=== PATIENT | male | born 1965 | race Caucasian/White ===

== ENCOUNTER 2016-05-31 14:25 | Inpatient (IN) | payer OTHER ==
[~2016-05-31] VITALS: Ht 180.3 cm; Wt 77.7 kg
[~2016-05-31 14:25] MED LIST: AMLO2.5T PO; ATEN1TAB73 PO; BACL10TA PO; DILA100C PO
[2016-05-31 14:33] VITALS: BP 136/74; PULSE 107; RESP 19; TEMP 98.5; O2SAT 99
[2016-05-31] MEDS ORDERED: PHEN100C PO (14:55)
[2016-05-31] MEDS ORDERED: ATEN25TA PO (14:55)
[2016-05-31] MEDS ORDERED: BACL10TA PO (14:55)
[2016-05-31] MEDS ORDERED: AMLO2.5T PO (14:56)
[2016-05-31] MEDS ORDERED: SODIUM CHLOR 0.9% 1000 ML INJ 1,000 ML IV SCH (14:57)
[2016-05-31 14:58] VITALS: BP 134/63; PULSE 105; RESP 18; TEMP 101.7
[2016-05-31] MEDS ORDERED: MORPHINE SULFATE 4 MG/ML INJ IV PUSH ONE (15:00)
[2016-05-31] MEDS ORDERED: ONDANSETRON HCL 4 MG/2 ML VIAL IVP ONE (15:00)
[2016-05-31] MEDS ORDERED: SODIUM CHLORIDE 0.9% FLUSH 5 ML FLUSH IVF PRN ×2 (15:00→17:00)
[2016-05-31 15:12] VITALS: O2SAT 98
--- NOTE | 2016-05-31 15:16 | PD ---
HPI Chief Complaint: General Weakness Time Seen by Provider: 15:16 Travel History International Travel<30 days: No Contact w/Intl Traveler<30days: No Traveled to known affect area: No History of Present Illness HPI Patient comes in for evaluation of jaundice and low back pain. Patient reports jaundice began approximately 2 months ago and since has not been taking Tylenol or ibuprofen since turning yellow. Patient states that back pain is been ongoing for several years after a slip and fall. Patient states he was told he had some herniated disc from this. He states over the past couple of days he's had pain is low back and difficulty walking secondary to the pain and states he' s had numbness in his left lower extremity ongoing for "a while". Patient is also not had a bowel movement for 3 days has been having urinated into a cup over the past couple days secondary to the pain in his back. Patient denies any weight loss, but feels that his abdomen is distended. Patient denies any history of IV drug use. Reports fever that started yesterday of 101 which she has been giving aspirin for the fever. [facility] Past Medical History Hypertension: Yes Musculoskeletal: Yes (CBP) Seizures: Yes Tetanus Vaccination: Unknown Influenza Vaccination: No Past Surgical History Surgical History: No Previous Surgery Social History Alcohol Use: Yes (OCC.) Tobacco Use: Yes Substance Use: No Allergies-Medications (Allergen,Severity, Reaction): Coded Allergies: Penicillin (Verified Allergy, Unknown, 05/31/16) Reported Meds & Prescriptions Reported Meds & Active Scripts Active Reported Amlodipine (Amlodipine Besylate) 2.5 Mg Tab 7.5 Mg PO DAILY Atenolol 25 Mg Tab 12.5 Mg PO DAILY Baclofen 10 Mg Tab 10 Mg PO TID Phenytoin Extended 100 Mg Cap 100 Mg PO TID Review of Systems Except as stated in HPI: all other systems reviewed are Neg Physical Exam Narrative GENERAL: Well-developed, well nourished, in no acute distress, and non-ill appearing. SKIN: Warm and dry. Jaundice. HEAD: Atraumatic. Normocephalic. EYES: Pupils equal and round. EOMI. Scleral icterus. No injection or drainage. ENT: No nasal bleeding or discharge. Mucous membranes pink and moist. NECK: Trachea midline. Supple. No nuclear rigidity. CARDIOVASCULAR: Regular rate and rhythm. No murmur appreciated. RESPIRATORY: No accessory muscle use. No respiratory distress. Clear to auscultation. Breath sounds equal bilaterally. GASTROINTESTINAL: Abdomen soft, non-tender, nondistended. Hepatic and splenic margins not palpable. Normal bowel sounds 4. No pulsatile mass. Ascites noted. MUSCULOSKELETAL: No obvious deformities. No clubbing. No cyanosis. No edema. Decreased range of motion bilateral lower extremities secondary to pain. Patient reports tenderness over lower lumbar. There is no tenderness or crepitus or midline lumbar spine. Pulses equal BL distal to injury. Capillary refill less than 2 seconds distal to injury and equal BL. FROM distal to injury and equal BL. Strength distal to injury equal BL. NV intact distal to injury and equal BL. Plantar flexion and dorsal flexion equal BL. Dorsal pulses equal BL. Sensation intact over first web space and bilateral lower extremities. Positive straight leg test bilaterally. NEUROLOGICAL: Awake and alert. No obvious cranial nerve deficits. Motor grossly within normal limits. Normal speech. PSYCHIATRIC: Appropriate mood and affect; insight and judgment normal. Data Data Last Documented VS Vital Signs Date Time Temp Pulse Resp B/P Pulse Ox O2 Delivery O2 Flow Rate FiO2 05/31/16 16:21 102 20 119/58 93 Room Air 05/31/16 14:58 101.7 95 Orders Complete Blood Count With Diff (05/31/16 14:57) Comprehensive Metabolic Panel (05/31/16 14:57) Lipase (05/31/16 14:57) Lactic Acid (05/31/16 14:57) Prothrombin Time / Inr (Pt) (05/31/16 14:57) Act Partial Throm Time (Ptt) (05/31/16 14:57) Urinalysis - C+S If Indicated (05/31/16 14:57) Iv Access Insert/Monitor (05/31/16 14:57) Ecg Monitoring (05/31/16 14:57) Oximetry (05/31/16 14:57) NPO (05/31/16 14:57) Morphine Inj (Morphine Inj) (05/31/16 15:00) Ondansetron Inj (Zofran Inj) (05/31/16 15:00) Sodium Chlor 0.9% 1000 Ml Inj (Ns 1000 M (05/31/16 14:57) Sodium Chloride 0.9% Flush (Ns Flush) (05/31/16 15:00) Electrocardiogram (05/31/16 14:57) Direct Bilirubin (05/31/16 15:01) Ct Abd/Pel W Iv Contrast(Rout) (05/31/16 15:04) Oral Contrast - Adult (05/31/16 15:13) Diatrizoate Liq ( Gastroanjali Liq) (05/31/16 16:22) Sodium Chloride 0.9% Flush (Ns Flush) (05/31/16 17:00) Blood Culture (05/31/16 16:48) Vancomycin Inj (Vancomycin Inj) (05/31/16 16:48) Aztreonam Inj (Azactam Inj) (05/31/16 16:48) Metronidazole 500 Mg Inj (Flagyl 500 Mg (05/31/16 16:48) Sodium Chlor 0.9% 1000 Ml Inj (Ns 1000 M (05/31/16 17:00) Iohexol 350 Inj (Omnipaque 350 Inj) (05/31/16 18:18) Influenzae A/B Antigen (05/31/16 18:46) Admit Order (Ed Use Only) (05/31/16 19:04) Labs Laboratory Tests Test 05/31/16 05/31/16 15:15 16:55 White Blood Count 10.8 TH/MM3 Red Blood Count 2.29 MIL/MM3 Hemoglobin 8.9 GM/DL Hematocrit 25.4 % Mean Corpuscular Volume 111.0 FL Mean Corpuscular Hemoglobin 39.0 PG Mean Corpuscular Hemoglobin 35.1 % Concent Red Cell Distribution Width 14.7 % Platelet Count 111 TH/MM3 Mean Platelet Volume 7.3 FL Neutrophils (%) (Auto) 81.5 % Lymphocytes (%) (Auto) 7.9 % Monocytes (%) (Auto) 9.6 % Eosinophils (%) (Auto) 0.4 % Basophils (%) (Auto) 0.6 % Neutrophils # (Auto) 8.8 TH/MM3 Lymphocytes # (Auto) 0.9 TH/MM3 Monocytes # (Auto) 1.0 TH/MM3 Eosinophils # (Auto) 0.0 TH/MM3 Basophils # (Auto) 0.1 TH/MM3 CBC Comment DIFF FINAL Differential Comment Prothrombin Time 20.7 SEC Prothromb Time International 1.8 RATIO Ratio Activated Partial 48.9 SEC Thromboplast Time Sodium Level 133 MEQ/L Potassium Level 3.5 MEQ/L Chloride Level 101 MEQ/L Carbon Dioxide Level 23.0 MEQ/L Anion Gap 9 MEQ/L Blood Urea Nitrogen 7 MG/DL Creatinine 0.70 MG/DL Estimat Glomerular Filtration 118 ML/MIN Rate Random Glucose 112 MG/DL Lactic Acid Level 2.0 mmol/L Calcium Level 7.9 MG/DL Total Bilirubin 15.4 MG/DL Direct Bilirubin 10.5 MG/DL Aspartate Amino Transf 65 U/L (AST/SGOT) Alanine Aminotransferase 29 U/L (ALT/SGPT) Alkaline Phosphatase 132 U/L Total Protein 6.6 GM/DL Albumin 1.9 GM/DL Lipase 222 U/L Urine Color DARK-ORANGE Urine Turbidity HAZY Urine pH 7.0 Urine Specific [place] 1.015 Urine Protein 30 mg/dL Urine Glucose (UA) NEG mg/dL Urine Ketones NEG mg/dL Urine Occult Blood SMALL Urine Nitrite NEG Urine Bilirubin LARGE Urine Urobilinogen GREATER THAN 12.0 MG/DL Urine Leukocyte Esterase NEG Urine RBC 8 /hpf Urine WBC 2 /hpf Urine Hyaline Casts 1 /lpf Urine Mucus FEW /lpf Microscopic Urinalysis Comment CULT NOT INDICATED MDM Medical Decision Making Medical Screen Exam Complete: Yes Emergency Medical Condition: Yes Interpretation(s) EKG reviewed by Dr. Mcgill, shows sinus tachycardia with ventricular rate of 107. No STEMI. Differential Diagnosis Pancreatitis, hepatitis, viral syndrome, sepsis, inflammatory bowel disease, diverticulitis, metastatic disease, other Narrative Course Patient was seen exam. Initial laboratory and radiological orders and reviewed. Patient spiked a fever the emergency department additional laboratory studies were ordered as well as antibiotics and ibuprofen for fever. Patient was given morphine for pain as well as hydrated with IV fluid. Discussed patient with Dr. Mcgill, who saw and evaluated the patient is agreeable with plan of care and disposition. Discussed all findings and plans here with patient's who is agreeable for admission. All questions were answered. Sepsis Criteria SIRS Criteria (2 or more): Temp > 100.9 or < 96.8, Heart rate over 90 Criteria Outcome: Meets SIRS criteria Physician Communication Physician Communication [address] Irving, who is agreeable to admit the patient. Diagnosis Primary Impression: SIRS (systemic inflammatory response syndrome) Additional Impression: Jaundice Shad Soto May 31, 2016 15:16
[2016-05-31 15:36] LABS: AUTOMATED NEUTROPHIL # 8.8 TH/MM3 (1.8-7.7); BASOPHIL # 0.1 TH/MM3 (0-0.2); BASOPHIL % 0.6 % (0.0-2.0); EOSINOPHIL % 0.4 % (0.0-4.0); HEMATOCRIT 25.4 % (39.0-51.0); LYMPH % 7.9 % (9.0-44.0); LYMPHOCYTE # 0.9 TH/MM3 (1.0-4.8); MEAN CORPUSCULAR HGB CONC 35.1 % (32.0-36.0); MONO % 9.6 % (0.0-8.0); NEUT % 81.5 % (16.0-70.0); PLATELET COUNT 111 TH/MM3 (150-450); RED BLOOD COUNT 2.29 MIL/MM3 (4.50-5.90); RED CELL DISTRIBUTION WIDTH 14.7 % (11.6-17.2); WHITE BLOOD COUNT 10.8 TH/MM3 (4.0-11.0)
[2016-05-31 15:38] LABS: HEMO FLAGS DIFF FINAL
[2016-05-31 15:42] LABS: APTT (PATIENT) 48.9 SEC (24.3-30.1); INTERNATIONAL NORMALIZED RATIO 1.8 RATIO; PROTHROMBIN TIME - PATIENT 20.7 SEC (9.8-11.6)
[2016-05-31 15:55] LABS: ANION GAP 9 MEQ/L (5-15); AST (GOT) 65 U/L (15-37); BLOOD UREA NITROGEN 7 MG/DL (7-18); CHLORIDE 101 MEQ/L (98-107); GLOMERULAR FILTRATION RATE 118 ML/MIN (>89); POTASSIUM 3.5 MEQ/L (3.5-5.1); SODIUM (NA) 133 MEQ/L (136-145)
[2016-05-31 15:58] LABS: ALKALINE PHOSPHATASE 132 U/L (45-117); ALT (GPT) 29 U/L (12-78); TOTAL BILIRUBIN ADULT 15.4 MG/DL (0.2-1.0)
[2016-05-31 16:21] VITALS: BP 119/58; PULSE 102; RESP 20; O2SAT 93
[2016-05-31] MEDS ORDERED: DIATRIZOATE MEGLUM/DIATRIZOATE SOD 9 ML CUP ONE (16:22)
[2016-05-31] MEDS ORDERED: AZTREONAM INJ 2,000 MG in SODIUM CHLORIDE 0.9% INJ 100 ML IV STA (16:48)
[2016-05-31] MEDS ORDERED: VANCOMYCIN INJ 1,000 MG in SODIUM CHLOR 0.9% 250 ML INJ 250 ML IV STA (16:48)
[2016-05-31] MEDS ORDERED: metroNIDAZOLE 500 MG INJ 100 ML IV STA (16:48)
[2016-05-31] MEDS ORDERED: SODIUM CHLOR 0.9% 1000 ML INJ 1,000 ML IV ONE (17:00)
[2016-05-31 17:08] LABS: BLOOD, URINE SMALL (NEG); COMMENT (UR) CULT NOT INDICATED; CULTURE IF INDICATED CULT NOT INDICATED; GLUCOSE,URINE NEG (NEG); HYALINE CAST, URINE 1 /lpf (RARE); KETONE, URINE NEG (NEG); MUCUS URINE FEW /lpf (OCC); NITRITE,URINE NEG (NEG); URINE COLOR DARK-ORANGE (YELLW/STRAW)
[2016-05-31] MEDS ORDERED: IOHEXOL 350 MG/ML 10 ML VIAL (for RAD DIAG) IV ONE (18:18)
--- NOTE | 2016-05-31 18:35 | RADRPT ---
EXAM DATE/TIME: 05/31/2016 17:59 [place] COMPARISON: No previous studies available for comparison. INDICATIONS : Jaundice, weakness and abdominal pain. IV CONTRAST: 99 cc Omnipaque 350 (iohexol) IV ORAL CONTRAST: Prescribed oral contrast ingested. RADIATION DOSE: 10.08 CTDIvol (mGy) MEDICAL HISTORY : Hypertension. Jaundice. SURGICAL HISTORY : None. ENCOUNTER: Initial ACUITY: 1 day PAIN SCALE: 10/10 LOCATION: Bilateral lower quadrant TECHNIQUE: Volumetric scanning of the abdomen and pelvis was performed. Using automated exposure control and ad justment of the mA and/or kV according to patient size, radiation dose was kept as low as reasonably achievable to obtain optimal diagnostic quality images. FINDINGS: The lung bases are clear. There is moderate ascites with a small shrunken liver. Gallstone is prese nt in the gallbladder. Spleen is prominent. The portal vein remains patent. Significant varicosities are seen in the abdomen and along the buddy n of the stomach. Periumbilical varicosities are noted as well. In the pelvis moderate ascites is evident with moderate stool present. There are very mild degenerative changes in the lower lumbar spine. SI joints are normal. CONCLUSION: 1. Ascites with varicosities as described above. 2. Casey shrunken liver with prominent spleen all consistent with longstanding cirrhosis. Tanner Willis MD FACR on May 31, 2016 at 18:22 Board Certified Radiologist. This report was verified electronically.
--- NOTE | 2016-05-31 18:47 | PD ---
Data Data Last Documented VS Vital Signs Date Time Temp Pulse Resp B/P Pulse Ox O2 Delivery O2 Flow Rate FiO2 05/31/16 16:21 102 20 119/58 93 Room Air 05/31/16 14:58 101.7 95 Orders Complete Blood Count With Diff (05/31/16 14:57) Comprehensive Metabolic Panel (05/31/16 14:57) Lipase (05/31/16 14:57) Lactic Acid (05/31/16 14:57) Prothrombin Time / Inr (Pt) (05/31/16 14:57) Act Partial Throm Time (Ptt) (05/31/16 14:57) Urinalysis - C+S If Indicated (05/31/16 14:57) Iv Access Insert/Monitor (05/31/16 14:57) Ecg Monitoring (05/31/16 14:57) Oximetry (05/31/16 14:57) NPO (05/31/16 14:57) Morphine Inj (Morphine Inj) (05/31/16 15:00) Ondansetron Inj (Zofran Inj) (05/31/16 15:00) Sodium Chlor 0.9% 1000 Ml Inj (Ns 1000 M (05/31/16 14:57) Sodium Chloride 0.9% Flush (Ns Flush) (05/31/16 15:00) Electrocardiogram (05/31/16 14:57) Direct Bilirubin (05/31/16 15:01) Ct Abd/Pel W Iv Contrast(Rout) (05/31/16 15:04) Oral Contrast - Adult (05/31/16 15:13) Diatrizoate Liq ( Gastroview Liq) (05/31/16 16:22) Sodium Chloride 0.9% Flush (Ns Flush) (05/31/16 17:00) Blood Culture (05/31/16 16:48) Vancomycin Inj (Vancomycin Inj) (05/31/16 16:48) Aztreonam Inj (Azactam Inj) (05/31/16 16:48) Metronidazole 500 Mg Inj (Flagyl 500 Mg (05/31/16 16:48) Sodium Chlor 0.9% 1000 Ml Inj (Ns 1000 M (05/31/16 17:00) Iohexol 350 Inj (Omnipaque 350 Inj) (05/31/16 18:18) Labs Laboratory Tests Test 05/31/16 05/31/16 15:15 16:55 White Blood Count 10.8 TH/MM3 Red Blood Count 2.29 MIL/MM3 Hemoglobin 8.9 GM/DL Hematocrit 25.4 % Mean Corpuscular Volume 111.0 FL Mean Corpuscular Hemoglobin 39.0 PG Mean Corpuscular Hemoglobin 35.1 % Concent Red Cell Distribution Width 14.7 % Platelet Count 111 TH/MM3 Mean Platelet Volume 7.3 FL Neutrophils (%) (Auto) 81.5 % Lymphocytes (%) (Auto) 7.9 % Monocytes (%) (Auto) 9.6 % Eosinophils (%) (Auto) 0.4 % Basophils (%) (Auto) 0.6 % Neutrophils # (Auto) 8.8 TH/MM3 Lymphocytes # (Auto) 0.9 TH/MM3 Monocytes # (Auto) 1.0 TH/MM3 Eosinophils # (Auto) 0.0 TH/MM3 Basophils # (Auto) 0.1 TH/MM3 CBC Comment DIFF FINAL Differential Comment Prothrombin Time 20.7 SEC Prothromb Time International 1.8 RATIO Ratio Activated Partial 48.9 SEC Thromboplast Time Sodium Level 133 MEQ/L Potassium Level 3.5 MEQ/L Chloride Level 101 MEQ/L Carbon Dioxide Level 23.0 MEQ/L Anion Gap 9 MEQ/L Blood Urea Nitrogen 7 MG/DL Creatinine 0.70 MG/DL Estimat Glomerular Filtration 118 ML/MIN Rate Random Glucose 112 MG/DL Lactic Acid Level 2.0 mmol/L Calcium Level 7.9 MG/DL Total Bilirubin 15.4 MG/DL Direct Bilirubin 10.5 MG/DL Aspartate Amino Transf 65 U/L (AST/SGOT) Alanine Aminotransferase 29 U/L (ALT/SGPT) Alkaline Phosphatase 132 U/L Total Protein 6.6 GM/DL Albumin 1.9 GM/DL Lipase 222 U/L Urine Color DARK-ORANGE Urine Turbidity HAZY Urine pH 7.0 Urine Specific [place] 1.015 Urine Protein 30 mg/dL Urine Glucose (UA) NEG mg/dL Urine Ketones NEG mg/dL Urine Occult Blood SMALL Urine Nitrite NEG Urine Bilirubin LARGE Urine Urobilinogen GREATER THAN 12.0 MG/DL Urine Leukocyte Esterase NEG Urine RBC 8 /hpf Urine WBC 2 /hpf Urine Hyaline Casts 1 /lpf Urine Mucus FEW /lpf Microscopic Urinalysis Comment CULT NOT INDICATED MDM Supervised Visit with ANALY: Yes Narrative Course The history, exam, and medical decision-making in the associated mid-level provider note were completed with my assistance. I reviewed and agree with the findings presented. I attest that I had a [id number] encounter with the patient on the same day, and personally performed and documented my assessment and findings in the medical record. *My assessment and Findings: The 51-year-old man presents emergent [place] of severe low back pain rating the left leg with left leg numbness. He has chronic baseline similar symptoms bilirubin all worse over past day or so. He also has jaundice and has chronic cirrhosis that he never really had it evaluated. On my exam he has diminished patellar reflex on the left and his trip and numbness on the outside a lot lately no evidence of cauda equina syndrome. Normal rectal tone. Normal perineal sensation. While in the emergency department he spiked a fever up to 101.7, etiology unclear. Seems again would be related to the back pain, which is possibly related to cirrhosis. Any case, he needs admission for further evaluation, blood cultures were obtained. He is given empiric antibiotics. Patient denies IV drug use or other risk factors for epidural abscess. Max Mcgill MD May 31, 2016 18:46
[2016-05-31 19:13] VITALS: BP 115/78; PULSE 105; RESP 16; O2SAT 96
[2016-05-31] MEDS ORDERED: NALOXONE HCL 0.4 MG/ML AMP IV PRN (20:15)
[2016-05-31] MEDS ORDERED: SODIUM CHLORIDE 0.9% FLUSH 5 ML FLUSH FLUSH PRN (20:15)
[2016-05-31] MEDS: SODIUM CHLORIDE 0.9% FLUSH 5 ML FLUSH FLUSH SCH (20:52)
[2016-05-31 21:05] LABS: HEMATOCRIT 23.2 % (39.0-51.0)
[2016-05-31 21:06] LABS: REVIEW FLAG FINAL
[2016-05-31] MEDS ORDERED: ONDANSETRON HCL 4 MG/2 ML VIAL IVP PRN (22:00)
[2016-05-31] MEDS: PANTOPRAZOLE SODIUM 40 MG VIAL IV PUSH SCH (22:18)
[2016-05-31 22:30] VITALS: BP 110/68; PULSE 109; RESP 16; O2SAT 95
[2016-05-31] MEDS: metroNIDAZOLE 500 MG INJ 100 ML IV SCH (23:12)
[2016-06-01 00:08] VITALS: BP 118/56; PULSE 109; RESP 20; TEMP 98.4; O2SAT 94
[2016-06-01 01:03] VITALS: PULSE 105
[2016-06-01 03:12] LABS: AUTOMATED NEUTROPHIL # 8.3 TH/MM3 (1.8-7.7); BASOPHIL # 0.1 TH/MM3 (0-0.2); BASOPHIL % 0.8 % (0.0-2.0); HEMATOCRIT 24.6 % (39.0-51.0); LYMPH % 9.2 % (9.0-44.0); MEAN CELL VOLUME 112.2 FL (80.0-100.0); MEAN CORPUSCULAR HEMOGLOBIN 39.5 PG (27.0-34.0); MEAN CORPUSCULAR HGB CONC 35.2 % (32.0-36.0); MONO % 10.3 % (0.0-8.0); NEUT % 79.7 % (16.0-70.0); PLATELET COUNT 113 TH/MM3 (150-450); RED BLOOD COUNT 2.19 MIL/MM3 (4.50-5.90); RED CELL DISTRIBUTION WIDTH 15.1 % (11.6-17.2); WHITE BLOOD COUNT 10.4 TH/MM3 (4.0-11.0)
[2016-06-01 03:13] LABS: HEMO FLAGS DIFF FINAL
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
[2016-06-01 03:25] LABS: BICARBONATE 23.4 MEQ/L (21.0-32.0); POTASSIUM 3.9 MEQ/L (3.5-5.1)
[2016-06-01 04:45] VITALS: BP 108/56; PULSE 104; RESP 20; TEMP 98.4; O2SAT 94
[2016-06-01] MEDS: metroNIDAZOLE 500 MG INJ 100 ML IV SCH (04:56)
--- NOTE | 2016-06-01 05:44 | RADRPT ---
EXAM DATE/TIME: 06/01/2016 05:13 [facility] COMPARISON: No previous studies available for comparison. INDICATIONS : Back pain along with difficulty walking. Evaluate for abscess. RADIATION DOSE: 23.33 CTDIvol (mGy) MEDICAL HISTORY : Seizures. Hypertension. Chronic obstructive pulmonary disease.Cirrhosis SURGICAL HISTORY : None. ENCOUNTER: Initial ACUITY: 2 days PAIN SCALE: 4/10 LOCATION: neck TECHNIQUE: Volumetric scanning of the cervical spine was performed. Multiplanar reconstructions in the sagittal, coronal and oblique axial planes were performed. Using automated exposure control and adjustment o f the mA and/or kV according to patient size, radiation dose was kept as low as reasonably achievable to obtain optimal diagnostic quality images. FINDINGS: There is minimal retrolisthesis C5 relative to C6. Significant disc space narrowing is present at thi s level. Small endplate osteophytes. There is no evidence of fracture or destructive change. No evide nce of bony canal or foraminal compromise. No evidence of paraspinal mass, collection or hematoma. CONCLUSION: Mild degenerative change. No acute bony findings. Joseph Cook MD on June 01, 2016 at 5:41 Board Certified Radiologist. This report was verified electronically.
--- NOTE | 2016-06-01 06:09 | RADRPT ---
EXAM DATE/TIME: 06/01/2016 05:13 [facility] COMPARISON: No previous studies available for comparison. INDICATIONS : Back pain and difficulty walking . Evaluate for abscess. RADIATION DOSE: 45.86 CTDIvol (mGy) MEDICAL HISTORY : Seizures. Hypertension. Chronic obstructive pulmonary disease.Cirrhosis SURGICAL HISTORY : None. ENCOUNTER: Initial ACUITY: 2 days PAIN SCALE: 4/10 LOCATION: back TECHNIQUE: Volumetric scanning of the thoracic spine was performed. Multiplanar reconstructions in the sagittal , coronal and oblique axial planes were performed. Using automated exposure control and adjustment o f the mA and/or kV according to patient size, radiation dose was kept as low as reasonably achievable to obtain optimal diagnostic quality images. FINDINGS: Thoracic spinal alignment is satisfactory. There is no evidence of fracture. No bony canal or foramin al stenosis is noted. There is no evidence of paraspinal mass or hematoma. CONCLUSION: No evidence of acute bony process in the thoracic spine. Joseph Cook MD on June 01, 2016 at 6:06 Board Certified Radiologist. This report was verified electronically.
--- NOTE | 2016-06-01 06:11 | RADRPT ---
EXAM DATE/TIME: 06/01/2016 05:13 [facility] COMPARISON: No previous studies available for comparison. INDICATIONS : Back pain and difficulty walking . Evaluate for abscess. RADIATION DOSE: 45.86 CTDIvol (mGy) ; Combined studies MEDICAL HISTORY : Seizures. Hypertension. Chronic obstructive pulmonary disease.Cirrhosis SURGICAL HISTORY : None. ENCOUNTER: Initial ACUITY: 2 days PAIN SCALE: 4/10 LOCATION: middle back pain TECHNIQUE: Volumetric scanning of the lumbar spine was performed. Multiplanar reconstructions in the sagittal, coronal and oblique axial planes were performed. Using automated exposure control and adjustment of the mA and/or kV according to patient size, radiation dose was kept as low as reasonably achievable t o obtain optimal diagnostic quality images. FINDINGS: Lumbar spine alignment is normal. There is no evidence of fracture or destructive change. No bony can al stenosis is identified. There is degenerative change with disc space narrowing most notably at L5- S1. There appears to be broad dorsal disc protrusion at this level. Canal appears adequate. Mild asym metrically left-sided foraminal narrowing. There is no evidence of paraspinal mass or hematoma. CONCLUSION: Disc protrusion at the lumbosacral junction with mild asymmetric left-sided foraminal narrowing. No a cute bony findings. Joseph Cook MD on June 01, 2016 at 6:08 Board Certified Radiologist. This report was verified electronically.
--- NOTE | 2016-06-01 06:41 | RADRPT ---
EXAM DATE/TIME: 06/01/2016 06:12 [facility] COMPARISON: CT ABDOMEN & PELVIS W CONTRAST, May 31, 2016, 17:59. INDICATIONS : Chest pain MEDICAL HISTORY : Seizures. Hypertension. Chronic obstructive pulmonary disease.Cirrhosis SURGICAL HISTORY : None. ENCOUNTER: Initial ACUITY: 1 day PAIN SCORE: Non-responsive. LOCATION: Bilateral chest FINDINGS: A single view of the chest demonstrates the lungs to be symmetrically aerated without evidence of mas s, infiltrate or effusion. The cardiomediastinal contours are unremarkable. Osseous structures are intact. CONCLUSION: No acute disease. Joseph Cook MD on June 01, 2016 at 6:38 Board Certified Radiologist. This report was verified electronically.
[2016-06-01 07:56] VITALS: BP 108/59; PULSE 103; RESP 18; TEMP 100.5; O2SAT 94
--- NOTE | 2016-06-01 08:35 | HHI.PR ---
Subjective Remarks Follow-up for back pain and jaundice. The patient continues to complain of lower back pain. Had been on Flexeril in the past which helped "back off" the pain. He feels like he is having to drag his leg due to the pain. He denies any prior history of liver disease. He's been having fevers, chills, night sweats. He denies any cough or cold symptoms, vomiting, diarrhea, skin lesions. Objective Vitals Vital Signs Date Time Temp Pulse Resp B/P Pulse Ox O2 Delivery O2 Flow Rate FiO2 06/01/16 07:56 100.5 103 18 108/59 94 06/01/16 04:45 98.4 104 20 108/56 94 06/01/16 01:03 105 06/01/16 00:08 98.4 109 20 118/56 94 05/31/16 22:30 109 16 110/68 95 Room Air 05/31/16 19:13 105 16 115/78 96 Room Air 05/31/16 16:21 102 20 119/58 93 Room Air 05/31/16 15:12 98 Room Air 05/31/16 14:58 101.7 105 18 134/63 Room Air 95 05/31/16 14:35 Room Air 05/31/16 14:33 98.5 107 19 136/74 99 Result Diagram: 06/01/16 0243 06/01/16 0243 Imaging Last Impressions Thoracic Spine CT 06/01/16 0000 Signed Impressions: Service Date/Time: Wednesday, June 01, 2016 05:13 - CONCLUSION: No evidence of acute bony process in the thoracic spine. Joseph Cook MD Lumbar Spine CT 06/01/16 0000 Signed Impressions: Service Date/Time: Wednesday, June 01, 2016 05:13 - CONCLUSION: Disc protrusion at the lumbosacral junction with mild asymmetric left-sided foraminal narrowing. No acute bony findings. Joseph Cook MD Chest X-Ray 06/01/16 0000 Signed Impressions: Service Date/Time: Wednesday, June 01, 2016 06:12 - CONCLUSION: No acute disease. Joseph Cook MD Cervical Spine CT 06/01/16 0000 Signed Impressions: Service Date/Time: Wednesday, June 01, 2016 05:13 - CONCLUSION: Mild degenerative change. No acute bony findings. Joseph Cook MD Abdomen/Pelvis CT 05/31/16 1504 Signed Impressions: Service Date/Time: Tuesday, May 31, 2016 17:59 - CONCLUSION: 1. Ascites with varicosities as described above. 2. Casey shrunken liver with prominent spleen all consistent with longstanding cirrhosis. Tanner Willis MD FACR Objective Remarks GENERAL: Well-developed well-nourished. In no acute distress. SKIN: Warm and dry. No lesions noted. Jaundiced. HEENT: Normocephalic. Pupils equal and round. Mucous membranes pink and moist. CARDIOVASCULAR: Regular rate and rhythm. No murmur appreciated. RESPIRATORY: No accessory muscle use. Clear to auscultation. Breath sounds equal bilaterally. GASTROINTESTINAL: Abdomen soft, non-tender, nondistended. Bowel sounds x4. MUSCULOSKELETAL: No obvious deformities. No clubbing or cyanosis. No edema. Lower back pain with ROM of bilateral hip joints. NEUROLOGICAL: Awake and alert. No focal neurological deficits. Moves upper and lower extremities spontaneously. Normal speech. PSYCHIATRIC: Appropriate mood and affect; insight and judgment normal. A/P Problem List: (1) Jaundice ICD Code: R17 Status: Acute (2) SIRS (systemic inflammatory response syndrome) ICD Code: R65.10 Status: Acute (3) Back pain ICD Code: M54.9 Status: Chronic (4) Anemia ICD Code: D64.9 Status: Acute (5) HTN (hypertension) ICD Code: I10 Status: Chronic (6) Seizures ICD Code: R56.9 Status: Chronic Assessment and Plan 51-year-old male with a history of chronic back pain, hypertension seizures presented with: Jaundice Images reviewed: Abdomen/pelvis CT shows Ascites with varicosities as described above. A Small shrunken liver with prominent spleen all consistent with longstanding cirrhosis. Labs reviewed: Total bilirubin 15.4, AST 65, alkaline phosphatase 132. -Consulted GI for recommendations -Protonix IV -Check LFTs with bilirubin components, hepatitis panel Sirs, heart rate 105, Tmax 101.7, lactic acid 2.0 UA negative. Chest x-ray with no acute process. -Levofloxacin IV and Flagyl IV ordered -Blood cultures pending -Supportive IVF -Could consider ID consult Acute on chronic lower back pain Imaging reviewed: Cervical and thoracic CTs with no acute process. Lumbar CT with disc protrusion at lower sacral drunk walden with mild asymmetric left-sided foraminal narrowing, no acute bony findings. -Continue home Flexeril -Heating pad -PT eval Macrocytic Anemia Labs: Hemoglobin 8.6/8.2/8.9, stable. B12 greater than 2000. -Follow up CBC -Check folate and iron studies Seizures, chronic -Changed patient's Dilantin to Keppra 250 mg by mouth every 12 due to decreased liver function -Seizure precautions -Check Dilantin level Hypertension, chronic, stable -Continue home atenolol and Norvasc -Monitor vitals DVT prophylaxis: Scds Discharge Planning Disposition pending clinical course Attending Statement The exam, history, and the medical decision-making described in the above note were completed with the assistance of the mid-level provider. I reviewed and agree with the findings presented. I attest that I had a [id number] encounter with the patient on the same day, and personally performed and documented my assessment and findings in the medical record. Problem Qualifiers (1) Back pain: (2) HTN (hypertension): Qualified Code: I10 - Essential hypertension Ezequiel Wilburn Jun 01, 2016 08:35 Garrison Vaca MD Jun 20, 2016 03:13
[2016-06-01] MEDS: amLODIPine BESYLATE 5 MG TAB PO SCH (09:00)
[2016-06-01] MEDS ORDERED: LEVOFLOXACIN 750 MG PREMIX INJ 150 ML IV SCH (09:00)
[2016-06-01] MEDS ORDERED: BACLOFEN 10 MG TAB PO SCH (09:00)
[2016-06-01] MEDS: CYCLOBENZAPRINE HCL 10 MG TAB PO SCH ×3 (09:46→23:48)
[2016-06-01] MEDS: SODIUM CHLORIDE 0.9% FLUSH 5 ML FLUSH FLUSH SCH ×2 (09:46→21:46)
[2016-06-01] MEDS: ATENOLOL 25 MG TAB PO SCH (09:46)
[2016-06-01] MEDS: PANTOPRAZOLE SODIUM 40 MG VIAL IV PUSH SCH ×2 (09:47→21:47)
[2016-06-01 10:56] LABS: ALKALINE PHOSPHATASE 111 U/L (45-117); ALT (GPT) 30 U/L (12-78); AST (GOT) 74 U/L (15-37); FERRITIN 447 NG/ML (26-388); INDIRECT BILIRUBIN 6.3 MG/DL (0.0-0.8); TOTAL BILIRUBIN ADULT 16.9 MG/DL (0.2-1.0); TRANSFERRIN IRON PROFILE 122 MG/DL (200-360)
[2016-06-01] MEDS ORDERED: Vancomycin Consult Pharmacy 1 EA OTHER SCH (11:15)
[2016-06-01] MEDS ORDERED: VANCOMYCIN INJ 1,000 MG in SODIUM CHLOR 0.9% 250 ML INJ 250 ML IV ONE (11:15)
--- NOTE | 2016-06-01 11:18 | PD.CONS ---
HPI History of Present Illness This is a 51 year old male patient who came to the ER for evaluation of a 3 day history of lower back pain with numbness and pain down his left leg. This is aggravated by movement, but he has the numbness constantly. He reports fevers and chills since yesterday. He also had a bad fever about 103 or 104 about 4 weeks. He did have nausea/vomiting at that time, but states his symptoms quickly resolved on its own. Lumbar Spine CT (06/01/16) revealed disc protrusion at the lumbosacral junction with mild asymmetric left-sided foraminal narrowing. No acute bony findings. He was also noted to have elevated LFTs with. T. Bili 15.4, AST 65, ALT 29, ALk Phosph 132 and Abdomen/ Pelvis CT (05/31/16) revealed 1. Ascites with varicosities as described above. 2. Casey shrunken liver with prominent spleen all consistent with longstanding cirrhosis. GI has been consulted for jaundice/elevated LFTs. The patient denies any known history of liver disease in himself or other family members. He reports that he has been having jaundice x 2-3 months. His states this got bad a few weeks ago. He denies any nausea or vomiting. He does have mild epigastric/mid abdominal pressure with no radiation and no aggravating or alleviating factors. No heartburn or reflux. He denies any bowel changes, diarrhea, constipation, melena, or hematochezia. He reports that his appetite is good and he has not lost any weight. He has a hx of heavy ETOH use and states he quit 5-6 months ago and has not had any since that time. He has been taking 5-6 Acetaminophen per day for a few months. He denies any hx of drug use or blood transfusions. He denies any new sexual partners. He denies any history of hepatitis. (Jeannine Trujillo) PFSH Past Medical History Chronic back pain Hypertension Seizures COPD Past Surgical History Patient denies any surgical history (Jeannine Trujillo) Coded Allergies: Penicillin (Verified Allergy, Unknown, 05/31/16) Medications Allergies Coded Allergies Type Severity Reaction Last Updated Verified Penicillin Allergy Unknown 05/31/16 Yes Active Scripts Medications Dose Route/Sig Days Date Category Amlodipine (Amlodipine Besylate) 2.5 Mg Tab 7.5 Mg PO DAILY 05/31/16 Reported Atenolol 25 Mg Tab 12.5 Mg PO DAILY 05/31/16 Reported Baclofen 10 Mg Tab 10 Mg PO TID 05/31/16 Reported Phenytoin Extended 100 Mg Cap 100 Mg PO TID 05/31/16 Reported Family History Mother had heart disease. No known family hx of liver dz Social History Smokes1 ppd Alcohol use: Quit 6 months ago Illicit drug use: Denies (Jeannine Trujillo) Review of Systems Constitutional: COMPLAINS OF: Fatigue, Fever, Chills, DENIES: Weight loss, Change in appetite Respiratory: COMPLAINS OF: Cough, Shortness of breath Cardiovascular: DENIES: Chest pain Gastrointestinal: COMPLAINS OF: Abdominal pain, DENIES: Black stools, Bloody stools, Constipation, Diarrhea, Nausea, Vomiting, Anorexia, Swelling of Abdomen , Heartburn, Hematemesis Musculoskeletal: COMPLAINS OF: Muscle aches, Stiffness, Back pain Integumentary: COMPLAINS OF: Jaundice Hematologic/lymphatic: DENIES: Bruising Neurologic: COMPLAINS OF: Paresthesias, DENIES: Headache Psychiatric: DENIES: Confusion (Jeannine Trujillo) GI Exam Vitals I&O Vital Signs Date Time Temp Pulse Resp B/P Pulse Ox O2 Delivery O2 Flow Rate FiO2 06/01/16 07:56 100.5 103 18 108/59 94 06/01/16 04:45 98.4 104 20 108/56 94 06/01/16 01:03 105 06/01/16 00:08 98.4 109 20 118/56 94 05/31/16 22:30 109 16 110/68 95 Room Air 05/31/16 19:13 105 16 115/78 96 Room Air 05/31/16 16:21 102 20 119/58 93 Room Air 05/31/16 15:12 98 Room Air 05/31/16 14:58 101.7 105 18 134/63 Room Air 95 05/31/16 14:35 Room Air 05/31/16 14:33 98.5 107 19 136/74 99 Imaging Last Impressions Thoracic Spine CT 06/01/16 0000 Signed Impressions: Service Date/Time: Wednesday, June 01, 2016 05:13 - CONCLUSION: No evidence of acute bony process in the thoracic spine. Joseph Cook MD Lumbar Spine CT 06/01/16 0000 Signed Impressions: Service Date/Time: Wednesday, June 01, 2016 05:13 - CONCLUSION: Disc protrusion at the lumbosacral junction with mild asymmetric left-sided foraminal narrowing. No acute bony findings. Joseph Cook MD Chest X-Ray 06/01/16 0000 Signed Impressions: Service Date/Time: Wednesday, June 01, 2016 06:12 - CONCLUSION: No acute disease. Joseph Cook MD Cervical Spine CT 06/01/16 0000 Signed Impressions: Service Date/Time: Wednesday, June 01, 2016 05:13 - CONCLUSION: Mild degenerative change. No acute bony findings. Joseph Cook MD Abdomen/Pelvis CT 05/31/16 1504 Signed Impressions: Service Date/Time: Tuesday, May 31, 2016 17:59 - CONCLUSION: 1. Ascites with varicosities as described above. 2. Casey shrunken liver with prominent spleen all consistent with longstanding cirrhosis. Tanner Willis MD FACR Laboratory Test 05/31/16 05/31/16 05/31/16 06/01/16 15:15 16:55 20:35 02:43 White Blood Count 10.8 TH/MM3 10.4 TH/MM3 Red Blood Count 2.29 MIL/MM3 2.19 MIL/MM3 Hemoglobin 8.9 GM/DL 8.2 GM/DL 8.6 GM/DL Hematocrit 25.4 % 23.2 % 24.6 % Mean Corpuscular Volume 111.0 FL 112.2 FL Mean Corpuscular Hemoglobin 39.0 PG 39.5 PG Mean Corpuscular Hemoglobin 35.1 % 35.2 % Concent Red Cell Distribution Width 14.7 % 15.1 % Platelet Count 111 TH/MM3 113 TH/MM3 Mean Platelet Volume 7.3 FL 7.2 FL Neutrophils (%) (Auto) 81.5 % 79.7 % Lymphocytes (%) (Auto) 7.9 % 9.2 % Monocytes (%) (Auto) 9.6 % 10.3 % Eosinophils (%) (Auto) 0.4 % 0.0 % Basophils (%) (Auto) 0.6 % 0.8 % Neutrophils # (Auto) 8.8 TH/MM3 8.3 TH/MM3 Lymphocytes # (Auto) 0.9 TH/MM3 1.0 TH/MM3 Monocytes # (Auto) 1.0 TH/MM3 1.1 TH/MM3 Eosinophils # (Auto) 0.0 TH/MM3 0.0 TH/MM3 Basophils # (Auto) 0.1 TH/MM3 0.1 TH/MM3 CBC Comment DIFF FINAL DIFF FINAL Differential Comment Prothrombin Time 20.7 SEC Prothromb Time International 1.8 RATIO Ratio Activated Partial 48.9 SEC Thromboplast Time Sodium Level 133 MEQ/L 136 MEQ/L Potassium Level 3.5 MEQ/L 3.9 MEQ/L Chloride Level 101 MEQ/L 104 MEQ/L Carbon Dioxide Level 23.0 MEQ/L 23.4 MEQ/L Anion Gap 9 MEQ/L 9 MEQ/L Blood Urea Nitrogen 7 MG/DL 9 MG/DL Creatinine 0.70 MG/DL 0.85 MG/DL Estimat Glomerular Filtration 118 ML/MIN 95 ML/MIN Rate Random Glucose 112 MG/DL 120 MG/DL Lactic Acid Level 2.0 mmol/L Calcium Level 7.9 MG/DL 7.7 MG/DL Total Bilirubin 15.4 MG/DL Direct Bilirubin 10.5 MG/DL Aspartate Amino Transf 65 U/L (AST/SGOT) Alanine Aminotransferase 29 U/L (ALT/SGPT) Alkaline Phosphatase 132 U/L Total Protein 6.6 GM/DL Albumin 1.9 GM/DL Lipase 222 U/L Urine Color DARK-ORANGE Urine Turbidity HAZY Urine pH 7.0 Urine Specific [place] 1.015 Urine Protein 30 mg/dL Urine Glucose (UA) NEG mg/dL Urine Ketones NEG mg/dL Urine Occult Blood SMALL Urine Nitrite NEG Urine Bilirubin LARGE Urine Urobilinogen GREATER THAN 12.0 MG/DL Urine Leukocyte Esterase NEG Urine RBC 8 /hpf Urine WBC 2 /hpf Urine Hyaline Casts 1 /lpf Urine Mucus FEW /lpf Microscopic Urinalysis Comment CULT NOT INDICATED Blood Type A POSITIVE Antibody Screen NEGATIVE Blood Bank Comment Vitamin B12 Level GREATER THAN 2000 PG/ML Test 06/01/16 09:59 Iron Level 69 MCG/DL Total Iron Binding Capacity 171 MCG/DL Percent Iron Saturation 40.4 % Ferritin 447 NG/ML Total Bilirubin 16.9 MG/DL Direct Bilirubin 10.6 MG/DL Indirect Bilirubin 6.3 MG/DL Aspartate Amino Transf 74 U/L (AST/SGOT) Alanine Aminotransferase 30 U/L (ALT/SGPT) Alkaline Phosphatase 111 U/L Total Protein 6.6 GM/DL Albumin 1.8 GM/DL Folate 11.5 NG/ML Phenytoin (Dilantin) Level LESS THAN 0.4 MCG/ML Date/Time Procedure Status Source Growth 05/31/16 17:10 Aerobic Blood Culture Received Blood Peripheral Pending 05/31/16 17:10 Anaerobic Blood Culture Received Blood Peripheral Pending Physical Examination HEENT: Normocephalic; atraumatic; + jaundice. CHEST: CTA CARDIAC: RRR ABDOMEN: Soft, nondistended, mild epigastric tenderness; hepatosplenomegaly; bowel sounds are present in all four quadrants. EXTREMITIES: No clubbing, cyanosis, or edema. SKIN: Normal; no rash; + jaundice. UNDERGROUND REPAIRER: Alert and oriented times three. (Jeannine Trujillo) Assessment and Plan Plan ASSESSMENT: - Jaundice, Elevated LFTs. Abdomen/Pelvis CT (05/31/16) revealed 1. Ascites with varicosities as described above. 2. Casey shrunken liver with prominent spleen all consistent with longstanding cirrhosis. Pt denies any known hx of liver disease or cirrhosis in himself or family. He reports hx of heavy ETOH abuse, but quit 6 months ago and has not had any ETOH since that time. He denies any GI symptoms other than mild epigastric/midabdominal pressure. He reports that he has been jaundiced 2-3 months. Denies weight loss. He has been taking 5-6 Acetaminophen per day for a few months. He denies any hx of drug use or blood transfusions. He denies any new sexual partners. He denies any history of hepatitis. - Liver cirrhosis. New dx. CT Abdomen/Pelvis CT (05/31/16) revealed 1. Ascites with varicosities as described above. 2. Casey shrunken liver with prominent spleen all consistent with longstanding cirrhosis. MELD 23. Pt reports hx of heavy ETOH abuse, states he quit completely x 5-6 months ago. - Coagulopathy/Thrombocytopenia. PT 20.7, INR 1.8. Plt 113. - Anemia. 8.6/24.6. No active bleeding. - Back pain with lle weakness/numbness. - COPD, HTN. PLAN: - Low salt diet - Stat Acetaminophen level- use earliest blood available from this hospitalization - PT/INR and Ammonia today - Hepatitis profile - AFP - [place], ASMA, AMA - Ceruloplasmin, Alpha 1 Antitrypsin - Iron Saturation, Ferritin - Monitor LFTs - Avoid hepatotoxic meds - Supportive care - Further recommendations to follow based on results of above - Pt seen and examined by Dr. Viveros and myself and this note is written on his behalf (Jeannine Trujillo) Physician Comments Seen and examined, Start mucomyst PO as per protocol. He has been taking a lot of acetaminophen and motrins. Acetaminophen levels-p. Hepatitis profile ordered. Paracentesis recommended. Will follow, thank you (Anuel Viveros MD) Jeannine Trujillo Jun 01, 2016 11:18 Anuel Viveros MD Jun 01, 2016 12:01
[2016-06-01] MEDS: levETIRAcetam 250 MG TAB PO SCH ×2 (11:36→21:50)
[2016-06-01 12:08] VITALS: BP 95/59; PULSE 79; RESP 18; TEMP 98.8; O2SAT 98
[2016-06-01 12:41] LABS: INTERNATIONAL NORMALIZED RATIO 1.9 RATIO; PROTHROMBIN TIME - PATIENT 22.1 SEC (9.8-11.6)
[2016-06-01] MEDS ORDERED: ACETYLCYSTEINE 20% ORAL SOLN 4 ML VIAL PO SCH (13:00)
[2016-06-01] MEDS ORDERED: ACETYLCYSTEINE 20% 6,000 MG/30 ML ORAL SOLN VIAL PO SCH (14:00)
--- NOTE | 2016-06-01 14:08 | PD.ID.CON ---
History of Present Illness Service Infectious Disease Consult Requested By /Ezequiel RODRÍGUEZ. Reason for Consult Evaluation and Mment of bacteremia, sepsis. Primary Care Physician No Primary Care Physician Diagnoses: History of Present Illness Mr. Fonseca is a 51 y/o CM patient who came to the ER for evaluation of a 3 day history of lower back pain with numbness and pain down his left leg. This is aggravated by movement, but he has the numbness constantly. He reports fevers and chills since last 4 weeks associated with night sweats. He also had a bad fever about 103 or 104 about 4 weeks. He did have nausea/vomiting at that time , but states his symptoms quickly resolved on its own. Lumbar Spine CT (06/01/16 ) revealed disc protrusion at the lumbosacral junction with mild asymmetric left -sided foraminal narrowing. No acute bony findings. He was also noted to have elevated LFTs with. T. Bili 15.4, AST 65, ALT 29, ALk Phosph 132. Abdomen/Pelvis CT (05/31/16) revealed 1. Ascites with varicosities as described above. 2. Small shrunken liver with prominent spleen all consistent with longstanding cirrhosis. GI has been consulted for jaundice/ elevated LFTs and paracentesis planned for today. He reports that he has been having jaundice x 2-3 months. He denies any nausea or vomiting. He does have mild epigastric/mid abdominal pressure with no radiation and no aggravating or alleviating factors. No heartburn or reflux. He denies any bowel changes, diarrhea, constipation, melena, or hematochezia. He reports that his appetite is good and he has not lost any weight. He has a hx of heavy ETOH use and states he quit 5-6 months ago and has not had any since that time. He has been taking 5-6 Acetaminophen per day for a few months. He denies any hx of drug use or blood transfusions. He denies any new sexual partners. He denies any history of hepatitis. He reports being tested for HIV and negative results. BCX drawn on admission positive for Gram positives. ID is consulted for evaluation and Mment of Sepsis and Gram positive bacteremia. I called [facility] in bcx are strep. Review of Systems ROS Limitations: Poor Historian Constitutional: COMPLAINS OF: Fever, Chills, Night Sweats, DENIES: Diaphoretic episodes, Fatigue, Weight gain, Weight loss, Dizziness, Change in appetite Endocrine: DENIES: Heat/cold intolerance, Polydipsia, Polyuria, Polyphagia Eyes: DENIES: Blurred vision, Diplopia, Eye inflammation, Eye pain, Vision loss , Photosensitivity, Double Vision Ears, nose, mouth, throat: DENIES: Tinnitus, Hearing loss, Vertigo, Nasal discharge, Oral lesions, Throat pain, Hoarseness, Ear Pain, Running Nose, Epistaxis, Sinus Pain, Toothache, Odynophagia Respiratory: DENIES: Apneas, Cough, Snoring, Wheezing, Hemoptysis, Sputum production, Shortness of breath Cardiovascular: DENIES: Chest pain, Palpitations, Syncope, Dyspnea on Exertion , PND, Lower Extremity Edema, Orthopnea, Claudication Gastrointestinal: COMPLAINS OF: Abdominal pain, DENIES: Black stools, Bloody stools, Constipation, Diarrhea, Nausea, Vomiting, Difficulty Swallowing, Anorexia Genitourinary: DENIES: Sexual dysfunction, Urinary frequency, Urinary incontinence, Urgency, Hematuria, Dysuria, Nocturia, Penile Discharge, Testicular Pain, Testicular Swelling Musculoskeletal: COMPLAINS OF: Joint pain, Stiffness, Back pain, DENIES: Muscle aches, Joint Swelling, Neck pain Integumentary: DENIES: Abnormal pigmentation, Nail changes, Pruritus, Rash Hematologic/lymphatic: DENIES: Bruising, Lymphadenopathy Immunologic/allergic: DENIES: Eczema, Urticaria Neurologic: COMPLAINS OF: Abnormal gait, Localized weakness, Paresthesias, Seizures, Poor Balance, DENIES: Headache, Speech Problems, Tremor Psychiatric: DENIES: Anxiety, Confusion, Mood changes, Depression, Hallucinations, Agitation, Suicidal Ideation, Homicidal Ideation, Delusions Past Family Social History Allergies: Coded Allergies: Penicillin (Verified Allergy, Unknown, 05/31/16) Past Medical History Chronic back pain Hypertension Seizures COPD Past Surgical History Patient denies any surgical history Reported Medications Reported Meds & Active Scripts Active Reported Amlodipine (Amlodipine Besylate) 2.5 Mg Tab 7.5 Mg PO DAILY Atenolol 25 Mg Tab 12.5 Mg PO DAILY Baclofen 10 Mg Tab 10 Mg PO TID Phenytoin Extended 100 Mg Cap 100 Mg PO TID Active Ordered Medications Current Medications Medications (Trade) Dose Ordered Sig/Adriano Route Start Time Stop Time Status Last Admin (NS Flush) 2 ml UNSCH PRN IVF 05/31/16 17:00 (NS Flush) 2 ml UNSCH PRN FLUSH 05/31/16 20:15 (NS Flush) 2 ml BID FLUSH 05/31/16 21:00 06/01/16 09:46 (Zofran Inj) 4 mg Q6H PRN IVP 05/31/16 22:00 (Narcan Inj) 0.4 mg UNSCH PRN IV 05/31/16 20:15 (Protonix Inj) 40 mg Q12HR IV PUSH 05/31/16 21:00 06/01/16 09:47 (Norvasc) 7.5 mg DAILY PO 06/01/16 09:00 (Tenormin) 12.5 mg DAILY PO 06/01/16 09:00 06/01/16 09:46 (Pill Splitter) 1 ea UNSCH PRN OTHER 06/01/16 04:45 (Keppra) 250 mg Q12HR PO 06/01/16 09:00 06/01/16 11:36 Cyclobenzaprine HCl 10 mg 10 mg Q8H PO 06/01/16 09:00 06/01/16 16:40 Pharmacy Profile Note 0 ml @ 0 mls/hr UNSCH OTHER 06/01/16 11:15 (Vancomycin Inj/ NS 250 ml Inj) 262.5 ml @ 250 mls/hr Q12H IV 06/01/16 14:00 06/01/16 14:35 Miscellaneous Information SPECIFIC LAB TO BE DRAWN:VANCOMYCIN TROUGH DATE TO... ONCE ONCE XX 06/03/16 01:45 06/03/16 01:46 Sodium Chloride 1,000 ml @ 42 mls/hr [id number] IV 06/01/16 12:15 06/01/16 14:36 (Azactam Inj/NS Inj) 100 ml @ 200 mls/hr Q8H IV 06/01/16 16:00 06/01/16 18:00 (Mucomyst 20% Liq) 600 mg BID PO 06/01/16 15:00 06/01/16 16:44 Family History mother CAD Social History Lives at friends home with his . takes care of both medical needs. Smoked 1 ppd for many yrs Heavy alcohol consumption reports he quit alcohol 6 months back but the room smelled of alcohol. Denies IVDA. Was tested for HIV in past and negative. Physical Exam Vital Signs Vital Signs Date Time Temp Pulse Resp B/P Pulse Ox O2 Delivery O2 Flow Rate FiO2 06/01/16 12:08 98.8 79 18 95/59 98 06/01/16 07:56 100.5 103 18 108/59 94 06/01/16 04:45 98.4 104 20 108/56 94 06/01/16 01:03 105 06/01/16 00:08 98.4 109 20 118/56 94 05/31/16 22:30 109 16 110/68 95 Room Air 05/31/16 19:13 105 16 115/78 96 Room Air 05/31/16 16:21 102 20 119/58 93 Room Air 05/31/16 15:12 98 Room Air 05/31/16 14:58 101.7 105 18 134/63 Room Air 95 05/31/16 14:35 Room Air 05/31/16 14:33 98.5 107 19 136/74 99 Physical Exam GENERAL: Thin built poorly nourished male patient, in no apparent distress. SKIN: spider naevi, jaundiced skin. HEAD: Atraumatic. Normocephalic. No temporal or scalp tenderness. EYES: Pupils equal round and reactive. Extraocular motions intact. Positive for scleral icterus. No injection or drainage. ENT: Nose without bleeding, purulent drainage or septal hematoma. Throat without erythema, tonsillar hypertrophy or exudate. Uvula midline. Airway patent. NECK: Trachea midline. Supple, nontender, no meningeal signs. CARDIOVASCULAR: HS audible. No murmur appreciated. RESPIRATORY: Clear to auscultation. Breath sounds equal bilaterally. No wheezes , rales, or rhonchi. GASTROINTESTINAL: Abdomen soft, non-tender, nondistended. MUSCULOSKELETAL: Extremities without clubbing, cyanosis, or edema. No joint tenderness, effusion, or edema noted. No calf tenderness. Negative Homans sign bilaterally. NEUROLOGICAL: Awake and alert. Left foot weakness of extensors. Able to flex at knee but extremely painful movts. Reports tenderness on thigh area and foot level. Psych: cooperative, flat affect. IV line sites with no e.o infection. Laboratory Laboratory Tests Test 05/31/16 05/31/16 05/31/16 06/01/16 15:15 16:55 20:35 02:43 White Blood Count 10.8 10.4 Red Blood Count 2.29 2.19 Hemoglobin 8.9 8.2 8.6 Hematocrit 25.4 23.2 24.6 Mean Corpuscular Volume 111.0 112.2 Mean Corpuscular Hemoglobin 39.0 39.5 Mean Corpuscular Hemoglobin 35.1 35.2 Concent Red Cell Distribution Width 14.7 15.1 Platelet Count 111 113 Mean Platelet Volume 7.3 7.2 Neutrophils (%) (Auto) 81.5 79.7 Lymphocytes (%) (Auto) 7.9 9.2 Monocytes (%) (Auto) 9.6 10.3 Eosinophils (%) (Auto) 0.4 0.0 Basophils (%) (Auto) 0.6 0.8 Neutrophils # (Auto) 8.8 8.3 Lymphocytes # (Auto) 0.9 1.0 Monocytes # (Auto) 1.0 1.1 Eosinophils # (Auto) 0.0 0.0 Basophils # (Auto) 0.1 0.1 CBC Comment DIFF FINAL DIFF FINAL Differential Comment Prothrombin Time 20.7 Prothromb Time International 1.8 Ratio Activated Partial 48.9 Thromboplast Time Sodium Level 133 136 Potassium Level 3.5 3.9 Chloride Level 101 104 Carbon Dioxide Level 23.0 23.4 Anion Gap 9 9 Blood Urea Nitrogen 7 9 Creatinine 0.70 0.85 Estimat Glomerular Filtration 118 95 Rate Random Glucose 112 120 Lactic Acid Level 2.0 Calcium Level 7.9 7.7 Total Bilirubin 15.4 Direct Bilirubin 10.5 Aspartate Amino Transf 65 (AST/SGOT) Alanine Aminotransferase 29 (ALT/SGPT) Alkaline Phosphatase 132 Total Protein 6.6 Albumin 1.9 Lipase 222 Urine Color DARK-ORANGE Urine Turbidity HAZY Urine pH 7.0 Urine Specific [place] 1.015 Urine Protein 30 Urine Glucose (UA) NEG Urine Ketones NEG Urine Occult Blood SMALL Urine Nitrite NEG Urine Bilirubin LARGE Urine Urobilinogen GREATER THAN 12.0 Urine Leukocyte Esterase NEG Urine RBC 8 Urine WBC 2 Urine Hyaline Casts 1 Urine Mucus FEW Microscopic Urinalysis Comment CULT NOT INDICATED Blood Type A POSITIVE Antibody Screen NEGATIVE Blood Bank Comment Vitamin B12 Level GREATER THAN 2000 Test 06/01/16 06/01/16 09:59 12:19 Iron Level 69 Total Iron Binding Capacity 171 Percent Iron Saturation 40.4 Ferritin 447 Total Bilirubin 16.9 Direct Bilirubin 10.6 Indirect Bilirubin 6.3 Aspartate Amino Transf 74 (AST/SGOT) Alanine Aminotransferase 30 (ALT/SGPT) Alkaline Phosphatase 111 Total Protein 6.6 Albumin 1.8 Folate 11.5 Phenytoin (Dilantin) Level LESS THAN 0.4 Prothrombin Time 22.1 Prothromb Time International 1.9 Ratio Ammonia LESS THAN 10 Tumor Marker Alpha Fetoprotein 3.1 Date/Time Procedure Status Source Growth 05/31/16 17:10 Aerobic Blood Culture - Preliminary Resulted Blood Peripheral Gram Positive Cocci 05/31/16 17:10 Anaerobic Blood Culture - Preliminary Resulted Gram Positive Cocci Result Diagram: 06/01/16 0243 06/01/16 0243 Imaging Last Impressions Thoracic Spine CT 06/01/16 0000 Signed Impressions: Service Date/Time: Wednesday, June 01, 2016 05:13 - CONCLUSION: No evidence of acute bony process in the thoracic spine. Joseph Cook MD Lumbar Spine MRI 06/01/16 0000 Signed Impressions: Service Date/Time: Wednesday, June 01, 2016 15:22 - CONCLUSION: No evidence of abscess or abnormal enhancement. There is degenerative change within the disc at the level of L5/S1 suggestive of an acute tear of the annulus and small posterior central disc protrusion. Lexi Waller MD Lumbar Spine CT 06/01/16 0000 Signed Impressions: Service Date/Time: Wednesday, June 01, 2016 05:13 - CONCLUSION: Disc protrusion at the lumbosacral junction with mild asymmetric left-sided foraminal narrowing. No acute bony findings. Joseph Cook MD Chest X-Ray 06/01/16 0000 Signed Impressions: Service Date/Time: Wednesday, June 01, 2016 06:12 - CONCLUSION: No acute disease. Joseph Cook MD Cervical Spine CT 06/01/16 0000 Signed Impressions: Service Date/Time: Wednesday, June 01, 2016 05:13 - CONCLUSION: Mild degenerative change. No acute bony findings. Joseph Cook MD Abdomen Ultrasound 06/01/16 0000 Signed Impressions: Service Date/Time: Wednesday, June 01, 2016 14:06 - CONCLUSION: There is a trace of ascites insufficient for drainage. Jean-Paul Cheung MD Abdomen/Pelvis CT 05/31/16 1504 Signed Impressions: Service Date/Time: Tuesday, May 31, 2016 17:59 - CONCLUSION: 1. Ascites with varicosities as described above. 2. Casey shrunken liver with prominent spleen all consistent with longstanding cirrhosis. Tanner Willis MD FACR Assessment and Plan Assessment and Plan Severe Sepsis (SIRS,bacteremia, organ dysfunction: abnormal liver function tests from sepsis) Strep bacteremia ? endocarditis. Liver Cirrhosis with Ascites. ESLD with splenomegaly and s/o decompensated liver cirrhosis. Chronic heavy alcoholism Hyperbilirubinemia, elevated liver enzymes, hypoalbuminemia. Worsening foot drop, falls, change in gait, excruciating pain in left leg and back: ? early spinal osteomyelitis. R/o epidural abscess. Possible underlying disc disease worsening. Recs: Repeat BCX x 2 Check CRP Check hepatitis profile Check HIV antibody. Paracentesis if possible. 2D ECHO in view of bacteremia and fevers, night sweats ? endocarditis. Continue Vanco IV (covers resistant strep pending Cultures) Start Azactam IV pending cultures given GI source infection possibility. MRI lumbar spine to address etiology of worsening neuro symptoms (back ache, left thigh and leg pain, numbness left foot, numbness in perineal area and scrotum) ? worsening disc disease or epidural abscess. Consult Neurosurgery for above reasons. Lauro Savage patient and family in room. Patient consented to HIV testing Time spent in excess of 60 mins, reviewed imaging, meds, critical thinking and decision making. Penicillin allergy: reports airway swelling, lip swelling as a child with PCN. No recent Keflex use or PCN use. Monica Rodriguez MD Jun 01, 2016 14:08
[2016-06-01] MEDS: VANCOMYCIN INJ 1,250 MG in SODIUM CHLOR 0.9% 250 ML INJ 250 ML IV SCH (14:35)
[2016-06-01] MEDS: SODIUM CHLOR 0.9% 1000 ML INJ 1,000 ML IV SCH (14:36)
[2016-06-01] MEDS ORDERED: cefTRIAXone INJ 2,000 MG in SODIUM CHLORIDE 0.9% INJ 100 ML IV SCH (15:00)
[2016-06-01] MEDS ORDERED: GENTAMICIN 80 MG PREMIX 100 ML IV ONE (15:00)
--- NOTE | 2016-06-01 15:41 | RADRPT ---
EXAM DATE/TIME: 06/01/2016 14:06 [facility] COMPARISON: No previous studies available for comparison. INDICATIONS : Abdomen distention. MEDICAL HISTORY : Chronic obstructive pulmonary disease. Hypertension. Cirrhosis. Seizures. Weakness. SURGICAL HISTORY : None. ENCOUNTER: Initial ACUITY: 1 day PAIN SCORE: 2/10 LOCATION: Abdomen. AREA EVALUATED: Abdomen. FINDINGS: Imaging of the abdomen and pelvis was performed to evaluate for ascites for possible paracentesis. T here is only a trace of ascites adjacent to the liver and in the pelvis. This is insufficient for lorena oscar. CONCLUSION: There is a trace of ascites insufficient for drainage. Jean-Paul Cheung MD on June 01, 2016 at 15:39 Board Certified Radiologist. This report was verified electronically.
[2016-06-01] MEDS ORDERED: GADODIAMIDE PF 287 MG/ML 20 ML VIAL (for RAD MRI) IV ONE (15:44)
--- NOTE | 2016-06-01 16:15 | RADRPT ---
EXAM DATE/TIME: 06/01/2016 15:22 [facility] COMPARISON: No previous studies available for comparison. INDICATIONS : Pain. Bacteremia, abscess. CONTRAST: 16 cc Omniscan (gadodiamide) IV MEDICAL HISTORY : Hypertension. Seizures. SURGICAL HISTORY : None. ENCOUNTER: Subsequent ACUITY: 2 day PAIN SCORE: 6/10 LOCATION: back. TECHNIQUE: Multiplanar multisequence MRI of the lumbar spine was performed with and without contr ast. FINDINGS: The most caudal appearing lumbar vertebra is numbered as L5. VERTEBRAE: Homogeneous signal. Normal alignment. CONUS: Normal level and configuration. POST CONTRAST: No abnormal areas of contrast enhancement are seen. T12-L1: The thecal sac has a normal diameter. No evidence of disc bulge or protrusion. The neural foramina are patent bilaterally. L1-L2: The thecal sac has a normal diameter. No evidence of disc bulge or protrusion. The neural f oramina are patent bilaterally. L2-L3: The thecal sac has a normal diameter. No evidence of disc bulge or protrusion. The neural f oramina are patent bilaterally. L3-L4: The thecal sac has a normal diameter. No evidence of disc bulge or protrusion. The neural f oramina are patent bilaterally. L4-L5: There is a small broad-based posterior disc bulge present which minimally effaces the adjacent thecal sac. No significant neural foraminal narrowing. No significant facet degenerative change. L5-S1: There is disc desiccation and disc space narrowing with a focal posterior central disc protrus ion associated with increased T2 signal consistent with an acute tear of the annulus. This abuts the adjacent thecal sac but does not cause significant narrowing. There is mild narrowing of the neural f oramina on the left.. CONCLUSION: No evidence of abscess or abnormal enhancement. There is degenerative change within t he disc at the level of L5/S1 suggestive of an acute tear of the annulus and small posterior central disc protrusion. Lexi Waller MD on June 01, 2016 at 16:10 Board Certified Radiologist. This report was verified electronically.
[2016-06-01] MEDS: ACETYLCYSTEINE 20% 6,000 MG/30 ML ORAL SOLN VIAL PO SCH ×2 (16:44→21:50)
[2016-06-01] MEDS: AZTREONAM INJ 2,000 MG in SODIUM CHLORIDE 0.9% INJ 100 ML IV SCH ×2 (18:00→23:49)
[2016-06-01 19:37] VITALS: BP 100/54; PULSE 92; RESP 20; TEMP 97.6; O2SAT 95
--- NOTE | 2016-06-01 20:05 | EKG ---
Date Performed: 05/31/2016 Time Performed: 22:15:48 PTAGE: 51 years EKG: SINUS TACHYCARDIA ABNORMAL RHYTHM ECG PREVIOUS TRACING : 05/31/2016 19.05 Compared to prior tracing no significant change DOCTOR: Lorenzo Whyte Interpretating Date/Time 06/01/2016 20:04:26
--- NOTE | 2016-06-01 20:17 | EKG ---
Date Performed: 05/31/2016 Time Performed: 19:05:33 PTAGE: 51 years EKG: SINUS TACHYCARDIA ABNORMAL RHYTHM ECG PREVIOUS TRACING : 12/08/2014 09.35 Compared to prior tracing no significant change DOCTOR: Lorenzo Whyte Interpretating Date/Time 06/01/2016 20:17:09
[2016-06-02] VITALS (8 sets, daily range): BP systolic 94–106; BP diastolic 51–59; PULSE 84–100; RESP 16–20; TEMP 98.1–101.3; O2SAT 92–98
[2016-06-02] MEDS: VANCOMYCIN INJ 1,250 MG in SODIUM CHLOR 0.9% 250 ML INJ 250 ML IV SCH ×2 (04:45→12:06)
[2016-06-02 04:50] LABS: AUTOMATED NEUTROPHIL # 7.3 TH/MM3 (1.8-7.7); BASOPHIL % 0.3 % (0.0-2.0); EOSINOPHIL # 0.1 TH/MM3 (0-0.4); EOSINOPHIL % 0.9 % (0.0-4.0); LYMPH % 14.2 % (9.0-44.0); LYMPHOCYTE # 1.5 TH/MM3 (1.0-4.8); MEAN CELL VOLUME 111.4 FL (80.0-100.0); MEAN CORPUSCULAR HEMOGLOBIN 39.6 PG (27.0-34.0); MEAN CORPUSCULAR HGB CONC 35.6 % (32.0-36.0); MONO % 13.4 % (0.0-8.0); NEUT % 71.2 % (16.0-70.0); PLATELET COUNT 101 TH/MM3 (150-450); RED BLOOD COUNT 1.78 MIL/MM3 (4.50-5.90); RED CELL DISTRIBUTION WIDTH 14.6 % (11.6-17.2); WHITE BLOOD COUNT 10.2 TH/MM3 (4.0-11.0)
[2016-06-02 05:53] LABS: HEMO FLAGS AUTO DIFF
[2016-06-02 05:54] LABS: HEMATOCRIT 19.9 % (39.0-51.0); PLATELET ESTIMATE SMEAR LOW (NORMAL)
[2016-06-02 05:55] LABS: PLATELET MORPHOLOGY NORMAL (NORMAL); SCAN/DIFF AUTO DIFF CONFIRMED
[2016-06-02 05:56] LABS: POLYCHROMASIA 2.8 % (0.0-1.9)
[2016-06-02] MEDS: ATENOLOL 25 MG TAB PO SCH (09:00)
[2016-06-02] MEDS: SODIUM CHLORIDE 0.9% FLUSH 5 ML FLUSH FLUSH SCH ×2 (09:00→20:50)
[2016-06-02] MEDS: ACETYLCYSTEINE 20% 6,000 MG/30 ML ORAL SOLN VIAL PO SCH ×3 (09:00→22:27)
[2016-06-02] MEDS: amLODIPine BESYLATE 5 MG TAB PO SCH (09:00)
[2016-06-02] MEDS: AZTREONAM INJ 2,000 MG in SODIUM CHLORIDE 0.9% INJ 100 ML IV SCH ×2 (09:18→16:31)
[2016-06-02] MEDS: CYCLOBENZAPRINE HCL 10 MG TAB PO SCH ×2 (09:19→16:31)
[2016-06-02] MEDS: PANTOPRAZOLE SOD 40 MG DELAYED RELEASE TAB PO SCH (09:19)
[2016-06-02] MEDS: levETIRAcetam 250 MG TAB PO SCH ×2 (09:23→20:51)
[2016-06-02] MEDS: SODIUM CHLOR 0.9% 1000 ML INJ 1,000 ML IV SCH (09:24)
--- NOTE | 2016-06-02 12:48 | HHI.GIFU ---
Subjective Remarks Resting in bed. No n/v/pain. (Jeannine Trujillo) Objective Vitals I&O Vital Signs Date Time Temp Pulse Resp B/P Pulse Ox O2 Delivery O2 Flow Rate FiO2 06/02/16 08:00 98.1 86 18 94/51 98 06/02/16 04:00 99.8 92 18 96/53 94 06/02/16 00:44 94 06/02/16 00:00 101.3 100 19 100/59 92 06/01/16 19:37 97.6 92 20 100/54 95 I/O 06/01/16 06/01/16 06/01/16 06/02/16 06/02/16 06/02/16 07:00 15:00 23:00 07:00 15:00 23:00 Intake Total 120 ml Output Total 300 ml Balance -180 ml Intake Oral 120 ml Output Urine Total 300 ml # Voids 1 1 # Bowel Movements 0 Laboratory Laboratory Tests Test 06/01/16 06/02/16 15:15 04:20 C-Reactive Protein 2.00 White Blood Count 10.2 Red Blood Count 1.78 Hemoglobin 7.1 Hematocrit 19.9 Mean Corpuscular Volume 111.4 Mean Corpuscular Hemoglobin 39.6 Mean Corpuscular Hemoglobin 35.6 Concent Red Cell Distribution Width 14.6 Platelet Count 101 Mean Platelet Volume 7.5 Neutrophils (%) (Auto) 71.2 Lymphocytes (%) (Auto) 14.2 Monocytes (%) (Auto) 13.4 Eosinophils (%) (Auto) 0.9 Basophils (%) (Auto) 0.3 Neutrophils # (Auto) 7.3 Lymphocytes # (Auto) 1.5 Monocytes # (Auto) 1.4 Eosinophils # (Auto) 0.1 Basophils # (Auto) 0.0 CBC Comment AUTO DIFF Differential Comment AUTO DIFF CONFIRMED Platelet Estimate LOW Platelet Morphology Comment NORMAL Polychromasia 2.8 Basophilic Stippling FAINT Date/Time Procedure Status Source Growth 06/01/16 15:10 Aerobic Blood Culture - Preliminary Resulted Blood Peripheral NO GROWTH IN 1 DAY 06/01/16 15:10 Anaerobic Blood Culture - Preliminary Resulted Blood Peripheral NO GROWTH IN 1 DAY 05/31/16 17:10 Aerobic Blood Culture - Final Complete Blood Peripheral Group B Beta Strep 05/31/16 17:10 Anaerobic Blood Culture - Final Complete Group B Beta Strep Imaging Last Impressions Thoracic Spine CT 06/01/16 0000 Signed Impressions: Service Date/Time: Wednesday, June 01, 2016 05:13 - CONCLUSION: No evidence of acute bony process in the thoracic spine. Joseph Cook MD Lumbar Spine MRI 06/01/16 0000 Signed Impressions: Service Date/Time: Wednesday, June 01, 2016 15:22 - CONCLUSION: No evidence of abscess or abnormal enhancement. There is degenerative change within the disc at the level of L5/S1 suggestive of an acute tear of the annulus and small posterior central disc protrusion. Lexi Waller MD Lumbar Spine CT 06/01/16 0000 Signed Impressions: Service Date/Time: Wednesday, June 01, 2016 05:13 - CONCLUSION: Disc protrusion at the lumbosacral junction with mild asymmetric left-sided foraminal narrowing. No acute bony findings. Joseph Cook MD Chest X-Ray 06/01/16 0000 Signed Impressions: Service Date/Time: Wednesday, June 01, 2016 06:12 - CONCLUSION: No acute disease. Joseph Cook MD Cervical Spine CT 06/01/16 0000 Signed Impressions: Service Date/Time: Wednesday, June 01, 2016 05:13 - CONCLUSION: Mild degenerative change. No acute bony findings. Joseph Cook MD Abdomen Ultrasound 06/01/16 0000 Signed Impressions: Service Date/Time: Wednesday, June 01, 2016 14:06 - CONCLUSION: There is a trace of ascites insufficient for drainage. Jean-Paul Cheung MD Abdomen/Pelvis CT 05/31/16 1504 Signed Impressions: Service Date/Time: Tuesday, May 31, 2016 17:59 - CONCLUSION: 1. Ascites with varicosities as described above. 2. Casey shrunken liver with prominent spleen all consistent with longstanding cirrhosis. Tanner Willis MD FACR Physical Exam HEENT: Normocephalic; atraumatic; + jaundice. CHEST: Resp. shallow/even. CARDIAC: RRR ABDOMEN: Soft, nondistended, nontender; hepatosplenomegaly; bowel sounds are present in all four quadrants. EXTREMITIES: No clubbing, cyanosis, or edema. SKIN: Normal; no rash; + jaundice. STAFF CERTIFIED NURSE MIDWIFE: Lethargic, generalized weakness (TrujilloJeannine aranda) Assessment and Plan Plan ASSESSMENT: - Jaundice, Elevated LFTs. Abdomen/Pelvis CT (05/31/16) revealed 1. Ascites with varicosities as described above. 2. Casey shrunken liver with prominent spleen all consistent with longstanding cirrhosis. Pt denies any known hx of liver disease or cirrhosis in himself or family. He reports hx of heavy ETOH abuse, but quit 6 months ago and has not had any ETOH since that time. He denies any GI symptoms other than mild epigastric/midabdominal pressure. He reports that he has been jaundiced 2-3 months. Denies weight loss. He has been taking 5-6 Acetaminophen per day for a few months. He denies any hx of drug use or blood transfusions. He denies any new sexual partners. He denies any history of hepatitis. Hepatitis panel negative. AMERICA/ASMA/AMA pending, AFP 3.1, ALpha 1 Antitrypsin /Ceruloplasmin pending. Iron transfusion 40.4%, Ferritin 447. Acetaminophen level was < 2.0, but he was taking significant amount of acetaminophen. He was started on Mucamyst. Today's labs pending. - Liver cirrhosis. New dx. CT Abdomen/Pelvis CT (05/31/16) revealed 1. Ascites with varicosities as described above. 2. Casey shrunken liver with prominent spleen all consistent with longstanding cirrhosis. MELD 23. Pt reports hx of heavy ETOH abuse, states he quit completely x 5-6 months ago. - Coagulopathy/Thrombocytopenia. PT 22.1, INR 1.9. Plt 101. - Anemia. 7.1/.19.9. No active bleeding. - Back pain with lle weakness/numbness. - COPD, HTN. PLAN: - Low salt diet - Mucamyst 70mg/kg q4h x 17 doses - LFT today - Await AMERICA, ASMA, AMA - Ceruloplasmin, Alpha 1 Antitrypsin - Monitor LFTs - Avoid hepatotoxic meds - Supportive care - Further recommendations to follow based on results of above - Pt seen and examined by Dr. Viveros and myself and this note is written on his behalf (Jeannine Trujillo) Physician Comments Seen and examined, complete liver kay. Endoscopy next week. Complete course of mucomyst, monitor labs. (Anuel Viveros MD) Jeannine Trujillo Jun 02, 2016 12:48 Anuel Viveros MD Jun 02, 2016 16:51
[2016-06-02] MEDS ORDERED: traMADol HCL 50 MG TAB PO PRN ×2 (14:00)
[2016-06-02 14:01] LABS: HEMATOCRIT 22.6 % (39.0-51.0)
--- NOTE | 2016-06-02 14:04 | HHI.PR ---
Subjective Remarks F/U Back pain. Worse with activity. Feels tired agrees with transfusion. Seen with dw RN and ID Objective Vitals Vital Signs Date Time Temp Pulse Resp B/P Pulse Ox O2 Delivery O2 Flow Rate FiO2 06/02/16 08:00 98.1 86 18 94/51 98 06/02/16 04:00 99.8 92 18 96/53 94 06/02/16 00:44 94 06/02/16 00:00 101.3 100 19 100/59 92 06/01/16 19:37 97.6 92 20 100/54 95 I/O 06/01/16 06/01/16 06/01/16 06/02/16 06/02/16 06/02/16 07:00 15:00 23:00 07:00 15:00 23:00 Intake Total 120 ml 748 ml Output Total 300 ml Balance -180 ml 748 ml Intake Oral 120 ml IV Total 748 ml Output Urine Total 300 ml # Voids 1 1 # Bowel Movements 0 Result Diagram: 06/02/16 0420 06/01/16 0243 Imaging Last Impressions Thoracic Spine CT 06/01/16 0000 Signed Impressions: Service Date/Time: Wednesday, June 01, 2016 05:13 - CONCLUSION: No evidence of acute bony process in the thoracic spine. Joseph Cook MD Lumbar Spine MRI 06/01/16 0000 Signed Impressions: Service Date/Time: Wednesday, June 01, 2016 15:22 - CONCLUSION: No evidence of abscess or abnormal enhancement. There is degenerative change within the disc at the level of L5/S1 suggestive of an acute tear of the annulus and small posterior central disc protrusion. Lexi Waller MD Lumbar Spine CT 06/01/16 0000 Signed Impressions: Service Date/Time: Wednesday, June 01, 2016 05:13 - CONCLUSION: Disc protrusion at the lumbosacral junction with mild asymmetric left-sided foraminal narrowing. No acute bony findings. Joseph Cook MD Chest X-Ray 06/01/16 0000 Signed Impressions: Service Date/Time: Wednesday, June 01, 2016 06:12 - CONCLUSION: No acute disease. Joseph Cook MD Cervical Spine CT 06/01/16 0000 Signed Impressions: Service Date/Time: Wednesday, June 01, 2016 05:13 - CONCLUSION: Mild degenerative change. No acute bony findings. Joseph Cook MD Abdomen Ultrasound 06/01/16 0000 Signed Impressions: Service Date/Time: Wednesday, June 01, 2016 14:06 - CONCLUSION: There is a trace of ascites insufficient for drainage. Jean-Paul Cheung MD Abdomen/Pelvis CT 05/31/16 1504 Signed Impressions: Service Date/Time: Tuesday, May 31, 2016 17:59 - CONCLUSION: 1. Ascites with varicosities as described above. 2. Casey shrunken liver with prominent spleen all consistent with longstanding cirrhosis. Tanner Willis MD FACR Objective Remarks GENERAL: Well-developed well-nourished. In no acute distress. SKIN: Warm and dry. No lesions noted. Jaundiced. HEENT: Normocephalic. Pupils equal and round. Mucous membranes pink and moist. CARDIOVASCULAR: Regular rate and rhythm. Systolic murmur appreciated. RESPIRATORY: No accessory muscle use. Clear to auscultation. Breath sounds equal bilaterally. GASTROINTESTINAL: Abdomen soft, non-tender, nondistended. Bowel sounds x4. MUSCULOSKELETAL: No obvious deformities. No clubbing or cyanosis. No edema. Lower back pain with ROM of bilateral hip joints. NEUROLOGICAL: Awake and alert. No focal neurological deficits. Moves upper and lower extremities spontaneously. Left foot weakness. Normal speech. PSYCHIATRIC: Appropriate mood and affect; insight and judgment normal. A/P Problem List: (1) Jaundice ICD Code: R17 Status: Acute (2) SIRS (systemic inflammatory response syndrome) ICD Code: R65.10 Status: Acute (3) Back pain ICD Code: M54.9 Status: Chronic (4) Anemia ICD Code: D64.9 Status: Acute (5) HTN (hypertension) ICD Code: I10 Status: Chronic (6) Seizures ICD Code: R56.9 Status: Chronic Assessment and Plan 51-year-old male with a history of chronic back pain, hypertension seizures presented with: Jaundice with hx ETOH abuse and chronic APAP usage Images reviewed: Abdomen/pelvis CT shows Ascites with varicosities as described above. A Small shrunken liver with prominent spleen all consistent with longstanding cirrhosis. Labs reviewed: Total bilirubin 15.4, AST 65, alkaline phosphatase 132. -Consulted GI -Continue Mucomyst -Protonix -Follow LFTs with bilirubin components, negative hepatitis panel -Alcohol cessation Severe sepsis with strep bacteremia . HIV negative UA negative. Chest x-ray with no acute process. -Continue IV vancomycin and aztreonam pending echocardiogram. -Supportive IVF Acute on chronic lower back pain Imaging reviewed: Cervical and thoracic CTs with no acute process. Lumbar CT with disc protrusion at lower sacral drunk walden with mild asymmetric left-sided foraminal narrowing, no acute bony findings. -Continue home Flexeril. Add oxycodone -Heating pad -PT eval -Neurosurgery consulted secondary to annular tear and disc protrusion Macrocytic Anemia Labs: Hemoglobin 8.6/8.2/8.9, stable. B12 greater than 2000. -Follow up CBC worse today. Repeat H&H if hemoglobin less than 7 we'll transfuse. Hemoccult -Reviewed folate and iron studies Seizures, chronic -Changed patient's Dilantin to Keppra 250 mg by mouth every 12 due to decreased liver function -Seizure precautions Hypertension, chronic, stable -Continue home atenolol and Norvasc -Monitor vitals DVT prophylaxis: Scds Problem Qualifiers (1) Back pain: (2) HTN (hypertension): Qualified Code: I10 - Essential hypertension Federico Marie MD Jun 02, 2016 14:03 (2) HTN (hypertension): Qualified Code: I10 - Essential hypertension Ezequiel Wilburn Jun 01, 2016 08:35 Problem Qualifiers (1) Back pain: (2) HTN (hypertension): Qualified Code: I10 - Essential hypertension Federico Marie MD Jun 02, 2016 14:03
[2016-06-02 14:07] LABS: REVIEW FLAG FINAL
--- NOTE | 2016-06-02 14:20 | EC ---
Study Study Date:06/02/2016 STUDY CONCLUSIONS SUMMARY - Procedure narrative: Transthoracic echocardiography. Image quality was fair. Scanning was performed from the parasternal, apical, and subcostal acoustic windows. - Left ventricle: The cavity size was normal. Wall thickness was normal. Systolic function was normal. The estimated ejection fraction was in the range of 60% to 65%. Although no diagnostic regional wall motion abnormality was identified, this possibility cannot be completely excluded on the basis of this study. - Aortic valve: Poorly visualized. - Mitral valve: Trace regurgitation. If LV function is below 40, please consider prescribing an ACEI or ARB or document rationale for non-use. PROCEDURE DATA STUDY STATUS: Elective. Procedure: Transthoracic echocardiography. Image quality was fair. Scanning was performed from the parasternal, apical, and subcostal acoustic windows. Study completion: The patient tolerated the procedure well. Transthoracic echocardiography. M-mode, complete 2D, complete spectral Doppler, and color Doppler. Patient status: Inpatient. CARDIAC ANATOMY LEFT VENTRICLE: The cavity size was normal. Wall thickness was normal. Systolic function was normal. The estimated ejection fraction was in the range of 60% to 65%. Although no diagnostic regional wall motion abnormality was identified, this possibility cannot be completely excluded on the basis of this study. AORTIC VALVE: Poorly visualized. Doppler: Transvalvular velocity was within the normal range. There was no stenosis. No regurgitation. AORTA: Aortic root: The aortic root was normal in size. MITRAL VALVE: Structurally normal valve. Doppler: Transvalvular velocity was within the normal range. There was no evidence for stenosis. Trace regurgitation. LEFT ATRIUM: The atrium was normal in size. RIGHT VENTRICLE: The cavity size was normal. Wall thickness was normal. PULMONIC VALVE: Doppler: Transvalvular velocity was within the normal range. There was no evidence for stenosis. No regurgitation. TRICUSPID VALVE: Structurally normal valve. Doppler: Transvalvular velocity was within the normal range. No regurgitation. PULMONARY ARTERY: The main pulmonary artery was normal-sized. Systolic pressure was within the normal range. RIGHT ATRIUM: The atrium was normal in size. PERICARDIUM: There was no pericardial effusion. SYSTEMIC VEINS: Inferior vena cava: The vessel was normal in size. BASIC MEASUREMENTS ADULT NORMAL Left ventricle LV internal dimension, ED, chordal level, 47.7 mm 43-52 PLAX LV internal dimension, ES, chordal level, 34.1 mm 23-38 PLAX Fractional shortening, chordal level, PLAX *29 % >29 LV posterior wall thickness, ED 10 mm IVS/LVPW ratio, ED 0.81 <1.3 Ventricular septum Septal thickness, ED 8.09 mm LEGEND: Mean values are shown as u=mean value. Asterisk (*) pritchard values outside specified normal range. Prepared and signed by Kei Alamo [id number]
[2016-06-02 14:23] LABS: INDIRECT BILIRUBIN 6.5 MG/DL (0.0-0.8); TOTAL BILIRUBIN ADULT 16.2 MG/DL (0.2-1.0)
--- NOTE | 2016-06-02 15:02 | HHI.IDPN ---
Subjective Subjective Remarks is a 51 y/o CM with PMHx of ESLD, liver cirrhosis. Now presents with history suggestive of infectious process for last 4 weeks ? Admitted with severe sepsis, now with strep bacteremia. Overnight events reviewed. Paracentesis could not be performed due to minimal ascites. No fevers WBC ok No rash No diarrhea Still appears jaundiced. Mentally appears more clearer today. Antibiotics Azactam IV Vanco IV Lines Line sites with no e/o infection Past Medical History reviewed. Allergies: Coded Allergies: Penicillin (Verified Allergy, Unknown, 05/31/16) Objective . Vital Signs Date Time Temp Pulse Resp B/P Pulse Ox O2 Delivery O2 Flow Rate FiO2 06/02/16 12:00 98.1 84 16 98/56 96 06/02/16 08:00 98.1 86 18 94/51 98 06/02/16 04:00 99.8 92 18 96/53 94 06/02/16 00:44 94 06/02/16 00:00 101.3 100 19 100/59 92 06/01/16 19:37 97.6 92 20 100/54 95 06/01/16 06/01/16 06/02/16 15:00 23:00 07:00 Intake Total 120 ml Output Total 300 ml Balance -180 ml Intake Oral 120 ml Output Urine Total 300 ml # Voids 1 # Bowel Movements 0 . Laboratory Tests Test 05/31/16 05/31/16 06/01/16 06/02/16 15:15 20:35 02:43 04:20 White Blood Count 10.8 TH/MM3 10.4 TH/MM3 10.2 TH/MM3 Red Blood Count 2.29 MIL/MM3 2.19 MIL/MM3 1.78 MIL/MM3 Hemoglobin 8.9 GM/DL 8.2 GM/DL 8.6 GM/DL 7.1 GM/DL Hematocrit 25.4 % 23.2 % 24.6 % 19.9 % Mean Corpuscular Volume 111.0 FL 112.2 FL 111.4 FL Mean Corpuscular Hemoglobin 39.0 PG 39.5 PG 39.6 PG Mean Corpuscular Hemoglobin 35.1 % 35.2 % 35.6 % Concent Red Cell Distribution Width 14.7 % 15.1 % 14.6 % Platelet Count 111 TH/MM3 113 TH/MM3 101 TH/MM3 Mean Platelet Volume 7.3 FL 7.2 FL 7.5 FL Neutrophils (%) (Auto) 81.5 % 79.7 % 71.2 % Lymphocytes (%) (Auto) 7.9 % 9.2 % 14.2 % Monocytes (%) (Auto) 9.6 % 10.3 % 13.4 % Eosinophils (%) (Auto) 0.4 % 0.0 % 0.9 % Basophils (%) (Auto) 0.6 % 0.8 % 0.3 % Neutrophils # (Auto) 8.8 TH/MM3 8.3 TH/MM3 7.3 TH/MM3 Lymphocytes # (Auto) 0.9 TH/MM3 1.0 TH/MM3 1.5 TH/MM3 Monocytes # (Auto) 1.0 TH/MM3 1.1 TH/MM3 1.4 TH/MM3 Eosinophils # (Auto) 0.0 TH/MM3 0.0 TH/MM3 0.1 TH/MM3 Basophils # (Auto) 0.1 TH/MM3 0.1 TH/MM3 0.0 TH/MM3 CBC Comment DIFF FINAL DIFF FINAL AUTO DIFF Differential Comment AUTO DIFF CONFIRMED Platelet Estimate LOW Platelet Morphology Comment NORMAL Polychromasia 2.8 % Basophilic Stippling FAINT Test 06/02/16 12:47 Hemoglobin 8.0 GM/DL Hematocrit 22.6 % Laboratory Tests Test 05/31/16 06/01/16 06/01/16 06/01/16 15:15 02:43 09:59 12:19 Sodium Level 133 MEQ/L 136 MEQ/L Potassium Level 3.5 MEQ/L 3.9 MEQ/L Chloride Level 101 MEQ/L 104 MEQ/L Carbon Dioxide Level 23.0 MEQ/L 23.4 MEQ/L Anion Gap 9 MEQ/L 9 MEQ/L Blood Urea Nitrogen 7 MG/DL 9 MG/DL Creatinine 0.70 MG/DL 0.85 MG/DL Estimat Glomerular Filtration 118 ML/MIN 95 ML/MIN Rate Random Glucose 112 MG/DL 120 MG/DL Lactic Acid Level 2.0 mmol/L Calcium Level 7.9 MG/DL 7.7 MG/DL Total Bilirubin 15.4 MG/DL 16.9 MG/DL Direct Bilirubin 10.5 MG/DL 10.6 MG/DL Aspartate Amino Transf 65 U/L 74 U/L (AST/SGOT) Alanine Aminotransferase 29 U/L 30 U/L (ALT/SGPT) Alkaline Phosphatase 132 U/L 111 U/L Total Protein 6.6 GM/DL 6.6 GM/DL Albumin 1.9 GM/DL 1.8 GM/DL Lipase 222 U/L Vitamin B12 Level GREATER THAN 2000 PG/ML Iron Level 69 MCG/DL Total Iron Binding Capacity 171 MCG/DL Percent Iron Saturation 40.4 % Ferritin 447 NG/ML Indirect Bilirubin 6.3 MG/DL Folate 11.5 NG/ML Ammonia LESS THAN 10 MCMOL/L Tumor Marker Alpha Fetoprotein 3.1 NG/ML Test 06/01/16 06/02/16 15:15 12:47 C-Reactive Protein 2.00 MG/DL Total Bilirubin 16.2 MG/DL Direct Bilirubin 9.7 MG/DL Indirect Bilirubin 6.5 MG/DL Aspartate Amino Transf 73 U/L (AST/SGOT) Alanine Aminotransferase 29 U/L (ALT/SGPT) Alkaline Phosphatase 105 U/L Total Protein 6.3 GM/DL Albumin 1.6 GM/DL Microbiology Date/Time Procedure Status Source Growth 05/31/16 17:10 Aerobic Blood Culture - Preliminary Resulted Blood Peripheral Group B Beta Strep 05/31/16 17:10 Anaerobic Blood Culture - Final Resulted Group B Beta Strep 05/31/16 17:10 Aerobic Blood Culture - Final Complete Blood Peripheral Group B Beta Strep 05/31/16 17:10 Anaerobic Blood Culture - Final Complete Group B Beta Strep 06/01/16 15:10 Aerobic Blood Culture - Preliminary Resulted Blood Peripheral NO GROWTH IN 1 DAY 06/01/16 15:10 Anaerobic Blood Culture - Preliminary Resulted Blood Peripheral NO GROWTH IN 1 DAY 06/01/16 15:10 Aerobic Blood Culture - Preliminary Resulted Blood Peripheral Gram Positive Cocci 06/01/16 15:10 Anaerobic Blood Culture - Preliminary Resulted Blood Peripheral NO GROWTH IN 1 DAY Imaging Last Impressions Thoracic Spine CT 06/01/16 0000 Signed Impressions: Service Date/Time: Wednesday, June 01, 2016 05:13 - CONCLUSION: No evidence of acute bony process in the thoracic spine. Joseph Cook MD Lumbar Spine MRI 06/01/16 0000 Signed Impressions: Service Date/Time: Wednesday, June 01, 2016 15:22 - CONCLUSION: No evidence of abscess or abnormal enhancement. There is degenerative change within the disc at the level of L5/S1 suggestive of an acute tear of the annulus and small posterior central disc protrusion. Lexi Waller MD Lumbar Spine CT 06/01/16 0000 Signed Impressions: Service Date/Time: Wednesday, June 01, 2016 05:13 - CONCLUSION: Disc protrusion at the lumbosacral junction with mild asymmetric left-sided foraminal narrowing. No acute bony findings. Joseph Cook MD Chest X-Ray 06/01/16 0000 Signed Impressions: Service Date/Time: Wednesday, June 01, 2016 06:12 - CONCLUSION: No acute disease. Joseph Cook MD Cervical Spine CT 06/01/16 0000 Signed Impressions: Service Date/Time: Wednesday, June 01, 2016 05:13 - CONCLUSION: Mild degenerative change. No acute bony findings. Joseph Cook MD Abdomen Ultrasound 06/01/16 0000 Signed Impressions: Service Date/Time: Wednesday, June 01, 2016 14:06 - CONCLUSION: There is a trace of ascites insufficient for drainage. Jean-Paul Cheung MD Abdomen/Pelvis CT 05/31/16 1504 Signed Impressions: Service Date/Time: Tuesday, May 31, 2016 17:59 - CONCLUSION: 1. Ascites with varicosities as described above. 2. Casey shrunken liver with prominent spleen all consistent with longstanding cirrhosis. Tanner Willis MD FACR Physical Exam GENERAL: Thin built poorly nourished male patient, in no apparent distress. SKIN: spider naevi, jaundiced skin. HEAD: Atraumatic. Normocephalic. No temporal or scalp tenderness. EYES: Pupils equal round and reactive. Extraocular motions intact. Positive for scleral icterus. No injection or drainage. ENT: Nose without bleeding, purulent drainage or septal hematoma. Throat without erythema, tonsillar hypertrophy or exudate. Uvula midline. Airway patent. NECK: Trachea midline. Supple, nontender, no meningeal signs. CARDIOVASCULAR: HS audible. No murmur appreciated. RESPIRATORY: Clear to auscultation. Breath sounds equal bilaterally. No wheezes , rales, or rhonchi. GASTROINTESTINAL: Abdomen soft, non-tender, nondistended. MUSCULOSKELETAL: Extremities without clubbing, cyanosis, or edema. No joint tenderness, effusion, or edema noted. No calf tenderness. Negative Homans sign bilaterally. NEUROLOGICAL: Awake and alert. Left foot weakness of extensors. Able to flex at knee but extremely painful movts. Reports tenderness on thigh area and foot level. Psych: cooperative, flat affect. IV line sites with no e.o infection. Assessment & Plan Remarks Severe Sepsis (SIRS,bacteremia, organ dysfunction: abnormal liver function tests from sepsis) Strep bacteremia ? endocarditis. Liver Cirrhosis with Ascites. ESLD with splenomegaly and s/o decompensated liver cirrhosis. Chronic heavy alcoholism Hyperbilirubinemia, elevated liver enzymes, hypoalbuminemia. Worsening foot drop, falls, change in gait, excruciating pain in left leg and back: ? early spinal osteomyelitis. R/o epidural abscess. Possible underlying disc disease worsening. Recs: Continue Vanco IV (covers resistant strep pending Cultures). Once susceptibility back will deescalate. Continue Azactam IV pending cultures given GI source infection possibility. follow cultures follow clinically. MRI lumbar spine with no e/o infection. Neurodeficit significant d/w to get neurosurgery involved. D.w patient in room. Monica Rodriguez MD Jun 02, 2016 15:02
--- NOTE | 2016-06-02 18:59 | MB ---
cc: ARLENE WOLFE M.D. DATE OF CONSULTATION: 06/02/2016 REASON FOR CONSULTATION: L5-S1 disc protrusion. HISTORY OF PRESENT ILLNESS: 51-year-old gentleman with a three-year history of low back pain although it exacerbated about four or five days ago. Also, he complains of pain in the left leg and numbness in the left calf and the plantar aspect of the foot and to some extent the dorsal aspect. He denies any right lower extremity symptoms. Denies any incontinence, although states because of the pain sometimes he cannot make it to the bathroom on time. He was found to have consistently positive gram-positive cocci blood cultures on 05/31/2016 and 06/01/2016 also. MRI scan of the lumbar spine with and without contrast does not reveal any enhancement of the disc space or vertebral body or epidural space to suggest an infection. There is an L5-S1 disc protrusion central without any significant nerve root impingement. CT scan of the complete spine was also obtained and is fairly unremarkable. PAST MEDICAL HISTORY: 1. Hypertension. 2. COPD. 3. Seizures. 4. Chronic back pain. MEDICATIONS: 1. amlodipine 7.5 milligrams daily. 2. Atenolol 12.5 milligrams daily. 3. Baclofen 10 milligrams three times a day. 4. Dilantin 9 milligrams three times a day. ALLERGIES: PENICILLIN. SOCIAL HISTORY: He drinks alcohol on an occasional basis. Smokes cigarettes. His . 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 LABORATORY FINDINGS: White blood cell count 10.2, hemoglobin 88, platelet count of 101,000. PT 22.1, INR 1.9. Sodium 136, potassium 3.9, BUN 9, creatinine 0.85, glucose 120. His liver function tests are elevated. PHYSICAL EXAMINATION: VITAL SIGNS: Temperature 98.1, pulse 84, respiratory 16, blood pressure 98/56, ox saturation 96% on room air. HEAD, EYES, EARS, NOSE, THROAT: Head is normocephalic, atraumatic. NECK: Neck is supple. CHEST: Clear bilaterally. HEART: Regular rate and rhythm. Normal S1 and S2. ABDOMEN: Abdomen soft and nontender. EXTREMITIES: No cyanosis, edema or deformity. NEUROLOGICAL EXAMINATION: He is awake and alert. Cranial nerves are intact. Motor strength overall is 5/5 in the upper and lower extremities with some give way weakness in left leg because of pain but overall has good strength on dorsiflexion and plantar flexion. Decreased light touch sensation in the left L5-S1 dermatome. Negative Babinski. IMPRESSION: 1. Chronic low back pain with mild L5-S1 disc protrusion with associated left L5 and S1 partial sensory loss. Preserved motor function. Currently there is no radiographic indication of any lumbar lumbosacral infection. 2. Persistent bacteremia. PLAN: The patient does not require any neurosurgical intervention. Recommend continued management of his infection as per infectious disease along with pain control and increased activity status with physical therapy. If further neurologic workup is needed, then would recommend consulting neurology. MD MARY GRACE Galaviz/GARRETT /5:43 PM /6:53 PM
[2016-06-03] VITALS (9 sets, daily range): BP systolic 99–110; BP diastolic 52–65; PULSE 96–108; RESP 18–22; TEMP 96.8–99.6; O2SAT 86–96
[2016-06-03] MEDS: AZTREONAM INJ 2,000 MG in SODIUM CHLORIDE 0.9% INJ 100 ML IV SCH ×2 (00:20→08:39)
[2016-06-03] MEDS: CYCLOBENZAPRINE HCL 10 MG TAB PO SCH ×3 (00:20→16:23)
[2016-06-03] MEDS ORDERED: PHARMACY ORDERED LAB XX ONE (01:45)
[2016-06-03] MEDS: VANCOMYCIN INJ 1,250 MG in SODIUM CHLOR 0.9% 250 ML INJ 250 ML IV SCH ×2 (02:51→14:23)
[2016-06-03] MEDS: ACETYLCYSTEINE 20% 6,000 MG/30 ML ORAL SOLN VIAL PO SCH ×6 (05:09→21:08)
[2016-06-03 05:23] LABS: AUTOMATED NEUTROPHIL # 5.7 TH/MM3 (1.8-7.7); BASOPHIL % 0.5 % (0.0-2.0); EOSINOPHIL # 0.3 TH/MM3 (0-0.4); EOSINOPHIL % 3.9 % (0.0-4.0); HEMATOCRIT 21.1 % (39.0-51.0); LYMPH % 17.8 % (9.0-44.0); LYMPHOCYTE # 1.5 TH/MM3 (1.0-4.8); MEAN CELL VOLUME 112.6 FL (80.0-100.0); MEAN CORPUSCULAR HEMOGLOBIN 40.2 PG (27.0-34.0); MEAN CORPUSCULAR HGB CONC 35.7 % (32.0-36.0); MONO % 11.5 % (0.0-8.0); NEUT % 66.3 % (16.0-70.0); PLATELET COUNT 117 TH/MM3 (150-450); RED BLOOD COUNT 1.88 MIL/MM3 (4.50-5.90); RED CELL DISTRIBUTION WIDTH 14.8 % (11.6-17.2); WHITE BLOOD COUNT 8.7 TH/MM3 (4.0-11.0)
[2016-06-03 05:34] LABS: HEMO FLAGS AUTO DIFF
[2016-06-03 05:51] LABS: BICARBONATE 25.1 MEQ/L (21.0-32.0); MAGNESIUM 1.8 MG/DL (1.5-2.5); POTASSIUM 3.6 MEQ/L (3.5-5.1)
[2016-06-03 05:53] LABS: INDIRECT BILIRUBIN 5.5 MG/DL (0.0-0.8); TOTAL BILIRUBIN ADULT 15.1 MG/DL (0.2-1.0)
[2016-06-03 08:20] LABS: BANDS 2 % (0-6); EOSINOPHILS 2 % (0-4); MYELOCYTES 1 % (0-0); NEUTROPHIL # MANUAL DIFF 6.7 TH/MM3 (1.8-7.7); PLATELET ESTIMATE SMEAR LOW (NORMAL); PLATELET MORPHOLOGY NORMAL (NORMAL); POLYS (SEG NEUTROPHILS) 74 % (16-70); SCAN/DIFF FINAL DIFF MANUAL; WBC DIFF SAMPLE 100
[2016-06-03 08:23] LABS: ACANTHOCYTES OCC (NORMAL)
[2016-06-03] MEDS: levETIRAcetam 250 MG TAB PO SCH ×2 (08:40→21:08)
[2016-06-03] MEDS: amLODIPine BESYLATE 5 MG TAB PO SCH (08:40)
[2016-06-03] MEDS: PANTOPRAZOLE SOD 40 MG DELAYED RELEASE TAB PO SCH (08:40)
[2016-06-03] MEDS: SODIUM CHLORIDE 0.9% FLUSH 5 ML FLUSH FLUSH SCH ×2 (08:40→21:08)
[2016-06-03] MEDS: ATENOLOL 25 MG TAB PO SCH (08:40)
[2016-06-03] MEDS: SODIUM CHLOR 0.9% 1000 ML INJ 1,000 ML IV SCH (11:49)
--- NOTE | 2016-06-03 12:02 | HHI.GIFU ---
Subjective Remarks Resting in bed. No n/v. No abdominal pain. Tired, but feeling better. ( Jeannine Trujillo) Objective Vitals I&O Vital Signs Date Time Temp Pulse Resp B/P Pulse Ox O2 Delivery O2 Flow Rate FiO2 06/03/16 08:00 97.8 108 18 99/55 92 06/03/16 04:00 96.8 106 19 107/57 94 06/03/16 00:00 98.5 101 19 104/52 94 06/02/16 20:26 91 06/02/16 20:00 98.4 91 20 106/57 94 06/02/16 16:00 98.9 92 16 100/54 95 06/02/16 12:00 98.1 84 16 98/56 96 I/O 06/02/16 06/02/16 06/02/16 06/03/16 06/03/16 06/03/16 07:00 15:00 23:00 07:00 15:00 23:00 Intake Total 120 ml 1228 ml 450 ml 424 ml Output Total 300 ml 350 ml 300 ml 400 ml Balance -180 ml 878 ml 150 ml 24 ml Intake Oral 120 ml 480 ml 240 ml 120 ml IV Total 748 ml 210 ml 304 ml Output Urine Total 300 ml 350 ml 300 ml 400 ml # Voids 1 2 # Bowel Movements 0 0 0 Laboratory Laboratory Tests Test 06/02/16 06/03/16 06/03/16 12:47 01:45 04:56 Hemoglobin 8.0 7.6 Hematocrit 22.6 21.1 Total Bilirubin 16.2 15.1 Direct Bilirubin 9.7 9.6 Indirect Bilirubin 6.5 5.5 Aspartate Amino Transf 73 63 (AST/SGOT) Alanine Aminotransferase 29 31 (ALT/SGPT) Alkaline Phosphatase 105 96 Total Protein 6.3 5.9 Albumin 1.6 1.5 Vancomycin Level Trough 9.6 White Blood Count 8.7 Red Blood Count 1.88 Mean Corpuscular Volume 112.6 Mean Corpuscular Hemoglobin 40.2 Mean Corpuscular Hemoglobin 35.7 Concent Red Cell Distribution Width 14.8 Platelet Count 117 Mean Platelet Volume 7.2 Neutrophils (%) (Auto) 66.3 Lymphocytes (%) (Auto) 17.8 Monocytes (%) (Auto) 11.5 Eosinophils (%) (Auto) 3.9 Basophils (%) (Auto) 0.5 Neutrophils # (Auto) 5.7 Lymphocytes # (Auto) 1.5 Monocytes # (Auto) 1.0 Eosinophils # (Auto) 0.3 Basophils # (Auto) 0.0 CBC Comment AUTO DIFF Differential Total Cells 100 Counted Neutrophils % (Manual) 74 Band Neutrophils % 2 Lymphocytes % 13 Monocytes % 8 Eosinophils % 2 Neutrophils # (Manual) 6.7 Myelocytes 1 Differential Comment FINAL DIFF MANUAL Platelet Estimate LOW Platelet Morphology Comment NORMAL Polychromasia 2.0 Acanthocytes OCC Sodium Level 137 Potassium Level 3.6 Chloride Level 105 Carbon Dioxide Level 25.1 Anion Gap 7 Blood Urea Nitrogen 13 Creatinine 0.67 Estimat Glomerular Filtration 125 Rate Random Glucose 101 Calcium Level 8.0 Magnesium Level 1.8 Date/Time Procedure Status Source Growth 06/03/16 04:56 Aerobic Blood Culture Received Blood Peripheral Pending 06/03/16 04:56 Anaerobic Blood Culture Received Blood Peripheral Pending 06/01/16 15:10 Aerobic Blood Culture - Preliminary Resulted Blood Peripheral NO GROWTH IN 2 DAYS 06/01/16 15:10 Anaerobic Blood Culture - Preliminary Resulted Blood Peripheral NO GROWTH IN 2 DAYS 05/31/16 17:10 Aerobic Blood Culture - Final Complete Blood Peripheral Group B Beta Strep 05/31/16 17:10 Anaerobic Blood Culture - Final Complete Group B Beta Strep Imaging Last Impressions Thoracic Spine CT 06/01/16 0000 Signed Impressions: Service Date/Time: Wednesday, June 01, 2016 05:13 - CONCLUSION: No evidence of acute bony process in the thoracic spine. Joseph Cook MD Lumbar Spine MRI 06/01/16 0000 Signed Impressions: Service Date/Time: Wednesday, June 01, 2016 15:22 - CONCLUSION: No evidence of abscess or abnormal enhancement. There is degenerative change within the disc at the level of L5/S1 suggestive of an acute tear of the annulus and small posterior central disc protrusion. Lexi Waller MD Lumbar Spine CT 06/01/16 0000 Signed Impressions: Service Date/Time: Wednesday, June 01, 2016 05:13 - CONCLUSION: Disc protrusion at the lumbosacral junction with mild asymmetric left-sided foraminal narrowing. No acute bony findings. Joseph Cook MD Chest X-Ray 06/01/16 0000 Signed Impressions: Service Date/Time: Wednesday, June 01, 2016 06:12 - CONCLUSION: No acute disease. Joseph Cook MD Cervical Spine CT 06/01/16 0000 Signed Impressions: Service Date/Time: Wednesday, June 01, 2016 05:13 - CONCLUSION: Mild degenerative change. No acute bony findings. Joseph Cook MD Abdomen Ultrasound 06/01/16 0000 Signed Impressions: Service Date/Time: Wednesday, June 01, 2016 14:06 - CONCLUSION: There is a trace of ascites insufficient for drainage. Jean-Paul Cheung MD Abdomen/Pelvis CT 05/31/16 1504 Signed Impressions: Service Date/Time: Tuesday, May 31, 2016 17:59 - CONCLUSION: 1. Ascites with varicosities as described above. 2. Casey shrunken liver with prominent spleen all consistent with longstanding cirrhosis. Tanner Willis MD FACR Physical Exam HEENT: Normocephalic; atraumatic; + jaundice. CHEST: Resp. shallow/even. CARDIAC: RRR ABDOMEN: Soft, nondistended, nontender; hepatosplenomegaly; bowel sounds are present in all four quadrants. EXTREMITIES: No clubbing, cyanosis, or edema. SKIN: Normal; no rash; + jaundice. SKEIN TIER: Lethargic, generalized weakness (Jeannine Trujillo) Assessment and Plan Plan ASSESSMENT: - Jaundice, Elevated LFTs. Abdomen/Pelvis CT (05/31/16) revealed 1. Ascites with varicosities as described above. 2. Casey shrunken liver with prominent spleen all consistent with longstanding cirrhosis. Pt denies any known hx of liver disease or cirrhosis in himself or family. He reports hx of heavy ETOH abuse, but quit 6 months ago and has not had any ETOH since that time. He denies any GI symptoms other than mild epigastric/midabdominal pressure. He reports that he has been jaundiced 2-3 months. Denies weight loss. He has been taking 5-6 Acetaminophen per day for a few months. He denies any hx of drug use or blood transfusions. He denies any new sexual partners. He denies any history of hepatitis. Hepatitis panel negative. AMERICA/ASMA negative/AMA pending, AFP 3.1, ALpha 1 Antitrypsin 162, Ceruloplasmin pending. Iron transfusion 40.4%, Ferritin 447. Acetaminophen level was < 2.0, but he was taking significant amount of acetaminophen. He was started on Mucamyst x 17 doses. T. Bili 15.1, AST 63, ALT 31, Alk Phosph 96. - Liver cirrhosis. New dx. CT Abdomen/Pelvis CT (05/31/16) revealed 1. Ascites with varicosities as described above. 2. Casey shrunken liver with prominent spleen all consistent with longstanding cirrhosis. MELD 23. Pt reports hx of heavy ETOH abuse, states he quit completely x 5-6 months ago. - Coagulopathy/Thrombocytopenia. Plt 117 - Anemia. 7.6/21.1. No active bleeding. - Back pain with lle weakness/numbness. - COPD, HTN. PLAN: - Low salt diet - Mucamyst 70mg/kg q4h x 17 doses, Stop date 06/05 at 080 - Monitor LFT, PT/INR - Await AMERICA, AMA - Ceruloplasmin - Monitor LFTs - Avoid hepatotoxic meds - Supportive care - Further recommendations to follow based on results of above - Pt seen and examined by Dr. Viveros and myself and this note is written on his behalf (Jeannine Trujillo) Physician Comments Seen and examined with eliza RUFFIN in progress for cirrhosis, egd/colonoscopy next week. (Anuel Viveros MD) Jeannine Trujillo Jun 03, 2016 12:02 Anuel Viveros MD Jun 03, 2016 17:07
[2016-06-03] MEDS ORDERED: RESP: ALBUTEROL 2.5 MG/3 ML NEB (PRN) INH (13:00)
[2016-06-03] MEDS: RESP: ALBUTEROL 2.5 MG/IPRATROPIUM 0.5 MG NEB (SCH) INH ×3 (13:41→19:08)
[2016-06-03 13:55] LABS: BLOOD GAS BASE EXCESS -0.6 mmol/L (-2-2); BLOOD GAS CARBOXYHEMOGLOBIN 5.4 % (0-4); BLOOD GAS HCO3 23 mmol/L (22-26); BLOOD GAS METHEMOGLOBIN 0.2 % (0-2); BLOOD GAS O2 HGB SATURATION 85 % (90-100); BLOOD GAS OXYGEN CONTENT 8.6 Vol % (12.0-20.0); BLOOD GAS PCO2 38 mmHg (38-42); BLOOD GAS PO2 62 mmHg (61-120); BLOOD GAS TOTAL HGB 7.1 G/DL (12.0-16.0); CRITICAL VALUE YES; DRAW SITE RT RADIAL; LITER FLOW 2 L/M; NUMBER OF ARTERIAL PUNCTURES 1; OXYGEN DEVICE NASAL CANNULA; STAT NO; TEMP CORR TO 98.6; ULNAR PULSE PRESENT
--- NOTE | 2016-06-03 14:24 | RADRPT ---
EXAM DATE/TIME: 06/03/2016 13:54 [facility] COMPARISON: No previous studies available for comparison. INDICATIONS : Short of breath. MEDICAL HISTORY : Chronic obstructive pulmonary disease. SURGICAL HISTORY : None. ENCOUNTER: Initial ACUITY: 3 days PAIN SCORE: 0/10 LOCATION: Bilateral chest FINDINGS: The cardiac silhouette is enlarged in transverse diameter. There is prominence of the central pulmona ry vasculature with indistinct vascular margins compatible with vascular congestion but no evidence o f overt failure. There is left lower lobe atelectasis versus pneumonia. Small bilateral pleural effus ions are identified. CONCLUSION: 1. Cardiomegaly and findings of vascular congestion without overt failure. 2. Left lower lobe atelectasis versus pneumonia. 3. Small bilateral effusions Cole Ocampo MD on June 03, 2016 at 14:22 Board Certified Radiologist. This report was verified electronically.
--- NOTE | 2016-06-03 15:34 | HHI.IDPN ---
Subjective Subjective Remarks is a 51 y/o CM with PMHx of ESLD, liver cirrhosis. Now presents with history suggestive of infectious process for last 4 weeks ? Admitted with severe sepsis, now with strep bacteremia. Overnight events reviewed. Paracentesis could not be performed due to minimal ascites. No fevers WBC ok No rash No diarrhea Still appears jaundiced. Mentally appears more clearer today. Antibiotics Azactam IV Vanco IV Lines Line sites with no e/o infection Past Medical History reviewed. Allergies: Coded Allergies: Penicillin (Verified Allergy, Unknown, 05/31/16) Objective . Vital Signs Date Time Temp Pulse Resp B/P Pulse Ox O2 Delivery O2 Flow Rate FiO2 06/03/16 08:00 97.8 108 18 99/55 92 06/03/16 04:00 96.8 106 19 107/57 94 06/03/16 00:00 98.5 101 19 104/52 94 06/02/16 20:26 91 06/02/16 20:00 98.4 91 20 106/57 94 06/02/16 16:00 98.9 92 16 100/54 95 06/02/16 06/02/16 06/03/16 15:00 23:00 07:00 Intake Total 1228 ml 450 ml 424 ml Output Total 350 ml 300 ml 400 ml Balance 878 ml 150 ml 24 ml Intake Oral 480 ml 240 ml 120 ml IV Total 748 ml 210 ml 304 ml Output Urine Total 350 ml 300 ml 400 ml # Voids 2 # Bowel Movements 0 0 . Laboratory Tests Test 06/02/16 06/02/16 06/03/16 04:20 12:47 04:56 White Blood Count 10.2 TH/MM3 8.7 TH/MM3 Red Blood Count 1.78 MIL/MM3 1.88 MIL/MM3 Hemoglobin 7.1 GM/DL 8.0 GM/DL 7.6 GM/DL Hematocrit 19.9 % 22.6 % 21.1 % Mean Corpuscular Volume 111.4 FL 112.6 FL Mean Corpuscular Hemoglobin 39.6 PG 40.2 PG Mean Corpuscular Hemoglobin 35.6 % 35.7 % Concent Red Cell Distribution Width 14.6 % 14.8 % Platelet Count 101 TH/MM3 117 TH/MM3 Mean Platelet Volume 7.5 FL 7.2 FL Neutrophils (%) (Auto) 71.2 % 66.3 % Lymphocytes (%) (Auto) 14.2 % 17.8 % Monocytes (%) (Auto) 13.4 % 11.5 % Eosinophils (%) (Auto) 0.9 % 3.9 % Basophils (%) (Auto) 0.3 % 0.5 % Neutrophils # (Auto) 7.3 TH/MM3 5.7 TH/MM3 Lymphocytes # (Auto) 1.5 TH/MM3 1.5 TH/MM3 Monocytes # (Auto) 1.4 TH/MM3 1.0 TH/MM3 Eosinophils # (Auto) 0.1 TH/MM3 0.3 TH/MM3 Basophils # (Auto) 0.0 TH/MM3 0.0 TH/MM3 CBC Comment AUTO DIFF AUTO DIFF Differential Comment AUTO DIFF FINAL DIFF CONFIRMED MANUAL Platelet Estimate LOW LOW Platelet Morphology Comment NORMAL NORMAL Polychromasia 2.8 % 2.0 % Basophilic Stippling FAINT Differential Total Cells 100 Counted Neutrophils % (Manual) 74 % Band Neutrophils % 2 % Lymphocytes % 13 % Monocytes % 8 % Eosinophils % 2 % Neutrophils # (Manual) 6.7 TH/MM3 Myelocytes 1 % Acanthocytes OCC Laboratory Tests Test 06/02/16 06/03/16 12:47 04:56 Total Bilirubin 16.2 MG/DL 15.1 MG/DL Direct Bilirubin 9.7 MG/DL 9.6 MG/DL Indirect Bilirubin 6.5 MG/DL 5.5 MG/DL Aspartate Amino Transf 73 U/L 63 U/L (AST/SGOT) Alanine Aminotransferase 29 U/L 31 U/L (ALT/SGPT) Alkaline Phosphatase 105 U/L 96 U/L Total Protein 6.3 GM/DL 5.9 GM/DL Albumin 1.6 GM/DL 1.5 GM/DL Sodium Level 137 MEQ/L Potassium Level 3.6 MEQ/L Chloride Level 105 MEQ/L Carbon Dioxide Level 25.1 MEQ/L Anion Gap 7 MEQ/L Blood Urea Nitrogen 13 MG/DL Creatinine 0.67 MG/DL Estimat Glomerular Filtration 125 ML/MIN Rate Random Glucose 101 MG/DL Calcium Level 8.0 MG/DL Magnesium Level 1.8 MG/DL Microbiology Date/Time Procedure Status Source Growth 05/31/16 17:10 Aerobic Blood Culture - Final Complete Blood Peripheral Group B Beta Strep 05/31/16 17:10 Anaerobic Blood Culture - Final Complete Group B Beta Strep 05/31/16 17:10 Aerobic Blood Culture - Final Complete Blood Peripheral Group B Beta Strep 05/31/16 17:10 Anaerobic Blood Culture - Final Complete Group B Beta Strep 06/01/16 15:10 Aerobic Blood Culture - Preliminary Resulted Blood Peripheral NO GROWTH IN 2 DAYS 06/01/16 15:10 Anaerobic Blood Culture - Preliminary Resulted Blood Peripheral NO GROWTH IN 2 DAYS 06/01/16 15:10 Aerobic Blood Culture - Preliminary Resulted Blood Peripheral Gram Positive Cocci 06/01/16 15:10 Anaerobic Blood Culture - Preliminary Resulted Blood Peripheral NO GROWTH IN 2 DAYS 06/03/16 04:50 Aerobic Blood Culture Received Blood Peripheral Pending 06/03/16 04:50 Anaerobic Blood Culture Received Blood Peripheral Pending 06/03/16 04:56 Aerobic Blood Culture Received Blood Peripheral Pending 06/03/16 04:56 Anaerobic Blood Culture Received Blood Peripheral Pending Imaging Last Impressions Thoracic Spine CT 06/01/16 0000 Signed Impressions: Service Date/Time: Wednesday, June 01, 2016 05:13 - CONCLUSION: No evidence of acute bony process in the thoracic spine. Joseph Cook MD Lumbar Spine MRI 06/01/16 0000 Signed Impressions: Service Date/Time: Wednesday, June 01, 2016 15:22 - CONCLUSION: No evidence of abscess or abnormal enhancement. There is degenerative change within the disc at the level of L5/S1 suggestive of an acute tear of the annulus and small posterior central disc protrusion. Lexi Waller MD Lumbar Spine CT 06/01/16 0000 Signed Impressions: Service Date/Time: Wednesday, June 01, 2016 05:13 - CONCLUSION: Disc protrusion at the lumbosacral junction with mild asymmetric left-sided foraminal narrowing. No acute bony findings. Joseph Cook MD Chest X-Ray 06/01/16 0000 Signed Impressions: Service Date/Time: Wednesday, June 01, 2016 06:12 - CONCLUSION: No acute disease. Joseph Cook MD Cervical Spine CT 06/01/16 0000 Signed Impressions: Service Date/Time: Wednesday, June 01, 2016 05:13 - CONCLUSION: Mild degenerative change. No acute bony findings. Joseph Cook MD Abdomen Ultrasound 06/01/16 0000 Signed Impressions: Service Date/Time: Wednesday, June 01, 2016 14:06 - CONCLUSION: There is a trace of ascites insufficient for drainage. Jean-Paul J. Siragusa, MD Abdomen/Pelvis CT 05/31/16 1504 Signed Impressions: Service Date/Time: Tuesday, May 31, 2016 17:59 - CONCLUSION: 1. Ascites with varicosities as described above. 2. Casey shrunken liver with prominent spleen all consistent with longstanding cirrhosis. Tanner Willis MD FACR Physical Exam GENERAL: Thin built poorly nourished male patient, in no apparent distress. SKIN: spider naevi, jaundiced skin. HEAD: Atraumatic. Normocephalic. No temporal or scalp tenderness. EYES: Pupils equal round and reactive. Extraocular motions intact. Positive for scleral icterus. No injection or drainage. ENT: Nose without bleeding, purulent drainage or septal hematoma. Throat without erythema, tonsillar hypertrophy or exudate. Uvula midline. Airway patent. NECK: Trachea midline. Supple, nontender, no meningeal signs. CARDIOVASCULAR: HS audible. No murmur appreciated. RESPIRATORY: Clear to auscultation. Breath sounds equal bilaterally. No wheezes , rales, or rhonchi. GASTROINTESTINAL: Abdomen soft, non-tender, nondistended. MUSCULOSKELETAL: Extremities without clubbing, cyanosis, or edema. No joint tenderness, effusion, or edema noted. No calf tenderness. Negative Homans sign bilaterally. NEUROLOGICAL: Awake and alert. Left foot weakness of extensors. Able to flex at knee but extremely painful movts. Reports tenderness on thigh area and foot level. Psych: cooperative, flat affect. IV line sites with no e.o infection. Assessment & Plan Remarks Severe Sepsis (SIRS,bacteremia, organ dysfunction: abnormal liver function tests from sepsis) Strep bacteremia ? endocarditis. Liver Cirrhosis with Ascites. ESLD with splenomegaly and s/o decompensated liver cirrhosis. Chronic heavy alcoholism Hyperbilirubinemia, elevated liver enzymes, hypoalbuminemia. Worsening foot drop, falls, change in gait, excruciating pain in left leg and back: ? early spinal osteomyelitis. R/o epidural abscess. Possible underlying disc disease worsening. Recs: Continue Vanco IV (covers resistant strep pending Cultures). Once susceptibility back will deescalate. D.w Clinical pharmacist may need PCN desensitization. If bacteremia persists will need JUAN MANUEL. DC Azactam IV pending cultures given GI source infection possibility. follow cultures follow clinically. MRI lumbar spine with no e/o infection. Noted Neurosurgery input. Possible early discitis. If bacteremia persists [facility] D.w patient in room. Monica Rodriguez MD Jun 03, 2016 15:34
--- NOTE | 2016-06-03 16:31 | HHI.PR ---
Subjective Remarks Follow up for back pain, severe sepsis bacteremia, jaundice. The patient reports increased shortness of breath with wheezing today, currently receiving nebulizer treatment with some relief. Still with continued low back pain. Afebrile overnight and today, however still tachycardic. He has no other complaints at this time. Objective Vitals Vital Signs Date Time Temp Pulse Resp B/P Pulse Ox O2 Delivery O2 Flow Rate FiO2 06/03/16 15:28 94 Nasal Cannula 4.00 06/03/16 08:00 97.8 108 18 99/55 92 06/03/16 04:00 96.8 106 19 107/57 94 06/03/16 00:00 98.5 101 19 104/52 94 06/02/16 20:26 91 06/02/16 20:00 98.4 91 20 106/57 94 I/O 06/02/16 06/02/16 06/02/16 06/03/16 06/03/16 06/03/16 07:00 15:00 23:00 07:00 15:00 23:00 Intake Total 120 ml 1228 ml 450 ml 424 ml 876 ml Output Total 300 ml 350 ml 300 ml 400 ml Balance -180 ml 878 ml 150 ml 24 ml 876 ml Intake Oral 120 ml 480 ml 240 ml 120 ml IV Total 748 ml 210 ml 304 ml 876 ml Output Urine Total 300 ml 350 ml 300 ml 400 ml # Voids 1 2 # Bowel Movements 0 0 0 Result Diagram: 06/03/16 0456 06/03/16 0456 Imaging Last Impressions Chest X-Ray 06/03/16 0000 Signed Impressions: Service Date/Time: Friday, June 03, 2016 13:54 - CONCLUSION: 1. Cardiomegaly and findings of vascular congestion without overt failure. 2. Left lower lobe atelectasis versus pneumonia. 3. Small bilateral effusions Cole Ocampo MD Thoracic Spine CT 06/01/16 0000 Signed Impressions: Service Date/Time: Wednesday, June 01, 2016 05:13 - CONCLUSION: No evidence of acute bony process in the thoracic spine. Joseph Cook MD Lumbar Spine MRI 06/01/16 0000 Signed Impressions: Service Date/Time: Wednesday, June 01, 2016 15:22 - CONCLUSION: No evidence of abscess or abnormal enhancement. There is degenerative change within the disc at the level of L5/S1 suggestive of an acute tear of the annulus and small posterior central disc protrusion. Lexi Waller MD Lumbar Spine CT 06/01/16 0000 Signed Impressions: Service Date/Time: Wednesday, June 01, 2016 05:13 - CONCLUSION: Disc protrusion at the lumbosacral junction with mild asymmetric left-sided foraminal narrowing. No acute bony findings. Joseph Cook MD Cervical Spine CT 06/01/16 0000 Signed Impressions: Service Date/Time: Wednesday, June 01, 2016 05:13 - CONCLUSION: Mild degenerative change. No acute bony findings. Joseph Cook MD Abdomen Ultrasound 06/01/16 0000 Signed Impressions: Service Date/Time: Wednesday, June 01, 2016 14:06 - CONCLUSION: There is a trace of ascites insufficient for drainage. Jean-Paul Cheung MD Abdomen/Pelvis CT 05/31/16 1504 Signed Impressions: Service Date/Time: Tuesday, May 31, 2016 17:59 - CONCLUSION: 1. Ascites with varicosities as described above. 2. Casey shrunken liver with prominent spleen all consistent with longstanding cirrhosis. Tanner Willis MD FACR Objective Remarks GENERAL: Well-nourished, well-developed middle aged male patient in [facility]. SKIN: Warm and dry. No rash. HEAD: Normocephalic. Atraumatic. EYES: Pupils equal and round. No scleral icterus. No injection or drainage. ENT: No nasal bleeding or discharge. Mucous membranes pink and moist. NECK: Supple. Trachea midline. . CARDIOVASCULAR: Regular rate and rhythm. S1, S2 noted. No murmur appreciated. RESPIRATORY: No accessory muscle use. Decreased breath sounds, otherwise clear to auscultation, no wheezing. Breath sounds equal bilaterally. GASTROINTESTINAL: Abdomen soft, non-tender, nondistended. Normoactive bowel sounds x4. MUSCULOSKELETAL: No obvious deformities. Extremities without clubbing, cyanosis , or edema. NEUROLOGICAL: Awake and alert. No obvious cranial nerve deficits. Motor grossly within normal limits. Normal speech. PSYCHIATRIC: Appropriate mood and affect; insight and judgment normal. Medications and IVs Current Medications Medications (Trade) Dose Ordered Sig/Adriano Route Start Time Stop Time Status Last Admin (NS Flush) 2 ml UNSCH PRN FLUSH 05/31/16 20:15 (NS Flush) 2 ml BID FLUSH 05/31/16 21:00 06/01/16 21:46 (Zofran Inj) 4 mg Q6H PRN IVP 05/31/16 22:00 (Narcan Inj) 0.4 mg UNSCH PRN IV 05/31/16 20:15 (Norvasc) 7.5 mg DAILY PO 06/01/16 09:00 06/03/16 08:40 (Tenormin) 12.5 mg DAILY PO 06/01/16 09:00 06/03/16 08:40 (Pill Splitter) 1 ea UNSCH PRN OTHER 06/01/16 04:45 (Keppra) 250 mg Q12HR PO 06/01/16 09:00 06/03/16 08:40 Cyclobenzaprine HCl 10 mg 10 mg Q8H PO 06/01/16 09:00 06/03/16 08:40 Pharmacy Profile Note 0 ml @ 0 mls/hr UNSCH OTHER 06/01/16 11:15 Vancomycin HCl 1250 mg/Sodium Chloride 262.5 ml @ 250 mls/hr Q12H IV 06/01/16 14:00 06/03/16 14:23 (NS 1000 ml Inj) 1,000 ml @ 42 mls/hr [id number] IV 06/01/16 12:15 06/03/16 11:49 (Protonix) 40 mg DAILY PO 06/02/16 09:00 06/03/16 08:40 (Mucomyst 20% Liq) 5,600 mg Q4HR PO 06/02/16 16:00 06/05/16 08:01 06/03/16 12:23 (Roxicodone) 10 mg Q4H PRN PO 06/02/16 14:15 06/03/16 05:15 (Roxicodone) 5 mg Q4H PRN PO 06/02/16 14:15 Miscellaneous Information SPECIFIC LAB TO BE DRAWN:VA... ONCE ONCE XX 06/04/16 01:45 06/04/16 01:46 Urinary Catheter: No A/P Problem List: (1) Jaundice ICD Code: R17 Status: Acute (2) SIRS (systemic inflammatory response syndrome) ICD Code: R65.10 Status: Acute (3) Back pain ICD Code: M54.9 Status: Chronic (4) Anemia ICD Code: D64.9 Status: Acute (5) HTN (hypertension) ICD Code: I10 Status: Chronic (6) Seizures ICD Code: R56.9 Status: Chronic Assessment and Plan 51-year-old male with a history of chronic back pain, hypertension seizures presented with: Jaundice with hx ETOH abuse and chronic APAP usage Images reviewed: Abdomen/pelvis CT shows Ascites with varicosities as described above. A Small shrunken liver with prominent spleen all consistent with longstanding cirrhosis. Labs reviewed: Total bilirubin 15.4, AST 65, alkaline phosphatase 132. Negative hepatitis panel. -Consulted GI -Continue Mucomyst, stop date 06/05 -Protonix -Follow LFTs with bilirubin components. -Alcohol cessation Severe sepsis with strep bacteremia . HIV negative. UA negative. Chest x-ray with no acute process. - Continue IV vancomycin - Consulted infectious disease, discussed with Dr. Rodriguez, discontinued Azactam , continue IV Vanco for now - May need PCN desensitization - Echo 06/02 showed EF 60-65%, aortic valve poorly visualized, trace MR, no vegetation identified; however If bacteremia persists, may need JUAN MANUEL - Supportive IVF Acute on chronic lower back pain Imaging reviewed: Cervical and thoracic CTs with no acute process. Lumbar CT with disc protrusion at lower sacral drunk walden with mild asymmetric left-sided foraminal narrowing, no acute bony findings. -Continue home Flexeril. Added oxycodone -Heating pad -PT eval, currently recommending rehab -Neurosurgery consulted secondary to annular tear and disc protrusion, appreciate recommendations Macrocytic Anemia Labs: Hemoglobin 8.6/8.2/8.9, stable. B12 greater than 2000. -Reviewed folate and iron studies -Follow up CBC worse today, Hgb 7.6 -transfuse 1u pRBCs now -Hemoccult ordered Seizures, chronic -Changed patient's Dilantin to Keppra 250 mg by mouth every 12 due to decreased liver function -Seizure precautions Hypertension, chronic, stable -Continue home atenolol and Norvasc -Monitor vitals Dyspnea: today 06/03. CXR images by me, shows vascular congestion without overt failure -started on duonebs q6h and albuterol neb q2h prn -give IV lasix 20mg x1 now -check BNP -incentive spirometry DVT prophylaxis: Scds Written by Deborah Melvin, acting as scribe for Dr. Marie on 06/03/16 at 15: 30. The documentation accurately reflects the work performed [id number] by me on at 1530 Problem Qualifiers (1) Back pain: (2) HTN (hypertension): Qualified Code: I10 - Essential hypertension Deborah Charles PA-C Jun 03, 2016 16:31 Federico Marie MD Jun 03, 2016 17:48
[2016-06-03] MEDS ORDERED: SODIUM CHLOR 0.9% 250 ML INJ 250 ML IV ONE (18:00)
[2016-06-03] MEDS ORDERED: POTASSIUM CHLORIDE 20 MEQ CONTROLLED RELEASE TAB PO ONE (18:00)
[2016-06-03] MEDS ORDERED: FUROSEMIDE 20 MG/2 ML VIAL IV PUSH ONE (18:00)
[2016-06-04] VITALS (11 sets, daily range): BP systolic 97–117; BP diastolic 58–65; PULSE 96–104; RESP 20; TEMP 97.6–99.9; O2SAT 92–98
[2016-06-04] MEDS: CYCLOBENZAPRINE HCL 10 MG TAB PO SCH ×4 (01:03→23:32)
[2016-06-04] MEDS: ACETYLCYSTEINE 20% 6,000 MG/30 ML ORAL SOLN VIAL PO SCH ×6 (01:03→20:02)
[2016-06-04] MEDS ORDERED: PHARMACY ORDERED LAB XX ONE (01:45)
[2016-06-04] MEDS: VANCOMYCIN INJ 1,250 MG in SODIUM CHLOR 0.9% 250 ML INJ 250 ML IV SCH (02:18)
[2016-06-04] MEDS: RESP: ALBUTEROL 2.5 MG/IPRATROPIUM 0.5 MG NEB (SCH) INH ×4 (03:57→20:26)
[2016-06-04 05:42] LABS: PROTHROMBIN TIME - PATIENT 22.5 SEC (9.8-11.6)
[2016-06-04 05:51] LABS: BICARBONATE 25.1 MEQ/L (21.0-32.0); MAGNESIUM 1.6 MG/DL (1.5-2.5)
[2016-06-04 05:56] LABS: INDIRECT BILIRUBIN 6.4 MG/DL (0.0-0.8); TOTAL BILIRUBIN ADULT 15.2 MG/DL (0.2-1.0)
[2016-06-04 06:12] LABS: POTASSIUM 2.9 MEQ/L (3.5-5.1)
[2016-06-04 06:19] LABS: AUTOMATED NEUTROPHIL # 7.9 TH/MM3 (1.8-7.7); BASOPHIL % 0.3 % (0.0-2.0); EOSINOPHIL # 0.2 TH/MM3 (0-0.4); EOSINOPHIL % 1.8 % (0.0-4.0); HEMATOCRIT 26.2 % (39.0-51.0); LYMPH % 16.8 % (9.0-44.0); LYMPHOCYTE # 1.9 TH/MM3 (1.0-4.8); MEAN CELL VOLUME 106.9 FL (80.0-100.0); MEAN CORPUSCULAR HGB CONC 35.6 % (32.0-36.0); MONO % 11.5 % (0.0-8.0); NEUT % 69.6 % (16.0-70.0); PLATELET COUNT 139 TH/MM3 (150-450); RED BLOOD COUNT 2.45 MIL/MM3 (4.50-5.90); RED CELL DISTRIBUTION WIDTH 19.5 % (11.6-17.2); WHITE BLOOD COUNT 11.3 TH/MM3 (4.0-11.0)
[2016-06-04] MEDS ORDERED: POTASSIUM CHLORIDE 20 MEQ CONTROLLED RELEASE TAB PO ONE (06:45)
[2016-06-04] MEDS ORDERED: POTASSIUM CHLORIDE 10 MEQ CONTROLLED RELEASE TAB PO ONE ×2 (07:00→12:00)
[2016-06-04 07:29] LABS: HEMO FLAGS AUTO DIFF
[2016-06-04 07:34] LABS: BANDS 2 % (0-6); EOSINOPHILS 1 % (0-4); MYELOCYTES 1 % (0-0); NEUTROPHIL # MANUAL DIFF 9.7 TH/MM3 (1.8-7.7); PLATELET ESTIMATE SMEAR LOW (NORMAL); PLATELET MORPHOLOGY NORMAL (NORMAL); POLYS (SEG NEUTROPHILS) 83 % (16-70); SCAN/DIFF FINAL DIFF MANUAL; WBC DIFF SAMPLE 100
[2016-06-04 07:35] LABS: ACANTHOCYTES 1+ (NORMAL)
[2016-06-04 07:36] LABS: TEARDROP RBCS 1+ (NORMAL)
[2016-06-04] MEDS: ATENOLOL 25 MG TAB PO SCH (09:00)
[2016-06-04] MEDS: amLODIPine BESYLATE 5 MG TAB PO SCH (09:00)
[2016-06-04] MEDS: PANTOPRAZOLE SOD 40 MG DELAYED RELEASE TAB PO SCH (09:53)
[2016-06-04] MEDS: SODIUM CHLORIDE 0.9% FLUSH 5 ML FLUSH FLUSH SCH ×2 (09:53→20:02)
[2016-06-04] MEDS: levETIRAcetam 250 MG TAB PO SCH ×2 (09:53→20:01)
[2016-06-04] MEDS ORDERED: MAGNESIUM SULFATE 1 GM PREMIX 100 ML IV ONE (13:30)
--- NOTE | 2016-06-04 13:39 | HHI.PR ---
Subjective Remarks Follow-up for bacteremia. The patient reports that shortness of breath has improved some. He feels like he's been able to move a little bit better in bed , but is still weak. Objective Vitals Vital Signs Date Time Temp Pulse Resp B/P Pulse Ox O2 Delivery O2 Flow Rate FiO2 06/04/16 11:23 16 06/04/16 08:51 92 Nasal Cannula 2.00 06/04/16 08:00 99.3 103 20 100/58 95 06/04/16 04:02 95 Nasal Cannula 4.00 06/04/16 04:00 99.6 99 20 117/65 98 06/04/16 00:00 99.9 101 20 110/62 96 06/03/16 20:00 99.6 101 22 110/62 95 06/03/16 19:53 94 Nasal Cannula 4.00 06/03/16 19:38 99 06/03/16 16:00 98.2 96 20 110/65 96 06/03/16 15:28 94 Nasal Cannula 4.00 I/O 06/03/16 06/03/16 06/03/16 06/04/16 06/04/16 06/04/16 07:00 15:00 23:00 07:00 15:00 23:00 Intake Total 424 ml 1876 ml 390 ml 980 ml Output Total 400 ml 300 ml 400 ml 1050 ml Balance 24 ml 1576 ml -10 ml -70 ml Intake Oral 120 ml 1000 ml 240 ml 480 ml IV Total 304 ml 876 ml 150 ml 250 ml Packed Cells 250 ml Output Urine Total 400 ml 300 ml 400 ml 1050 ml # Voids 2 # Bowel Movements 0 0 0 0 Result Diagram: 06/04/16 0448 06/04/16 0448 Imaging Last Impressions Chest X-Ray 06/03/16 0000 Signed Impressions: Service Date/Time: Friday, June 03, 2016 13:54 - CONCLUSION: 1. Cardiomegaly and findings of vascular congestion without overt failure. 2. Left lower lobe atelectasis versus pneumonia. 3. Small bilateral effusions Cole Ocampo MD Thoracic Spine CT 06/01/16 0000 Signed Impressions: Service Date/Time: Wednesday, June 01, 2016 05:13 - CONCLUSION: No evidence of acute bony process in the thoracic spine. Joseph Cook MD Lumbar Spine MRI 06/01/16 0000 Signed Impressions: Service Date/Time: Wednesday, June 01, 2016 15:22 - CONCLUSION: No evidence of abscess or abnormal enhancement. There is degenerative change within the disc at the level of L5/S1 suggestive of an acute tear of the annulus and small posterior central disc protrusion. Lexi Waller MD Lumbar Spine CT 06/01/16 0000 Signed Impressions: Service Date/Time: Wednesday, June 01, 2016 05:13 - CONCLUSION: Disc protrusion at the lumbosacral junction with mild asymmetric left-sided foraminal narrowing. No acute bony findings. Joseph Cook MD Cervical Spine CT 06/01/16 0000 Signed Impressions: Service Date/Time: Wednesday, June 01, 2016 05:13 - CONCLUSION: Mild degenerative change. No acute bony findings. Joseph Cook MD Abdomen Ultrasound 06/01/16 0000 Signed Impressions: Service Date/Time: Wednesday, June 01, 2016 14:06 - CONCLUSION: There is a trace of ascites insufficient for drainage. Jean-Paul Cheung MD Abdomen/Pelvis CT 05/31/16 1504 Signed Impressions: Service Date/Time: Tuesday, May 31, 2016 17:59 - CONCLUSION: 1. Ascites with varicosities as described above. 2. Casey shrunken liver with prominent spleen all consistent with longstanding cirrhosis. Tanner Willis MD FACR Objective Remarks GENERAL: Well-developed well-nourished. In no acute distress. SKIN: Warm and dry. No lesions noted. Jaundiced. HEENT: Normocephalic. Pupils equal and round. Mucous membranes pink and moist. Positive JVD. CARDIOVASCULAR: Regular rate and rhythm. No murmur appreciated. RESPIRATORY: No accessory muscle use. Clear to auscultation. Breath sounds equal bilaterally. GASTROINTESTINAL: Abdomen soft, non-tender, nondistended. Bowel sounds x4. MUSCULOSKELETAL: No obvious deformities. No clubbing or cyanosis. Trace lower extremity edema. NEUROLOGICAL: Awake and alert. No focal neurological deficits. Moves upper and lower extremities spontaneously. Normal speech. PSYCHIATRIC: Appropriate mood and affect; insight and judgment normal. A/P Problem List: (1) Jaundice ICD Code: R17 Status: Acute (2) SIRS (systemic inflammatory response syndrome) ICD Code: R65.10 Status: Acute (3) Back pain ICD Code: M54.9 Status: Chronic (4) Anemia ICD Code: D64.9 Status: Acute (5) HTN (hypertension) ICD Code: I10 Status: Chronic (6) Seizures ICD Code: R56.9 Status: Chronic Assessment and Plan 51-year-old male with a history of chronic back pain, hypertension seizures presented with: Jaundice with hx ETOH abuse and chronic APAP usage Images reviewed: Abdomen/pelvis CT shows Ascites with varicosities as described above. A Small shrunken liver with prominent spleen all consistent with longstanding cirrhosis. Labs reviewed: Total bilirubin 15.4, AST 65, alkaline phosphatase 132. Negative hepatitis panel. -Consulted GI, workup in progress -Continue Mucomyst, stop date 06/05 -Protonix -Alcohol cessation -Monitor Severe sepsis with strep bacteremia . HIV negative. UA negative. Chest x-ray with no acute process. Cultures reviewed: Initial blood cultures 4/4 with group B strep. Second cultures with 1/4 positive for group B strep. Third set with NGTD. - Continue IV vancomycin - Consulted infectious disease, seen by Dr. Rodriguez, discontinued Azactam, continue IV Vanco for now - May need PCN desensitization - Echo 06/02 showed EF 60-65%, aortic valve poorly visualized, trace MR, no vegetation identified; however If bacteremia persists, may need JUAN MANUEL Acute on chronic lower back pain Imaging reviewed: Cervical and thoracic CTs with no acute process. Lumbar CT with disc protrusion at lower sacral drunk walden with mild asymmetric left-sided foraminal narrowing, no acute bony findings. -Continue home Flexeril. Added oxycodone -Heating pad -PT eval, currently recommending rehab -Neurosurgery consulted secondary to annular tear and disc protrusion, appreciate recommendations Macrocytic Anemia Iron studies, B12, folate levels reviewed Hemoglobin decreased to 7.6 on 06/03 and given 1 unit PRBC. Hemoglobin improved to 9.3. -Hemoccult ordered -Monitor Seizures, chronic -Changed patient's Dilantin to Keppra 250 mg by mouth every 12 due to decreased liver function -Seizure precautions Hypertension, chronic, stable -Continue home atenolol and Norvasc -Monitor vitals Dyspnea: 06/03. Improving. CXR showed vascular congestion without overt failure. BNP elevated at 212. Echocardiogram as above. Probably secondary to combination of cirrhosis, anemia, and volume overload from IVF -Stop IVF -Continue on duonebs q6h and albuterol neb q2h prn -Continue IV lasix 20mg with potassium replacement -incentive spirometry Hypokalemia potassium 2.9. Replace with total 70 mg potassium. Check magnesium and repeat labs in the morning DVT prophylaxis: Scds Written by Ezequiel Wilburn, acting as scribe for Dr. Marie on 06/04/16 at 13:38. The documentation accurately reflects the work performed [id number] by me on at 1338 Discharge Planning Disposition pending clinical course Problem Qualifiers (1) Back pain: (2) HTN (hypertension): Qualified Code: I10 - Essential hypertension Ezequiel Wilburn Jun 04, 2016 13:39 Federico Marie MD Jun 04, 2016 15:24
[2016-06-04] MEDS: FUROSEMIDE 20 MG/2 ML VIAL IV PUSH SCH (13:45)
[2016-06-04] MEDS: POTASSIUM CHLORIDE 20 MEQ CONTROLLED RELEASE TAB PO SCH (13:45)
[2016-06-04] MEDS: VANCOMYCIN 1,500 MG/NS 500 ML IV SCH ×2 (14:32)
--- NOTE | 2016-06-04 17:49 | HHI.GIFU ---
Subjective Remarks Resting in bed. No complaints. No n/v, abdominal pain. (Jeannine Trujillo) Objective Vitals I&O Vital Signs Date Time Temp Pulse Resp B/P Pulse Ox O2 Delivery O2 Flow Rate FiO2 06/04/16 16:40 16 06/04/16 14:32 100 101/60 06/04/16 12:00 99.2 104 20 107/58 94 06/04/16 08:51 92 Nasal Cannula 2.00 06/04/16 08:00 99.3 103 20 100/58 95 06/04/16 08:00 103 06/04/16 04:02 95 Nasal Cannula 4.00 06/04/16 04:00 99.6 99 20 117/65 98 06/04/16 00:00 99.9 101 20 110/62 96 06/03/16 20:00 99.6 101 22 110/62 95 06/03/16 19:53 94 Nasal Cannula 4.00 06/03/16 19:38 99 I/O 06/03/16 06/03/16 06/03/16 06/04/16 06/04/16 06/04/16 07:00 15:00 23:00 07:00 15:00 23:00 Intake Total 424 ml 1876 ml 390 ml 980 ml 960 ml Output Total 400 ml 300 ml 400 ml 1050 ml 775 ml Balance 24 ml 1576 ml -10 ml -70 ml 185 ml Intake Oral 120 ml 1000 ml 240 ml 480 ml 960 ml IV Total 304 ml 876 ml 150 ml 250 ml Packed Cells 250 ml Output Urine Total 400 ml 300 ml 400 ml 1050 ml 775 ml # Voids 2 # Bowel Movements 0 0 0 0 0 Laboratory Laboratory Tests Test 06/03/16 06/04/16 06/04/16 20:35 01:10 04:48 Blood Type A POSITIVE Antibody Screen NEGATIVE Crossmatch Leukocyte-Reduced Red Blood Cells Blood Bank Comment Vancomycin Level Trough 11.7 White Blood Count 11.3 Red Blood Count 2.45 Hemoglobin 9.3 Hematocrit 26.2 Mean Corpuscular Volume 106.9 Mean Corpuscular Hemoglobin 38.0 Mean Corpuscular Hemoglobin 35.6 Concent Red Cell Distribution Width 19.5 Platelet Count 139 Mean Platelet Volume 7.2 Neutrophils (%) (Auto) 69.6 Lymphocytes (%) (Auto) 16.8 Monocytes (%) (Auto) 11.5 Eosinophils (%) (Auto) 1.8 Basophils (%) (Auto) 0.3 Neutrophils # (Auto) 7.9 Lymphocytes # (Auto) 1.9 Monocytes # (Auto) 1.3 Eosinophils # (Auto) 0.2 Basophils # (Auto) 0.0 CBC Comment AUTO DIFF Differential Total Cells 100 Counted Neutrophils % (Manual) 83 Band Neutrophils % 2 Lymphocytes % 4 Monocytes % 9 Eosinophils % 1 Neutrophils # (Manual) 9.7 Myelocytes 1 Differential Comment FINAL DIFF MANUAL Platelet Estimate LOW Platelet Morphology Comment NORMAL Tear Drop Cells 1+ Acanthocytes 1+ Prothrombin Time 22.5 Prothromb Time International 2.0 Ratio Sodium Level 138 Potassium Level 2.9 Chloride Level 103 Carbon Dioxide Level 25.1 Anion Gap 10 Blood Urea Nitrogen 12 Creatinine 0.70 Estimat Glomerular Filtration 118 Rate Random Glucose 117 Calcium Level 8.4 Magnesium Level 1.6 Total Bilirubin 15.2 Direct Bilirubin 8.8 Indirect Bilirubin 6.4 Aspartate Amino Transf 61 (AST/SGOT) Alanine Aminotransferase 31 (ALT/SGPT) Alkaline Phosphatase 93 Total Protein 6.3 Albumin 1.5 Date/Time Procedure Status Source Growth 06/03/16 04:56 Aerobic Blood Culture - Preliminary Resulted Blood Peripheral NO GROWTH IN 1 DAY 06/03/16 04:56 Anaerobic Blood Culture - Preliminary Resulted Blood Peripheral NO GROWTH IN 1 DAY 06/01/16 15:10 Aerobic Blood Culture - Final Resulted Blood Peripheral Group B Beta Strep 06/01/16 15:10 Anaerobic Blood Culture - Preliminary Resulted Blood Peripheral NO GROWTH IN 3 DAYS Imaging Last Impressions Chest X-Ray 06/03/16 0000 Signed Impressions: Service Date/Time: Friday, June 03, 2016 13:54 - CONCLUSION: 1. Cardiomegaly and findings of vascular congestion without overt failure. 2. Left lower lobe atelectasis versus pneumonia. 3. Small bilateral effusions Cole Ocampo MD Thoracic Spine CT 06/01/16 0000 Signed Impressions: Service Date/Time: Wednesday, June 01, 2016 05:13 - CONCLUSION: No evidence of acute bony process in the thoracic spine. Joseph Cook MD Lumbar Spine MRI 06/01/16 0000 Signed Impressions: Service Date/Time: Wednesday, June 01, 2016 15:22 - CONCLUSION: No evidence of abscess or abnormal enhancement. There is degenerative change within the disc at the level of L5/S1 suggestive of an acute tear of the annulus and small posterior central disc protrusion. Lexi Waller MD Lumbar Spine CT 06/01/16 0000 Signed Impressions: Service Date/Time: Wednesday, June 01, 2016 05:13 - CONCLUSION: Disc protrusion at the lumbosacral junction with mild asymmetric left-sided foraminal narrowing. No acute bony findings. Joseph Cook MD Cervical Spine CT 06/01/16 0000 Signed Impressions: Service Date/Time: Wednesday, June 01, 2016 05:13 - CONCLUSION: Mild degenerative change. No acute bony findings. Joseph Cook MD Abdomen Ultrasound 06/01/16 0000 Signed Impressions: Service Date/Time: Wednesday, June 01, 2016 14:06 - CONCLUSION: There is a trace of ascites insufficient for drainage. Jean-Paul Cheung MD Abdomen/Pelvis CT 05/31/16 1504 Signed Impressions: Service Date/Time: Tuesday, May 31, 2016 17:59 - CONCLUSION: 1. Ascites with varicosities as described above. 2. Casey shrunken liver with prominent spleen all consistent with longstanding cirrhosis. Tanner Willis MD FACR Physical Exam HEENT: Normocephalic; atraumatic; + jaundice. CHEST: Resp. shallow/even. CARDIAC: RRR ABDOMEN: Soft, nondistended, nontender; hepatosplenomegaly; bowel sounds are present in all four quadrants. EXTREMITIES: No clubbing, cyanosis, or edema. SKIN: Normal; no rash; + jaundice. CONSULTING PSYCHOLOGIST: Lethargic, generalized weakness (Jeannine Trujillo RN [facility]) Assessment and Plan Plan ASSESSMENT: - Jaundice, Elevated LFTs. Abdomen/Pelvis CT (05/31/16) revealed 1. Ascites with varicosities as described above. 2. Casey shrunken liver with prominent spleen all consistent with longstanding cirrhosis. Pt denies any known hx of liver disease or cirrhosis in himself or family. He reports hx of heavy ETOH abuse, but quit 6 months ago and has not had any ETOH since that time. He denies any GI symptoms other than mild epigastric/midabdominal pressure. He reports that he has been jaundiced 2-3 months. Denies weight loss. He has been taking 5-6 Acetaminophen per day for a few months. He denies any hx of drug use or blood transfusions. He denies any new sexual partners. He denies any history of hepatitis. Hepatitis panel negative. ANAnegative/ASMA negative/AMA pending, AFP 3.1, ALpha 1 Antitrypsin 162, Ceruloplasmin 16. Iron transfusion 40.4%, Ferritin 447. Acetaminophen level was < 2.0, but he was taking significant amount of acetaminophen. He was started on Mucamyst x 17 doses. T. Bili 15.2, AST 61, ALT 31, Alk Phosph 93. - Liver cirrhosis. New dx. CT Abdomen/Pelvis CT (05/31/16) revealed 1. Ascites with varicosities as described above. 2. Casey shrunken liver with prominent spleen all consistent with longstanding cirrhosis. MELD 23. Pt reports hx of heavy ETOH abuse, states he quit completely x 5-6 months ago. - Coagulopathy/Thrombocytopenia. Plt 139 - Anemia. 9./26.2.. No active bleeding. - Back pain with lle weakness/numbness. - COPD, HTN. PLAN: - Plan for egd/colonoscopy Monday - Obtain consents - Clear liquids in am - Golytely prep tomorrow - NPO after MN monday ngiht - Mucamyst 70mg/kg q4h x 17 doses, Stop date 06/05 at 080 - Monitor labs - Await AMA - Avoid hepatotoxic meds - Supportive care - Further recommendations to follow based on results of above - Pt seen and examined by Dr. Viveros and myself and this note is written on his behalf (Jeannine Trujillo) Physician Comments EGd/colonoscopy planned for monday. Completing mucomyst tomorrow. (Anuel Viveros MD) Jeannine Trujillo Jun 04, 2016 17:49 Anuel Viveros MD Jun 04, 2016 19:03
[2016-06-05] VITALS (10 sets, daily range): BP systolic 98–123; BP diastolic 52–76; PULSE 87–107; RESP 17–20; TEMP 96.9–98.8; O2SAT 92–97
[2016-06-05] MEDS: VANCOMYCIN 1,500 MG/NS 500 ML IV SCH ×4 (03:02→14:06)
[2016-06-05] MEDS: RESP: ALBUTEROL 2.5 MG/IPRATROPIUM 0.5 MG NEB (SCH) INH ×4 (04:19→21:06)
[2016-06-05] MEDS: ACETYLCYSTEINE 20% 6,000 MG/30 ML ORAL SOLN VIAL PO SCH ×3 (05:10→08:00)
[2016-06-05 05:30] LABS: AUTOMATED NEUTROPHIL # 7.7 TH/MM3 (1.8-7.7); BASOPHIL % 0.4 % (0.0-2.0); EOSINOPHIL # 0.2 TH/MM3 (0-0.4); EOSINOPHIL % 2.3 % (0.0-4.0); HEMATOCRIT 23.4 % (39.0-51.0); LYMPH % 12.6 % (9.0-44.0); LYMPHOCYTE # 1.3 TH/MM3 (1.0-4.8); MEAN CELL VOLUME 106.7 FL (80.0-100.0); MEAN CORPUSCULAR HEMOGLOBIN 38.4 PG (27.0-34.0); MONO % 9.7 % (0.0-8.0); PLATELET COUNT 133 TH/MM3 (150-450); RED BLOOD COUNT 2.19 MIL/MM3 (4.50-5.90); RED CELL DISTRIBUTION WIDTH 19.9 % (11.6-17.2); WHITE BLOOD COUNT 10.3 TH/MM3 (4.0-11.0)
[2016-06-05 05:49] LABS: ALKALINE PHOSPHATASE 91 U/L (45-117); ALT (GPT) 29 U/L (12-78); ANION GAP 9 MEQ/L (5-15); AST (GOT) 60 U/L (15-37); BICARBONATE 25.2 MEQ/L (21.0-32.0); BLOOD UREA NITROGEN 11 MG/DL (7-18); CHLORIDE 104 MEQ/L (98-107); GLOMERULAR FILTRATION RATE 141 ML/MIN (>89); MAGNESIUM 1.7 MG/DL (1.5-2.5); POTASSIUM 3.9 MEQ/L (3.5-5.1); SODIUM (NA) 138 MEQ/L (136-145); TOTAL BILIRUBIN ADULT 14.3 MG/DL (0.2-1.0)
[2016-06-05 05:56] LABS: HEMO FLAGS AUTO DIFF
[2016-06-05 07:26] LABS: BANDS 7 % (0-6); CORRECTED NUCLEATED RBC 2 /100 WBC (0-0); EOSINOPHILS 1 % (0-4); METAMYELOCYTES 1 % (0-1); MYELOCYTES 2 % (0-0); NEUTROPHIL # MANUAL DIFF 8.5 TH/MM3 (1.8-7.7); POLYS (SEG NEUTROPHILS) 73 % (16-70); WBC DIFF SAMPLE 100
[2016-06-05 07:27] LABS: TOXIC GRANULATION 1+ (NORMAL)
[2016-06-05 07:28] LABS: POLYCHROMASIA 2.6 % (0.0-1.9)
[2016-06-05 07:29] LABS: ACANTHOCYTES 1+ (NORMAL); KERATOCYTES OCC (NORMAL); PLATELET ESTIMATE SMEAR LOW (NORMAL); PLATELET MORPHOLOGY NORMAL (NORMAL); SCAN/DIFF FINAL DIFF MANUAL; TARGET CELLS 1+ (NORMAL)
[2016-06-05] MEDS: ATENOLOL 25 MG TAB PO SCH (08:07)
[2016-06-05] MEDS: PANTOPRAZOLE SOD 40 MG DELAYED RELEASE TAB PO SCH (08:07)
[2016-06-05] MEDS: SODIUM CHLORIDE 0.9% FLUSH 5 ML FLUSH FLUSH SCH ×2 (08:07→20:56)
[2016-06-05] MEDS: PILL SPLITTER OTHER PRN (08:08)
[2016-06-05] MEDS: CYCLOBENZAPRINE HCL 10 MG TAB PO SCH ×3 (08:08→23:39)
[2016-06-05] MEDS: FUROSEMIDE 20 MG/2 ML VIAL IV PUSH SCH (08:08)
[2016-06-05] MEDS: levETIRAcetam 250 MG TAB PO SCH ×2 (08:09→20:55)
[2016-06-05] MEDS: amLODIPine BESYLATE 5 MG TAB PO SCH (08:09)
[2016-06-05] MEDS: POTASSIUM CHLORIDE 20 MEQ CONTROLLED RELEASE TAB PO SCH (08:09)
--- NOTE | 2016-06-05 11:40 | HHI.PR ---
Subjective Remarks Follow-up for bacteremia and jaundice. The patient denies any abdominal pain. He's been passing flatness, no BM. He reports his back pain is controlled. Normal urine output. Planning for bowel prep today for EGD/colonoscopy tomorrow. Objective Vitals Vital Signs Date Time Temp Pulse Resp B/P Pulse Ox O2 Delivery O2 Flow Rate FiO2 06/05/16 08:21 92 Nasal Cannula 2.00 06/05/16 08:00 97.9 107 19 106/59 94 06/05/16 07:56 107 06/05/16 04:21 95 Nasal Cannula 2.00 06/05/16 04:00 97.6 90 20 122/64 96 06/05/16 00:00 98.0 94 20 118/66 97 06/04/16 20:28 94 Nasal Cannula 2.00 06/04/16 20:06 96 06/04/16 20:00 97.6 98 20 114/58 96 06/04/16 16:40 16 06/04/16 16:00 98.1 96 20 97/61 93 06/04/16 14:32 100 101/60 06/04/16 12:00 99.2 104 20 107/58 94 I/O 06/04/16 06/04/16 06/04/16 06/05/16 06/05/16 06/05/16 07:00 15:00 23:00 07:00 15:00 23:00 Intake Total 980 ml 1760 ml 710 ml 740 ml Output Total 1050 ml 1350 ml 450 ml 400 ml Balance -70 ml 410 ml 260 ml 340 ml Intake Oral 480 ml 1760 ml 460 ml 240 ml IV Total 250 ml 250 ml 500 ml Packed Cells 250 ml Output Urine Total 1050 ml 1350 ml 450 ml 400 ml Stool Total 0 ml # Bowel Movements 0 0 0 Result Diagram: 06/05/16 0456 06/05/16 0456 Imaging Last Impressions Chest X-Ray 06/03/16 0000 Signed Impressions: Service Date/Time: Friday, June 03, 2016 13:54 - CONCLUSION: 1. Cardiomegaly and findings of vascular congestion without overt failure. 2. Left lower lobe atelectasis versus pneumonia. 3. Small bilateral effusions Cole Ocampo MD Thoracic Spine CT 06/01/16 0000 Signed Impressions: Service Date/Time: Wednesday, June 01, 2016 05:13 - CONCLUSION: No evidence of acute bony process in the thoracic spine. Joseph Cook MD Lumbar Spine MRI 06/01/16 0000 Signed Impressions: Service Date/Time: Wednesday, June 01, 2016 15:22 - CONCLUSION: No evidence of abscess or abnormal enhancement. There is degenerative change within the disc at the level of L5/S1 suggestive of an acute tear of the annulus and small posterior central disc protrusion. Lexi Waller MD Lumbar Spine CT 06/01/16 0000 Signed Impressions: Service Date/Time: Wednesday, June 01, 2016 05:13 - CONCLUSION: Disc protrusion at the lumbosacral junction with mild asymmetric left-sided foraminal narrowing. No acute bony findings. Joseph Cook MD Cervical Spine CT 06/01/16 0000 Signed Impressions: Service Date/Time: Wednesday, June 01, 2016 05:13 - CONCLUSION: Mild degenerative change. No acute bony findings. Joseph Cook MD Abdomen Ultrasound 06/01/16 0000 Signed Impressions: Service Date/Time: Wednesday, June 01, 2016 14:06 - CONCLUSION: There is a trace of ascites insufficient for drainage. Jean-Paul Cheung MD Abdomen/Pelvis CT 05/31/16 1504 Signed Impressions: Service Date/Time: Tuesday, May 31, 2016 17:59 - CONCLUSION: 1. Ascites with varicosities as described above. 2. Casey shrunken liver with prominent spleen all consistent with longstanding cirrhosis. Tanner Willis MD FACR Objective Remarks GENERAL: Well-developed well-nourished. In no acute distress. SKIN: Warm and dry. No lesions noted. Jaundiced. HEENT: Normocephalic. Pupils equal and round. Mucous membranes pink and moist. Positive JVD. CARDIOVASCULAR: Regular rate and rhythm. No murmur appreciated. RESPIRATORY: No accessory muscle use. Clear to auscultation. Breath sounds equal bilaterally. GASTROINTESTINAL: Abdomen soft, non-tender, nondistended. Bowel sounds x4. MUSCULOSKELETAL: No obvious deformities. No clubbing or cyanosis. Trace lower extremity edema. NEUROLOGICAL: Awake and alert. No focal neurological deficits. Moves upper and lower extremities spontaneously. Normal speech. PSYCHIATRIC: Appropriate mood and affect; insight and judgment normal. A/P Problem List: (1) Jaundice ICD Code: R17 Status: Acute (2) SIRS (systemic inflammatory response syndrome) ICD Code: R65.10 Status: Acute (3) Back pain ICD Code: M54.9 Status: Chronic (4) Anemia ICD Code: D64.9 Status: Acute (5) HTN (hypertension) ICD Code: I10 Status: Chronic (6) Seizures ICD Code: R56.9 Status: Chronic Assessment and Plan 51-year-old male with a history of chronic back pain, hypertension seizures presented with: Jaundice with hx ETOH abuse and chronic APAP usage Images reviewed: Abdomen/pelvis CT shows Ascites with varicosities. A Small shrunken liver with prominent spleen all consistent with longstanding cirrhosis. Labs reviewed: Total bilirubin 15.4, AST 65, alkaline phosphatase 132. Negative hepatitis panel. -Consulted GI, workup in progress, EGD/colonoscopy 06/06 -Continue Mucomyst, stop date 06/05 -Protonix -Alcohol cessation -Monitor Severe sepsis with strep bacteremia . HIV negative. UA negative. Chest x-ray with no acute process. Cultures reviewed: Initial blood cultures / with group B strep. Second cultures with 1/ positive for group B strep. Third set with NGTD. - Continue IV vancomycin - Consulted infectious disease, seen by Dr. Rodriguez, discontinued Azactam, continue IV Vanco for now - May need PCN desensitization - Echo 06/02 showed EF 60-65%, aortic valve poorly visualized, trace MR, no vegetation identified; however If bacteremia persists, may need JUAN MANUEL Acute on chronic lower back pain Imaging reviewed: Cervical and thoracic CTs with no acute process. Lumbar CT with disc protrusion at lower sacral drunk [place]den with mild asymmetric left-sided foraminal narrowing, no acute bony findings. -Continue home Flexeril. Added oxycodone -Heating pad -PT eval, currently recommending rehab -Neurosurgery consulted secondary to annular tear and disc protrusion, conservative management, appreciate recommendations Macrocytic Anemia Iron studies, B12, folate levels reviewed Hemoglobin decreased to 7.6 on 06/03 and given 1 unit PRBC. Hemoglobin improved to 9.3. 8.4 today. -Hemoccult ordered -Monitor Seizures, chronic -Changed patient's Dilantin to Keppra 250 mg by mouth every 12 due to decreased liver function -Seizure precautions Hypertension, chronic, stable -Continue home atenolol and Norvasc -Monitor vitals Dyspnea: 06/03. Improving. CXR showed vascular congestion without overt failure. BNP elevated at 212. Echocardiogram as above. Probably secondary to combination of cirrhosis, anemia, and volume overload from IVF -Stopped IVF -Continue on duonebs q6h and albuterol neb q2h prn -Continue IV lasix 20mg with potassium replacement -incentive spirometry DVT prophylaxis: Scds Written by Ezequiel Wilburn, acting as scribe for Dr. Marie on 06/05/16 at 11:39. The documentation accurately reflects the work performed [id number] by me on at 1139 Discharge Planning Disposition pending clinical course Problem Qualifiers (1) Back pain: (2) HTN (hypertension): Qualified Code: I10 - Essential hypertension Ezequiel Wilburn Jun 05, 2016 11:40 Federico Marie MD Jun 05, 2016 15:42
[2016-06-05 15:53] LABS: MITOCHONDRIAL ABS LESS THAN 20.0 U (())
[2016-06-05] MEDS ORDERED: PEG (High)/E-LYTE SOLN 4000 ML BTL PO ONE (16:00)
[2016-06-06] VITALS (9 sets, daily range): BP systolic 100–120; BP diastolic 54–70; PULSE 88–96; RESP 17–22; TEMP 96.7–98.2; O2SAT 88–97
[2016-06-06] MEDS ORDERED: PHARMACY ORDERED LAB XX ONE (01:45)
[2016-06-06] MEDS: VANCOMYCIN 1,500 MG/NS 500 ML IV SCH ×4 (02:28→16:23)
[2016-06-06] MEDS: LACTATED RINGER'S 1000 ML IV SCH (02:28)
[2016-06-06] MEDS: RESP: ALBUTEROL 2.5 MG/IPRATROPIUM 0.5 MG NEB (SCH) INH ×4 (03:12→22:45)
[2016-06-06 05:54] LABS: AUTOMATED NEUTROPHIL # 8.9 TH/MM3 (1.8-7.7); BASOPHIL # 0.1 TH/MM3 (0-0.2); BASOPHIL % 0.8 % (0.0-2.0); EOSINOPHIL # 0.3 TH/MM3 (0-0.4); EOSINOPHIL % 2.1 % (0.0-4.0); HEMATOCRIT 24.1 % (39.0-51.0); LYMPH % 15.1 % (9.0-44.0); LYMPHOCYTE # 1.8 TH/MM3 (1.0-4.8); MEAN CELL VOLUME 107.3 FL (80.0-100.0); MEAN CORPUSCULAR HEMOGLOBIN 37.9 PG (27.0-34.0); MEAN CORPUSCULAR HGB CONC 35.3 % (32.0-36.0); MONO % 8.5 % (0.0-8.0); NEUT % 73.5 % (16.0-70.0); PLATELET COUNT 148 TH/MM3 (150-450); RED BLOOD COUNT 2.25 MIL/MM3 (4.50-5.90); RED CELL DISTRIBUTION WIDTH 21.2 % (11.6-17.2); WHITE BLOOD COUNT 12.1 TH/MM3 (4.0-11.0)
[2016-06-06 06:14] LABS: BICARBONATE 27.4 MEQ/L (21.0-32.0); MAGNESIUM 1.7 MG/DL (1.5-2.5); POTASSIUM 3.5 MEQ/L (3.5-5.1)
[2016-06-06 07:37] LABS: HEMO FLAGS AUTO DIFF
[2016-06-06 07:39] LABS: ACANTHOCYTES OCC (NORMAL); POLYCHROMASIA 2.2 % (0.0-1.9)
[2016-06-06 07:40] LABS: PLATELET ESTIMATE SMEAR LOW (NORMAL); PLATELET MORPHOLOGY NORMAL (NORMAL); SCAN/DIFF AUTO DIFF CONFIRMED
[2016-06-06] MEDS: amLODIPine BESYLATE 5 MG TAB PO SCH (08:46)
[2016-06-06] MEDS: levETIRAcetam 250 MG TAB PO SCH ×2 (08:47→22:27)
[2016-06-06] MEDS: POTASSIUM CHLORIDE 20 MEQ CONTROLLED RELEASE TAB PO SCH (08:47)
[2016-06-06] MEDS: PANTOPRAZOLE SOD 40 MG DELAYED RELEASE TAB PO SCH (08:47)
[2016-06-06] MEDS: CYCLOBENZAPRINE HCL 10 MG TAB PO SCH ×2 (08:47→16:23)
[2016-06-06] MEDS: ATENOLOL 25 MG TAB PO SCH (08:48)
[2016-06-06] MEDS: SODIUM CHLORIDE 0.9% FLUSH 5 ML FLUSH FLUSH SCH ×2 (08:48→21:00)
[2016-06-06] MEDS: FUROSEMIDE 20 MG/2 ML VIAL IV PUSH SCH (08:48)
[2016-06-06] MEDS ORDERED: PROPOFOL 200 MG/20 ML AMP IV ONE (15:10)
--- NOTE | 2016-06-06 15:56 | HHI.PR ---
Subjective Remarks F/u anemia. Seen in endoscopy suite. No complaints prior to procedure. Results dw GI. Also dw ID Objective Vitals Vital Signs Date Time Temp Pulse Resp B/P Pulse Ox O2 Delivery O2 Flow Rate FiO2 06/06/16 15:30 86 16 97/57 98 06/06/16 15:21 98.1 89 16 101/56 97 06/06/16 14:03 96.7 96 17 120/62 93 06/06/16 12:00 96.7 96 17 120/62 93 06/06/16 08:03 93 Nasal Cannula 2.00 06/06/16 08:00 97.0 92 19 100/56 94 06/06/16 06:05 97.8 90 20 118/70 97 06/06/16 00:00 98.0 88 22 112/54 95 06/05/16 20:14 87 06/05/16 20:00 98.8 92 20 98/52 96 06/05/16 16:00 98.5 89 17 123/76 95 I/O 06/05/16 06/05/16 06/05/16 06/06/16 06/06/16 06/06/16 07:00 15:00 23:00 07:00 15:00 23:00 Intake Total 740 ml 120 ml 1200 ml 1000 ml 0 ml 250 ml Output Total 400 ml 900 ml 750 ml 600 ml 375 ml Balance 340 ml -780 ml 450 ml 400 ml -375 ml 250 ml Intake Oral 240 ml 120 ml 1200 ml 500 ml 0 ml IV Total 500 ml 0 ml 500 ml 0 ml Other 250 ml Output Urine Total 400 ml 900 ml 750 ml 600 ml 375 ml # Bowel Movements 0 0 0 2 Result Diagram: 06/06/16 0526 06/06/16 0526 Imaging Last Impressions Chest X-Ray 06/03/16 0000 Signed Impressions: Service Date/Time: Friday, June 03, 2016 13:54 - CONCLUSION: 1. Cardiomegaly and findings of vascular congestion without overt failure. 2. Left lower lobe atelectasis versus pneumonia. 3. Small bilateral effusions Cole Ocampo MD Thoracic Spine CT 06/01/16 0000 Signed Impressions: Service Date/Time: Wednesday, June 01, 2016 05:13 - CONCLUSION: No evidence of acute bony process in the thoracic spine. Joseph Cook MD Lumbar Spine MRI 06/01/16 0000 Signed Impressions: Service Date/Time: Wednesday, June 01, 2016 15:22 - CONCLUSION: No evidence of abscess or abnormal enhancement. There is degenerative change within the disc at the level of L5/S1 suggestive of an acute tear of the annulus and small posterior central disc protrusion. Lexi Waller MD Lumbar Spine CT 06/01/16 0000 Signed Impressions: Service Date/Time: Wednesday, June 01, 2016 05:13 - CONCLUSION: Disc protrusion at the lumbosacral junction with mild asymmetric left-sided foraminal narrowing. No acute bony findings. Joseph Cook MD Cervical Spine CT 06/01/16 0000 Signed Impressions: Service Date/Time: Wednesday, June 01, 2016 05:13 - CONCLUSION: Mild degenerative change. No acute bony findings. Joseph Cook MD Abdomen Ultrasound 06/01/16 0000 Signed Impressions: Service Date/Time: Wednesday, June 01, 2016 14:06 - CONCLUSION: There is a trace of ascites insufficient for drainage. Jean-Paul Cheung MD Abdomen/Pelvis CT 05/31/16 1504 Signed Impressions: Service Date/Time: Tuesday, May 31, 2016 17:59 - CONCLUSION: 1. Ascites with varicosities as described above. 2. Casey shrunken liver with prominent spleen all consistent with longstanding cirrhosis. Tanner Willis MD FACR Objective Remarks GENERAL: Well-developed well-nourished. In no acute distress. SKIN: Warm and dry. No lesions noted. Jaundiced. HEENT: Normocephalic. Pupils equal and round. Mucous membranes pink and moist. CARDIOVASCULAR: Regular rate and rhythm. Systolic murmur appreciated. RESPIRATORY: No accessory muscle use. Clear to auscultation. Breath sounds equal bilaterally. GASTROINTESTINAL: Abdomen soft, non-tender, nondistended. Bowel sounds x4. MUSCULOSKELETAL: No obvious deformities. No clubbing or cyanosis. No edema. NEUROLOGICAL: Sedated Procedures EGD and Colonoscopy A/P Problem List: (1) Jaundice ICD Code: R17 Status: Acute (2) SIRS (systemic inflammatory response syndrome) ICD Code: R65.10 Status: Acute (3) Back pain ICD Code: M54.9 Status: Chronic (4) Anemia ICD Code: D64.9 Status: Acute (5) HTN (hypertension) ICD Code: I10 Status: Chronic (6) Seizures ICD Code: R56.9 Status: Chronic Assessment and Plan 51-year-old male with a history of chronic back pain, hypertension seizures presented with: Jaundice with hx ETOH abuse and chronic APAP usage Images reviewed: Abdomen/pelvis CT shows Ascites with varicosities. A Small shrunken liver with prominent spleen all consistent with longstanding cirrhosis. Labs reviewed: Total bilirubin 15.4, AST 65, alkaline phosphatase 132. Negative hepatitis panel. -Consulted GI, workup in progress, EGD/colonoscopy 06/06 showed duodenal polyps. C scope to be repeated / poor prep -S/p Mucomyst, stop date 06/05 -Protonix -Alcohol cessation -Monitor Severe sepsis with strep bacteremia . HIV negative. UA negative. Chest x-ray with no acute process. Cultures reviewed: Initial blood cultures / with group B strep. Second cultures with 1/4 positive for group B strep. Third set NGTD. - Continue IV vancomycin - Consulted infectious disease, seen by Dr. Rodriguez, discontinued Azactam, continue IV Vanco for now - May need PCN desensitization - Echo 06/02 showed EF 60-65%, aortic valve poorly visualized, trace MR, no vegetation identified; however If bacteremia persists, may need JUAN MANUEL - with sl leukocytosis. Rpt CBc in am Acute on chronic lower back pain Imaging reviewed: Cervical and thoracic CTs with no acute process. Lumbar CT with disc protrusion at lower sacral drunk walden with mild asymmetric left-sided foraminal narrowing, no acute bony findings. -Continue home Flexeril. Added oxycodone -Heating pad -PT eval, currently recommending rehab -Neurosurgery consulted secondary to annular tear and disc protrusion, conservative management, appreciate recommendations Macrocytic Anemia Iron studies, B12, folate levels reviewed Hemoglobin decreased to 7.6 on 06/03 and given 1 unit PRBC. Hemoglobin improved to 9.3. -Hemoccult ordered -Monitor Seizures, chronic -Changed patient's Dilantin to Keppra 250 mg by mouth every 12 due to decreased liver function -Seizure precautions Hypertension, chronic, stable -Continue home atenolol and Norvasc -Monitor vitals Dyspnea: 06/03. Improving. CXR showed vascular congestion without overt failure. BNP elevated at 212. Echocardiogram as above. Probably secondary to combination of cirrhosis, anemia, and volume overload from IVF -Stopped IVF -Continue on duonebs q6h and albuterol neb q2h prn -Continue IV lasix 20mg with potassium replacement -incentive spirometry DVT prophylaxis: Scds. Coagulopathic Problem Qualifiers (1) Back pain: (2) HTN (hypertension): Qualified Code: I10 - Essential hypertension Federico Marie MD Jun 06, 2016 15:56
[2016-06-06 18:58] LABS: INTERNATIONAL NORMALIZED RATIO 1.9 RATIO
[2016-06-06] MEDS ORDERED: MAGNESIUM CITRATE SOLN 300 ML BTL PO ONE (22:30)
[2016-06-07] VITALS (9 sets, daily range): BP systolic 98–119; BP diastolic 51–61; PULSE 78–103; RESP 17–20; TEMP 95.9–97.5; O2SAT 94–98
[2016-06-07] MEDS: LACTATED RINGER'S 1000 ML IV SCH (01:00)
[2016-06-07] MEDS ORDERED: PHARMACY ORDERED LAB XX ONE (01:45)
[2016-06-07] MEDS: CYCLOBENZAPRINE HCL 10 MG TAB PO SCH ×3 (01:58→17:05)
[2016-06-07] MEDS: VANCOMYCIN 1,500 MG/NS 500 ML IV SCH ×2 (01:59)
[2016-06-07] MEDS: RESP: ALBUTEROL 2.5 MG/IPRATROPIUM 0.5 MG NEB (SCH) INH ×2 (05:06→09:18)
[2016-06-07 05:39] LABS: AUTOMATED NEUTROPHIL # 7.1 TH/MM3 (1.8-7.7); BASOPHIL # 0.1 TH/MM3 (0-0.2); BASOPHIL % 0.8 % (0.0-2.0); EOSINOPHIL # 0.2 TH/MM3 (0-0.4); EOSINOPHIL % 2.1 % (0.0-4.0); LYMPH % 16.4 % (9.0-44.0); LYMPHOCYTE # 1.6 TH/MM3 (1.0-4.8); MEAN CELL VOLUME 108.2 FL (80.0-100.0); MEAN CORPUSCULAR HEMOGLOBIN 38.6 PG (27.0-34.0); MEAN CORPUSCULAR HGB CONC 35.7 % (32.0-36.0); MONO % 7.8 % (0.0-8.0); NEUT % 72.9 % (16.0-70.0); PLATELET COUNT 139 TH/MM3 (150-450); RED BLOOD COUNT 2.13 MIL/MM3 (4.50-5.90); RED CELL DISTRIBUTION WIDTH 22.6 % (11.6-17.2); WHITE BLOOD COUNT 9.8 TH/MM3 (4.0-11.0)
[2016-06-07 05:40] LABS: HEMO FLAGS AUTO DIFF
[2016-06-07 05:52] LABS: BICARBONATE 28.8 MEQ/L (21.0-32.0); MAGNESIUM 1.6 MG/DL (1.5-2.5); POTASSIUM 3.3 MEQ/L (3.5-5.1)
[2016-06-07 08:08] LABS: ACANTHOCYTES OCC (NORMAL); POLYCHROMASIA 2.2 % (0.0-1.9)
[2016-06-07 08:09] LABS: PLATELET ESTIMATE SMEAR LOW (NORMAL); PLATELET MORPHOLOGY NORMAL (NORMAL); SCAN/DIFF AUTO DIFF CONFIRMED
[2016-06-07] MEDS: LACTULOSE SYRUP 20 GM/30 ML CUP PO SCH ×2 (08:52→22:14)
[2016-06-07] MEDS: POTASSIUM CHLORIDE 20 MEQ CONTROLLED RELEASE TAB PO SCH (08:53)
[2016-06-07] MEDS: FUROSEMIDE 20 MG/2 ML VIAL IV PUSH SCH (08:53)
[2016-06-07] MEDS: SODIUM CHLORIDE 0.9% FLUSH 5 ML FLUSH FLUSH SCH ×2 (08:53→22:14)
[2016-06-07] MEDS: levETIRAcetam 250 MG TAB PO SCH ×2 (08:53→22:14)
[2016-06-07] MEDS: PANTOPRAZOLE SOD 40 MG DELAYED RELEASE TAB PO SCH (08:53)
[2016-06-07] MEDS: amLODIPine BESYLATE 5 MG TAB PO SCH (08:54)
[2016-06-07] MEDS: ATENOLOL 25 MG TAB PO SCH (08:54)
[2016-06-07] MEDS ORDERED: POTASSIUM CHLORIDE 10 MEQ CONTROLLED RELEASE TAB PO ONE (09:00)
--- NOTE | 2016-06-07 13:24 | HHI.PR ---
Subjective Remarks Follow-up sepsis. States he is okay sitting out of bed to chair. Awaiting repeat colonoscopy. Discussed with RN Objective Vitals Vital Signs Date Time Temp Pulse Resp B/P Pulse Ox O2 Delivery O2 Flow Rate FiO2 06/07/16 09:52 17 06/07/16 09:21 Nasal Cannula 2.00 06/07/16 08:48 101 06/07/16 08:00 97.2 101 20 108/56 94 06/07/16 04:00 96.6 101 17 98/51 94 06/07/16 00:00 97.4 78 17 100/60 95 06/06/16 22:45 88 Nasal Cannula 06/06/16 20:00 98.2 90 17 106/57 94 06/06/16 16:00 97.3 88 18 103/54 92 06/06/16 15:40 86 16 101/60 98 06/06/16 15:30 86 16 97/57 98 06/06/16 15:21 98.1 89 16 101/56 97 06/06/16 14:03 96.7 96 17 120/62 93 I/O 06/06/16 06/06/16 06/06/16 06/07/16 06/07/16 06/07/16 07:00 15:00 23:00 07:00 15:00 23:00 Intake Total 1000 ml 0 ml 990 ml 0 ml Output Total 600 ml 375 ml 300 ml 250 ml Balance 400 ml -375 ml 690 ml -250 ml Intake Oral 500 ml 0 ml 240 ml 0 ml IV Total 500 ml 0 ml 500 ml Other 250 ml Output Urine Total 600 ml 375 ml 300 ml 250 ml # Bowel Movements 2 Result Diagram: 06/07/16 0446 06/07/16 0446 Objective Remarks GENERAL: Well-developed well-nourished. In no acute distress. SKIN: Warm and dry. No lesions noted. Jaundiced. HEENT: Normocephalic. Pupils equal and round. Mucous membranes pink and moist. CARDIOVASCULAR: Regular rate and rhythm. Systolic murmur appreciated. RESPIRATORY: No accessory muscle use. Clear to auscultation. Breath sounds equal bilaterally. GASTROINTESTINAL: Abdomen soft, non-tender, nondistended. Bowel sounds x4. MUSCULOSKELETAL: No obvious deformities. No clubbing or cyanosis. No edema. NEUROLOGICAL: Awake and alert no focal deficits Procedures EGD and Colonoscopy A/P Problem List: (1) Jaundice ICD Code: R17 Status: Acute (2) SIRS (systemic inflammatory response syndrome) ICD Code: R65.10 Status: Acute (3) Back pain ICD Code: M54.9 Status: Chronic (4) Anemia ICD Code: D64.9 Status: Acute (5) HTN (hypertension) ICD Code: I10 Status: Chronic (6) Seizures ICD Code: R56.9 Status: Chronic Assessment and Plan 51-year-old male with a history of chronic back pain, hypertension seizures presented with: Jaundice with hx ETOH abuse and chronic APAP usage Images reviewed: Abdomen/pelvis CT shows Ascites with varicosities. A Small shrunken liver with prominent spleen all consistent with longstanding cirrhosis. Labs reviewed: Total bilirubin 15.4, AST 65, alkaline phosphatase 132. Negative hepatitis panel. -Consulted GI, workup in progress, EGD/colonoscopy 06/06 showed duodenitis and portal gastropathy. C scope to be repeated 2/2 poor prep -S/p Mucomyst, stop date 06/05 -Protonix -Alcohol cessation -Monitor Severe sepsis with strep bacteremia . HIV negative. UA negative. Chest x-ray with no acute process. Cultures reviewed: Initial blood cultures /4 with group B strep. Second cultures with 1/4 positive for group B strep. Third set NGTD. - Continue IV vancomycin - Consulted infectious disease, seen by Dr. Rodriguez, discontinued Azactam, continue IV Vanco for now - May need PCN desensitization - Echo 06/02 showed EF 60-65%, aortic valve poorly visualized, trace MR, no vegetation identified; however If bacteremia persists, may need JUAN MANUEL -Improved leukocytosis Acute on chronic lower back pain Imaging reviewed: Cervical and thoracic CTs with no acute process. Lumbar CT with disc protrusion at lower sacral drunk walden with mild asymmetric left-sided foraminal narrowing, no acute bony findings. -Continue home Flexeril. Added oxycodone -Heating pad -PT eval, currently recommending rehab -Neurosurgery consulted secondary to annular tear and disc protrusion, conservative management, appreciate recommendations Macrocytic Anemia Iron studies, B12, folate levels reviewed Hemoglobin decreased to 7.6 on 06/03 and given 1 unit PRBC. Hemoglobin improved to 9.3. -Hemoccult ordered -Monitor Seizures, chronic -Changed patient's Dilantin to Keppra 250 mg by mouth every 12 due to decreased liver function -Seizure precautions Hypertension, chronic, stable -Continue home atenolol and Norvasc -Monitor vitals Dyspnea: 06/03. Improving. CXR showed vascular congestion without overt failure. BNP elevated at 212. Echocardiogram as above. Probably secondary to combination of cirrhosis, anemia, and volume overload from IVF -Stopped IVF -Continue on duonebs q6h and albuterol neb q2h prn -Continue IV lasix 20mg with potassium replacement -incentive spirometry -Improving DVT prophylaxis: Scds. Coagulopathic Discharge Planning Not stable for discharge. Anticipate long-term IV antibiotic but may need to be completed in-house secondary to no payor source Problem Qualifiers (1) Back pain: (2) HTN (hypertension): Qualified Code: I10 - Essential hypertension Federico Marie MD Jun 07, 2016 13:23
[2016-06-08] VITALS (7 sets, daily range): BP systolic 100–125; BP diastolic 52–61; PULSE 80–92; RESP 17–18; TEMP 95.3–97.4; O2SAT 91–99
[2016-06-08] MEDS: LACTATED RINGER'S 1000 ML IV SCH ×2 (01:00→22:07)
[2016-06-08] MEDS: CYCLOBENZAPRINE HCL 10 MG TAB PO SCH ×3 (01:49→16:52)
[2016-06-08 07:15] LABS: AUTOMATED NEUTROPHIL # 5.1 TH/MM3 (1.8-7.7); BASOPHIL % 0.5 % (0.0-2.0); EOSINOPHIL # 0.2 TH/MM3 (0-0.4); EOSINOPHIL % 2.4 % (0.0-4.0); HEMATOCRIT 23.8 % (39.0-51.0); LYMPH % 18.5 % (9.0-44.0); LYMPHOCYTE # 1.3 TH/MM3 (1.0-4.8); MEAN CELL VOLUME 110.1 FL (80.0-100.0); MEAN CORPUSCULAR HEMOGLOBIN 37.8 PG (27.0-34.0); MEAN CORPUSCULAR HGB CONC 34.4 % (32.0-36.0); NEUT % 71.6 % (16.0-70.0); PLATELET COUNT 140 TH/MM3 (150-450); RED BLOOD COUNT 2.16 MIL/MM3 (4.50-5.90); RED CELL DISTRIBUTION WIDTH 24.1 % (11.6-17.2); WHITE BLOOD COUNT 7.1 TH/MM3 (4.0-11.0)
[2016-06-08 07:49] LABS: MAGNESIUM 2.1 MG/DL (1.5-2.5); POTASSIUM 3.9 MEQ/L (3.5-5.1)
[2016-06-08 08:08] LABS: HEMO FLAGS AUTO DIFF; SCAN/DIFF AUTO DIFF CONFIRMED
[2016-06-08] MEDS: LACTULOSE SYRUP 20 GM/30 ML CUP PO SCH ×2 (08:16→21:00)
[2016-06-08] MEDS: SODIUM CHLORIDE 0.9% FLUSH 5 ML FLUSH FLUSH SCH ×2 (08:16→22:06)
[2016-06-08] MEDS: PANTOPRAZOLE SOD 40 MG DELAYED RELEASE TAB PO SCH (08:16)
[2016-06-08] MEDS: levETIRAcetam 250 MG TAB PO SCH ×2 (08:17→22:06)
[2016-06-08] MEDS: FUROSEMIDE 20 MG/2 ML VIAL IV PUSH SCH (08:17)
[2016-06-08] MEDS: POTASSIUM CHLORIDE 20 MEQ CONTROLLED RELEASE TAB PO SCH (08:17)
[2016-06-08] MEDS: amLODIPine BESYLATE 5 MG TAB PO SCH (08:23)
[2016-06-08] MEDS: ATENOLOL 25 MG TAB PO SCH (08:23)
[2016-06-08] MEDS ORDERED: DEXTROSE 50% IN WATER 50 ML VIAL(D50) IV PUSH PRN (08:30)
[2016-06-08] MEDS ORDERED: GLUCAGON 1 MG/ML VIAL OTHER PRN (08:30)
[2016-06-08] MEDS: VANCOMYCIN 1,500 MG/NS 500 ML IV SCH ×2 (11:12)
--- NOTE | 2016-06-08 12:49 | HHI.PR ---
Subjective Remarks F/U back pain. Improved pain. reports of scrotal edema dw RN Objective Vitals Vital Signs Date Time Temp Pulse Resp B/P Pulse Ox O2 Delivery O2 Flow Rate FiO2 06/08/16 09:17 18 06/08/16 08:00 95.4 90 17 103/54 94 06/08/16 04:00 95.5 92 18 100/52 98 06/08/16 00:00 96.7 80 18 125/60 98 06/07/16 20:00 95.9 95 18 119/59 98 06/07/16 19:07 95 06/07/16 18:39 96 Nasal Cannula 2.00 06/07/16 16:00 97.2 98 18 107/61 96 I/O 06/07/16 06/07/16 06/07/16 06/08/16 06/08/16 06/08/16 07:00 15:00 23:00 07:00 15:00 23:00 Intake Total 0 ml 480 ml 240 ml 240 ml Output Total 250 ml 200 ml 350 ml Balance -250 ml 280 ml 240 ml -110 ml Intake Oral 0 ml 480 ml 240 ml 240 ml IV Total 0 ml Output Urine Total 250 ml 200 ml 350 ml # Voids 1 # Bowel Movements 1 Result Diagram: 06/08/16 0602 06/08/16 0602 Objective Remarks GENERAL: Well-developed well-nourished. In no acute distress. SKIN: Warm and dry. No lesions noted. Jaundiced. HEENT: Normocephalic. Pupils equal and round. Mucous membranes pink and moist. CARDIOVASCULAR: Regular rate and rhythm. Systolic murmur appreciated. RESPIRATORY: No accessory muscle use. Clear to auscultation. Breath sounds equal bilaterally. GASTROINTESTINAL: Abdomen soft, non-tender, nondistended. Bowel sounds x4. Mild scrotal edema MUSCULOSKELETAL: No obvious deformities. No clubbing or cyanosis. No edema. NEUROLOGICAL: Awake and alert no focal deficits Procedures EGD and Colonoscopy A/P Problem List: (1) Jaundice ICD Code: R17 Status: Acute (2) SIRS (systemic inflammatory response syndrome) ICD Code: R65.10 Status: Acute (3) Back pain ICD Code: M54.9 Status: Chronic (4) Anemia ICD Code: D64.9 Status: Acute (5) HTN (hypertension) ICD Code: I10 Status: Chronic (6) Seizures ICD Code: R56.9 Status: Chronic Assessment and Plan 51-year-old male with a history of chronic back pain, hypertension seizures presented with: Jaundice with hx ETOH abuse and chronic APAP usage Images reviewed: Abdomen/pelvis CT shows Ascites with varicosities. A Small shrunken liver with prominent spleen all consistent with longstanding cirrhosis. Labs reviewed: Total bilirubin 15.4, AST 65, alkaline phosphatase 132. Negative hepatitis panel. -Consulted GI, workup in progress, EGD/colonoscopy 06/06 showed duodenitis and portal gastropathy. C scope to be repeated 2/2 poor prep -S/p Mucomyst, stop date 06/05 -Protonix -Alcohol cessation -Monitor Severe sepsis with strep bacteremia . HIV negative. UA negative. Chest x-ray with no acute process. Cultures reviewed: Initial blood cultures 08/16 with group B strep. Second cultures with 05/18 positive for group B strep. Third set NGTD. - Continue IV vancomycin - Consulted infectious disease, seen by Dr. Rodriguez, discontinued Azactam, continue IV Vanco for now - May need PCN desensitization - Echo 06/02 showed EF 60-65%, aortic valve poorly visualized, trace MR, no vegetation identified; however If bacteremia persists, may need JUAN MANUEL - Improved leukocytosis Acute on chronic lower back pain Imaging reviewed: Cervical and thoracic CTs with no acute process. Lumbar CT with disc protrusion at lower sacral drunk walden with mild asymmetric left-sided foraminal narrowing, no acute bony findings. -Continue home Flexeril. Added oxycodone -Heating pad -PT eval, currently recommending rehab -Neurosurgery consulted secondary to annular tear and disc protrusion, conservative management, appreciate recommendations Macrocytic Anemia Iron studies, B12, folate levels reviewed Hemoglobin decreased to 7.6 on 06/03 and given 1 unit PRBC. Hemoglobin improved to 9.3. -Hemoccult ordered -Monitor Seizures, chronic -Changed patient's Dilantin to Keppra 250 mg by mouth every 12 due to decreased liver function -Seizure precautions Hypertension, chronic, stable -Continue home atenolol and Norvasc -Monitor vitals Dyspnea: 06/03. Improving. CXR showed vascular congestion without overt failure. BNP elevated at 212. Echocardiogram as above. Probably secondary to combination of cirrhosis, anemia, and volume overload from IVF -Stopped IVF -Continue on duonebs q6h and albuterol neb q2h prn -Continue IV lasix 20mg with potassium replacement -incentive spirometry -Improving DVT prophylaxis: Scds. Coagulopathic Discharge Planning Not stable for discharge. Anticipate long-term IV antibiotic but no payor source for outpatient or home IV antibiotic tx Problem Qualifiers (1) Back pain: (2) HTN (hypertension): Qualified Code: I10 - Essential hypertension Federico Marie MD Jun 08, 2016 12:49
--- NOTE | 2016-06-08 13:27 | HHI.GIFU ---
Subjective Remarks Resting in bed. No complaints. Tolerating diet. (Jeannine Trujillo) Objective Vitals I&O Vital Signs Date Time Temp Pulse Resp B/P Pulse Ox O2 Delivery O2 Flow Rate FiO2 06/08/16 12:00 95.4 92 17 107/59 99 06/08/16 09:17 18 06/08/16 08:00 95.4 90 17 103/54 94 06/08/16 04:00 95.5 92 18 100/52 98 06/08/16 00:00 96.7 80 18 125/60 98 06/07/16 20:00 95.9 95 18 119/59 98 06/07/16 19:07 95 06/07/16 18:39 96 Nasal Cannula 2.00 06/07/16 16:00 97.2 98 18 107/61 96 I/O 06/07/16 06/07/16 06/07/16 06/08/16 06/08/16 06/08/16 07:00 15:00 23:00 07:00 15:00 23:00 Intake Total 0 ml 480 ml 240 ml 240 ml Output Total 250 ml 200 ml 350 ml Balance -250 ml 280 ml 240 ml -110 ml Intake Oral 0 ml 480 ml 240 ml 240 ml IV Total 0 ml Output Urine Total 250 ml 200 ml 350 ml # Voids 1 # Bowel Movements 1 Laboratory Laboratory Tests Test 06/08/16 06:02 White Blood Count 7.1 Red Blood Count 2.16 Hemoglobin 8.2 Hematocrit 23.8 Mean Corpuscular Volume 110.1 Mean Corpuscular Hemoglobin 37.8 Mean Corpuscular Hemoglobin 34.4 Concent Red Cell Distribution Width 24.1 Platelet Count 140 Mean Platelet Volume 6.7 Neutrophils (%) (Auto) 71.6 Lymphocytes (%) (Auto) 18.5 Monocytes (%) (Auto) 7.0 Eosinophils (%) (Auto) 2.4 Basophils (%) (Auto) 0.5 Neutrophils # (Auto) 5.1 Lymphocytes # (Auto) 1.3 Monocytes # (Auto) 0.5 Eosinophils # (Auto) 0.2 Basophils # (Auto) 0.0 CBC Comment AUTO DIFF Differential Comment AUTO DIFF CONFIRMED Sodium Level 139 Potassium Level 3.9 Chloride Level 102 Carbon Dioxide Level 26.0 Anion Gap 11 Blood Urea Nitrogen 19 Creatinine 1.04 Estimat Glomerular Filtration 75 Rate Random Glucose 73 Calcium Level 8.3 Magnesium Level 2.1 Random Vancomycin Level 18.9 Imaging Last Impressions Chest X-Ray 06/03/16 0000 Signed Impressions: Service Date/Time: Friday, June 03, 2016 13:54 - CONCLUSION: 1. Cardiomegaly and findings of vascular congestion without overt failure. 2. Left lower lobe atelectasis versus pneumonia. 3. Small bilateral effusions Cole Ocampo MD Thoracic Spine CT 06/01/16 0000 Signed Impressions: Service Date/Time: Wednesday, June 01, 2016 05:13 - CONCLUSION: No evidence of acute bony process in the thoracic spine. Joseph Cook MD Lumbar Spine MRI 06/01/16 0000 Signed Impressions: Service Date/Time: Wednesday, June 01, 2016 15:22 - CONCLUSION: No evidence of abscess or abnormal enhancement. There is degenerative change within the disc at the level of L5/S1 suggestive of an acute tear of the annulus and small posterior central disc protrusion. Lexi Waller MD Lumbar Spine CT 06/01/16 0000 Signed Impressions: Service Date/Time: Wednesday, June 01, 2016 05:13 - CONCLUSION: Disc protrusion at the lumbosacral junction with mild asymmetric left-sided foraminal narrowing. No acute bony findings. Joseph Cook MD Cervical Spine CT 06/01/16 0000 Signed Impressions: Service Date/Time: Wednesday, June 01, 2016 05:13 - CONCLUSION: Mild degenerative change. No acute bony findings. Joseph Cook MD Abdomen Ultrasound 06/01/16 0000 Signed Impressions: Service Date/Time: Wednesday, June 01, 2016 14:06 - CONCLUSION: There is a trace of ascites insufficient for drainage. Jean-Paul Cheung MD Abdomen/Pelvis CT 05/31/16 1504 Signed Impressions: Service Date/Time: Tuesday, May 31, 2016 17:59 - CONCLUSION: 1. Ascites with varicosities as described above. 2. Casey shrunken liver with prominent spleen all consistent with longstanding cirrhosis. Tanner Willis MD FACR Physical Exam HEENT: Normocephalic; atraumatic; + jaundice. CHEST: Resp. shallow/even. CARDIAC: RRR ABDOMEN: Soft, nondistended, nontender; hepatosplenomegaly; bowel sounds are present in all four quadrants. EXTREMITIES: No clubbing, cyanosis, or edema. SKIN: Normal; no rash; + jaundice. 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 Abdomen/Pelvis CT (05/31/16) revealed 1. Ascites with varicosities as described above. 2. Casey shrunken liver with prominent spleen all consistent with longstanding cirrhosis. Pt denies any known hx of liver disease or cirrhosis in himself or family. He reports hx of heavy ETOH abuse, but quit 6 months ago and has not had any ETOH since that time. He denies any GI symptoms other than mild epigastric/midabdominal pressure. He reports that he has been jaundiced 2-3 months. Denies weight loss. He has been taking 5-6 Acetaminophen per day for a few months. He denies any hx of drug use or blood transfusions. He denies any new sexual partners. He denies any history of hepatitis. Hepatitis panel negative. ANAnegative/ASMA negative/AMA negative, AFP 3.1, ALpha 1 Antitrypsin 162, Ceruloplasmin 16. Iron transfusion 40.4%, Ferritin 447. Acetaminophen level was < 2.0, but he was taking significant amount of acetaminophen. S/P Mucamyst x 17 doses. T. Bili 14.3, AST 60, ALT 29, Alk Phosph 91. - Liver cirrhosis. New dx. CT Abdomen/Pelvis CT (05/31/16) revealed 1. Ascites with varicosities as described above. 2. Casey shrunken liver with prominent spleen all consistent with longstanding cirrhosis. MELD 23. Pt reports hx of heavy ETOH abuse, states he quit completely x 5-6 months ago. - Coagulopathy/Thrombocytopenia. Plt 140 - Anemia. 9./26.2.. No active bleeding. EGD/Colonoscopy (06/06/16)--> duodenitis, portal gastropathy, hiatal hernia, retroflex views revealed a hiatal hernia, Solid stool in the rectum and sigmoid, retroflex views revealed small internal hemorrhoids, internal hemorrhoids. Refuses to have repeat colonoscopy - Back pain with lle weakness/numbness. - COPD, HTN. PLAN: - SREE- Refused rpt colonoscopy - S/P Mucamyst x 17 doses - Monitor labs - Avoid hepatotoxic meds - Supportive care - Further recommendations to follow based on results of above - Pt seen and examined by Dr. Valentine and myself and this note is written on her behalf (Jeannine Trujillo) Physician Comments agree with above (Cherrie Valentine MD) Jeannine Trujillo Jun 08, 2016 13:27 Cherrie Valentine MD Jun 08, 2016 19:45
[2016-06-09] VITALS: BP 113/67; PULSE 81; RESP 17; TEMP 97; O2SAT 98
[2016-06-09] MEDS: CYCLOBENZAPRINE HCL 10 MG TAB PO SCH ×3 (01:22→18:42)
[2016-06-09 04:00] VITALS: BP 117/63; PULSE 94; RESP 17; TEMP 96; O2SAT 95
[2016-06-09 08:00] VITALS: BP 125/59; PULSE 94; RESP 17; TEMP 96.2; O2SAT 95
[2016-06-09] MEDS: PANTOPRAZOLE SOD 40 MG DELAYED RELEASE TAB PO SCH (10:04)
[2016-06-09] MEDS: PILL SPLITTER OTHER PRN (10:04)
[2016-06-09] MEDS: levETIRAcetam 250 MG TAB PO SCH ×2 (10:05→20:32)
[2016-06-09] MEDS: FUROSEMIDE 20 MG/2 ML VIAL IV PUSH SCH (10:05)
[2016-06-09] MEDS: POTASSIUM CHLORIDE 20 MEQ CONTROLLED RELEASE TAB PO SCH (10:05)
[2016-06-09] MEDS: amLODIPine BESYLATE 5 MG TAB PO SCH (10:05)
[2016-06-09] MEDS: LACTULOSE SYRUP 20 GM/30 ML CUP PO SCH ×2 (10:06→20:33)
[2016-06-09] MEDS: SODIUM CHLORIDE 0.9% FLUSH 5 ML FLUSH FLUSH SCH ×2 (10:06→20:33)
[2016-06-09] MEDS: ATENOLOL 25 MG TAB PO SCH (10:06)
[2016-06-09] MEDS: HEPARIN SODIUM - SQ 10,000 UNITS/ML VIAL SQ SCH ×2 (10:15→20:32)
[2016-06-09 12:00] VITALS: BP 108/55; PULSE 99; RESP 17; TEMP 95.9; O2SAT 95
--- NOTE | 2016-06-09 12:49 | HHI.PR ---
Subjective Remarks Follow-up sepsis. Improving back pain. Denies abdominal pain. Discussed with case management inquiring if patient can be transferred to [facility] pending clearance from ID Objective Vitals Vital Signs Date Time Temp Pulse Resp B/P Pulse Ox O2 Delivery O2 Flow Rate FiO2 06/09/16 09:08 Nasal Cannula 06/09/16 09:07 Nasal Cannula 2.00 06/09/16 08:00 96.2 94 17 125/59 95 06/09/16 04:00 96.0 94 17 117/63 95 06/09/16 00:00 97.0 81 17 113/67 98 06/08/16 20:00 97.4 91 18 119/61 98 06/08/16 17:48 Nasal Cannula 3.00 06/08/16 16:00 95.3 92 17 118/59 95 I/O 06/08/16 06/08/16 06/08/16 06/09/16 06/09/16 06/09/16 07:00 15:00 23:00 07:00 15:00 23:00 Intake Total 240 ml 544 ml 240 ml 480 ml Output Total 350 ml 600 ml 200 ml Balance -110 ml -56 ml 40 ml 480 ml Intake Oral 240 ml 240 ml 240 ml 480 ml IV Total 304 ml 0 ml Output Urine Total 350 ml 600 ml 200 ml # Voids 2 # Bowel Movements 1 Result Diagram: 06/08/16 0602 06/08/16 0602 Imaging Last Impressions Chest X-Ray 06/03/16 0000 Signed Impressions: Service Date/Time: Friday, June 03, 2016 13:54 - CONCLUSION: 1. Cardiomegaly and findings of vascular congestion without overt failure. 2. Left lower lobe atelectasis versus pneumonia. 3. Small bilateral effusions Cole Ocampo MD Thoracic Spine CT 06/01/16 0000 Signed Impressions: Service Date/Time: Wednesday, June 01, 2016 05:13 - CONCLUSION: No evidence of acute bony process in the thoracic spine. Joseph Cook MD Lumbar Spine MRI 06/01/16 0000 Signed Impressions: Service Date/Time: Wednesday, June 01, 2016 15:22 - CONCLUSION: No evidence of abscess or abnormal enhancement. There is degenerative change within the disc at the level of L5/S1 suggestive of an acute tear of the annulus and small posterior central disc protrusion. Lexi Waller MD Lumbar Spine CT 06/01/16 0000 Signed Impressions: Service Date/Time: Wednesday, June 01, 2016 05:13 - CONCLUSION: Disc protrusion at the lumbosacral junction with mild asymmetric left-sided foraminal narrowing. No acute bony findings. Joseph Cook MD Cervical Spine CT 06/01/16 0000 Signed Impressions: Service Date/Time: Wednesday, June 01, 2016 05:13 - CONCLUSION: Mild degenerative change. No acute bony findings. Joseph Cook MD Abdomen Ultrasound 06/01/16 0000 Signed Impressions: Service Date/Time: Wednesday, June 01, 2016 14:06 - CONCLUSION: There is a trace of ascites insufficient for drainage. Jean-Paul Cheung MD Abdomen/Pelvis CT 05/31/16 1504 Signed Impressions: Service Date/Time: Tuesday, May 31, 2016 17:59 - CONCLUSION: 1. Ascites with varicosities as described above. 2. Casey shrunken liver with prominent spleen all consistent with longstanding cirrhosis. Tanner Willis MD FACR Objective Remarks GENERAL: Well-developed well-nourished. In no acute distress. SKIN: Warm and dry. No lesions noted. Jaundiced. HEENT: Normocephalic. Pupils equal and round. Mucous membranes pink and moist. CARDIOVASCULAR: Regular rate and rhythm. Systolic murmur appreciated. RESPIRATORY: No accessory muscle use. Clear to auscultation. Breath sounds equal bilaterally. GASTROINTESTINAL: Abdomen soft, non-tender, nondistended. Bowel sounds x4. Mild scrotal edema MUSCULOSKELETAL: No obvious deformities. No clubbing or cyanosis. No edema. NEUROLOGICAL: Awake and alert no focal deficits Procedures EGD and Colonoscopy A/P Problem List: (1) Jaundice ICD Code: R17 Status: Acute (2) SIRS (systemic inflammatory response syndrome) ICD Code: R65.10 Status: Acute (3) Back pain ICD Code: M54.9 Status: Chronic (4) Anemia ICD Code: D64.9 Status: Acute (5) HTN (hypertension) ICD Code: I10 Status: Chronic (6) Seizures ICD Code: R56.9 Status: Chronic Assessment and Plan 51-year-old male with a history of chronic back pain, hypertension seizures presented with: Jaundice with hx ETOH abuse and chronic APAP usage Images reviewed: Abdomen/pelvis CT shows Ascites with varicosities. A Small shrunken liver with prominent spleen all consistent with longstanding cirrhosis. Labs reviewed: Total bilirubin 15.4, AST 65, alkaline phosphatase 132. Negative hepatitis panel. -Consulted GI, workup in progress, EGD/colonoscopy 06/06 showed duodenitis and portal gastropathy. C scope to be repeated 2/2 poor prep, patient is refusing -S/p Mucomyst, stop date 06/05 -Protonix -Alcohol cessation -Monitor Severe sepsis with strep bacteremia . HIV negative. UA negative. Chest x-ray with no acute process. Cultures reviewed: Initial blood cultures 08/16 with group B strep. Second cultures with 05/18 positive for group B strep. Third set NGTD. - Continue IV vancomycin - Consulted infectious disease, seen by Dr. Rodriguez, discontinued Azactam, continue IV Vanco for now - May need PCN desensitization - Echo 06/02 showed EF 60-65%, aortic valve poorly visualized, trace MR, no vegetation identified; however If bacteremia persists, may need JUAN MANUEL - Improved leukocytosis Acute on chronic lower back pain Imaging reviewed: Cervical and thoracic CTs with no acute process. Lumbar CT with disc protrusion at lower sacral drunk walden with mild asymmetric left-sided foraminal narrowing, no acute bony findings. -Continue home Flexeril. Added oxycodone -Heating pad -PT eval, currently recommending rehab -Neurosurgery consulted secondary to annular tear and disc protrusion, conservative management, appreciate recommendations Macrocytic Anemia Iron studies, B12, folate levels reviewed Hemoglobin decreased to 7.6 on 06/03 and given 1 unit PRBC. Hemoglobin improved to 9.3. -Hemoccult ordered -Monitor Seizures, chronic -Changed patient's Dilantin to Keppra 250 mg by mouth every 12 due to decreased liver function -Seizure precautions Hypertension, chronic, stable -Continue home atenolol and Norvasc -Monitor vitals Dyspnea: 06/03. Improving. CXR showed vascular congestion without overt failure. BNP elevated at 212. Echocardiogram as above. Probably secondary to combination of cirrhosis, anemia, and volume overload from IVF -Stopped IVF -Continue on duonebs q6h and albuterol neb q2h prn -Continue IV lasix 20mg with potassium replacement -incentive spirometry -Improving. Monitor renal function DVT prophylaxis: Scds. Start subcutaneous heparin Discharge Planning Anticipate long-term IV antibiotic but no payor source for outpatient or home IV antibiotic tx. Discussed with case management inquiring if patient can be transferred to [facility] pending clearance from ID Problem Qualifiers (1) Back pain: (2) HTN (hypertension): Qualified Code: I10 - Essential hypertension Federico Marie MD Jun 09, 2016 12:49
[2016-06-09] MEDS: VANCOMYCIN 1,500 MG/NS 500 ML IV SCH ×2 (13:18)
[2016-06-09 16:00] VITALS: BP 105/59; PULSE 93; RESP 17; TEMP 95.4; O2SAT 92
--- NOTE | 2016-06-09 19:32 | HHI.IDPN ---
Subjective Subjective Remarks is a 51 y/o CM with PMHx of ESLD, liver cirrhosis. Now presents with history suggestive of infectious process for last 4 weeks ? Admitted with severe sepsis, now with strep bacteremia. Overnight events reviewed. Paracentesis could not be performed due to minimal ascites. No fevers WBC ok No rash No diarrhea Still appears jaundiced. Mentally appears more clearer today. Antibiotics Azactam IV Vanco IV Lines Line sites with no e/o infection Past Medical History reviewed. Allergies: Coded Allergies: Penicillin (Verified Allergy, Unknown, 05/31/16) Objective . Vital Signs Date Time Temp Pulse Resp B/P Pulse Ox O2 Delivery O2 Flow Rate FiO2 06/09/16 16:00 95.4 93 17 105/59 92 06/09/16 12:00 95.9 99 17 108/55 95 06/09/16 09:08 Nasal Cannula 06/09/16 09:07 Nasal Cannula 2.00 06/09/16 08:00 96.2 94 17 125/59 95 06/09/16 04:00 96.0 94 17 117/63 95 06/09/16 00:00 97.0 81 17 113/67 98 06/08/16 20:00 97.4 91 18 119/61 98 06/08/16 06/08/16 06/09/16 15:00 23:00 07:00 Intake Total 544 ml 240 ml 480 ml Output Total 600 ml 200 ml Balance -56 ml 40 ml 480 ml Intake Oral 240 ml 240 ml 480 ml IV Total 304 ml 0 ml Output Urine Total 600 ml 200 ml # Voids 2 # Bowel Movements 1 . Laboratory Tests Test 06/08/16 06:02 White Blood Count 7.1 TH/MM3 Red Blood Count 2.16 MIL/MM3 Hemoglobin 8.2 GM/DL Hematocrit 23.8 % Mean Corpuscular Volume 110.1 FL Mean Corpuscular Hemoglobin 37.8 PG Mean Corpuscular Hemoglobin 34.4 % Concent Red Cell Distribution Width 24.1 % Platelet Count 140 TH/MM3 Mean Platelet Volume 6.7 FL Neutrophils (%) (Auto) 71.6 % Lymphocytes (%) (Auto) 18.5 % Monocytes (%) (Auto) 7.0 % Eosinophils (%) (Auto) 2.4 % Basophils (%) (Auto) 0.5 % Neutrophils # (Auto) 5.1 TH/MM3 Lymphocytes # (Auto) 1.3 TH/MM3 Monocytes # (Auto) 0.5 TH/MM3 Eosinophils # (Auto) 0.2 TH/MM3 Basophils # (Auto) 0.0 TH/MM3 CBC Comment AUTO DIFF Differential Comment AUTO DIFF CONFIRMED Laboratory Tests Test 06/08/16 06:02 Sodium Level 139 MEQ/L Potassium Level 3.9 MEQ/L Chloride Level 102 MEQ/L Carbon Dioxide Level 26.0 MEQ/L Anion Gap 11 MEQ/L Blood Urea Nitrogen 19 MG/DL Creatinine 1.04 MG/DL Estimat Glomerular Filtration 75 ML/MIN Rate Random Glucose 73 MG/DL Calcium Level 8.3 MG/DL Magnesium Level 2.1 MG/DL Imaging Last Impressions Thoracic Spine CT 06/01/16 0000 Signed Impressions: Service Date/Time: Wednesday, June 01, 2016 05:13 - CONCLUSION: No evidence of acute bony process in the thoracic spine. Joseph Cook MD Lumbar Spine MRI 06/01/16 0000 Signed Impressions: Service Date/Time: Wednesday, June 01, 2016 15:22 - CONCLUSION: No evidence of abscess or abnormal enhancement. There is degenerative change within the disc at the level of L5/S1 suggestive of an acute tear of the annulus and small posterior central disc protrusion. Lexi Waller MD Lumbar Spine CT 06/01/16 0000 Signed Impressions: Service Date/Time: Wednesday, June 01, 2016 05:13 - CONCLUSION: Disc protrusion at the lumbosacral junction with mild asymmetric left-sided foraminal narrowing. No acute bony findings. Joseph Cook MD Chest X-Ray 06/01/16 0000 Signed Impressions: Service Date/Time: Wednesday, June 01, 2016 06:12 - CONCLUSION: No acute disease. Joseph Cook MD Cervical Spine CT 06/01/16 0000 Signed Impressions: Service Date/Time: Wednesday, June 01, 2016 05:13 - CONCLUSION: Mild degenerative change. No acute bony findings. Joseph Cook MD Abdomen Ultrasound 06/01/16 0000 Signed Impressions: Service Date/Time: Wednesday, June 01, 2016 14:06 - CONCLUSION: There is a trace of ascites insufficient for drainage. Jean-Paul Cheung MD Abdomen/Pelvis CT 05/31/16 1504 Signed Impressions: Service Date/Time: Tuesday, May 31, 2016 17:59 - CONCLUSION: 1. Ascites with varicosities as described above. 2. Casey shrunken liver with prominent spleen all consistent with longstanding cirrhosis. Tanner Willis MD FACR Physical Exam GENERAL: Thin built poorly nourished male patient, in no apparent distress. SKIN: spider naevi, jaundiced skin. HEAD: Atraumatic. Normocephalic. No temporal or scalp tenderness. EYES: Pupils equal round and reactive. Extraocular motions intact. Positive for scleral icterus. No injection or drainage. ENT: Nose without bleeding, purulent drainage or septal hematoma. Throat without erythema, tonsillar hypertrophy or exudate. Uvula midline. Airway patent. NECK: Trachea midline. Supple, nontender, no meningeal signs. CARDIOVASCULAR: HS audible. No murmur appreciated. RESPIRATORY: Clear to auscultation. Breath sounds equal bilaterally. No wheezes , rales, or rhonchi. GASTROINTESTINAL: Abdomen soft, non-tender, nondistended. MUSCULOSKELETAL: Extremities without clubbing, cyanosis, or edema. No joint tenderness, effusion, or edema noted. No calf tenderness. Negative Homans sign bilaterally. NEUROLOGICAL: Awake and alert. Left foot weakness of extensors. Able to flex at knee but extremely painful movts. Reports tenderness on thigh area and foot level. Psych: cooperative, flat affect. IV line sites with no e.o infection. Assessment & Plan Remarks Severe Sepsis (SIRS,bacteremia, organ dysfunction: abnormal liver function tests from sepsis) Strep bacteremia ? endocarditis. Liver Cirrhosis with Ascites. ESLD with splenomegaly and s/o decompensated liver cirrhosis. Chronic heavy alcoholism Hyperbilirubinemia, elevated liver enzymes, hypoalbuminemia. Worsening foot drop, falls, change in gait, excruciating pain in left leg and back: ? early spinal osteomyelitis. R/o epidural abscess. Possible underlying disc disease worsening. Recs: Continue Vanco IV (target trough 15-20) Tentative stop date: 07/09/2016 Weekly CBC with diff, CMP, CRP, Vanco trough to be followed by hospitalist. Ok to transfer to [facility]. Please call ID physician covering at [facility] if any new issues upon transfer. D.w patient in room. d/w . Monica Rodriguez MD Jun 09, 2016 19:32
[2016-06-09 20:00] VITALS: BP 112/64; PULSE 89; RESP 20; TEMP 97.2; O2SAT 91
[2016-06-09] MEDS: LACTATED RINGER'S 1000 ML IV SCH (20:33)
[2016-06-10] VITALS (10 sets, daily range): BP systolic 102–115; BP diastolic 48–72; PULSE 90–100; RESP 14–20; TEMP 96.5–97.7; O2SAT 90–95
[2016-06-10] MEDS: CYCLOBENZAPRINE HCL 10 MG TAB PO SCH ×3 (01:06→17:00)
[2016-06-10] MEDS: amLODIPine BESYLATE 5 MG TAB PO SCH (09:00)
[2016-06-10] MEDS: FUROSEMIDE 20 MG/2 ML VIAL IV PUSH SCH (09:00)
[2016-06-10] MEDS: ATENOLOL 25 MG TAB PO SCH (09:00)
[2016-06-10] MEDS: PANTOPRAZOLE SOD 40 MG DELAYED RELEASE TAB PO SCH (09:43)
[2016-06-10] MEDS: POTASSIUM CHLORIDE 20 MEQ CONTROLLED RELEASE TAB PO SCH (09:43)
[2016-06-10] MEDS: LACTULOSE SYRUP 20 GM/30 ML CUP PO SCH ×2 (09:43→22:00)
[2016-06-10] MEDS: levETIRAcetam 250 MG TAB PO SCH ×2 (09:43→22:00)
[2016-06-10] MEDS: HEPARIN SODIUM - SQ 10,000 UNITS/ML VIAL SQ SCH ×2 (09:44→22:00)
[2016-06-10] MEDS: SODIUM CHLORIDE 0.9% FLUSH 5 ML FLUSH FLUSH SCH ×2 (09:44→22:00)
[2016-06-10] MEDS ORDERED: PHARMACY ORDERED LAB XX ONE (11:45)
[2016-06-10] MEDS: VANCOMYCIN 1,500 MG/NS 500 ML IV SCH ×2 (12:44)
[2016-06-10 12:52] LABS: INTERNATIONAL NORMALIZED RATIO 1.9 RATIO; PROTHROMBIN TIME - PATIENT 21.4 SEC (9.8-11.6)
--- NOTE | 2016-06-10 13:22 | HHI.PR ---
Subjective Remarks Follow-up sepsis. No new complaints improving back pain. Discussed with RN, case management and ID Objective Vitals Vital Signs Date Time Temp Pulse Resp B/P Pulse Ox O2 Delivery O2 Flow Rate FiO2 06/10/16 08:00 97.6 97 14 106/64 90 06/10/16 04:00 96.6 100 18 108/48 94 06/10/16 00:00 96.5 90 18 115/72 90 06/09/16 21:04 Nasal Cannula 2.00 06/09/16 20:33 18 06/09/16 20:00 97.2 89 20 112/64 91 06/09/16 16:00 95.4 93 17 105/59 92 I/O 06/09/16 06/09/16 06/09/16 06/10/16 06/10/16 06/10/16 07:00 15:00 23:00 07:00 15:00 23:00 Intake Total 480 ml 351 ml 240 ml 0 ml Output Total 600 ml 300 ml Balance 480 ml -249 ml -60 ml 0 ml Intake Oral 480 ml 200 ml 240 ml 0 ml IV Total 151 ml 0 ml Output Urine Total 600 ml 300 ml # Voids 2 3 # Bowel Movements 0 Result Diagram: 06/08/16 0602 06/10/16 0548 Objective Remarks GENERAL: Well-developed well-nourished. In no acute distress. SKIN: Warm and dry. No lesions noted. Jaundiced. HEENT: Normocephalic. Pupils equal and round. Mucous membranes pink and moist. CARDIOVASCULAR: Regular rate and rhythm. Systolic murmur appreciated. RESPIRATORY: No accessory muscle use. Clear to auscultation. Breath sounds equal bilaterally. GASTROINTESTINAL: Abdomen soft, non-tender, nondistended. Bowel sounds x4. Mild scrotal edema MUSCULOSKELETAL: No obvious deformities. No clubbing or cyanosis. No edema. NEUROLOGICAL: Awake and alert no focal deficits Procedures EGD and Colonoscopy A/P Problem List: (1) Jaundice ICD Code: R17 Status: Acute (2) SIRS (systemic inflammatory response syndrome) ICD Code: R65.10 Status: Acute (3) Back pain ICD Code: M54.9 Status: Chronic (4) Anemia ICD Code: D64.9 Status: Acute (5) HTN (hypertension) ICD Code: I10 Status: Chronic (6) Seizures ICD Code: R56.9 Status: Chronic Assessment and Plan 51-year-old male with a history of chronic back pain, hypertension seizures presented with: Jaundice with hx ETOH abuse and chronic APAP usage Images reviewed: Abdomen/pelvis CT shows Ascites with varicosities. A Small shrunken liver with prominent spleen all consistent with longstanding cirrhosis. Labs reviewed: Total bilirubin 15.4, AST 65, alkaline phosphatase 132. Negative hepatitis panel. -Consulted GI, workup in progress, EGD/colonoscopy 06/06 showed duodenitis and portal gastropathy. C scope to be repeated 2/2 poor prep, patient is refusing -S/p Mucomyst, stop date 06/05 -Protonix -Alcohol cessation -Monitor Severe sepsis with strep bacteremia . HIV negative. UA negative. Chest x-ray with no acute process. Cultures reviewed: Initial blood cultures / with group B strep. Second cultures with 1/ positive for group B strep. Third set NGTD. -Continue Vanco IV (target trough 15-20) Tentative stop date: 07/09/2016 Weekly CBC with diff, CMP, CRP - Consulted infectious disease - Echo 06/02 showed EF 60-65%, aortic valve poorly visualized, trace MR, no vegetation identified; however If bacteremia persists, may need JUAN MANUEL - Improved leukocytosis Acute on chronic lower back pain Imaging reviewed: Cervical and thoracic CTs with no acute process. Lumbar CT with disc protrusion at lower sacral drunk walden with mild asymmetric left-sided foraminal narrowing, no acute bony findings. -Continue home Flexeril. Added oxycodone -Heating pad -PT eval, currently recommending rehab -Neurosurgery consulted secondary to annular tear and disc protrusion, conservative management, appreciate recommendations Macrocytic Anemia Iron studies, B12, folate levels reviewed Hemoglobin decreased to 7.6 on 06/03 and given 1 unit PRBC. Hemoglobin improved to 9.3. -Hemoccult ordered -Monitor Seizures, chronic -Changed patient's Dilantin to Keppra 250 mg by mouth every 12 due to decreased liver function -Seizure precautions Hypertension, chronic, stable -Continue home atenolol and Norvasc -Monitor vitals Dyspnea: 06/03. Improving. CXR showed vascular congestion without overt failure. BNP elevated at 212. Echocardiogram as above. Probably secondary to combination of cirrhosis, anemia, and volume overload from IVF -Stopped IVF -Continue on duonebs q6h and albuterol neb q2h prn -Continue lasix 20mg with potassium replacement -incentive spirometry -Improving. Monitor renal function DVT prophylaxis: Scds. ct subcutaneous heparin check coags Discharge Planning Anticipate long-term IV antibiotic but no payor source for outpatient or home IV antibiotic tx. Discussed with case management inquiring if patient can be transferred to [facility] pending clearance from ID Problem Qualifiers (1) Back pain: (2) HTN (hypertension): Qualified Code: I10 - Essential hypertension Federico Marie MD Jun 10, 2016 13:22 Federico Marie MD Jun 10, 2016 13:22
[2016-06-11] MEDS: CYCLOBENZAPRINE HCL 10 MG TAB PO SCH ×3 (02:56→17:12)
[2016-06-11 08:00] VITALS: BP 103/63; PULSE 91; RESP 18; TEMP 97.9; O2SAT 95; O2SAT 96
[2016-06-11] MEDS: FUROSEMIDE 20 MG TAB PO SCH (09:00)
[2016-06-11] MEDS: ATENOLOL 25 MG TAB PO SCH (09:00)
[2016-06-11] MEDS: amLODIPine BESYLATE 5 MG TAB PO SCH (09:00)
[2016-06-11] MEDS: PANTOPRAZOLE SOD 40 MG DELAYED RELEASE TAB PO SCH (09:45)
[2016-06-11] MEDS: POTASSIUM CHLORIDE 20 MEQ CONTROLLED RELEASE TAB PO SCH (09:47)
[2016-06-11] MEDS: LACTULOSE SYRUP 20 GM/30 ML CUP PO SCH ×2 (09:47→21:13)
[2016-06-11] MEDS: HEPARIN SODIUM - SQ 10,000 UNITS/ML VIAL SQ SCH ×2 (09:47→21:14)
[2016-06-11] MEDS: levETIRAcetam 250 MG TAB PO SCH ×2 (09:47→21:14)
--- NOTE | 2016-06-11 11:39 | HHI.PR ---
Subjective Remarks Patient was transferred to [facility] yesterday for completion of IV antibiotics. Old records from this hospitalization were reviewed. Patient was initially seen in the ED with fevers, jaundice, and back pain. He is a patient with long-standing cirrhosis evident on imaging. He had mild ascites which was not enough to drain. Patient was found to be septic from group B beta strep bacteremia. He was evaluated by infectious disease and is currently on vancomycin. He also was having dyspnea and had 2 episodes of hypoxia; vascular congestion evident on chest x-ray. He is currently on oxygen via nasal cannula and daily Lasix. Today patient states his joints are sore all over. He denies any fevers or shortness of breath. Objective Vitals Vital Signs Date Time Temp Pulse Resp B/P Pulse Ox O2 Delivery O2 Flow Rate FiO2 06/11/16 08:00 95 Nasal Cannula 5.00 06/11/16 08:00 97.9 91 18 103/63 96 06/10/16 20:05 95 Nasal Cannula 2.00 06/10/16 20:00 97.7 92 20 103/63 94 06/10/16 18:24 102/70 06/10/16 17:52 94 Nasal Cannula 2.00 06/10/16 13:30 94 Nasal Cannula 2.00 06/10/16 12:00 97.6 99 18 106/67 93 I/O 06/10/16 06/10/16 06/10/16 06/11/16 06/11/16 06/11/16 07:00 15:00 23:00 07:00 15:00 23:00 Intake Total 0 ml 360 ml Output Total 300 ml Balance 0 ml 60 ml Intake Oral 0 ml 360 ml Output Urine Total 300 ml # Voids 3 3 # Bowel Movements 0 0 Result Diagram: 06/08/16 0602 06/10/16 0548 Imaging Last Impressions Chest X-Ray 06/03/16 0000 Signed Impressions: Service Date/Time: Friday, June 03, 2016 13:54 - CONCLUSION: 1. Cardiomegaly and findings of vascular congestion without overt failure. 2. Left lower lobe atelectasis versus pneumonia. 3. Small bilateral effusions Cole Ocampo MD Thoracic Spine CT 06/01/16 0000 Signed Impressions: Service Date/Time: Wednesday, June 01, 2016 05:13 - CONCLUSION: No evidence of acute bony process in the thoracic spine. Joseph Cook MD Lumbar Spine MRI 06/01/16 0000 Signed Impressions: Service Date/Time: Wednesday, June 01, 2016 15:22 - CONCLUSION: No evidence of abscess or abnormal enhancement. There is degenerative change within the disc at the level of L5/S1 suggestive of an acute tear of the annulus and small posterior central disc protrusion. Lexi Waller MD Lumbar Spine CT 06/01/16 0000 Signed Impressions: Service Date/Time: Wednesday, June 01, 2016 05:13 - CONCLUSION: Disc protrusion at the lumbosacral junction with mild asymmetric left-sided foraminal narrowing. No acute bony findings. Joseph Cook MD Cervical Spine CT 06/01/16 0000 Signed Impressions: Service Date/Time: Wednesday, June 01, 2016 05:13 - CONCLUSION: Mild degenerative change. No acute bony findings. Joseph Cook MD Abdomen Ultrasound 06/01/16 0000 Signed Impressions: Service Date/Time: Wednesday, June 01, 2016 14:06 - CONCLUSION: There is a trace of ascites insufficient for drainage. Jean-Paul Cheung MD Abdomen/Pelvis CT 05/31/16 1504 Signed Impressions: Service Date/Time: Tuesday, May 31, 2016 17:59 - CONCLUSION: 1. Ascites with varicosities as described above. 2. Casey shrunken liver with prominent spleen all consistent with longstanding cirrhosis. Tanner Willis MD FACR Objective Remarks GENERAL: Chronically ill appearing patient in no apparent distress. SKIN: Warm and dry. Jaundiced. EYES: Scleral icterus present. No injection or drainage. CARDIOVASCULAR: Regular rate and rhythm. RESPIRATORY: No accessory muscle use. Clear to auscultation. Breath sounds equal bilaterally. GASTROINTESTINAL: Abdomen distended with hepatomegaly; non-tender. MUSCULOSKELETAL: SCDs in place which were removed revealing some segmented swelling on the sides of the legs from SCDs but no pre-tibial edema. NEUROLOGICAL: Awake and alert. Normal speech. PSYCHIATRIC: Appropriate mood and affect; insight and judgment normal. Procedures 06/06/16 EGD and Colonoscopy Urinary Catheter: No Vascular Central Line Catheter: No A/P Problem List: (1) Jaundice ICD Code: R17 Status: Acute (2) SIRS (systemic inflammatory response syndrome) ICD Code: R65.10 Status: Acute (3) Back pain ICD Code: M54.9 Status: Chronic (4) Anemia ICD Code: D64.9 Status: Acute (5) HTN (hypertension) ICD Code: I10 Status: Chronic (6) Seizures ICD Code: R56.9 Status: Chronic Assessment and Plan 51-year-old male with a history of chronic back pain, hypertension seizures presented with: Jaundice with hx ETOH abuse and chronic acetaminophen usage Images reviewed: Abdomen/pelvis CT shows Ascites with varicosities; a small shrunken liver with prominent spleen all consistent with longstanding cirrhosis. Labs reviewed: Total bilirubin 14.3, AST 60, ALT and alkaline phosphatase now normal. Negative hepatitis panel. -Consulted GI, notes appreciated. EGD/colonoscopy 06/06 showed duodenitis and portal gastropathy. Colonoscopy to be repeated 2/2 poor prep, but patient refused. -S/p Mucomyst, stop date 06/05 -Protonix -Alcohol cessation -Monitor Severe sepsis with strep bacteremia . HIV negative. UA negative. Chest x-ray with no acute process. Cultures reviewed: Initial blood cultures / with group B Beta strep. Second cultures with 1/4 positive for group B strep. Third set NGTD. - Consulted infectious disease - Continue Vanco IV (target trough 15-20) Tentative stop date: 07/09/2016 - Per ID, weekly CBC with diff, CMP, CRP. Next labs ordered for 06/15/16. - Echo 06/02 showed EF 60-65%, aortic valve poorly visualized, trace MR, no vegetation identified; however If bacteremia persists, may need JUAN MANUEL - Leukocytosis resolved Acute on chronic lower back pain Imaging reviewed: Cervical and thoracic CTs with no acute process. Lumbar MRI with degenerative change within the disc at the level of L5/S1 suggestive of an acute tear of the annulus and small posterior central disc protrusion. Lumbar CT with protrusion at the lumbosacral junction with mild asymmetric left-sided foraminal narrowing. No acute bony findings. -Continue home Flexeril. Added oxycodone. -Heating pad -Continue PT. -Neurosurgery consulted secondary to annular tear and disc protrusion, conservative management, recommendations appreciated. Macrocytic Anemia Iron studies, B12, folate levels reviewed Hemoglobin decreased to 7.6 on 06/03 and given 1 unit PRBC. Hemoglobin improved to 9.3. Decreased but stable at 8.2. -Hemoccult ordered -Monitor CBC. Seizures, chronic -Changed patient's Dilantin to Keppra 250 mg by mouth every 12 due to decreased liver function -Seizure precautions Hypertension: chronic. SBP <110 this morning and yesterday so BP meds held. -Continue home atenolol and Norvasc -Monitor vitals Dyspnea: 06/03. Improved CXR showed vascular congestion without overt failure. BNP elevated at 212. Echocardiogram as above. Probably secondary to combination of cirrhosis, anemia, and volume overload from IVF -IVF were stopped. -Continue duonebs q6h and albuterol neb q2h prn SOB -Continue lasix 20mg with potassium replacement -Incentive spirometry -Improving. Monitor renal function. DVT prophylaxis: SCDs. Continue subcutaneous heparin. Discharge Planning CM consulted. Patient has no payor source. He will remain hospitalized until completion of antibiotics/clearance by ID. Problem Qualifiers (1) Back pain: (2) HTN (hypertension): Qualified Code: I10 - Essential hypertension Juli Garrison Jun 11, 2016 11:39
[2016-06-11 12:21] VITALS: BP 108/68; PULSE 97; RESP 16; TEMP 97.1; O2SAT 97
[2016-06-11] MEDS: SODIUM CHLORIDE 0.9% FLUSH 5 ML FLUSH FLUSH SCH ×2 (12:59→21:14)
[2016-06-11] MEDS: VANCOMYCIN 1,000 MG/NS 250 ML IV SCH ×2 (12:59)
[2016-06-11 16:00] VITALS: BP 113/70; PULSE 96; RESP 16; TEMP 97.4; O2SAT 95
[2016-06-11 20:00] VITALS: BP 120/76; PULSE 95; RESP 18; TEMP 97.9; O2SAT 96
[2016-06-12] VITALS (7 sets, daily range): BP systolic 96–105; BP diastolic 57–70; PULSE 91–94; RESP 16–20; TEMP 96–98.7; O2SAT 90–95
[2016-06-12] MEDS: CYCLOBENZAPRINE HCL 10 MG TAB PO SCH ×3 (01:58→17:14)
[2016-06-12] MEDS: ATENOLOL 25 MG TAB PO SCH (09:00)
[2016-06-12] MEDS: FUROSEMIDE 20 MG TAB PO SCH (09:00)
[2016-06-12] MEDS: amLODIPine BESYLATE 5 MG TAB PO SCH (09:00)
[2016-06-12] MEDS: levETIRAcetam 250 MG TAB PO SCH ×2 (09:04→21:19)
[2016-06-12] MEDS: LACTULOSE SYRUP 20 GM/30 ML CUP PO SCH ×2 (09:04→21:19)
[2016-06-12] MEDS: POTASSIUM CHLORIDE 20 MEQ CONTROLLED RELEASE TAB PO SCH (09:06)
[2016-06-12] MEDS: PANTOPRAZOLE SOD 40 MG DELAYED RELEASE TAB PO SCH (09:07)
[2016-06-12] MEDS: HEPARIN SODIUM - SQ 10,000 UNITS/ML VIAL SQ SCH ×2 (09:46→21:18)
--- NOTE | 2016-06-12 12:43 | HHI.PR ---
Subjective Remarks Follow-up for bacteremia, cirrhosis. RN states the patient has a pustule over his scrotum. Patient's Marcelle is at bedside and states he did not have this at the other hospital. Patient complains of pain in his head and back. expresses concern regarding swelling in his legs. His states he has chronic nerve issues in the legs related to his back 4 months, but calf pain is new for the past 10 days. Objective Vitals Vital Signs Date Time Temp Pulse Resp B/P Pulse Ox O2 Delivery O2 Flow Rate FiO2 06/12/16 08:00 96.0 94 19 105/70 94 06/11/16 20:00 97.9 95 18 120/76 96 06/11/16 16:00 97.4 96 16 113/70 95 06/11/16 12:21 97.1 97 16 108/68 97 I/O 06/11/16 06/11/16 06/11/16 06/12/16 06/12/16 06/12/16 07:00 15:00 23:00 07:00 15:00 23:00 Intake Total 250 ml 250 ml Output Total 400 ml 450 ml Balance -150 ml -200 ml Intake Oral 250 ml IV Total 250 ml Output Urine Total 400 ml 450 ml # Voids 3 3 # Bowel Movements 0 0 Result Diagram: 06/08/16 0602 06/12/16 0815 Objective Remarks GENERAL: Chronically ill appearing patient in no apparent distress, c/o pain. SKIN: Warm and dry. Jaundiced. Patient examined in the presence of a nurse. There is a small pustule noted over the scrotum which is mildly tender. There is no erythema, induration, or fluctuance surrounding this. EYES: Scleral icterus present. RESPIRATORY: RR normal. GASTROINTESTINAL: Abdomen distended, tender over the R side. MUSCULOSKELETAL: SCDs are not currently in place. There is some mild swelling on the sides of the legs from SCDs but no pre-tibial edema. Patient is significantly tender over both calves. NEUROLOGICAL: Awake and alert. Normal speech. PSYCHIATRIC: Grumpy mood and affect; insight and judgment normal. Procedures 06/06/16 EGD and Colonoscopy Urinary Catheter: No Vascular Central Line Catheter: No A/P Problem List: (1) Jaundice ICD Code: R17 Status: Acute (2) SIRS (systemic inflammatory response syndrome) ICD Code: R65.10 Status: Acute (3) Back pain ICD Code: M54.9 Status: Chronic (4) Anemia ICD Code: D64.9 Status: Acute (5) HTN (hypertension) ICD Code: I10 Status: Chronic (6) Seizures ICD Code: R56.9 Status: Chronic (7) Bilateral calf pain ICD Code: M79.661 Status: Acute (8) Pustule ICD Code: L08.9 Status: Acute Assessment and Plan 51-year-old male with a history of chronic back pain, hypertension seizures presented with: Jaundice with hx ETOH abuse and chronic acetaminophen usage Images reviewed: Abdomen/pelvis CT shows Ascites with varicosities; a small shrunken liver with prominent spleen all consistent with longstanding cirrhosis. Labs reviewed: Total bilirubin 14.3, AST 60, ALT and alkaline phosphatase now normal. Negative hepatitis panel. -Consulted GI, notes appreciated. EGD/colonoscopy 06/06 showed duodenitis and portal gastropathy. Colonoscopy to be repeated 2/2 poor prep, but patient refused. -S/p Mucomyst, stop date 06/05 -Protonix -Alcohol cessation -Monitor Severe sepsis with strep bacteremia . HIV negative. UA negative. Chest x-ray with no acute process. Cultures reviewed: Initial blood cultures 4/4 with group B Beta strep. Second cultures with 1/4 positive for group B strep. Third set NGTD. - Consulted infectious disease - Continue Vanco IV (target trough 15-20) Tentative stop date: 07/09/2016 - Per ID, weekly CBC with diff, CMP, CRP. Next labs ordered for 06/15/16. - Echo 06/02 showed EF 60-65%, aortic valve poorly visualized, trace MR, no vegetation identified; however If bacteremia persists, may need JUAN MANUEL - Leukocytosis resolved Acute on chronic lower back pain Imaging reviewed: Cervical and thoracic CTs with no acute process. Lumbar MRI with degenerative change within the disc at the level of L5/S1 suggestive of an acute tear of the annulus and small posterior central disc protrusion. Lumbar CT with protrusion at the lumbosacral junction with mild asymmetric left-sided foraminal narrowing. No acute bony findings. -Continue home Flexeril. Added oxycodone. -Heating pad -Continue PT. -Neurosurgery consulted secondary to annular tear and disc protrusion, conservative management, recommendations appreciated. Macrocytic Anemia Iron studies, B12, folate levels reviewed Hemoglobin decreased to 7.6 on 06/03 and given 1 unit PRBC. Hemoglobin improved to 9.3. Decreased but stable at 8.2. -Hemoccult ordered -Monitor CBC. Seizures, chronic -Changed patient's Dilantin to Keppra 250 mg by mouth every 12 due to decreased liver function -Seizure precautions Hypertension: -Continue home atenolol and Norvasc. Hold if SBP < 110. -Monitor vitals Dyspnea: 06/03. Improved CXR showed vascular congestion without overt failure. BNP elevated at 212. Echocardiogram as above. Probably secondary to combination of cirrhosis, anemia, and volume overload from IVF -IVF were stopped. -Continue duonebs q6h and albuterol neb q2h prn SOB -Continue lasix 20mg with potassium replacement -Incentive spirometry -Improving. Monitor renal function. B/L leg pain: May be due to lumbar disc protrusion, but patient is significantly tender over both calves. Patient is high risk for DVT. -Bilateral Doppler ultrasound to rule out DVT. Scrotal pustule: Small pustule over scrotum likely from infected follicle with no underlying abscess. -Nurse instructed to apply warm compresses. -Will monitor clinically. Patient is already on Vancomycin. DVT prophylaxis: SCDs. Continue subcutaneous heparin. Discharge Planning CM consulted. Patient has no payor source. He will remain hospitalized until completion of antibiotics/clearance by ID. Problem Qualifiers (1) Back pain: (2) HTN (hypertension): Qualified Code: I10 - Essential hypertension Juli Garrison Jun 12, 2016 12:43 Geovanna Orozco MD Jun 12, 2016 17:11
[2016-06-12] MEDS: SODIUM CHLORIDE 0.9% FLUSH 5 ML FLUSH FLUSH SCH ×2 (13:02→21:19)
[2016-06-12] MEDS: VANCOMYCIN 1,000 MG/NS 250 ML IV SCH ×2 (13:03)
--- NOTE | 2016-06-12 13:21 | RADHPO ---
EXAM DATE/TIME: 06/12/2016 12:52 [facility] COMPARISON: No previous studies available for comparison. INDICATIONS : Bilateral leg pain. MEDICAL HISTORY : Cirrhosis. Chronic obstructive pulmonary disease. Hypertension. Seizures. Abdominal pain. Paresthesia . Jaundice. SURGICAL HISTORY : None. ENCOUNTER: Initial ACUITY: 1 day PAIN SCORE: 8/10 LOCATION: Bilateral leg. TECHNIQUE: Venous ultrasound of the left and right leg was performed from the inguinal ligament to the proximal calf. Real-time, color Doppler and spectral tracing, compression and augmentation techniques were us ed. FINDINGS: RIGHT LEG: There is normal compressibility of the deep venous system from the inguinal region to the proximal ca lf. No echogenic clot is seen in the lumen of the common femoral, femoral, popliteal, and posterior tibial veins. There is a normal response of the venous system to proximal and distal augmentation an d respiration. LEFT LEG: There is normal compressibility of the deep venous system from the inguinal region to the proximal ca lf. No echogenic clot is seen in the lumen of the common femoral, femoral, popliteal, and posterior tibial veins. There is a normal response of the venous system to proximal and distal augmentation an d respiration. CONCLUSION: No evidence of DVT. Jean-Paul Cheung MD on June 12, 2016 at 13:19 Board Certified Radiologist. This report was verified electronically.
[2016-06-13] MEDS: CYCLOBENZAPRINE HCL 10 MG TAB PO SCH ×3 (02:56→17:28)
--- NOTE | 2016-06-13 07:27 | HHI.PR ---
Addendum to Inpatient Note Addendum Reason: Additional Documentation Additional Information Patient signed off to [facility] team including PAs. Stop date in last note. Weekly CBC with diff, CMP, CRP and Vanco trough (target 15-20). If worsening back pain consider repeat MRI spine and call ID coat ironer hand for [place]. Labs to be followed by [facility] team and call ID coat ironer hand at [facility] for any new issues or follow up questions. Will sign off please call back if any change in clinical condition or questions. Monica Rodriguez MD Jun 13, 2016 07:27
[2016-06-13 08:00] VITALS: O2SAT 94
[2016-06-13 08:13] VITALS: BP 132/88; PULSE 79; RESP 19; TEMP 97.8; O2SAT 95
[2016-06-13] MEDS: SODIUM CHLORIDE 0.9% FLUSH 5 ML FLUSH FLUSH SCH ×2 (09:00→20:54)
[2016-06-13] MEDS: levETIRAcetam 250 MG TAB PO SCH ×2 (09:50→20:54)
[2016-06-13] MEDS: LACTULOSE SYRUP 20 GM/30 ML CUP PO SCH ×3 (09:50→21:00)
[2016-06-13] MEDS: HEPARIN SODIUM - SQ 10,000 UNITS/ML VIAL SQ SCH ×3 (09:51→21:00)
[2016-06-13] MEDS: POTASSIUM CHLORIDE 20 MEQ CONTROLLED RELEASE TAB PO SCH (09:51)
[2016-06-13] MEDS: FUROSEMIDE 20 MG TAB PO SCH (09:51)
[2016-06-13] MEDS: PANTOPRAZOLE SOD 40 MG DELAYED RELEASE TAB PO SCH (09:51)
[2016-06-13] MEDS: amLODIPine BESYLATE 5 MG TAB PO SCH (09:52)
[2016-06-13] MEDS: ATENOLOL 25 MG TAB PO SCH (09:52)
--- NOTE | 2016-06-13 11:43 | HHI.PR ---
Subjective Remarks Follow-up for bacteremia. Patient complains of back soreness but states it is the same as it has been. He c/o pain when he leans forward. Nurse tells me that the patient denies any pain at rest and only has pain with movement. Patient admits to fever last night but he remains afebrile. He denies any vomiting or diarrhea. Nurse tells me he has not had a bowel movement in 5 days despite one being documented yesterday. Objective Vitals Vital Signs Date Time Temp Pulse Resp B/P Pulse Ox O2 Delivery O2 Flow Rate FiO2 06/13/16 08:13 97.8 79 19 132/88 95 06/12/16 20:50 94 Nasal Cannula 2.00 06/12/16 20:00 97.9 91 18 101/63 95 06/12/16 16:22 98.7 92 16 96/61 95 06/12/16 15:37 92 Nasal Cannula 2.00 06/12/16 13:52 94 06/12/16 12:23 18 06/12/16 12:00 96.1 91 20 100/57 90 I/O 06/12/16 06/12/16 06/12/16 06/13/16 06/13/16 06/13/16 07:00 15:00 23:00 07:00 15:00 23:00 Intake Total 250 ml 120 ml 480 ml 240 ml Output Total 450 ml 300 ml 0 ml Balance -200 ml -180 ml 480 ml 240 ml Intake Oral 250 ml 120 ml 480 ml 240 ml Output Urine Total 450 ml 300 ml 0 ml Stool Total 0 ml # Voids 2 # Bowel Movements 0 0 1 Result Diagram: 06/13/16 0600 Objective Remarks Vitals good. GENERAL: Chronically ill appearing patient in no apparent distress. SKIN: Warm and dry. Jaundiced. EYES: Scleral icterus present. CARDIOVASCULAR: Regular rate and rhythm. RESPIRATORY: RR normal. CTAB. GASTROINTESTINAL: Abdomen distended. NEUROLOGICAL: Awake and alert. Normal speech. PSYCHIATRIC: Grumpy mood and affect; insight and judgment normal. Procedures 06/06/16 EGD and Colonoscopy Urinary Catheter: No Vascular Central Line Catheter: No A/P Problem List: (1) Jaundice ICD Code: R17 Status: Acute (2) SIRS (systemic inflammatory response syndrome) ICD Code: R65.10 Status: Acute (3) Back pain ICD Code: M54.9 Status: Chronic (4) Anemia ICD Code: D64.9 Status: Acute (5) HTN (hypertension) ICD Code: I10 Status: Chronic (6) Seizures ICD Code: R56.9 Status: Chronic (7) Bilateral calf pain ICD Code: M79.661 Status: Acute (8) Pustule ICD Code: L08.9 Status: Acute Assessment and Plan 51-year-old male with a history of chronic back pain, hypertension seizures presented with: Jaundice with hx ETOH abuse and chronic acetaminophen usage Images reviewed: Abdomen/pelvis CT shows Ascites with varicosities; a small shrunken liver with prominent spleen all consistent with longstanding cirrhosis. Labs reviewed: Total bilirubin 14.3, AST 60, ALT and alkaline phosphatase now normal. Negative hepatitis panel. -Consulted GI, notes appreciated. EGD/colonoscopy 06/06 showed duodenitis and portal gastropathy. Colonoscopy to be repeated 2/ poor prep, but patient refused. -S/p Mucomyst, stop date 06/05 -Protonix -Alcohol cessation -Lactulose bid -Monitor Severe sepsis with strep bacteremia . HIV negative. UA negative. Chest x-ray with no acute process. Cultures reviewed: Initial blood cultures /4 with group B Beta strep. Second cultures with 1/4 positive for group B strep. Third set NGTD. - Echo 06/02 showed EF 60-65%, aortic valve poorly visualized, trace MR, no vegetation identified. - Leukocytosis resolved - Consulted infectious disease, indicates treating for early endocarditis and osteomyelitis. - Continue Vanco IV (target trough 15-20) Tentative stop date: 07/09/2016 - Per ID, weekly CBC with diff, CMP, CRP. Next labs ordered for 06/15/16. - Call ID international trade teacher for new issues and on last week to review stop date. Acute on chronic lower back pain Imaging reviewed: Cervical and thoracic CTs with no acute process. Lumbar MRI with degenerative change within the disc at the level of L5/S1 suggestive of an acute tear of the annulus and small posterior central disc protrusion. Lumbar CT with protrusion at the lumbosacral junction with mild asymmetric left-sided foraminal narrowing. No acute bony findings. -Continue home Flexeril. Added oxycodone. -Heating pad -Continue PT. -Neurosurgery consulted secondary to annular tear and disc protrusion, conservative management, recommendations appreciated. -Per ID, if back ache worsens consider repeat MRI. Macrocytic Anemia Iron studies, B12, folate levels reviewed Hemoglobin decreased to 7.6 on 06/03 and given 1 unit PRBC. Hemoglobin improved to 9.3. Decreased but stable at 8.2. -Hemoccult ordered -Monitor CBC. Seizures, chronic -Changed patient's Dilantin to Keppra 250 mg by mouth every 12 due to decreased liver function -Seizure precautions Hypertension: -Continue home atenolol and Norvasc. Hold if SBP < 110. -Monitor vitals Dyspnea: 06/03. Improved CXR showed vascular congestion without overt failure. BNP elevated at 212. Echocardiogram as above. Probably secondary to combination of cirrhosis, anemia, and volume overload from IVF -IVF were stopped. -Continue duonebs q6h and albuterol neb q2h prn SOB -Continue lasix 20mg with potassium replacement -Incentive spirometry -Improving. Monitor renal function. B/L leg pain: May be due to lumbar disc protrusion, but patient is significantly tender over both calves. -Bilateral Doppler ultrasound negative for DVT Scrotal pustule: Small pustule over scrotum likely from infected follicle with no underlying abscess. -Nurse instructed to apply warm compresses. -Will monitor clinically. Patient is already on Vancomycin. GI prophylaxis: Patient already on lactulose bid but has not been having BMs per nurse. Will order scheduled Dorothy-colace bid. DVT prophylaxis: SCDs. Continue subcutaneous heparin. Discharge Planning CM consulted. Patient has no payor source. He will remain hospitalized until completion of antibiotics/clearance by ID. Problem Qualifiers (1) Back pain: (2) HTN (hypertension): Qualified Code: I10 - Essential hypertension Juli Garrison Jun 13, 2016 11:43
[2016-06-13 12:00] VITALS: BP 100/67; PULSE 87; RESP 16; TEMP 98.4; O2SAT 92
[2016-06-13] MEDS ORDERED: PHARMACY ORDERED LAB XX ONE (12:45)
[2016-06-13] MEDS: VANCOMYCIN 1,000 MG/NS 250 ML IV SCH ×2 (12:53)
[2016-06-13] MEDS: DOCUSATE SODIUM 50 MG/SENNA 8.6 MG TAB PO SCH ×2 (13:29→20:54)
[2016-06-13 16:00] VITALS: BP 100/62; PULSE 89; RESP 16; TEMP 97.6; O2SAT 94
[2016-06-13 21:20] VITALS: BP 97/65; PULSE 86; RESP 18; TEMP 97; O2SAT 92
[2016-06-13 23:59] VITALS: BP 102/68; PULSE 87; RESP 18; TEMP 96; O2SAT 94
[2016-06-14] VITALS (9 sets, daily range): BP systolic 95–117; BP diastolic 59–72; PULSE 66–93; RESP 18–21; TEMP 95.9–98.2; O2SAT 92–95
[2016-06-14] MEDS: CYCLOBENZAPRINE HCL 10 MG TAB PO SCH ×3 (01:29→17:00)
[2016-06-14] MEDS: ATENOLOL 25 MG TAB PO SCH (09:00)
[2016-06-14] MEDS: amLODIPine BESYLATE 5 MG TAB PO SCH (09:00)
[2016-06-14] MEDS: POTASSIUM CHLORIDE 20 MEQ CONTROLLED RELEASE TAB PO SCH (09:38)
[2016-06-14] MEDS: FUROSEMIDE 20 MG TAB PO SCH (09:38)
[2016-06-14] MEDS: LACTULOSE SYRUP 20 GM/30 ML CUP PO SCH (09:38)
[2016-06-14] MEDS: levETIRAcetam 250 MG TAB PO SCH ×2 (09:38→20:55)
[2016-06-14] MEDS: HEPARIN SODIUM - SQ 10,000 UNITS/ML VIAL SQ SCH ×2 (09:38→20:55)
[2016-06-14] MEDS: PANTOPRAZOLE SOD 40 MG DELAYED RELEASE TAB PO SCH (09:39)
[2016-06-14] MEDS: DOCUSATE SODIUM 50 MG/SENNA 8.6 MG TAB PO SCH ×2 (09:39→20:54)
[2016-06-14] MEDS: SODIUM CHLORIDE 0.9% FLUSH 5 ML FLUSH FLUSH SCH ×2 (09:40→20:57)
--- NOTE | 2016-06-14 12:46 | RADHPO ---
EXAM DATE/TIME: 06/14/2016 10:18 [facility] COMPARISON: No previous studies available for comparison. INDICATIONS : Right hip pain after falling today. MEDICAL HISTORY : Cirrhosis. Chronic obstructive pulmonary disease. Hypertension. Seizures. Abdominal pain. Paresthesia . Jaundice. SURGICAL HISTORY : None. ENCOUNTER: Initial ACUITY: 1 day PAIN SCORE: 10/10 LOCATION: Right hip. FINDINGS: Examination of the right hip was performed with AP pelvis. The primary and secondary trabecular mary yokasta of the femoral neck is intact. The hip joint is of normal width without significant sclerosis or bony hypertrophy. The acetabulum is grossly intact. CONCLUSION: Unremarkable exam for patient's age. No acute fracture or joint dislocation. Jean-Paul Cheung MD on June 14, 2016 at 12:44 Board Certified Radiologist. This report was verified electronically.
--- NOTE | 2016-06-14 12:56 | HHI.PR ---
Subjective Remarks Patient seen and examined today. Was notified by nursing staff that patient get out of bed to go to the restroom and fell landing on his right hip. Patient complaining of right hip pain. Nursing staff indicates that there is mild abrasion. X-ray was requested. Objective Vitals Vital Signs Date Time Temp Pulse Resp B/P Pulse Ox O2 Delivery O2 Flow Rate FiO2 06/14/16 12:00 96.7 90 21 99/59 93 06/14/16 10:58 18 06/14/16 09:00 96.2 91 20 99/60 93 06/14/16 08:00 95.9 93 19 111/72 94 110/70 95/69 06/14/16 04:00 97.3 87 18 111/69 95 06/14/16 00:31 94 Nasal Cannula 2.00 06/13/16 23:59 96.0 87 18 102/68 94 06/13/16 21:20 97.0 86 18 97/65 92 06/13/16 16:00 97.6 89 16 100/62 94 I/O 06/13/16 06/13/16 06/13/16 06/14/16 06/14/16 06/14/16 06:59 14:59 22:59 06:59 14:59 22:59 Intake Total 240 ml 250 ml Balance 240 ml 250 ml Intake Oral 240 ml IV Total 250 ml # Voids 2 3 # Bowel Movements 1 0 2 Result Diagram: 06/14/16 0735 Objective Remarks GENERAL: Well-developed, well-nourished, in no acute distress. alert and orientated HEENT: Head is normocephalic without any lesions or masses noted. Facial features are symmetric. Eyes: Extraocular muscles are intact. Conjunctivae are icteric. NECK: Trachea midline no deviation. No JVD, CARDIAC: Regular rhythm, regular rate. S1/S2 are heard. No murmurs gallops or rubs. LUNGS: Clear to auscultation bilaterally. No wheeze, rhonchi or rales. No use of accessory muscles on inspiration or expiration. ABDOMEN: Soft, nontender. Nondistended. Bowel sounds heard in all 4 quadrants. No organomegaly or masses. Negative rebound, negative guarding EXTREMITIES: No edema, pulses are equal bilaterally. No cyanosis or clubbing NEUROLOGY: Mood and affect appear appropriate. Cranial nerves II through XII grossly intact. Moving all extremities, speech is clear Procedures 06/06/16 EGD and Colonoscopy Urinary Catheter: No Vascular Central Line Catheter: Yes A/P Assessment and Plan 51-year-old male with a history of chronic back pain, hypertension seizures presented with: Fall with right hip pain, 06/14/16 X-ray was performed which did not indicate any acute fracture Continue pain control Jaundice with hx ETOH abuse and chronic acetaminophen usage -Images reviewed: Abdomen/pelvis CT shows Ascites with varicosities; a small shrunken liver with prominent spleen all consistent with longstanding cirrhosis. -Hepatitis panel was negative, Continue monitor liver enzymes -Consulted GI, notes appreciated. EGD/colonoscopy 06/06 showed duodenitis and portal gastropathy. Colonoscopy to be repeated 2/ poor prep, but patient refused. -Alcohol cessation Severe sepsis with strep bacteremia . HIV negative. UA negative. Chest x-ray with no acute process. - Cultures reviewed: Initial blood cultures / with group B Beta strep. Second cultures with 1/ positive for group B strep. 06/03/16 Third set [id number]. - Echo 06/02 showed EF 60-65%, aortic valve poorly visualized, trace MR, no vegetation identified. - Leukocytosis resolved - Consulted infectious disease, indicates treating for early endocarditis and osteomyelitis. - Continue Vanco IV (target trough 15-20) Tentative stop date: 07/09/2016 - Per ID, weekly CBC with diff, CMP, CRP. Next labs ordered for 06/15/16. - Call ID ironer machine for new issues and on last week to review stop date. Acute on chronic lower back pain -Imaging reviewed: Cervical and thoracic CTs with no acute process. Lumbar MRI with degenerative change within the disc at the level of L5/S1 suggestive of an acute tear of the annulus and small posterior central disc protrusion. Lumbar CT with protrusion at the lumbosacral junction with mild asymmetric left-sided foraminal narrowing. No acute bony findings. -Continue home Flexeril. -Oxycodone 5 mg every 4 hours as needed for pain 15, oxycodone 10 mg every 4 hours as needed for pain 610, patient has not used any 10 mg tablets since . We'll only use 5 mg and change every 6 hours. -Heating pad -Continue PT. -Neurosurgery consulted secondary to annular tear and disc protrusion, conservative management, recommendations appreciated. -Per ID, if back ache worsens consider repeat MRI. Macrocytic Anemia -Iron studies, B12, folate levels reviewed -Hemoglobin stable at this time -Monitor CBC. Seizures, chronic -Keppra 250 mg by mouth every 12 hours. Dilantin discontinued due to hepatic function -Seizure precautions Hypertension: -Discontinue Norvasc -Tenormin 12.5 mg daily with hold parameters -Lasix 20 mg daily -Monitor vitals Dyspnea: 06/03. Improved CXR showed vascular congestion without overt failure. BNP elevated at 212. Echocardiogram as above. Probably secondary to combination of cirrhosis, anemia, and volume overload from IVF -Continue Lasix -Incentive spirometry B/L leg pain: May be due to lumbar disc protrusion, but patient is significantly tender over both calves. -Bilateral Doppler ultrasound negative for DVT Scrotal pustule: Small pustule over scrotum likely from infected follicle with no underlying abscess. -Nurse instructed to apply warm compresses. -Will monitor clinically. Patient is already on Vancomycin. GI prophylaxis: Patient already on lactulose bid but has not been having BMs per nurse. Will order scheduled Dorothy-colace bid. DVT prophylaxis: SCDs. Continue subcutaneous heparin. Discharge Planning Awaiting case management for discharge planning Pankaj Cespedes Jun 14, 2016 12:55
[2016-06-14] MEDS ORDERED: ONDANSETRON ODT 4 MG TAB PO PRN (13:15)
[2016-06-14] MEDS: VANCOMYCIN 1,000 MG/NS 250 ML IV SCH ×2 (14:27)
--- NOTE | 2016-06-14 18:27 | HHI.GIFU ---
Subjective Remarks Sleeping arouses easy, no abdominal pain Objective Vitals I&O Vital Signs Date Time Temp Pulse Resp B/P Pulse Ox O2 Delivery O2 Flow Rate FiO2 06/14/16 17:20 92 2.00 06/14/16 16:00 96.9 89 20 101/72 93 06/14/16 12:00 96.7 90 21 99/59 93 06/14/16 10:58 18 06/14/16 09:00 96.2 91 20 99/60 93 06/14/16 08:00 95.9 93 19 111/72 94 110/70 95/69 06/14/16 04:00 97.3 87 18 111/69 95 06/14/16 00:31 94 Nasal Cannula 2.00 06/13/16 23:59 96.0 87 18 102/68 94 06/13/16 21:20 97.0 86 18 97/65 92 I/O 06/13/16 06/13/16 06/13/16 06/14/16 06/14/16 06/14/16 07:00 15:00 23:00 07:00 15:00 23:00 Intake Total 240 ml 250 ml 120 ml 650 ml Balance 240 ml 250 ml 120 ml 650 ml Intake Oral 240 ml 120 ml 650 ml IV Total 250 ml # Voids 2 3 2 # Bowel Movements 1 0 3 Laboratory Laboratory Tests Test 06/14/16 07:35 Creatinine 1.30 Estimat Glomerular Filtration 58 Rate Imaging Last 72 hours Impressions Hip and Pelvis X-Ray 06/14/16 0000 Signed Impressions: Service Date/Time: Tuesday, June 14, 2016 10:18 - CONCLUSION: Unremarkable exam for patient's age. No acute fracture or joint dislocation. Jean-Paul Cheung MD Lower Extremity Ultrasound 06/12/16 0000 Signed Impressions: Service Date/Time: Sunday, June 12, 2016 12:52 - CONCLUSION: No evidence of DVT. Jean-Paul Cheung MD Physical Exam HEENT: Normocephalic; atraumatic; + jaundice. CHEST: Resp. shallow/even. CARDIAC: RRR ABDOMEN: Soft, distended, ascites nontender; hepatosplenomegaly; bowel sounds are present in all four quadrants. EXTREMITIES: No clubbing, cyanosis, or edema. SKIN: Normal; no rash; + jaundice. SEAFOOD CLERK: Lethargic, generalized weakness Assessment and Plan Plan ASSESSMENT: - Jaundice, Elevated LFTs. Abdomen/Pelvis CT (05/31/16) revealed 1. Ascites with varicosities as described above. 2. Casey shrunken liver with prominent spleen all consistent with longstanding cirrhosis. Pt denies any known hx of liver disease or cirrhosis in himself or family. He reports hx of heavy ETOH abuse, but quit 6 months ago and has not had any ETOH since that time. He denies any GI symptoms other than mild epigastric/midabdominal pressure. He reports that he has been jaundiced 2-3 months. Denies weight loss. He has been taking 5-6 Acetaminophen per day for a few months. He denies any hx of drug use or blood transfusions. He denies any new sexual partners. He denies any history of hepatitis. Hepatitis panel negative. ANAnegative/ASMA negative/AMA negative, AFP 3.1, ALpha 1 Antitrypsin 162, Ceruloplasmin 16. Iron transfusion 40.4%, Ferritin 447. Acetaminophen level was < 2.0, but he was taking significant amount of acetaminophen. S/P Mucamyst x 17 doses. T. Bili 14.3, AST 60, ALT 29, Alk Phosph 91. - Liver cirrhosis. New dx. CT Abdomen/Pelvis CT (05/31/16) revealed 1. Ascites with varicosities as described above. 2. Casey shrunken liver with prominent spleen all consistent with longstanding cirrhosis. MELD 23. Pt reports hx of heavy ETOH abuse, states he quit completely x 5-6 months ago. - Coagulopathy/Thrombocytopenia. Plt 140 - Anemia. 9./26.2.. No active bleeding. EGD/Colonoscopy (06/06/16)--> duodenitis, portal gastropathy, hiatal hernia, retroflex views revealed a hiatal hernia, Solid stool in the rectum and sigmoid, retroflex views revealed small internal hemorrhoids, internal hemorrhoids. Refuses to have repeat colonoscopy - Back pain with lle weakness/numbness. - COPD, HTN. 06/14/17-No abdominal pain, has ascites present, refused repeat colonoscopy. PLAN: - SREE- Refused rpt colonoscopy - Monitor labs - Avoid hepatotoxic meds - Supportive care - Pt seen and examined by Dr. English and myself and this note is written on his behalf Myla Chao Jun 14, 2016 18:27
[2016-06-15] VITALS: BP 104/68; PULSE 86; RESP 18; TEMP 98; O2SAT 94
[2016-06-15] MEDS: CYCLOBENZAPRINE HCL 10 MG TAB PO SCH ×3 (01:12→17:28)
[2016-06-15 04:00] VITALS: BP 102/67; PULSE 86; RESP 18; TEMP 97.8; O2SAT 95
[2016-06-15 08:00] VITALS: BP 116/66; PULSE 95; RESP 22; TEMP 97.8; O2SAT 93
[2016-06-15 08:04] LABS: AUTOMATED NEUTROPHIL # 3.6 TH/MM3 (1.8-7.7); BASOPHIL # 0.2 TH/MM3 (0-0.2); BASOPHIL % 2.7 % (0.0-2.0); CHLORIDE 107 MEQ/L (98-107); EOSINOPHIL # 0.1 TH/MM3 (0-0.4); EOSINOPHIL % 2.4 % (0.0-4.0); LYMPH % 24.8 % (9.0-44.0); LYMPHOCYTE # 1.4 TH/MM3 (1.0-4.8); MEAN CELL VOLUME 111.9 FL (80.0-100.0); MEAN CORPUSCULAR HEMOGLOBIN 37.1 PG (27.0-34.0); MEAN CORPUSCULAR HGB CONC 33.1 % (32.0-36.0); MONO % 8.9 % (0.0-8.0); NEUT % 61.2 % (16.0-70.0); PLATELET COUNT 126 TH/MM3 (150-450); POTASSIUM 4.1 MEQ/L (3.5-5.1); RED BLOOD COUNT 1.88 MIL/MM3 (4.50-5.90); SODIUM (NA) 142 MEQ/L (136-145); WHITE BLOOD COUNT 5.8 TH/MM3 (4.0-11.0)
[2016-06-15 08:07] LABS: HEMO FLAGS AUTO DIFF
[2016-06-15 08:08] LABS: ANION GAP 8 MEQ/L (5-15); APTT (PATIENT) 58.8 SEC (24.3-30.1); BICARBONATE 26.6 MEQ/L (21.0-32.0); BLOOD UREA NITROGEN 19 MG/DL (7-18); INTERNATIONAL NORMALIZED RATIO 1.9 RATIO; PROTHROMBIN TIME - PATIENT 21.2 SEC (9.8-11.6)
[2016-06-15 08:11] LABS: ALT (GPT) 28 U/L (12-78); AST (GOT) 74 U/L (15-37); GLOMERULAR FILTRATION RATE 53 ML/MIN (>89)
[2016-06-15 08:13] LABS: TOTAL BILIRUBIN ADULT 11.4 MG/DL (0.2-1.0)
[2016-06-15 08:14] LABS: ALKALINE PHOSPHATASE 84 U/L (45-117)
[2016-06-15 08:47] LABS: ACANTHOCYTES OCC (NORMAL); PLATELET ESTIMATE SMEAR LOW (NORMAL); PLATELET MORPHOLOGY NORMAL (NORMAL); SCAN/DIFF AUTO DIFF CONFIRMED
[2016-06-15] MEDS ORDERED: LACTULOSE SYRUP 20 GM/30 ML CUP PO PRN (09:00)
[2016-06-15] MEDS: ATENOLOL 25 MG TAB PO SCH (09:35)
[2016-06-15] MEDS: levETIRAcetam 250 MG TAB PO SCH ×2 (09:35→20:41)
[2016-06-15] MEDS: PANTOPRAZOLE SOD 40 MG DELAYED RELEASE TAB PO SCH (09:35)
[2016-06-15] MEDS: FUROSEMIDE 20 MG TAB PO SCH (09:35)
[2016-06-15] MEDS: POTASSIUM CHLORIDE 20 MEQ CONTROLLED RELEASE TAB PO SCH (09:36)
[2016-06-15] MEDS: SODIUM CHLORIDE 0.9% FLUSH 5 ML FLUSH FLUSH SCH ×2 (09:38→20:42)
[2016-06-15] MEDS: HEPARIN SODIUM - SQ 10,000 UNITS/ML VIAL SQ SCH ×2 (09:38→20:41)
--- NOTE | 2016-06-15 09:39 | HHI.PR ---
Subjective Remarks Patient seen and examined today. Patient denies any new complaints. Still complaining of chronic back and leg pain. Patient did have drop in hemoglobin today. Objective Vitals Vital Signs Date Time Temp Pulse Resp B/P Pulse Ox O2 Delivery O2 Flow Rate FiO2 06/15/16 08:00 97.8 95 22 116/66 93 06/15/16 04:00 97.8 86 18 102/67 95 06/15/16 00:00 98.0 86 18 104/68 94 06/14/16 22:29 93 Nasal Cannula 2.00 06/14/16 20:00 98.2 88 20 117/70 93 06/14/16 17:20 92 2.00 06/14/16 16:00 96.9 89 20 101/72 93 06/14/16 12:00 96.7 90 21 99/59 93 06/14/16 10:58 18 I/O 06/14/16 06/14/16 06/14/16 06/15/16 06/15/16 06/15/16 07:00 15:00 23:00 07:00 15:00 23:00 Intake Total 120 ml 750 ml Output Total 1 ml Balance 120 ml 750 ml -1 ml Intake Oral 120 ml 750 ml Stool Total 1 ml # Voids 2 1 2 # Bowel Movements 3 Result Diagram: 06/15/16 0745 06/15/16 0745 Objective Remarks GENERAL: Well-developed, well-nourished, in no acute distress. alert and orientated HEENT: Head is normocephalic without any lesions or masses noted. Facial features are symmetric. Eyes: Extraocular muscles are intact. Conjunctivae are icteric. NECK: Trachea midline no deviation. No JVD, CARDIAC: Regular rhythm, regular rate. S1/S2 are heard. No murmurs gallops or rubs. LUNGS: Clear to auscultation bilaterally. No wheeze, rhonchi or rales. No use of accessory muscles on inspiration or expiration. ABDOMEN: Soft, nontender. Nondistended. Bowel sounds heard in all 4 quadrants. No organomegaly or masses. Negative rebound, negative guarding EXTREMITIES: No edema, pulses are equal bilaterally. No cyanosis or clubbing NEUROLOGY: Mood and affect appear appropriate. Cranial nerves II through XII grossly intact. Moving all extremities, speech is clear Procedures 06/06/16 EGD and Colonoscopy Urinary Catheter: No Vascular Central Line Catheter: No A/P Assessment and Plan 51-year-old male with a history of chronic back pain, hypertension seizures presented with: Acute drop in hemoglobin/hematocrit -Recheck CBC -GI is following the patient -If hemoglobin remains below 7.0 we'll plan transfusion -Patient may need repeat EGD/colonoscopy Jaundice with hx ETOH abuse and chronic acetaminophen usage -Images reviewed: Abdomen/pelvis CT shows Ascites with varicosities; a small shrunken liver with prominent spleen all consistent with longstanding cirrhosis. -Hepatitis panel was negative, Continue monitor liver enzymes -Consulted GI, notes appreciated. EGD/colonoscopy 06/06 showed duodenitis and portal gastropathy. Colonoscopy to be repeated 06/16 poor prep, but patient refused. -Alcohol cessation -We'll recheck abdominal ultrasound for ascites fluid Severe sepsis with strep bacteremia . HIV negative. UA negative. Chest x-ray with no acute process. - Cultures reviewed: Initial blood cultures / with group B Beta strep. Second cultures with 1/ positive for group B strep. 06/03/16 Third set [id number]. - Echo 06/02 showed EF 60-65%, aortic valve poorly visualized, trace MR, no vegetation identified. - Leukocytosis resolved - Consulted infectious disease, indicates treating for early endocarditis and osteomyelitis. - Continue Vanco IV (target trough 15-20) Tentative stop date: 07/09/2016 - Per ID, weekly CBC with diff, CMP, CRP. Next labs ordered for 06/15/16. - Call ID personalized living manager for new issues and on last week to review stop date. Acute on chronic lower back pain -Imaging reviewed: Cervical and thoracic CTs with no acute process. Lumbar MRI with degenerative change within the disc at the level of L5/S1 suggestive of an acute tear of the annulus and small posterior central disc protrusion. Lumbar CT with protrusion at the lumbosacral junction with mild asymmetric left-sided foraminal narrowing. No acute bony findings. -Continue home Flexeril. -Oxycodone 5 mg every 4 hours as needed for pain 15, oxycodone 10 mg every 4 hours as needed for pain 610, patient has not used any 10 mg tablets since . We'll only use 5 mg and change every 6 hours. -Heating pad -Continue PT. -Neurosurgery consulted secondary to annular tear and disc protrusion, conservative management, recommendations appreciated. -Per ID, if back ache worsens consider repeat MRI. Macrocytic Anemia -Iron studies, B12, folate levels reviewed -Hemoglobin stable at this time -Monitor CBC. Seizures, chronic -Keppra 250 mg by mouth every 12 hours. Dilantin discontinued due to hepatic function -Seizure precautions Hypertension: -Discontinue Norvasc -Tenormin 12.5 mg daily with hold parameters -Lasix 20 mg daily -Monitor vitals Dyspnea: 06/03. Improved CXR showed vascular congestion without overt failure. BNP elevated at 212. Echocardiogram as above. Probably secondary to combination of cirrhosis, anemia, and volume overload from IVF -Continue Lasix -Incentive spirometry B/L leg pain: May be due to lumbar disc protrusion, but patient is significantly tender over both calves. -Bilateral Doppler ultrasound negative for DVT Scrotal pustule: Small pustule over scrotum likely from infected follicle with no underlying abscess. -Nurse instructed to apply warm compresses. -Will monitor clinically. Patient is already on Vancomycin. GI prophylaxis: Dorothy-colace bid. Lactulose as needed DVT prophylaxis: SCDs. Continue subcutaneous heparin. Discharge Planning Awaiting case management for discharge planning Pankaj Cespedes Jun 15, 2016 09:39
[2016-06-15 10:10] LABS: AUTOMATED NEUTROPHIL # 3.5 TH/MM3 (1.8-7.7); BASOPHIL # 0.1 TH/MM3 (0-0.2); BASOPHIL % 2.4 % (0.0-2.0); EOSINOPHIL # 0.1 TH/MM3 (0-0.4); EOSINOPHIL % 2.5 % (0.0-4.0); HEMATOCRIT 21.7 % (39.0-51.0); HEMO FLAGS DIFF FINAL; LYMPHOCYTE # 1.3 TH/MM3 (1.0-4.8); MEAN CELL VOLUME 112.7 FL (80.0-100.0); MEAN CORPUSCULAR HEMOGLOBIN 37.3 PG (27.0-34.0); MEAN CORPUSCULAR HGB CONC 33.1 % (32.0-36.0); MONO % 9.8 % (0.0-8.0); NEUT % 62.3 % (16.0-70.0); PLATELET COUNT 121 TH/MM3 (150-450); RED BLOOD COUNT 1.93 MIL/MM3 (4.50-5.90); RED CELL DISTRIBUTION WIDTH 23.3 % (11.6-17.2); WHITE BLOOD COUNT 5.5 TH/MM3 (4.0-11.0)
--- NOTE | 2016-06-15 11:41 | RADHPO ---
EXAM DATE/TIME: 06/15/2016 10:37 [facility] COMPARISON: CT ABDOMEN & PELVIS W CONTRAST, May 31, 2016, 17:59. INDICATIONS : Abdominal pain. MEDICAL HISTORY : Cirrhosis. Chronic obstructive pulmonary disease. Hypertension. Seizures. Weakness. Abdominal pain. G ait problems. Paresthesia. Jaundice. SURGICAL HISTORY : Patient denies any surgical history. ENCOUNTER: Subsequent ACUITY: 1 day PAIN SCORE: 4/10 LOCATION: Abdomen. MEASUREMENTS: LIVER: 16.5 cm length COMMON DUCT: 4 mm RIGHT KIDNEY: 10.5 x 5.4 x 6.6 cm LEFT KIDNEY: 8.6 x 5.6 x 6.1 cm SPLEEN: 12.6 cm length AORTA: 2.6cm maximal FINDINGS: Findings correlated with recent CT. Again seen is ascites and cirrhotic liver. Pancreas, aorta, IVC a nd left kidney are partially obscured by bowel gas. Kidneys are within normal limits for size. No margarita iary ductal dilatation. Mild gallbladder wall thickening and gallbladder sludge present. No hydroneph rosis. CONCLUSION: 1. Liver cirrhosis with ascites. Gallbladder wall thickening with sludge. No biliary ductal dilatatio n. No hydronephrosis. Favio Amador MD on June 15, 2016 at 11:24 Board Certified Radiologist. This report was verified electronically.
[2016-06-15] MEDS: DOCUSATE SODIUM 50 MG/SENNA 8.6 MG TAB PO SCH ×2 (11:51→20:42)
[2016-06-15] MEDS: VANCOMYCIN 1,000 MG/NS 250 ML IV SCH ×2 (11:52)
--- NOTE | 2016-06-15 18:44 | HHI.GIFU ---
Subjective Remarks no new complains, he has back pain, no sign of GI bleed Objective Vitals I&O Vital Signs Date Time Temp Pulse Resp B/P Pulse Ox O2 Delivery O2 Flow Rate FiO2 06/15/16 08:00 97.8 95 22 116/66 93 06/15/16 04:00 97.8 86 18 102/67 95 06/15/16 00:00 98.0 86 18 104/68 94 06/14/16 22:29 93 Nasal Cannula 2.00 06/14/16 20:00 98.2 88 20 117/70 93 I/O 06/14/16 06/14/16 06/14/16 06/15/16 06/15/16 06/15/16 07:00 15:00 23:00 07:00 15:00 23:00 Intake Total 120 ml 750 ml 445 ml Output Total 1 ml Balance 120 ml 750 ml -1 ml 445 ml Intake Oral 120 ml 750 ml 195 ml IV Total 250 ml Stool Total 1 ml # Voids 2 1 2 1 # Bowel Movements 3 1 Laboratory Laboratory Tests Test 06/15/16 06/15/16 07:45 10:00 White Blood Count 5.8 5.5 Red Blood Count 1.88 1.93 Hemoglobin 6.9 7.2 Hematocrit 21.0 21.7 Mean Corpuscular Volume 111.9 112.7 Mean Corpuscular Hemoglobin 37.1 37.3 Mean Corpuscular Hemoglobin 33.1 33.1 Concent Red Cell Distribution Width 23.0 23.3 Platelet Count 126 121 Mean Platelet Volume 6.2 6.3 Neutrophils (%) (Auto) 61.2 62.3 Lymphocytes (%) (Auto) 24.8 23.0 Monocytes (%) (Auto) 8.9 9.8 Eosinophils (%) (Auto) 2.4 2.5 Basophils (%) (Auto) 2.7 2.4 Neutrophils # (Auto) 3.6 3.5 Lymphocytes # (Auto) 1.4 1.3 Monocytes # (Auto) 0.5 0.5 Eosinophils # (Auto) 0.1 0.1 Basophils # (Auto) 0.2 0.1 CBC Comment AUTO DIFF DIFF FINAL Differential Comment AUTO DIFF CONFIRMED Platelet Estimate LOW Platelet Morphology Comment NORMAL Acanthocytes OCC Prothrombin Time 21.2 Prothromb Time International 1.9 Ratio Activated Partial 58.8 Thromboplast Time Sodium Level 142 Potassium Level 4.1 Chloride Level 107 Carbon Dioxide Level 26.6 Anion Gap 8 Blood Urea Nitrogen 19 Creatinine 1.40 Estimat Glomerular Filtration 53 Rate Random Glucose 85 Calcium Level 9.0 Total Bilirubin 11.4 Aspartate Amino Transf 74 (AST/SGOT) Alanine Aminotransferase 28 (ALT/SGPT) Alkaline Phosphatase 84 Ammonia 58 C-Reactive Protein 0.74 Total Protein 7.0 Albumin 1.5 Physical Exam HEENT: Normocephalic; atraumatic; + jaundice. CHEST: Resp. shallow/even. CARDIAC: RRR ABDOMEN: Soft, distended, ascites nontender; hepatosplenomegaly; bowel sounds are present in all four quadrants. EXTREMITIES: No clubbing, cyanosis, or edema. SKIN: Normal; no rash; + jaundice. MACHINE SOLE LEVELER: Lethargic, generalized weakness Assessment and Plan Plan ASSESSMENT: - Jaundice, Elevated LFTs. Abdomen/Pelvis CT (05/31/16) revealed 1. Ascites with varicosities as described above. 2. Casey shrunken liver with prominent spleen all consistent with longstanding cirrhosis. Pt denies any known hx of liver disease or cirrhosis in himself or family. He reports hx of heavy ETOH abuse, but quit 6 months ago and has not had any ETOH since that time. He denies any GI symptoms other than mild epigastric/midabdominal pressure. He reports that he has been jaundiced 2-3 months. Denies weight loss. He has been taking 5-6 Acetaminophen per day for a few months. He denies any hx of drug use or blood transfusions. He denies any new sexual partners. He denies any history of hepatitis. Hepatitis panel negative. ANAnegative/ASMA negative/AMA negative, AFP 3.1, ALpha 1 Antitrypsin 162, Ceruloplasmin 16. Iron transfusion 40.4%, Ferritin 447. Acetaminophen level was < 2.0, but he was taking significant amount of acetaminophen. S/P Mucamyst x 17 doses. T. Bili 14.3, AST 60, ALT 29, Alk Phosph 91. - Liver cirrhosis. New dx. CT Abdomen/Pelvis CT (05/31/16) revealed 1. Ascites with varicosities as described above. 2. Casey shrunken liver with prominent spleen all consistent with longstanding cirrhosis. MELD 23. Pt reports hx of heavy ETOH abuse, states he quit completely x 5-6 months ago. - Coagulopathy/Thrombocytopenia. Plt 140 - Anemia. 9./26.2.. No active bleeding. EGD/Colonoscopy (06/06/16)--> duodenitis, portal gastropathy, hiatal hernia, retroflex views revealed a hiatal hernia, Solid stool in the rectum and sigmoid, retroflex views revealed small internal hemorrhoids, internal hemorrhoids. Refuses to have repeat colonoscopy - Back pain with lle weakness/numbness. - COPD, HTN. 06/14/17-No abdominal pain, has ascites present, refused repeat colonoscopy. 2-05-31 drop HGB we will re check H/H and give him PRBC, patient does not want procedures, may need paracentesis if abdomen continue to get distended with ascites PLAN: - SREE- Refused rpt colonoscopy - Monitor labs - Avoid hepatotoxic meds - Supportive care - Pt seen and examined by Dr. English and myself and this note is written on his behalf Patrizia English MD Jun 15, 2016 18:44
[2016-06-15 20:00] VITALS: BP 106/66; PULSE 79; RESP 18; TEMP 97; O2SAT 94
[2016-06-15 20:10] VITALS: O2SAT 94
[2016-06-16] VITALS (11 sets, daily range): BP systolic 87–110; BP diastolic 42–77; PULSE 80–95; RESP 8–27; TEMP 95.9–97.8; O2SAT 89–97
[2016-06-16] MEDS: CYCLOBENZAPRINE HCL 10 MG TAB PO SCH ×3 (02:32→17:47)
[2016-06-16] MEDS: SODIUM CHLORIDE 0.9% FLUSH 5 ML FLUSH FLUSH SCH ×2 (02:39→22:02)
[2016-06-16] MEDS: POTASSIUM CHLORIDE 20 MEQ CONTROLLED RELEASE TAB PO SCH (08:02)
[2016-06-16] MEDS: FUROSEMIDE 20 MG TAB PO SCH (08:02)
[2016-06-16] MEDS: levETIRAcetam 250 MG TAB PO SCH ×2 (08:02→22:03)
[2016-06-16] MEDS: DOCUSATE SODIUM 50 MG/SENNA 8.6 MG TAB PO SCH ×2 (08:02→22:03)
[2016-06-16] MEDS: HEPARIN SODIUM - SQ 10,000 UNITS/ML VIAL SQ SCH ×2 (08:03→22:05)
[2016-06-16] MEDS: ATENOLOL 25 MG TAB PO SCH ×2 (08:03→08:08)
[2016-06-16] MEDS: PANTOPRAZOLE SOD 40 MG DELAYED RELEASE TAB PO SCH (08:03)
--- NOTE | 2016-06-16 10:36 | HHI.PR ---
Subjective Remarks Patient seen and examined today. Patient denies any new complaints. No change clinical status. Awaiting case management for discharge planning. Objective Vitals Vital Signs Date Time Temp Pulse Resp B/P Pulse Ox O2 Delivery O2 Flow Rate FiO2 06/16/16 08:00 95.9 85 22 104/77 90 06/15/16 20:10 94 Nasal Cannula 2.00 06/15/16 20:00 97.0 79 18 106/66 94 I/O 06/15/16 06/15/16 06/15/16 06/16/16 06/16/16 06/16/16 07:00 15:00 23:00 07:00 15:00 23:00 Intake Total 445 ml 240 ml 400 ml Output Total 1 ml Balance -1 ml 445 ml 240 ml 400 ml Intake Oral 195 ml 240 ml 400 ml IV Total 250 ml Stool Total 1 ml # Voids 2 1 1 4 # Bowel Movements 1 1 3 Result Diagram: 06/15/16 1000 06/16/16 0612 Objective Remarks GENERAL: Well-developed, well-nourished, in no acute distress. alert and orientated HEENT: Head is normocephalic without any lesions or masses noted. Facial features are symmetric. Eyes: Extraocular muscles are intact. Conjunctivae are icteric. NECK: Trachea midline no deviation. No JVD, CARDIAC: Regular rhythm, regular rate. S1/S2 are heard. No murmurs gallops or rubs. LUNGS: Clear to auscultation bilaterally. No wheeze, rhonchi or rales. No use of accessory muscles on inspiration or expiration. ABDOMEN: Soft, nontender. Nondistended. Bowel sounds heard in all 4 quadrants. No organomegaly or masses. Negative rebound, negative guarding EXTREMITIES: No edema, pulses are equal bilaterally. No cyanosis or clubbing NEUROLOGY: Mood and affect appear appropriate. Cranial nerves II through XII grossly intact. Moving all extremities, speech is clear Procedures 06/06/16 EGD and Colonoscopy Urinary Catheter: No Vascular Central Line Catheter: No A/P Assessment and Plan 51-year-old male with a history of chronic back pain, hypertension seizures presented with: Acute drop in hemoglobin/hematocrit, stable -Recheck CBC showed stability -GI is following the patient -If hemoglobin remains below 7.0 we'll plan transfusion -Patient may need repeat EGD/colonoscopy Jaundice with hx ETOH abuse and chronic acetaminophen usage -Images reviewed: Abdomen/pelvis CT shows Ascites with varicosities; a small shrunken liver with prominent spleen all consistent with longstanding cirrhosis. -Hepatitis panel was negative, Continue monitor liver enzymes -Consulted GI, notes appreciated. EGD/colonoscopy 06/06 showed duodenitis and portal gastropathy. Colonoscopy to be repeated 2/2 poor prep, but patient refused. -Alcohol cessation -Recheck abdominal ultrasound for ascites fluid, radiologist indicates that is similar to seen on previous CT. No indication if would benefit from paracentesis Severe sepsis with strep bacteremia . HIV negative. UA negative. Chest x-ray with no acute process. - Cultures reviewed: Initial blood cultures 08/16 with group B Beta strep. Second cultures with 05/18 positive for group B strep. 06/03/16 Third set [id number]. - Echo 06/02 showed EF 60-65%, aortic valve poorly visualized, trace MR, no vegetation identified. - Leukocytosis resolved - Consulted infectious disease, indicates treating for early endocarditis and osteomyelitis. - Continue Vanco IV (target trough 15-20) Tentative stop date: 07/09/2016 - Per ID, weekly CBC with diff, CMP, CRP. Next labs ordered for 06/22/16. - Call ID conductor yard for new issues and on last week to review stop date. Acute on chronic lower back pain -Imaging reviewed: Cervical and thoracic CTs with no acute process. Lumbar MRI with degenerative change within the disc at the level of L5/S1 suggestive of an acute tear of the annulus and small posterior central disc protrusion. Lumbar CT with protrusion at the lumbosacral junction with mild asymmetric left-sided foraminal narrowing. No acute bony findings. -Continue home Flexeril. -Oxycodone 5 mg every 4 hours as needed for pain 15, oxycodone 10 mg every 4 hours as needed for pain 610, patient has not used any 10 mg tablets since . We'll only use 5 mg and change every 6 hours. -Heating pad -Continue PT. -Neurosurgery consulted secondary to annular tear and disc protrusion, conservative management, recommendations appreciated. -Per ID, if back ache worsens consider repeat MRI. Macrocytic Anemia -Iron studies, B12, folate levels reviewed -Hemoglobin stable at this time -Monitor CBC. Seizures, chronic -Keppra 250 mg by mouth every 12 hours. Dilantin discontinued due to hepatic function -Seizure precautions Hypertension: -Discontinue Tenormin 12.5 mg due to low blood pressure -Lasix 20 mg daily -Monitor vitals Dyspnea: 06/03. Improved CXR showed vascular congestion without overt failure. BNP elevated at 212. Echocardiogram as above. Probably secondary to combination of cirrhosis, anemia, and volume overload from IVF -Continue Lasix -Incentive spirometry B/L leg pain: May be due to lumbar disc protrusion, but patient is significantly tender over both calves. -Bilateral Doppler ultrasound negative for DVT Scrotal pustule: Small pustule over scrotum likely from infected follicle with no underlying abscess. -Nurse instructed to apply warm compresses. -Will monitor clinically. Patient is already on Vancomycin. GI prophylaxis: Dorothy-colace bid. Lactulose as needed DVT prophylaxis: SCDs. Continue subcutaneous heparin. Discharge Planning Awaiting case management for discharge planning Pankaj Cespedes Jun 16, 2016 10:36
[2016-06-16] MEDS: VANCOMYCIN 1,000 MG/NS 250 ML IV SCH ×2 (11:45)
--- NOTE | 2016-06-16 16:25 | HHI.GIFU ---
Subjective Remarks More lethargic today and jaundice today, H&H is 7.2/21.7, Objective Vitals I&O Vital Signs Date Time Temp Pulse Resp B/P Pulse Ox O2 Delivery O2 Flow Rate FiO2 06/16/16 08:00 95.9 85 22 104/77 90 06/15/16 20:10 94 Nasal Cannula 2.00 06/15/16 20:00 97.0 79 18 106/66 94 I/O 06/15/16 06/15/16 06/15/16 06/16/16 06/16/16 06/16/16 07:00 15:00 23:00 07:00 15:00 23:00 Intake Total 445 ml 240 ml 400 ml 600 ml Output Total 1 ml Balance -1 ml 445 ml 240 ml 400 ml 600 ml Intake Oral 195 ml 240 ml 400 ml 600 ml IV Total 250 ml Stool Total 1 ml # Voids 2 1 1 4 4 # Bowel Movements 1 1 3 0 Laboratory Laboratory Tests Test 06/16/16 06:12 Creatinine 0.71 Estimat Glomerular Filtration 117 Rate Imaging Last 48 hours Impressions Abdomen Ultrasound 06/15/16 0000 Signed Impressions: Service Date/Time: Wednesday, June 15, 2016 10:37 - CONCLUSION: 1. Liver cirrhosis with ascites. Gallbladder wall thickening with sludge. No biliary ductal dilatation. No hydronephrosis. Favio Amador MD Physical Exam HEENT: Normocephalic; atraumatic; + jaundice. CHEST: Resp. shallow/even. CARDIAC: RRR ABDOMEN: Soft, distended, ascites nontender; hepatosplenomegaly; bowel sounds are present in all four quadrants. EXTREMITIES: No clubbing, cyanosis, or edema. SKIN: Normal; no rash; + jaundice. 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 Abdomen/Pelvis CT (05/31/16) revealed 1. Ascites with varicosities as described above. 2. Casey shrunken liver with prominent spleen all consistent with longstanding cirrhosis. Pt denies any known hx of liver disease or cirrhosis in himself or family. He reports hx of heavy ETOH abuse, but quit 6 months ago and has not had any ETOH since that time. He denies any GI symptoms other than mild epigastric/midabdominal pressure. He reports that he has been jaundiced 2-3 months. Denies weight loss. He has been taking 5-6 Acetaminophen per day for a few months. He denies any hx of drug use or blood transfusions. He denies any new sexual partners. He denies any history of hepatitis. Hepatitis panel negative. ANAnegative/ASMA negative/AMA negative, AFP 3.1, ALpha 1 Antitrypsin 162, Ceruloplasmin 16. Iron transfusion 40.4%, Ferritin 447. Acetaminophen level was < 2.0, but he was taking significant amount of acetaminophen. S/P Mucamyst x 17 doses. T. Bili 14.3, AST 60, ALT 29, Alk Phosph 91. - Liver cirrhosis. New dx. CT Abdomen/Pelvis CT (05/31/16) revealed 1. Ascites with varicosities as described above. 2. Casey shrunken liver with prominent spleen all consistent with longstanding cirrhosis. MELD 23. Pt reports hx of heavy ETOH abuse, states he quit completely x 5-6 months ago. - Coagulopathy/Thrombocytopenia. Plt 140 - Anemia. 9./26.2.. No active bleeding. EGD/Colonoscopy (06/06/16)--> duodenitis, portal gastropathy, hiatal hernia, retroflex views revealed a hiatal hernia, Solid stool in the rectum and sigmoid, retroflex views revealed small internal hemorrhoids, internal hemorrhoids. Refuses to have repeat colonoscopy - Back pain with lle weakness/numbness. - COPD, HTN. 06/14/17-No abdominal pain, has ascites present, refused repeat colonoscopy. 2-05-31 drop HGB we will re check H/H and give him PRBC, patient does not want procedures, may need paracentesis if abdomen continue to get distended with ascites 2-2-17- Hepatic encephalopathy worse, generalized tenderness all over, ascites of abdomen, may need Paracentesis if any further increase in ascites, more jaundice today, LF's elevated with Bilirubin of 11.1, AST of 74, ALT of 28, Alk phos 85, H&H low yesterday, had PRBC's &.2. 21.7 today. May need repeat EGD if continues to have anemia. PLAN: - May need repeat EGD if H&H continues to drop - Paracentesis if any further increase in ascites - Continue diuretics - Check AM labs - Avoid hepatotoxic meds - Continue supportive care - Pt seen and examined by Dr. English and myself and this note is written on his behalf Myla Chao Jun 16, 2016 16:24
[2016-06-16 19:13] LABS: BLOOD GAS CARBOXYHEMOGLOBIN 4.4 % (0-4); BLOOD GAS HCO3 24 mmol/L (22-26); BLOOD GAS O2 HGB SATURATION 88 % (90-100); BLOOD GAS OXYGEN CONTENT 7.3 Vol % (12.0-20.0); BLOOD GAS PCO2 34 mmHg (38-42); BLOOD GAS PO2 60 mmHg (61-120); BLOOD GAS TOTAL HGB 5.8 G/DL (12.0-16.0)
[2016-06-16 19:16] LABS: CRITICAL VALUE YES; LITER FLOW 4 L/M; OXYGEN DEVICE NASAL CANNULA
[2016-06-16 19:17] LABS: DRAW SITE RT RADIAL; NUMBER OF ARTERIAL PUNCTURES 1; STAT YES; ULNAR PULSE PRESENT
--- NOTE | 2016-06-16 19:21 | RADHPO ---
EXAM DATE/TIME: 06/16/2016 19:04 [facility] COMPARISON: CHEST PA & LAT, June 03, 2016, 13:54. INDICATIONS : Shortness of breath. MEDICAL HISTORY : Chronic obstructive pulmonary disease. SURGICAL HISTORY : None. ENCOUNTER: Subsequent ACUITY: 2 weeks PAIN SCORE: 0/10 LOCATION: Bilateral chest FINDINGS: Small, bilateral pleural effusions have developed and there is modest worsening of mild bibasilar con solidation. No pneumothorax. Heart size stable come within normal limits. CONCLUSION: Bibasilar consolidation and effusions worsening/developing. Joseph France MD on June 16, 2016 at 19:18 Board Certified Radiologist. This report was verified electronically.
[2016-06-16] MEDS ORDERED: SODIUM CHLORIDE 0.9% FLUSH 5 ML FLUSH IV FLUSH PRN (20:00)
[2016-06-16] MEDS ORDERED: MISCELLANEOUS NURSING INFORMATION XX SCH (20:00)
[2016-06-16] MEDS: RESP: ALBUTEROL 2.5 MG/IPRATROPIUM 0.5 MG NEB (SCH) INH (20:00)
[2016-06-16] MEDS ORDERED: SODIUM CHLOR 0.9% 1000 ML INJ 1,000 ML IV ONE (20:00)
[2016-06-16] MEDS ORDERED: RESP: ALBUTEROL 2.5 MG/IPRATROPIUM 0.5 MG NEB (PRN) INH (20:00)
[2016-06-16] MEDS ORDERED: CHLORHEXIDINE GLUCONATE 2 % 1 PACK (2 CLOTHS) TOP PRN (20:00)
[2016-06-16] MEDS ORDERED: PHYTONADIONE 10 MG/ML VIAL SQ ONE (20:15)
[2016-06-16 20:51] LABS: BASOPHIL # 0.1 TH/MM3 (0-0.2); BASOPHIL % 1.2 % (0.0-2.0); EOSINOPHIL # 0.5 TH/MM3 (0-0.4); EOSINOPHIL % 6.6 % (0.0-4.0); HEMATOCRIT 42.8 % (39.0-51.0); HEMO FLAGS DIFF FINAL; LYMPH % 35.9 % (9.0-44.0); LYMPHOCYTE # 2.9 TH/MM3 (1.0-4.8); MEAN CELL VOLUME 88.6 FL (80.0-100.0); MEAN CORPUSCULAR HEMOGLOBIN 28.8 PG (27.0-34.0); MEAN CORPUSCULAR HGB CONC 32.5 % (32.0-36.0); MONO % 7.2 % (0.0-8.0); NEUT % 49.1 % (16.0-70.0); PLATELET COUNT 187 TH/MM3 (150-450); RED BLOOD COUNT 4.83 MIL/MM3 (4.50-5.90); RED CELL DISTRIBUTION WIDTH 15.6 % (11.6-17.2); WHITE BLOOD COUNT 8.1 TH/MM3 (4.0-11.0)
[2016-06-16 20:56] LABS: CHLORIDE 106 MEQ/L (98-107); POTASSIUM 4.4 MEQ/L (3.5-5.1); SODIUM (NA) 142 MEQ/L (136-145)
[2016-06-16 21:00] LABS: ANION GAP 10 MEQ/L (5-15); BICARBONATE 25.6 MEQ/L (21.0-32.0); BLOOD UREA NITROGEN 24 MG/DL (7-18)
[2016-06-16] MEDS: SODIUM CHLORIDE 0.9% FLUSH 5 ML FLUSH IV FLUSH SCH (21:00)
[2016-06-16 21:02] LABS: ALT (GPT) 27 U/L (12-78)
[2016-06-16 21:03] LABS: APTT (PATIENT) 49.1 SEC (24.3-30.1); AST (GOT) 72 U/L (15-37); GLOMERULAR FILTRATION RATE 49 ML/MIN (>89); INTERNATIONAL NORMALIZED RATIO 1.8 RATIO; PROTHROMBIN TIME - PATIENT 20.4 SEC (9.8-11.6)
[2016-06-16 21:04] LABS: TOTAL BILIRUBIN ADULT 11.3 MG/DL (0.2-1.0)
[2016-06-16 21:05] LABS: ALKALINE PHOSPHATASE 83 U/L (45-117)
[2016-06-16 21:07] LABS: CREATINE KINASE 32 U/L (39-308)
[2016-06-16] MEDS: LACTULOSE SYRUP 20 GM/30 ML CUP PO SCH (22:03)
[2016-06-16] MEDS: AZTREONAM INJ 2,000 MG in SODIUM CHLORIDE 0.9% INJ 100 ML IV SCH (22:04)
[2016-06-16] MEDS: AZITHROMYCIN INJ 500 MG in SODIUM CHLOR 0.9% 250 ML INJ 250 ML IV SCH (22:06)
[2016-06-16 23:21] LABS: REVIEW FLAG FINAL
[2016-06-16 23:22] LABS: HEMATOCRIT 20.8 % (39.0-51.0)
[2016-06-17] VITALS (86 sets, daily range): BP systolic 85–142; BP diastolic 43–84; PULSE 82–94; RESP 7–25; TEMP 97–99.5; O2SAT 91–100
[2016-06-17] MEDS: RESP: ALBUTEROL 2.5 MG/IPRATROPIUM 0.5 MG NEB (SCH) INH ×6 (00:16→19:32)
[2016-06-17] MEDS: CYCLOBENZAPRINE HCL 10 MG TAB PO SCH ×3 (00:41→16:07)
[2016-06-17] MEDS: CHLORHEXIDINE GLUCONATE 2 % 1 PACK (2 CLOTHS) TOP SCH (04:51)
[2016-06-17] MEDS: AZTREONAM INJ 2,000 MG in SODIUM CHLORIDE 0.9% INJ 100 ML IV SCH ×3 (04:52→19:54)
--- NOTE | 2016-06-17 06:57 | HHI.PR ---
Addendum to Inpatient Note Addendum Reason: Additional Documentation Additional Information 06/16/16 I was notified by nursing staff at change of shift approximately 1850 that the patient has had a decline in his respiratory status, increased lethargy and low blood pressure. They informed me the patient was started on nasal cannula 2 L throughout the day and had increased respiratory demand requiring increased to 4 L per nasal cannula. Stat chest x-ray was performed which did indicate increase in bilateral pleural effusion, increased bilateral perihilar markings. Blood gas was performed which did indicate pH 7.47, PCO2 34, PO2 60, O2 saturation 88%, hemoglobin 5.8. Nursing staff indicates that the patient blood pressure has been very labile and low throughout the day with systolic blood pressure ranging from 80s to 90s, most recent was 98/55. Because of the patient 's decline in clinical status, patient was transferred to the ICU at [facility]. ICU protocols were initiated with stat laboratory studies, blood cultures, addition of antibiotics including Azactam, Zithromax. Patient was given boluses of IV fluids for blood pressure support. Analog Ic Design Engineer was consulted to participate in patient's care. I contacted nursing staff multiple times to inquire about patient's condition. I contacted cda teacher Dr. Hall and notified him of patient's condition and workup in place. At that time cda teacher requested patient be transferred to the main hospital to be monitored more closely. Order was placed at his request. Due to the patient's current condition, decline in clinical status, patient prognosis is guarded at this time. We'll continue ICU management until stabilized Critical care time 60 minutes excluding procedures Pankaj Cespedes Jun 17, 2016 06:57
--- NOTE | 2016-06-17 07:14 | PD.CONS ---
[facility] Service Critical Care Medicine Consult Requested By Pankaj Whelan Reason for Consult Critical care management of unstable patient Primary Care Physician No Primary Care Physician History of Present Illness This is a 61-year-old male. Date of admission 05/31/2016. Date of consultation 06/17/2016. Past medical history includes low back pain, hypertension, COPD and cirrhosis. She was originally admitted with severe sepsis secondary to group B strep bacteremia. Workup has included an echocardiogram on 06/02 which revealed no endocarditis. Patient be on vancomycin until 07/09. MRI of the L-spine revealed disc protrusion L5/S1. he was evaluated by neurosurgery/Dr. Mason who did not believe this was scattered and recommended neurology consult if increased pain and/or neurological deficits. Patient also is noted to have anemia. EGD/Colonoscopy (06/06/16)--> duodenitis, portal gastropathy, hiatal hernia, retroflex views revealed a hiatal hernia, Solid stool in the rectum and sigmoid, retroflex views revealed small internal hemorrhoids, internal hemorrhoids. Refuses to have repeat colonoscopy. We will consult the last crease lethargy, anemia. Hemoglobin is currently 7.2 with repeat pending. Review of Systems ROS Limitations: Altered Mental Status Past Family Social History Allergies: Coded Allergies: Penicillin (Verified Allergy, Unknown, 05/31/16) Past Medical History Hypertension COPD Cirrhosis L5 5/S1 disc protrusion Past Surgical History None Reported Medications Atenolol 12.5 mg by mouth daily Norvasc 7.5 mg by mouth daily Baclofen 10 mg 3 times a day Dilantin 100 mg 3 times a day Active Ordered Medications Reviewed in EMR Family History Mother has coronary artery disease. Social History 1 pack per day tobacco 35 years. Quit alcohol 6 months ago. Prior heavy drinker. Denies IV drug use. Physical Exam Vital Signs Vital Signs Date Time Temp Pulse Resp B/P Pulse Ox O2 Delivery O2 Flow Rate FiO2 06/17/16 06:02 88 11 89/52 94 06/17/16 06:00 90 11 88/49 94 06/17/16 05:45 88 11 93/52 95 06/17/16 05:30 90 21 117/63 93 06/17/16 05:15 88 12 103/55 94 06/17/16 05:01 97.0 90 11 104/58 94 06/17/16 05:00 90 13 104/58 95 06/17/16 05:00 90 06/17/16 04:15 92 12 92/52 93 06/17/16 04:02 97.6 92 10 98/53 95 06/17/16 04:00 92 13 85/50 93 06/17/16 03:05 97.0 92 11 94/58 91 06/17/16 03:00 92 06/17/16 03:00 92 11 94/48 95 06/17/16 02:50 97.0 92 11 92/45 95 06/17/16 02:45 92 10 92/49 95 06/17/16 02:00 92 11 102/54 95 06/17/16 01:05 94 25 117/84 93 06/17/16 00:00 97.9 88 21 114/54 94 06/16/16 23:42 86 27 110/55 93 06/16/16 23:02 80 9 90/42 97 06/16/16 23:02 2 06/16/16 23:00 95 06/16/16 23:00 80 8 87/43 97 06/16/16 22:00 84 21 98/53 96 06/16/16 21:25 96 Nasal Cannula 2.00 06/16/16 21:00 82 15 97/48 93 06/16/16 20:00 92 Nasal Cannula 3.00 06/16/16 20:00 97.8 82 20 109/60 93 06/16/16 19:35 96.8 81 16 95/51 92 06/16/16 18:45 95 Nasal Cannula 4.00 06/16/16 18:10 89 Nasal Cannula 2.00 06/16/16 08:00 95.9 85 22 104/77 90 Physical Exam GENERAL: 51 yo male, poorly nourished male patient, in no apparent distress. SKIN: Patient has spider nevi, jaundiced skin. HEAD: Atraumatic. Normocephalic. No temporal or scalp tenderness. EYES: Pupils equal round and reactive. Extraocular motions intact. Positive for scleral icterus. No injection or drainage. ENT: Nose without bleeding, purulent drainage or septal hematoma. Throat without erythema, tonsillar hypertrophy or exudate. Uvula midline. Airway patent. NECK: Trachea midline. Supple, nontender, no meningeal signs. CARDIOVASCULAR: S1, S2. No S4. Without murmur RESPIRATORY: Decreased breath sounds in the bases bilateral. GASTROINTESTINAL: Abdomen soft, non-tender, nondistended. Hypoactive bowel sounds MUSCULOSKELETAL: Extremities with 1+ peripheral edema. No joint tenderness, effusion, or edema noted. No calf tenderness. Negative Homans sign bilaterally. NEUROLOGICAL: Awake and alert. Left foot weakness of extensors. Able to flex at knee but extremely painful movement. Laboratory Laboratory Tests Test 06/16/16 06/16/16 06/16/16 06/17/16 19:05 20:26 23:10 00:15 Blood Gas Puncture Site RT RADIAL Blood Gas Patient Temperature 37.0 Blood Gas HCO3 24 Blood Gas Base Excess 1.0 Blood Gas Oxygen Saturation 88 Arterial Blood pH 7.47 Arterial Blood Partial 34 Pressure CO2 Arterial Blood Partial 60 Pressure O2 Arterial Blood Oxygen Content 7.3 Arterial Blood 4.4 Carboxyhemoglobin Arterial Blood Methemoglobin 0.0 Blood Gas Hemoglobin 5.8 Oxygen Delivery Device NASAL CANNULA Blood Gas Liter Flow 4 Prothrombin Time 20.4 Prothromb Time International 1.8 Ratio Activated Partial 49.1 Thromboplast Time Sodium Level 142 Potassium Level 4.4 Chloride Level 106 Carbon Dioxide Level 25.6 Anion Gap 10 Blood Urea Nitrogen 24 Creatinine 1.50 Estimat Glomerular Filtration 49 Rate Random Glucose 73 Lactic Acid Level 1.4 Calcium Level 9.2 Total Bilirubin 11.3 Aspartate Amino Transf 72 (AST/SGOT) Alanine Aminotransferase 27 (ALT/SGPT) Alkaline Phosphatase 83 Total Creatine Kinase 32 Troponin I LESS THAN 0.02 Total Protein 7.7 Albumin 1.7 Nasal Screen MRSA (PCR) NEGATIVE Hemoglobin 7.2 Hematocrit 20.8 Blood Type A POSITIVE Antibody Screen NEGATIVE Crossmatch Leukocyte-Reduced Red Blood Cells Blood Bank Comment Date/Time Procedure Status Source Growth 06/16/16 20:26 Aerobic Blood Culture Received Blood Peripheral Pending 06/16/16 20:26 Anaerobic Blood Culture Received Blood Peripheral Pending Result Diagram: 06/16/16 2310 06/16/162025 Imaging Last Impressions Chest X-Ray 06/16/16 0000 Signed Impressions: Service Date/Time: June 19:04 - CONCLUSION: Bibasilar consolidation and effusions worsening/developing. Joseph France MD Abdomen Ultrasound 06/15/16 0000 Signed Impressions: Service Date/Time: Wednesday, June 15, 2016 10:37 - CONCLUSION: 1. Liver cirrhosis with ascites. Gallbladder wall thickening with sludge. No biliary ductal dilatation. No hydronephrosis. Favio Amador MD Hip and Pelvis X-Ray 06/14/16 0000 Signed Impressions: Service Date/Time: Tuesday, June 14, 2016 10:18 - CONCLUSION: Unremarkable exam for patient's age. No acute fracture or joint dislocation. Jean-Paul Cheung MD Lower Extremity Ultrasound 06/12/16 0000 Signed Impressions: Service Date/Time: Sunday, June 12, 2016 12:52 - CONCLUSION: No evidence of DVT. Jean-Paul Cheung MD Thoracic Spine CT 06/01/16 0000 Signed Impressions: Service Date/Time: Wednesday, June 01, 2016 05:13 - CONCLUSION: No evidence of acute bony process in the thoracic spine. Joseph Cook MD Lumbar Spine MRI 06/01/16 0000 Signed Impressions: Service Date/Time: Wednesday, June 01, 2016 15:22 - CONCLUSION: No evidence of abscess or abnormal enhancement. There is degenerative change within the disc at the level of L5/S1 suggestive of an acute tear of the annulus and small posterior central disc protrusion. Lexi Waller MD Lumbar Spine CT 06/01/16 0000 Signed Impressions: Service Date/Time: Wednesday, June 01, 2016 05:13 - CONCLUSION: Disc protrusion at the lumbosacral junction with mild asymmetric left-sided foraminal narrowing. No acute bony findings. Joseph Cook MD Cervical Spine CT 06/01/16 0000 Signed Impressions: Service Date/Time: Wednesday, June 01, 2016 05:13 - CONCLUSION: Mild degenerative change. No acute bony findings. Joseph Cook MD Abdomen/Pelvis CT 05/31/16 1504 Signed Impressions: Service Date/Time: Tuesday, May 31, 2016 17:59 - CONCLUSION: 1. Ascites with varicosities as described above. 2. Casey shrunken liver with prominent spleen all consistent with longstanding cirrhosis. Tanner Willis MD FACR Assessment and Plan Assessment and Plan Neuro/Psych: Acute toxic metabolic encephalopathy EtOH Acetaminophen for fever [place]/morphine for pain management Flexeril 10 mg 3 times a day muscle relaxants will be held with altered mental status/ will nothing by mouth. Continue Keppra 250 by mouth twice a day for seizures. On Dilantin 100 mg 3 times a day at home. Ammonia level pending. Check CT head EEG ordered with history of seizures CV: Hypotension - likely secondary to anemia History of hypertension Lactate within normal limits. Agree continue to transfuse keep hemoglobin greater than equal to 8. Currently normal saline at 84 cc an hour. At home on atenolol 12.5 mg daily Norvasc 7.5 mg daily. These been held Resp: Acute respiratory insufficiency Bilateral pleural effusions Nasal cannula to maintain saturations greater or equal to 92% Incentive spirometry while awake Follow-up chest x-ray. Continue with diuresis with bilateral pleural effusions GI: Anemia Portal gastropathy Internal hemorrhoids Abdominal ascites Currently nothing by mouth with altered mental status IV Protonix twice a day for GI prophylaxis Lactulose 30 cc twice a day for bowel regimen level Check ammonia level EGD/colonoscopy revealed portal gastropathy, internal hemorrhoids. No other signs of active bleeding Check abdominal ultrasound see if fluid for paracentesis/r/o SBP : Stone if necessary for accurate I's and O's in a critically ill patient Endo: Sliding-scale insulin if necessary to maintain euglycemia. Renal: Acute kidney injury Creatinine currently 1.5. Monitor urine output closely. Accurate I's and O's. Check urine eosinophil/urine electrolytes Heme: Macrocytic Anemia Hypercoagulable state likely secondary to liver disease Transfused 2 units PRBCs during this hospitalization. Recheck CBC/coags ID: Group B strep bacteremia Echocardiogram 06/02 revealed no signs of endocarditis. MRI L-spine revealed T5 through S1 disc bulge. Not discussed coronary neurosurgery. Seen by ID. Recommend vancomycin through 07/09. Currently azithromycin/aztreonam with possible SBP Pertinent cultures 05/31 - blood cultures 2 - group B strep 06/01 - blood cultures 2 - 1 out of 2 group B strep 2/2 - blood cultures 2 - pending MSK: Left lower extremity foot drop MRI L-spine revealed disc protrusion/left. Evaluated by Dr. Mason. No neurosurgical intervention recommended. OT evaluate and treat FEN: Replace electrolytes as clinically indicated Access - Utilize peripheral IV. Central line if indicated Prophylaxis - GI - Protonix - DVT -SCDs Critical Care: The total critical care time was 65 minutes. Time to perform other separately billable procedures was not included in the critical care time. Code Status Full code Discussed Condition With Patient. Care plan discussed and all questions answered Biga,Shravan M. MD Jun 17, 2016 07:14
[2016-06-17 08:55] LABS: AUTOMATED NEUTROPHIL # 3.9 TH/MM3 (1.8-7.7); BASOPHIL # 0.2 TH/MM3 (0-0.2); BASOPHIL % 3.4 % (0.0-2.0); EOSINOPHIL # 0.1 TH/MM3 (0-0.4); EOSINOPHIL % 1.9 % (0.0-4.0); LYMPH % 25.3 % (9.0-44.0); LYMPHOCYTE # 1.7 TH/MM3 (1.0-4.8); MEAN CELL VOLUME 101.6 FL (80.0-100.0); MEAN CORPUSCULAR HEMOGLOBIN 34.4 PG (27.0-34.0); MEAN CORPUSCULAR HGB CONC 33.8 % (32.0-36.0); MONO % 10.5 % (0.0-8.0); NEUT % 58.9 % (16.0-70.0); PLATELET COUNT 125 TH/MM3 (150-450); RED BLOOD COUNT 2.46 MIL/MM3 (4.50-5.90); RED CELL DISTRIBUTION WIDTH 26.2 % (11.6-17.2); WHITE BLOOD COUNT 6.6 TH/MM3 (4.0-11.0)
[2016-06-17] MEDS: SODIUM CHLORIDE 0.9% FLUSH 5 ML FLUSH IV FLUSH SCH ×2 (09:00→19:54)
[2016-06-17] MEDS: POTASSIUM CHLORIDE 20 MEQ CONTROLLED RELEASE TAB PO SCH (09:00)
[2016-06-17 09:07] LABS: MAGNESIUM 1.9 MG/DL (1.5-2.5)
[2016-06-17 09:08] LABS: HEMO FLAGS AUTO DIFF
[2016-06-17 09:11] LABS: INDIRECT BILIRUBIN 4.7 MG/DL (0.0-0.8); TOTAL BILIRUBIN ADULT 9.8 MG/DL (0.2-1.0)
[2016-06-17 09:13] LABS: INTERNATIONAL NORMALIZED RATIO 1.8 RATIO; PROTHROMBIN TIME - PATIENT 20.5 SEC (9.8-11.6)
--- NOTE | 2016-06-17 09:20 | PD.PROCEDR ---
Central Line Procedure REASON FOR PROCEDURE Central venous access PROCEDURE PERFORMED Central line placement: Right IJ CVL CONSENT Informed consent for procedure was obtained. The risks and benefits of the procedure were discussed to include but limited to bleeding, clot formation, infection, and even . ANESTHESIA Local injection of 1% Lidocaine DESCRIPTION OF THE PROCEDURE The patient was placed in supine, mild Trendelenburg position. The area was exposed and cleansed with ChloraPrep, times two. Large sterile drape was used to cover the patient, with the site exposed, under sterile conditions including cap, face mask, sterile gown, and sterile gloves. On single attempt, the introducer needle was inserted with negative pressure in syringe and venous flash was obtained. The guide wire was then advanced without any restriction and the needle was removed. The dilator was used without any complications. Using Seldinger technique the triple-lumen catheter was advanced over the guide wire to a depth of 16 centimeters. The guide wire was removed. All ports were aspirated with dark venous blood return and flushed easily with sterile saline. All ports were capped. Antibiotic disc was placed around central line at puncture site. The central line was secured to the skin with two interrupted 2.0 silk sutures. The area was bandaged with sterile see-through central line bandage. RADIOLOGICAL DATA Ultrasound guidance was used to locate right internal jugular vein. Doppler/ color flow was used to confirm venous flow. COMPLICATIONS: No apparent complications ESTIMATED BLOOD LOSS: Less than 1 cc. Shravan Bonds MD Jun 17, 2016 09:20
[2016-06-17 09:26] LABS: SCAN/DIFF AUTO DIFF CONFIRMED
[2016-06-17] MEDS ORDERED: ROCURONIUM INJ 100 MG/10 ML VIAL IV ONE (09:30)
[2016-06-17] MEDS ORDERED: SODIUM CHLORIDE 0.9% FLUSH 5 ML FLUSH IVF PRN (09:30)
[2016-06-17] MEDS ORDERED: fentaNYL DRIP 250 ML IV SCH (09:30)
[2016-06-17] MEDS ORDERED: TERBUTALINE INJ 1 MG/ML AMP SQ PRN (09:30)
[2016-06-17] MEDS ORDERED: ETOMIDATE 40 MG/20 ML VIAL IV PUSH ONE (09:30)
[2016-06-17] MEDS ORDERED: ROCURONIUM INJ 50 MG/5 ML VIAL ONE (09:32)
[2016-06-17] MEDS ORDERED: PROPOFOL 500 MG/50 ML INJ 50 ML ONE (09:32)
--- NOTE | 2016-06-17 09:47 | PD.PROCEDR ---
Procedure Note Procedure DATE: 06/17/16 PROCEDURE: Orotracheal intubation INDICATION: Respiratory failure DETAILS OF PROCEDURE The patient was placed in optimal position and preoxygenated with 100% FiO2 via bag valve mask. At the start oxygen saturation was 98%. The patient was administered 20 mg etomidate IV and 50 milligrams rocuronium IV. I entered the oropharynx with a size 4 Chris laryngoscope blade and obtained a grade 3 view of the airway. On single attempt a size 8.0 cuffed endotracheal tube was passed through the vocal cords. Correct tube location was confirmed with end tidal CO2 detector and by auscultating over bilateral lung lock. The endotracheal tube was secured with adhesive tape at a depth of 24 cm at the lips. The patient was connected to the ventilator. The patient tolerated the procedure well without any apparent complications. Oxygen saturations were maintained greater than 95% all times. STAT chest x-ray pending at time of dictation. Shravan Bonds MD Jun 17, 2016 09:46
[2016-06-17] MEDS: SODIUM CHLOR 0.9% 1000 ML INJ 1,000 ML IV SCH ×2 (10:18→19:53)
[2016-06-17] MEDS: SODIUM CHLORIDE 0.9% FLUSH 5 ML FLUSH FLUSH SCH ×2 (10:18→19:53)
[2016-06-17] MEDS: PHENYLEPHRINE INJ 40 MG in DEXTROSE 5% IN WATE 500 ML INJ 496 ML IV SCH ×2 (10:18)
--- NOTE | 2016-06-17 10:25 | OTSOAPIP ---
PATIENT IN PROCESS OF BEING INTUBATED. RN REQUESTED TO HOLD THERAPY. Therapist: Elva Damon OTR/L Signature on file
[2016-06-17 10:30] LABS: BLOOD, URINE LARGE (NEG); GLUCOSE,URINE NEG (NEG); KETONE, URINE TRACE mg/dL (NEG); NITRITE,URINE NEG (NEG)
--- NOTE | 2016-06-17 10:36 | RADHPO ---
EXAM DATE/TIME: 06/17/2016 10:06 [facility] COMPARISON: CHEST SINGLE AP, June 16, 2016, 19:04. INDICATIONS : Post right central line & intubation. MEDICAL HISTORY : Cirrhosis. Chronic obstructive pulmonary disease. Hypertension. Seizures.Abdominal pain. Paresthesia. Jaundice. SURGICAL HISTORY : None. ENCOUNTER: Initial ACUITY: 3 weeks PAIN SCORE: Non-responsive. LOCATION: Right chest FINDINGS: Single AP view of the chest. Endotracheal tube is in place with the tip 3 cm above the sandy. Nasoga stric tube is in place with the tip below the field of view of the radiograph. Right IJ central venou s catheter is in place with the tip in the mid SVC. Bilateral diffuse hazy pulmonary opacity and pulm onary vasculature indistinctness is again seen. Small bilateral pleural effusions. Cardiomediastinal silhouette unchanged. No evidence of pneumothorax. CONCLUSION: 1. Endotracheal tube, nasogastric tube, and right IJ central venous catheter now in place. 2. Persistent bilateral pulmonary opacity likely represent pulmonary edema and bilateral pleural effu sions. No significant interval change. Olivier Lo MD on June 17, 2016 at 10:32 Board Certified Radiologist. This report was verified electronically.
[2016-06-17 10:42] LABS: METHOD OF COLLECTION CATH; URINE COLOR DARK-YELLOW (YELLW/STRAW); WBC, URINE 0-2 /hpf (0-5)
[2016-06-17 10:43] LABS: COMMENT (UR) CATH-CULT NOT IND; CULTURE IF INDICATED CATH CULTURE NOT IND; RBC, URINE 15-19 /hpf (0-3)
[2016-06-17] MEDS: FUROSEMIDE 20 MG/2 ML VIAL IV PUSH SCH (11:04)
[2016-06-17] MEDS: levETIRAcetam 250 MG TAB PO SCH ×2 (11:04→19:55)
[2016-06-17] MEDS: LACTULOSE SYRUP 20 GM/30 ML CUP PO SCH ×2 (11:04→19:55)
[2016-06-17] MEDS: PANTOPRAZOLE SODIUM 40 MG VIAL IV PUSH SCH ×2 (11:06→19:55)
[2016-06-17 11:08] LABS: BLOOD GAS BASE EXCESS -1.2 mmol/L (-2-2); BLOOD GAS HCO3 23 mmol/L (22-26); BLOOD GAS METHEMOGLOBIN 0.4 % (0-2); BLOOD GAS O2 HGB SATURATION 97 % (90-100); BLOOD GAS OXYGEN CONTENT 11.8 Vol % (12.0-20.0); BLOOD GAS PCO2 38 mmHg (38-42); BLOOD GAS PO2 295 mmHg (61-120); BLOOD GAS TOTAL HGB 8.1 G/DL (12.0-16.0); CRITICAL VALUE NO; OXYGEN DEVICE VENTILATOR
[2016-06-17 11:09] LABS: DRAW SITE RT RADIAL; FIO2 100 %; NUMBER OF ARTERIAL PUNCTURES 1; STAT NO; ULNAR PULSE PRESENT; VENT SETTINGS PRVCAC
[2016-06-17 11:18] LABS: VANCOMYCIN TROUGH 19.8 MCG/ML (5.0-10.0)
--- NOTE | 2016-06-17 12:48 | EC ---
Study Study Date:06/17/2016 STUDY CONCLUSIONS SUMMARY - Left ventricle: The cavity size was normal. Wall thickness was normal. Systolic function was normal. The estimated ejection fraction was in the range of 60% to 65%. Wall motion was normal; there were no regional wall motion abnormalities. - Aortic valve: Valve area: 2.82cm^2(VTI). Valve area: 2.8cm^2 (Vmax). - Mitral valve: Mild regurgitation. Impressions: No evidence of endocarditis. If LV function is below 40, please consider prescribing an ACEI or ARB or document rationale for non-use. PROCEDURE DATA STUDY STATUS: Elective. Procedure: Transthoracic echocardiography. Image quality was fair. Scanning was performed from the parasternal and apical acoustic windows. Study completion: The patient tolerated the procedure well. Transthoracic echocardiography. M-mode, complete 2D, complete spectral Doppler, and color Doppler. Patient status: Inpatient. CARDIAC ANATOMY LEFT VENTRICLE: The cavity size was normal. Wall thickness was normal. Systolic function was normal. The estimated ejection fraction was in the range of 60% to 65%. Wall motion was normal; there were no regional wall motion abnormalities. AORTIC VALVE: Trileaflet; normal thickness leaflets. Doppler: Transvalvular velocity was within the normal range. There was no stenosis. No regurgitation. Valve area: 2.82cm^2(VTI). Valve area: 2.8cm^2 (Vmax). Mean gradient: 10mm Hg (S). Peak gradient: 17mm Hg (S). AORTA: Aortic root: The aortic root was normal in size. MITRAL VALVE: Moderately thickened leaflets, . Doppler: Transvalvular velocity was within the normal range. There was no evidence for stenosis. Mild regurgitation. LEFT ATRIUM: The atrium was normal in size. RIGHT VENTRICLE: The cavity size was normal. Wall thickness was normal. PULMONIC VALVE: Doppler: Transvalvular velocity was within the normal range. There was no evidence for stenosis. No regurgitation. TRICUSPID VALVE: Structurally normal valve. Doppler: Transvalvular velocity was within the normal range. No regurgitation. PULMONARY ARTERY: The main pulmonary artery was normal-sized. Systolic pressure was within the normal range. RIGHT ATRIUM: The atrium was normal in size. PERICARDIUM: There was no pericardial effusion. SYSTEMIC VEINS: Inferior vena cava: The vessel was normal in size. BASIC MEASUREMENTS ADULT Normal Left ventricle LV internal dimension, ED, chordal level, *37.1 mm 43-52 PLAX LV internal dimension, ES, chordal level, 27.3 mm 23-38 PLAX Fractional shortening, chordal level, PLAX *26 % >29 LV posterior wall thickness, ED 8.46 mm IVS/LVPW ratio, ED 1 <1.3 Ventricular septum Septal thickness, ED 8.46 mm Aorta Root diameter, ED 29 mm Left atrium Anterior-posterior dimension 35 mm Right ventricle RV internal dimension, ED, PLAX 21.8 mm 19-38 DOPPLER MEASUREMENTS ADULT Normal Aortic valve Peak velocity, S 204 cm/s Mean velocity, S 153 cm/s VTI, S 44.6 cm Mean gradient, S 10 mm Hg Peak gradient, S 17 mm Hg Valve area, VTI 2.82 cm^2 Valve area, Vmax 2.8 cm^2 LEGEND: Mean values are shown as u=mean value. Asterisk (*) pritchard values outside specified normal range. Amended Sylvie Koch [id number]
[2016-06-17] MEDS: PROPOFOL 1000 MG/100 ML INJ 100 ML IV SCH ×2 (13:09→19:56)
--- NOTE | 2016-06-17 13:50 | EKG ---
Date Performed: 06/16/2016 Time Performed: 21:41:24 PTAGE: 51 years EKG: Sinus rhythm Normal ECG PREVIOUS TRACING : 05/31/2016 22.15 Since previous tracing, no significant change noted DOCTOR: Lisa Cervantes Interpretating Date/Time 06/17/2016 13:43:58
--- NOTE | 2016-06-17 15:28 | RADHPO ---
EXAM DATE/TIME: 06/17/2016 14:43 [facility] COMPARISON: No previous studies available for comparison. INDICATIONS: Back pain with left leg weakness. MEDICAL HISTORY: Hypertension. Epilepsy SURGICAL HISTORY: None. ENCOUNTER: Subsequent ACUITY: 2 day PAIN SCORE: 0/10 LOCATION: Back TECHNIQUE: Multiplanar, multisequence MRI examination of the cervical spine was performed. FINDINGS: By MRI the marrow signal in the cervical vertebrae are homogeneous and normal. Cerebellar tonsils ar e in normal anatomic position. Signal intensity in the cord is normal. C2-C3: The thecal sac has a normal configuration. There is no evidence of disc herniation or spinal canal s tenosis. The neural foramina are patent bilaterally. C3-C4: The thecal sac has a normal configuration. There is no evidence of disc herniation or spinal canal s tenosis. The neural foramina are patent bilaterally. C4-C5: There is mild uncinate ridging present. There is minimal bilateral neural foramina encroachment. C5-C6: There is very mild interspace ridging present. There is minimal bilateral neural foramina encroachme nt. C6-C7: The thecal sac has a normal configuration. There is no evidence of disc herniation or spinal canal s tenosis. The neural foramina are patent bilaterally. C7-T1: The thecal sac has a normal configuration. There is no evidence of disc herniation or spinal canal s tenosis. The neural foramina are patent bilaterally. CONCLUSION: Mild degenerative changes. there is no evidence for cord impingement. Tanner Willis MD FACR on June 17, 2016 at 15:08 Board Certified Radiologist. This report was verified electronically.
--- NOTE | 2016-06-17 15:43 | RADHPO ---
EXAM DATE/TIME: 06/17/2016 14:03 [facility] COMPARISON: No previous studies available for comparison. INDICATIONS: Left leg numbness. MEDICAL HISTORY: Hypertension. Epilepsy SURGICAL HISTORY: None. ENCOUNTER: Subsequent ACUITY: 2 day PAIN SCORE: 0/10 LOCATION: Cranial TECHNIQUE: Multiplanar, multisequence MRI of the brain was performed without contrast. FINDINGS: There is no restricted diffusion evident. There are scattered areas of high signal intensity in the periventricular white matter. There are no extraaxial fluid collections appreciated. There is no parenchymal hemorrhage, acute inf arction. Midline structures are intact. Patient has a very tortuous hepatic basilar artery. CONCLUSION: 1. Nonspecific white matter changes. 2. Tortuous hepatic basilar artery. 3. Negative. Tanner Willis MD FACR on June 17, 2016 at 14:50 Board Certified Radiologist. This report was verified electronically.
--- NOTE | 2016-06-17 16:02 | RADHPO ---
EXAM DATE/TIME: 06/17/2016 14:43 [facility] COMPARISON: No previous studies available for comparison. INDICATIONS : Back pain with left leg numbness. MEDICAL HISTORY : Hypertension. epilepsy SURGICAL HISTORY : None. ENCOUNTER: Subsequent ACUITY: 2 day PAIN SCORE: 0/10 LOCATION: back TECHNIQUE: Multiplanar multisequence MRI of the thoracic spine was performed. FINDINGS: VERTEBRA: Normal vertebral body height. Homogeneous marrow signal. ALIGNMENT: Normal. CORD: Normal position and configuration. Bilateral pleural effusions. Bilateral pulmonary consolidation/atelectasis. T1-T2: Normal. T2-T3: The thecal sac has a normal diameter. No evidence of disc bulge or protrusion. T3-T4: The thecal sac has a normal diameter. No evidence of disc bulge or protrusion. T4-T5: The thecal sac has a normal diameter. No evidence of disc bulge or protrusion. T5-T6: The thecal sac has a normal diameter. No evidence of disc bulge or protrusion. T6-T7: The thecal sac has a normal diameter. No evidence of disc bulge or protrusion. T7-T8: The thecal sac has a normal diameter. No evidence of disc bulge or protrusion. T8-T9: The thecal sac has a normal diameter. No evidence of disc bulge or protrusion. T9-T10: The thecal sac has a normal diameter. No evidence of disc bulge or protrusion. T10-T11: The thecal sac has a normal diameter. No evidence of disc bulge or protrusion. T11-T12: The thecal sac has a normal diameter. No evidence of disc bulge or protrusion. T12-L1: The thecal sac has a normal diameter. No evidence of disc bulge or protrusion. CONCLUSION: Thoracic spine MRI within normal limits. Olivier Lo MD on June 17, 2016 at 15:54 Board Certified Radiologist. This report was verified electronically.
[2016-06-17] MEDS: VANCOMYCIN 1,000 MG/NS 250 ML IV SCH ×2 (16:07)
[2016-06-17 16:21] LABS: HEMATOCRIT 24.5 % (39.0-51.0)
[2016-06-17 16:23] LABS: REVIEW FLAG FINAL
--- NOTE | 2016-06-17 16:39 | RADHPO ---
EXAM DATE/TIME: 06/17/2016 14:43 [facility] COMPARISON: MRI THORACIC SPINE W/O CONTRAST, June 17, 2016, 14:43. INDICATIONS: Back pain with left leg numbness. MEDICAL HISTORY: Hypertension. Epilepsy SURGICAL HISTORY: None. ENCOUNTER: Subsequent ACUITY: 2 day PAIN SCORE: 0/10 LOCATION: Back TECHNIQUE: Multiplanar multisequence MRI of the lumbar spine was performed without contrast. FINDINGS: Marrow signal in the lumbar vertebra appears homogenous and normal. Signal intensity in the conus is unremarkable. L1-L2: The thecal sac has a normal diameter. No evidence of disc bulge or protrusion. The neural f oramina are patent bilaterally. L2-L3: The thecal sac has a normal diameter. No evidence of disc bulge or protrusion. The neural f oramina are patent bilaterally. L3-L4: The thecal sac has a normal diameter. No evidence of disc bulge or protrusion. The neural f oramina are patent bilaterally. L4-L5: There is very minimal disc bulging at L4-5 causing some flattening of the anterior thecal spa ce without significant spinal stenosis, neural foramina adequate. Mild facet disease is present. L5-S1: There is mild disc bulging at L5-S1 central to the right sided causing some encroachment to t he right L5 root and lesser degree to the right S1 root. SI joints are normal. Retroperitoneum is unremarkable CONCLUSION: 1. Mild disc disease at L4-5. 2. Moderate disease at L5-S1. Disease at L5-S1 is predominantly right sided. Tanner Willis MD FACR on June 17, 2016 at 15:55 Board Certified Radiologist. This report was verified electronically.
--- NOTE | 2016-06-17 19:37 | MG ---
cc: NAWAF VOGT MD Lab No: [id number] Date: 06/17/2016 Age: 51 Sex: M Race: 51-year-old, sedated on propofol and fentanyl. Generalized slowing 1-3 Hz delta activity occurring 10-40 microvolts with admixed low amplitude theta activity. No driving with photic stimulation. Single EKG showing sinus rhythm. INTERPRETATION: Moderate to severe encephalopathy which may be pharmacologically induced. Clinical correlation. Nawaf Vogt MD MG/JCC /7:23 PM /7:35 PM
[2016-06-17] MEDS: CHLORHEXIDINE 0.12% (ORAL KIT) 15 ML CUP MT SCH (19:51)
[2016-06-17 22:20] LABS: HEMATOCRIT 26.2 % (39.0-51.0)
[2016-06-17 22:23] LABS: REVIEW FLAG FINAL
[2016-06-17] MEDS: AZITHROMYCIN INJ 500 MG in SODIUM CHLOR 0.9% 250 ML INJ 250 ML IV SCH (23:25)
[2016-06-18] VITALS (101 sets, daily range): BP systolic 77–116; BP diastolic 37–74; PULSE 82–100; RESP 5–18; TEMP 97.4–98.4; O2SAT 95–100
[2016-06-18] MEDS: CHLORHEXIDINE GLUCONATE 2 % 1 PACK (2 CLOTHS) TOP SCH (00:30)
[2016-06-18] MEDS: CYCLOBENZAPRINE HCL 10 MG TAB PO SCH (00:30)
[2016-06-18] MEDS: RESP: ALBUTEROL 2.5 MG/IPRATROPIUM 0.5 MG NEB (SCH) INH ×7 (01:43→23:14)
[2016-06-18 06:26] LABS: APTT (PATIENT) 55.5 SEC (24.3-30.1); INTERNATIONAL NORMALIZED RATIO 1.8 RATIO; PROTHROMBIN TIME - PATIENT 20.7 SEC (9.8-11.6)
[2016-06-18] MEDS: AZTREONAM INJ 2,000 MG in SODIUM CHLORIDE 0.9% INJ 100 ML IV SCH ×3 (06:35→20:15)
[2016-06-18 06:40] LABS: ALKALINE PHOSPHATASE 76 U/L (45-117); ALT (GPT) 26 U/L (12-78); ANION GAP 8 MEQ/L (5-15); AST (GOT) 67 U/L (15-37); BICARBONATE 25.8 MEQ/L (21.0-32.0); BLOOD UREA NITROGEN 25 MG/DL (7-18); CHLORIDE 109 MEQ/L (98-107); GLOMERULAR FILTRATION RATE 43 ML/MIN (>89); POTASSIUM 3.5 MEQ/L (3.5-5.1); SODIUM (NA) 143 MEQ/L (136-145); TOTAL BILIRUBIN ADULT 9.3 MG/DL (0.2-1.0)
[2016-06-18] MEDS: CHLORHEXIDINE 0.12% (ORAL KIT) 15 ML CUP MT SCH ×2 (07:38→20:15)
[2016-06-18] MEDS ORDERED: POTASSIUM CHLOR 20 MEQ PREMIX 100 ML IV PRN ×2 (08:00)
[2016-06-18] MEDS ORDERED: POTASSIUM PHOSPHATE INJ 30 MMOL in SODIUM CHLOR 0.9% 250 ML INJ 250 ML IV PRN (08:00)
[2016-06-18] MEDS ORDERED: POTASSIUM CL 40 MEQ/30 ML LIQ UDC PO/TUBE PRN ×2 (08:00)
[2016-06-18] MEDS ORDERED: MAGNESIUM SULFATE INJ 2 GM in SODIUM CHLORIDE 0.9% INJ 96 ML IV PRN (08:00)
[2016-06-18] MEDS ORDERED: SODIUM PHOSPHATE INJ 30 MMOL in SODIUM CHLOR 0.9% 250 ML INJ 240 ML IV PRN (08:00)
[2016-06-18] MEDS ORDERED: MAGNESIUM OXIDE 400 MG TAB PO PRN (08:00)
[2016-06-18] MEDS ORDERED: POTASSIUM PHOSPHATE MONOBASIC 500 MG TAB PO PRN (08:00)
[2016-06-18] MEDS ORDERED: MAGNESIUM SULFATE INJ 4 GM in SODIUM CHLORIDE 0.9% INJ 92 ML IV PRN (08:00)
[2016-06-18] MEDS ORDERED: POTASSIUM CHLOR 40 MEQ PREMIX 100 ML IV PRN (08:00)
[2016-06-18] MEDS ORDERED: POTASSIUM PHOSPHATE MONOBASIC 500 MG TAB PO/TUBE PRN (08:00)
--- NOTE | 2016-06-18 08:03 | HHI.CCPN ---
Subjective Remarks/Hospital Course This is a 61-year-old male. Date of admission 05/31/2016. Date of consultation 06/17/2016. Past medical history includes low back pain, hypertension, COPD and cirrhosis. She was originally admitted with severe sepsis secondary to group B strep bacteremia. Workup has included an echocardiogram on 06/02 which revealed no endocarditis. Patient be on vancomycin until 07/09. MRI of the L-spine revealed disc protrusion L5/S1. he was evaluated by neurosurgery/Dr. Mason who did not believe this was scattered and recommended neurology consult if increased pain and/or neurological deficits. Patient also is noted to have anemia. EGD/Colonoscopy (06/06/16)--> duodenitis, portal gastropathy, hiatal hernia, retroflex views revealed a hiatal hernia, Solid stool in the rectum and sigmoid, retroflex views revealed small internal hemorrhoids, internal hemorrhoids. Refuses to have repeat colonoscopy. We will consult the last crease lethargy, anemia. Hemoglobin is currently 7.2 with repeat pending. Subjective 06/18: Critically ill and sedated on the ventilator. Did not tolerate tube feeds. One bowel movement. Arousable and does withdrawal to pain. Positive gag. Objective Vital Signs Date Time Temp Pulse Resp B/P Pulse Ox O2 Delivery O2 Flow Rate FiO2 06/18/16 07:47 100 60 06/18/16 06:31 90 11 96/49 06/18/16 04:01 97.4 06/17/16 07:37 Nasal Cannula 2.00 Intake and Output 06/17/16 06/17/16 06/18/16 08:00 16:00 00:00 Intake Total 970 ml 1260 ml 1008 ml Output Total 375 ml 600 ml 600 ml Balance 595 ml 660 ml 408 ml Result Diagram: 06/17/16 2156 06/18/16 0600 Other Results Microbiology Date/Time Procedure Status Source Growth 06/18/16 02:00 Gram Stain Received Sputum Endotracheal Pending 06/18/16 02:00 Sputum Culture Received Sputum Endotracheal Pending 06/16/16 20:26 Aerobic Blood Culture - Preliminary Resulted Blood Peripheral NO GROWTH IN 1 DAY 06/16/16 20:26 Anaerobic Blood Culture - Preliminary Resulted Blood Peripheral NO GROWTH IN 1 DAY Imaging Last Impressions Thoracic Spine MRI 06/17/16 0000 Signed Impressions: Service Date/Time: Friday, June 17, 2016 14:43 - CONCLUSION: Thoracic spine MRI within normal limits. Olivier Lo MD Chest X-Ray 06/17/16 0000 Signed Impressions: Service Date/Time: Friday, June 17, 2016 10:06 - CONCLUSION: 1. Endotracheal tube, nasogastric tube, and right IJ central venous catheter now in place. 2. Persistent bilateral pulmonary opacity likely represent pulmonary edema and bilateral pleural effusions. No significant interval change. Olivier Lo MD Cervical Spine MRI 06/17/16 0000 Signed Impressions: Service Date/Time: Friday, June 17, 2016 14:43 - CONCLUSION: Mild degenerative changes. there is no evidence for cord impingement. Tanner Willis MD FACR Brain MRI 06/17/16 0000 Signed Impressions: Service Date/Time: Friday, June 17, 2016 14:03 - CONCLUSION: 1. Nonspecific white matter changes. 2. Tortuous hepatic basilar artery. 3. Negative. Tanner Willis MD FACR Abdomen Ultrasound 06/15/16 0000 Signed Impressions: Service Date/Time: Wednesday, June 15, 2016 10:37 - CONCLUSION: 1. Liver cirrhosis with ascites. Gallbladder wall thickening with sludge. No biliary ductal dilatation. No hydronephrosis. Favio Amador MD Hip and Pelvis X-Ray 06/14/16 0000 Signed Impressions: Service Date/Time: Tuesday, June 14, 2016 10:18 - CONCLUSION: Unremarkable exam for patient's age. No acute fracture or joint dislocation. Jean-Paul Cheung MD Lower Extremity Ultrasound 06/12/16 0000 Signed Impressions: Service Date/Time: Sunday, June 12, 2016 12:52 - CONCLUSION: No evidence of DVT. Jean-Paul Cheung MD Thoracic Spine CT 06/01/16 0000 Signed Impressions: Service Date/Time: Wednesday, June 01, 2016 05:13 - CONCLUSION: No evidence of acute bony process in the thoracic spine. Joseph Cook MD Lumbar Spine MRI 06/01/16 0000 Signed Impressions: Service Date/Time: Wednesday, June 01, 2016 15:22 - CONCLUSION: No evidence of abscess or abnormal enhancement. There is degenerative change within the disc at the level of L5/S1 suggestive of an acute tear of the annulus and small posterior central disc protrusion. Lexi Waller MD Lumbar Spine CT 06/01/16 0000 Signed Impressions: Service Date/Time: Wednesday, June 01, 2016 05:13 - CONCLUSION: Disc protrusion at the lumbosacral junction with mild asymmetric left-sided foraminal narrowing. No acute bony findings. Joseph Cook MD Cervical Spine CT 06/01/16 0000 Signed Impressions: Service Date/Time: Wednesday, June 01, 2016 05:13 - CONCLUSION: Mild degenerative change. No acute bony findings. Joseph Cook MD Abdomen/Pelvis CT 05/31/16 1504 Signed Impressions: Service Date/Time: Tuesday, May 31, 2016 17:59 - CONCLUSION: 1. Ascites with varicosities as described above. 2. Casey shrunken liver with prominent spleen all consistent with longstanding cirrhosis. Tanner Willis MD FACR Objective Remarks GENERAL: 51 yo male, poorly nourished male patient, in no apparent distress. Orotracheally intubated SKIN: Patient has spider nevi, jaundiced skin. HEAD: Atraumatic. Normocephalic. EYES: Pupils equal round and reactive. Positive for scleral icterus. No injection or drainage. ENT: Orotracheally intubated. NECK: Trachea midline. Supple, nontender, no meningeal signs. Right IJ clean dry and intact CARDIOVASCULAR: S1, S2. No S4. Without murmur RESPIRATORY: Decreased breath sounds in the bases bilateral. GASTROINTESTINAL: Abdomen soft, non-tender, nondistended. Hypoactive bowel sounds MUSCULOSKELETAL: Extremities with 1+ peripheral edema. NEUROLOGICAL: Currently sedated on the ventilator. Withdraws to pain. Procedures 06/06/16 EGD and Colonoscopy Urinary Catheter: Yes Assessment to: Continue Stone insert reason: Prolonged Immobilization Vascular Central Line Catheter: Yes Assessment to: Continue Date of Insertion: Jun 17, 2016 Line: Central Venous Catheter Side: Right Location: Internal, Jugular A/P Assessment and Plan Neuro/Psych: Acute toxic metabolic encephalopathy EtOH Propofol/fentanyl drips for sedation/analgesia while intubated Goal of RASS -2 Daily sedation vacation Flexeril 10 mg 3 times a day muscle relaxants will be held with altered mental status/ will nothing by mouth. Continue Keppra 250 by mouth twice a day for seizures. On Dilantin 100 mg 3 times a day at home. Ammonia level less than 10 MRI brain 06/17 revealed nonspecific white matter changes. C-spine and T-spine shows no signs of discitis EEG 06/17 reveals moderate to severe encephalopathy possibly pharmacological use. No epileptiform activity CV: Hypotension - likely secondary to anemia History of hypertension Lactate within normal limits. Agree continue to transfuse keep hemoglobin greater than equal to 8. Currently 8.7 Currently normal saline at 84 cc an hour. At home on atenolol 12.5 mg daily Norvasc 7.5 mg daily. These have been held. Resume when clinically indicated Echocardiogram 06/17 revealed EF 65%. No regional wall motion abnormality. Mild TR. No signs of endocarditis. Resp: Acute respiratory insufficiency Bilateral pleural effusions PRVC 14/500/05/19/60 Ventilator bundle Bronchodilator therapy every 4 hours and as needed Spontaneous breathing trials daily Follow-up chest x-ray. Continue with diuresis with bilateral pleural effusions GI: Anemia Portal gastropathy Internal hemorrhoids Duodenitis Hiatal hernia Abdominal ascites Elevated transaminases Elevated total bilirubin Moderate protein calorie malnutrition/hypoalbuminemia On Neutra hep goal 65 cc an hour IV Protonix twice a day for GI prophylaxis Lactulose 30 cc twice a day for bowel regimen level Ammonia level X Start on low dose Reglan 5 every 8 for bowel motility EGD/colonoscopy revealed duodenitis, portal gastropathy, internal hemorrhoids and hiatal hernia. No other signs of active bleeding Check abdominal ultrasound at bedside reveals minimal ascites. : Stone if necessary for accurate I's and O's in a critically ill patient Endo: Sliding-scale insulin if necessary to maintain euglycemia. Renal: Acute kidney injury Creatinine currently 1.7. Monitor urine output closely. Accurate I's and O's. Urine eosinophils negative. Prerenal indices by urine electrolytes Heme: Macrocytic Anemia Hypercoagulable state likely secondary to liver disease Transfused 3 units PRBCs during this hospitalization. Recheck CBC/coags Currently 8.7. ID: Group B strep bacteremia Echocardiogram 06/02 and 06/17 revealed no signs of endocarditis. MRI L-spine revealed T5 through S1 disc bulge. Not discussed coronary neurosurgery. Seen by ID. Recommend vancomycin through 07/09. Currently azithromycin/aztreonam with possible SBP Pertinent cultures 05/31 - blood cultures 2 - group B strep 06/01 - blood cultures 2 - 1 out of 2 group B strep 2/2 - blood cultures 2 - pending 2/4 - sputum -pending MSK: Left lower extremity foot drop MRI L-spine revealed disc protrusion/left. MRI L-spine revealed mild L4-L5 disease and L5/S1 moderate disc disease. Worse on the right side. Evaluated by Dr. Mason. No neurosurgical intervention recommended. OT evaluate and treat FEN: Hypopotassemia Replace electrolytes as clinically indicated Access Right IJ CVL day #2 Prophylaxis - GI - Protonix - DVT -SCDs Critical Care: The total critical care time was 35 minutes. Time to perform other separately billable procedures was not included in the critical care time. Shravan Bonds MD Jun 18, 2016 08:03
[2016-06-18] MEDS ORDERED: SODIUM CHLORID 0.9% 500 ML INJ 500 ML IV ONE (08:15)
[2016-06-18] MEDS: ALBUMIN HUMAN 25% 25 GM/100 ML BAGP IV SCH ×3 (08:54→17:40)
[2016-06-18] MEDS: SODIUM CHLORIDE 0.9% FLUSH 5 ML FLUSH IV FLUSH SCH ×2 (09:00→20:17)
[2016-06-18] MEDS: SODIUM CHLORIDE 0.9% FLUSH 5 ML FLUSH IVF SCH (09:00)
[2016-06-18] MEDS: ARTIFICIAL TEARS OPTH SOLN 15 ML BTL EACH EYE SCH ×3 (09:00→17:39)
[2016-06-18] MEDS: SODIUM CHLORIDE 0.9% FLUSH 5 ML FLUSH FLUSH SCH ×2 (09:00→20:16)
[2016-06-18] MEDS: PANTOPRAZOLE SODIUM 40 MG VIAL IV PUSH SCH ×2 (09:01→20:15)
[2016-06-18] MEDS: levETIRAcetam 250 MG TAB PO SCH ×2 (09:01→20:15)
[2016-06-18] MEDS: FUROSEMIDE 20 MG/2 ML VIAL IV PUSH SCH (09:01)
[2016-06-18] MEDS: LACTULOSE SYRUP 20 GM/30 ML CUP PO SCH ×2 (09:01→20:15)
[2016-06-18 09:19] LABS: AUTOMATED NEUTROPHIL # 4.6 TH/MM3 (1.8-7.7); BASOPHIL # 0.1 TH/MM3 (0-0.2); EOSINOPHIL # 0.3 TH/MM3 (0-0.4); EOSINOPHIL % 5.1 % (0.0-4.0); HEMATOCRIT 24.5 % (39.0-51.0); LYMPHOCYTE # 1.1 TH/MM3 (1.0-4.8); MEAN CELL VOLUME 102.1 FL (80.0-100.0); MEAN CORPUSCULAR HEMOGLOBIN 34.3 PG (27.0-34.0); MEAN CORPUSCULAR HGB CONC 33.6 % (32.0-36.0); MONO % 8.2 % (0.0-8.0); NEUT % 67.7 % (16.0-70.0); PLATELET COUNT 113 TH/MM3 (150-450); RED CELL DISTRIBUTION WIDTH 27.2 % (11.6-17.2); WHITE BLOOD COUNT 6.7 TH/MM3 (4.0-11.0)
[2016-06-18 09:26] LABS: HEMO FLAGS AUTO DIFF
[2016-06-18 09:46] LABS: PLATELET ESTIMATE SMEAR LOW (NORMAL); PLATELET MORPHOLOGY NORMAL (NORMAL); ROULEAUX PRESENT (NORMAL); SCAN/DIFF AUTO DIFF CONFIRMED
[2016-06-18] MEDS: PHENYLEPHRINE INJ 40 MG in DEXTROSE 5% IN WATE 500 ML INJ 496 ML IV SCH ×2 (11:48)
--- NOTE | 2016-06-18 13:45 | RADHPO ---
EXAM DATE/TIME: 06/18/2016 13:34 [facility] COMPARISON: No previous studies available for comparison. INDICATIONS : Ileus MEDICAL HISTORY : Chronic obstructive pulmonary disease. Cirrhosis. SURGICAL HISTORY : None. ENCOUNTER: Subsequent ACUITY: 3 weeks PAIN SCORE: Non-responsive. LOCATION: Bilateral abdomen FINDINGS: Supine view of the abdomen was performed. Gaseous distention of bowel loops. The abdominal bowel gas pattern is normal. No abnormal masses, calcifications, or organomegaly is seen. The osseous structu res are unremarkable. CONCLUSION: Gaseous distention of bowel loops. Angelo Freed MD on June 18, 2016 at 13:40 Board Certified Radiologist. This report was verified electronically.
[2016-06-18] MEDS: METOCLOPRAMIDE HCL 10 MG/2 ML VIAL IV PUSH SCH ×2 (14:24→22:12)
[2016-06-18] MEDS: VANCOMYCIN 1,000 MG/NS 250 ML IV SCH ×2 (14:24)
[2016-06-18] MEDS: PROPOFOL 1000 MG/100 ML INJ 100 ML IV SCH (14:24)
[2016-06-18] MEDS: SODIUM CHLOR 0.9% 1000 ML INJ 1,000 ML IV SCH ×2 (16:37→20:15)
[2016-06-18] MEDS ORDERED: MINERAL OIL LIQUID 30 ML CUP PO ONE ×2 (18:00→21:00)
[2016-06-18] MEDS ORDERED: METHYLNALTREXONE BROMIDE 12 MG/0.6 ML VIAL SQ ONE (18:00)
[2016-06-18] MEDS: AZITHROMYCIN INJ 500 MG in SODIUM CHLOR 0.9% 250 ML INJ 250 ML IV SCH (22:12)
[2016-06-19] VITALS (105 sets, daily range): BP systolic 85–126; BP diastolic 44–65; PULSE 96–108; RESP 13–21; TEMP 97.8–99.7; O2SAT 88–100
[2016-06-19] MEDS: ALBUMIN HUMAN 25% 25 GM/100 ML BAGP IV SCH (00:06)
[2016-06-19] MEDS: PHENYLEPHRINE INJ 40 MG in DEXTROSE 5% IN WATE 500 ML INJ 496 ML IV SCH ×6 (02:29→18:33)
[2016-06-19] MEDS: RESP: ALBUTEROL 2.5 MG/IPRATROPIUM 0.5 MG NEB (SCH) INH ×6 (03:35→22:59)
[2016-06-19] MEDS: CHLORHEXIDINE GLUCONATE 2 % 1 PACK (2 CLOTHS) TOP SCH (04:00)
[2016-06-19] MEDS: SODIUM CHLOR 0.9% 1000 ML INJ 1,000 ML IV SCH ×2 (04:19→18:18)
[2016-06-19] MEDS: METOCLOPRAMIDE HCL 10 MG/2 ML VIAL IV PUSH SCH ×3 (05:03→20:58)
[2016-06-19] MEDS: AZTREONAM INJ 2,000 MG in SODIUM CHLORIDE 0.9% INJ 100 ML IV SCH ×3 (05:03→20:57)
[2016-06-19 05:32] LABS: AUTOMATED NEUTROPHIL # 4.9 TH/MM3 (1.8-7.7); BASOPHIL # 0.1 TH/MM3 (0-0.2); BASOPHIL % 1.3 % (0.0-2.0); EOSINOPHIL # 0.2 TH/MM3 (0-0.4); EOSINOPHIL % 2.8 % (0.0-4.0); LYMPHOCYTE # 1.1 TH/MM3 (1.0-4.8); MEAN CELL VOLUME 101.6 FL (80.0-100.0); MEAN CORPUSCULAR HEMOGLOBIN 34.9 PG (27.0-34.0); MEAN CORPUSCULAR HGB CONC 34.4 % (32.0-36.0); MONO % 11.1 % (0.0-8.0); NEUT % 68.8 % (16.0-70.0); PLATELET COUNT 85 TH/MM3 (150-450); RED CELL DISTRIBUTION WIDTH 28.1 % (11.6-17.2); WHITE BLOOD COUNT 7.1 TH/MM3 (4.0-11.0)
[2016-06-19 05:45] LABS: CHLORIDE 110 MEQ/L (98-107); POTASSIUM 3.7 MEQ/L (3.5-5.1); SODIUM (NA) 144 MEQ/L (136-145)
[2016-06-19 05:50] LABS: APTT (PATIENT) 65.3 SEC (24.3-30.1); INTERNATIONAL NORMALIZED RATIO 1.9 RATIO; PROTHROMBIN TIME - PATIENT 21.4 SEC (9.8-11.6)
[2016-06-19 06:09] LABS: HEMO FLAGS AUTO DIFF
[2016-06-19 06:12] LABS: HEMATOCRIT 19.3 % (39.0-51.0)
[2016-06-19 06:18] LABS: ALKALINE PHOSPHATASE 63 U/L (45-117); ALT (GPT) 25 U/L (12-78); ANION GAP 8 MEQ/L (5-15); AST (GOT) 63 U/L (15-37); BICARBONATE 26.5 MEQ/L (21.0-32.0); BLOOD UREA NITROGEN 24 MG/DL (7-18); GLOMERULAR FILTRATION RATE 40 ML/MIN (>89); MAGNESIUM 1.9 MG/DL (1.5-2.5); TOTAL BILIRUBIN ADULT 10.2 MG/DL (0.2-1.0)
[2016-06-19 06:53] LABS: PLATELET ESTIMATE SMEAR LOW (NORMAL); PLATELET MORPHOLOGY NORMAL (NORMAL); ROULEAUX PRESENT (NORMAL); SCAN/DIFF AUTO DIFF CONFIRMED; SPHEROCYTES OCC (NORMAL)
--- NOTE | 2016-06-19 07:08 | RADHPO ---
EXAM DATE/TIME: 06/19/2016 06:35 [facility] COMPARISON: CHEST SINGLE AP, June 17, 2016, 10:06. INDICATIONS : Shortness of breath. MEDICAL HISTORY : Hypertension. Epilepsy SURGICAL HISTORY : None. ENCOUNTER: Subsequent ACUITY: 3 days PAIN SCORE: Non-responsive. LOCATION: Bilateral chest FINDINGS: Portable AP view of the chest demonstrates a normal-sized cardiac silhouette. ETT, right IJ line, and NG tube remain present. There are bilateral pleural-parenchymal opacities, left larger than right. N o pneumothorax is visualized. CONCLUSION: Stable chest x-ray with findings characteristic of bilateral pleural effusions with associated volume loss and/or consolidation. Joseph Marshall MD on June 19, 2016 at 7:06 Board Certified Radiologist. This report was verified electronically.
[2016-06-19] MEDS: PROPOFOL 1000 MG/100 ML INJ 100 ML IV SCH (07:27)
[2016-06-19] MEDS: CHLORHEXIDINE 0.12% (ORAL KIT) 15 ML CUP MT SCH ×2 (07:27→21:01)
[2016-06-19] MEDS ORDERED: FUROSEMIDE 20 MG/2 ML VIAL IV PUSH PRN (08:00)
[2016-06-19] MEDS ORDERED: DIATRIZOATE MEGLUM/DIATRIZOATE SOD 9 ML CUP PO ONE (08:00)
[2016-06-19] MEDS: levETIRAcetam 250 MG TAB PO SCH ×2 (08:50→20:57)
[2016-06-19] MEDS: FUROSEMIDE 20 MG/2 ML VIAL IV PUSH SCH (08:50)
[2016-06-19] MEDS: LACTULOSE SYRUP 20 GM/30 ML CUP PO SCH (08:50)
[2016-06-19] MEDS: ARTIFICIAL TEARS OPTH SOLN 15 ML BTL EACH EYE SCH ×3 (08:50→17:13)
[2016-06-19] MEDS: SODIUM CHLORIDE 0.9% FLUSH 5 ML FLUSH FLUSH SCH ×2 (08:51→21:02)
[2016-06-19] MEDS: SODIUM CHLORIDE 0.9% FLUSH 5 ML FLUSH IVF SCH (08:51)
[2016-06-19] MEDS: PANTOPRAZOLE SODIUM 40 MG VIAL IV PUSH SCH ×2 (08:51→21:02)
[2016-06-19] MEDS: SODIUM CHLORIDE 0.9% FLUSH 5 ML FLUSH IV FLUSH SCH ×2 (08:51→21:02)
[2016-06-19] MEDS ORDERED: PHYTONADIONE INJ 10 MG in SODIUM CHLORIDE 0.9% INJ 50 ML IV ONE (09:00)
--- NOTE | 2016-06-19 12:41 | RADHPO ---
EXAM DATE/TIME: 06/19/2016 12:14 [facility] COMPARISON: CT ABDOMEN & PELVIS W CONTRAST, May 31, 2016, 17:59. INDICATIONS : Abdominal distention. ORAL CONTRAST: Prescribed oral contrast ingested. RADIATION DOSE: 11.55 CTDIvol (mGy) MEDICAL HISTORY : Cirrhosis. Chronic obstructive pulmonary disease. Hypertension. SURGICAL HISTORY : None. ENCOUNTER: Initial ACUITY: 1 day PAIN SCALE: Non-responsive LOCATION: Bilateral abdomen TECHNIQUE: Volumetric scanning of the abdomen and pelvis was performed. Using automated exposure control and ad justment of the mA and/or kV according to patient size, radiation dose was kept as low as reasonably achievable to obtain optimal diagnostic quality images. FINDINGS: LOWER LUNGS: Bilateral pleural effusions and bibasilar densities LIVER: Cirrhotic liver without lesion. There is no dilation of the biliary tree. There are calcified gallst ones. Small moderate amount of ascites. SPLEEN: Borderline enlarged without lesion. PANCREAS: Within normal limits. KIDNEYS: Normal in size and shape. There is no mass, stone, or hydronephrosis on the right. 4 mm nonobstructi ng left mid calculus.. ADRENAL GLANDS: Within normal limits. VASCULAR: There is no aortic aneurysm. BOWEL/MESENTERY: The stomach, small bowel, and colon demonstrate no acute abnormality. There is no free intraperitone al air or fluid. ABDOMINAL WALL: Within normal limits. RETROPERITONEUM: There is no lymphadenopathy. BLADDER: No wall thickening or mass. Stone catheter. REPRODUCTIVE: Within normal limits. INGUINAL: There is no lymphadenopathy or hernia. MUSCULOSKELETAL: Disease anasarca. CONCLUSION: 1. Cirrhotic liver with borderline splenomegaly and abdominal ascites. 2. Bibasilar consolidation and small bilateral pleural effusions. 3. Cholelithiasis and nonobstructing punctate left renal calculus. 4. Anasarca. Angelo Freed MD on June 19, 2016 at 12:36 Board Certified Radiologist. This report was verified electronically.
[2016-06-19] MEDS ORDERED: PHARMACY ORDERED LAB XX ONE (12:45)
[2016-06-19] MEDS: VANCOMYCIN 1,000 MG/NS 250 ML IV SCH ×2 (14:59)
[2016-06-19] MEDS: SENNOSIDES SYRUP 8.8 MG/5 ML CUP PO SCH (20:57)
[2016-06-19] MEDS: POLYETHYLENE GLYCOL 17 GM PKG PO SCH (20:57)
[2016-06-19] MEDS ORDERED: DOCUSATE SODIUM 100 MG CAP PO SCH (21:00)
[2016-06-19 22:34] LABS: HEMATOCRIT 23.8 % (39.0-51.0); MEAN CELL VOLUME 98.4 FL (80.0-100.0); MEAN CORPUSCULAR HEMOGLOBIN 34.7 PG (27.0-34.0); MEAN CORPUSCULAR HGB CONC 35.3 % (32.0-36.0); PLATELET COUNT 77 TH/MM3 (150-450); RED BLOOD COUNT 2.42 MIL/MM3 (4.50-5.90); RED CELL DISTRIBUTION WIDTH 25.1 % (11.6-17.2); WHITE BLOOD COUNT 10.3 TH/MM3 (4.0-11.0)
[2016-06-19 22:43] LABS: REVIEW FLAG FINAL
[2016-06-19] MEDS ORDERED: GELATIN 12 MM/7 MM FOAM TOPICAL ONE (23:00)
--- NOTE | 2016-06-19 23:09 | HHI.CCPN ---
Subjective Remarks/Hospital Course This is a 61-year-old male. Date of admission 05/31/2016. Date of consultation 06/17/2016. Past medical history includes low back pain, hypertension, COPD and cirrhosis. She was originally admitted with severe sepsis secondary to group B strep bacteremia. Workup has included an echocardiogram on 06/02 which revealed no endocarditis. Patient be on vancomycin until 07/09. MRI of the L-spine revealed disc protrusion L5/S1. he was evaluated by neurosurgery/Dr. Mason who did not believe this was scattered and recommended neurology consult if increased pain and/or neurological deficits. Patient also is noted to have anemia. EGD/Colonoscopy (06/06/16)--> duodenitis, portal gastropathy, hiatal hernia, retroflex views revealed a hiatal hernia, Solid stool in the rectum and sigmoid, retroflex views revealed small internal hemorrhoids, internal hemorrhoids. Refuses to have repeat colonoscopy. We will consult the last crease lethargy, anemia. Hemoglobin is currently 7.2 with repeat pending. 06/18: Critically ill and sedated on the ventilator. Did not tolerate tube feeds. One bowel movement. Arousable and does withdrawal to pain. Positive gag. Subjective 06/19: Afebrile. Arousable and will follow commands. Currently 90 g per minute of Solomon-Synephrine. Transfuse 2 units PRBCs today. Hemoglobin remained stable. Oozing from central line is abated. Objective Vital Signs Date Time Temp Pulse Resp B/P Pulse Ox O2 Delivery O2 Flow Rate FiO2 06/19/16 18:17 98 14 102/57 96 06/19/16 17:02 40 06/19/16 16:47 98.3 06/17/16 07:37 Nasal Cannula 2.00 Intake and Output 06/18/16 06/18/16 06/19/16 08:00 16:00 00:00 Intake Total 877 ml 1609 ml 1386 ml Output Total 300 ml 900 ml 350 ml Balance 577 ml 709 ml 1036 ml Result Diagram: 06/19/16 0513 06/19/16 0513 Other Results Microbiology Date/Time Procedure Status Source Growth 06/18/16 09:05 Aerobic Blood Culture - Preliminary Resulted Blood Peripheral NO GROWTH IN 1 DAY 06/18/16 09:05 Anaerobic Blood Culture - Preliminary Resulted Blood Peripheral NO GROWTH IN 1 DAY 06/18/16 02:00 Gram Stain - Final Resulted Sputum Endotracheal 06/18/16 02:00 Sputum Culture - Preliminary Resulted Sputum Endotracheal MODERATE GROWTH NORMAL RESPIRATORY FL... Imaging Last Impressions Chest X-Ray 06/19/16 0600 Signed Impressions: Service Date/Time: Sunday, June 19, 2016 06:35 - CONCLUSION: Stable chest x-ray with findings characteristic of bilateral pleural effusions with associated volume loss and/or consolidation. Joseph Marshall MD Abdomen/Pelvis CT 06/19/16 0000 Signed Impressions: Service Date/Time: Sunday, June 19, 2016 12:14 - CONCLUSION: 1. Cirrhotic liver with borderline splenomegaly and abdominal ascites. 2. Bibasilar consolidation and small bilateral pleural effusions. 3. Cholelithiasis and nonobstructing punctate left renal calculus. 4. Anasarca. Angelo Freed MD Abdomen X-Ray 06/18/16 0000 Signed Impressions: Service Date/Time: Saturday, June 18, 2016 13:34 - CONCLUSION: Gaseous distention of bowel loops. Angelo Freed MD Thoracic Spine MRI 06/17/16 0000 Signed Impressions: Service Date/Time: Friday, June 17, 2016 14:43 - CONCLUSION: Thoracic spine MRI within normal limits. Olivier Lo MD Cervical Spine MRI 06/17/16 0000 Signed Impressions: Service Date/Time: Friday, June 17, 2016 14:43 - CONCLUSION: Mild degenerative changes. there is no evidence for cord impingement. Tanner Willis MD FACR Brain MRI 06/17/16 0000 Signed Impressions: Service Date/Time: Friday, June 17, 2016 14:03 - CONCLUSION: 1. Nonspecific white matter changes. 2. Tortuous hepatic basilar artery. 3. Negative. Tanner Willis MD FACR Abdomen Ultrasound 06/15/16 0000 Signed Impressions: Service Date/Time: Wednesday, June 15, 2016 10:37 - CONCLUSION: 1. Liver cirrhosis with ascites. Gallbladder wall thickening with sludge. No biliary ductal dilatation. No hydronephrosis. Favio Amador MD Hip and Pelvis X-Ray 06/14/16 0000 Signed Impressions: Service Date/Time: Tuesday, June 14, 2016 10:18 - CONCLUSION: Unremarkable exam for patient's age. No acute fracture or joint dislocation. Jean-Paul Cheung MD Lower Extremity Ultrasound 06/12/16 0000 Signed Impressions: Service Date/Time: Sunday, June 12, 2016 12:52 - CONCLUSION: No evidence of DVT. Jean-Paul Cheung MD Thoracic Spine CT 06/01/16 0000 Signed Impressions: Service Date/Time: Wednesday, June 01, 2016 05:13 - CONCLUSION: No evidence of acute bony process in the thoracic spine. Joseph Cook MD Lumbar Spine MRI 06/01/16 0000 Signed Impressions: Service Date/Time: Wednesday, June 01, 2016 15:22 - CONCLUSION: No evidence of abscess or abnormal enhancement. There is degenerative change within the disc at the level of L5/S1 suggestive of an acute tear of the annulus and small posterior central disc protrusion. Lexi Waller MD Lumbar Spine CT 06/01/16 0000 Signed Impressions: Service Date/Time: Wednesday, June 01, 2016 05:13 - CONCLUSION: Disc protrusion at the lumbosacral junction with mild asymmetric left-sided foraminal narrowing. No acute bony findings. Joseph Cook MD Cervical Spine CT 06/01/16 0000 Signed Impressions: Service Date/Time: Wednesday, June 01, 2016 05:13 - CONCLUSION: Mild degenerative change. No acute bony findings. Joseph Cook MD Objective Remarks GENERAL: 51 yo male, poorly nourished male patient, in no apparent distress. Orotracheally intubated SKIN: Patient has spider nevi, jaundiced skin. HEAD: Atraumatic. Normocephalic. EYES: Pupils equal round and reactive. Positive for scleral icterus. No injection or drainage. ENT: Orotracheally intubated. NECK: Trachea midline. Supple, nontender, no meningeal signs. Right IJ sutures have been pulled. Some oozing from site appears old blood. CARDIOVASCULAR: S1, S2. No S4. Without murmur RESPIRATORY: Decreased breath sounds in the bases bilateral. GASTROINTESTINAL: Abdomen soft, non-tender, nondistended. Hypoactive bowel sounds MUSCULOSKELETAL: Extremities with 1+ peripheral edema. NEUROLOGICAL: Currently sedated on the ventilator. Withdraws to pain. Opens eyes and will not have commands. Squeezes his hands and moves toes bilaterally. Procedures 06/06/16 EGD and Colonoscopy Urinary Catheter: Yes Assessment to: Continue Stone insert reason: Prolonged Immobilization Vascular Central Line Catheter: Yes Assessment to: Continue Date of Insertion: Jun 17, 2016 Line: Central Venous Catheter Side: Right Location: Internal, Jugular A/P Assessment and Plan Neuro/Psych: Acute toxic metabolic encephalopathy EtOH Propofol/fentanyl drips are currently on hold. Goal of RASS -2 Daily sedation vacation Flexeril 10 mg 3 times a day muscle relaxants will be held with altered mental status/ will nothing by mouth. Continue Keppra 250 by mouth twice a day for seizures. On Dilantin 100 mg 3 times a day at home. Ammonia level less than 10 MRI brain 06/17 revealed nonspecific white matter changes. C-spine and T-spine shows no signs of discitis EEG 3 reveals moderate to severe encephalopathy possibly pharmacological use. No epileptiform activity CV: Hypotension - likely secondary to anemia History of hypertension Currently on Solomon-Synephrine 90 g per minute. Attempt to wean to keep an MAP greater than 65 Lactate within normal limits. Recheck in a.m. Agree continue to transfuse keep hemoglobin greater than equal to 8. Currently 8.4 Currently normal saline at 84 cc an hour. At home on atenolol 12.5 mg daily Norvasc 7.5 mg daily. These have been held. Resume when clinically indicated Echocardiogram 06/17 revealed EF 65%. No regional wall motion abnormality. Mild TR. No signs of endocarditis. Resp: Acute respiratory insufficiency Bilateral pleural effusions PRVC 14/500/1/5/40 Ventilator bundle Bronchodilator therapy every 4 hours and as needed Spontaneous breathing trials daily. Follow-up chest x-ray. Continue with diuresis with bilateral pleural effusions GI: Anemia/macrocytic Portal gastropathy Internal hemorrhoids Duodenitis Hiatal hernia Abdominal ascites Elevated transaminases Elevated total bilirubin Moderate protein calorie malnutrition/hypoalbuminemia Cholelithiasis Likely liver cirrhosis On Neutra hep goal 65 cc an hour. Currently at 10 cc an hour IV Protonix twice a day for GI prophylaxis Lactulose 30 cc twice a day for bowel regimen. Ammonia level X Start on low dose Reglan 5 every 8 for bowel motility EGD/colonoscopy revealed duodenitis, portal gastropathy, internal hemorrhoids and hiatal hernia. No other signs of active bleeding CT abdomen/pelvis 06/19 revealed cirrhotic liver, splenomegaly/abdominal ascites, is small pleural effusions bilaterally and cholelithiasis. Gaseous distention without bowel obstruction. : Stone if necessary for accurate I's and O's in a critically ill patient Endo: Sliding-scale insulin if necessary to maintain euglycemia. And stress dose Solu-Cortef in light of hypotension. Renal: Acute kidney injury Creatinine currently 1.8. Monitor urine output closely. Accurate I's and O's. Urine eosinophils negative. Prerenal indices by urine electrolytes Heme: Macrocytic Anemia Thrombocytopenia Hypercoagulable state likely secondary to liver disease Transfused 2 units PRBCs today secondary to low hemoglobin. Recheck CBC/coags Currently 8.4. Noted some basophilic stippling. Positive sick and macrocytic anemia. Possibly to hemolytic process? Haptoglobin low is concerning hemolytic type process Pending LDH/reticulocyte count and peripheral smear. We'll consult hematology for evaluation and treatment of anemia. ID: Group B strep bacteremia Echocardiogram 06/02 and 06/17 revealed no signs of endocarditis. MRI L-spine revealed T5 through S1 disc bulge. Not discussed coronary neurosurgery. Seen by ID. Recommend vancomycin through 07/09. Currently azithromycin/aztreonam with possible SBP Pertinent cultures 05/31 - blood cultures 2 - group B strep 06/01 - blood cultures 2 - 1 out of 2 group B strep / - blood cultures 2 - pending 06/18 - sputum -no growth MSK: Left lower extremity foot drop MRI L-spine revealed disc protrusion/left. MRI L-spine revealed mild L4-L5 disease and L5/S1 moderate disc disease. Worse on the right side. Evaluated by Dr. Mason. No neurosurgical intervention recommended. OT evaluate and treat FEN: Hypopotassemia Replace electrolytes as clinically indicated Access Right IJ CVL day #3 Prophylaxis - GI - Protonix - DVT -SCDs Critical Care: The total critical care time was 35 minutes. Time to perform other separately billable procedures was not included in the critical care time. Shravan Bonds MD Jun 19, 2016 23:09
[2016-06-20] VITALS (92 sets, daily range): BP systolic 84–207; BP diastolic 45–66; PULSE 80–104; RESP 13–24; TEMP 98.2–100.1; O2SAT 92–99
[2016-06-20] MEDS: AZITHROMYCIN INJ 500 MG in SODIUM CHLOR 0.9% 250 ML INJ 250 ML IV SCH ×2 (00:12→20:25)
[2016-06-20] MEDS: LACTULOSE SYRUP 20 GM/30 ML CUP PO SCH ×4 (00:12→18:13)
[2016-06-20] MEDS: HYDROCORTISONE SOD SUCCINATE 100 MG VIAL IV PUSH SCH ×4 (00:14→20:23)
[2016-06-20 00:15] LABS: APTT (PATIENT) 62.5 SEC (24.3-30.1)
[2016-06-20] MEDS: RESP: ALBUTEROL 2.5 MG/IPRATROPIUM 0.5 MG NEB (SCH) INH ×5 (03:20→19:38)
[2016-06-20] MEDS: CHLORHEXIDINE GLUCONATE 2 % 1 PACK (2 CLOTHS) TOP SCH (04:00)
[2016-06-20] MEDS: AZTREONAM INJ 2,000 MG in SODIUM CHLORIDE 0.9% INJ 100 ML IV SCH ×3 (04:32→20:23)
[2016-06-20] MEDS: PHENYLEPHRINE INJ 40 MG in DEXTROSE 5% IN WATE 500 ML INJ 496 ML IV SCH ×4 (04:32→11:53)
[2016-06-20] MEDS: METOCLOPRAMIDE HCL 10 MG/2 ML VIAL IV PUSH SCH ×3 (06:00→20:24)
--- NOTE | 2016-06-20 06:38 | RADHPO ---
EXAM DATE/TIME: 06/20/2016 06:25 [facility] COMPARISON: CHEST SINGLE AP, June 19, 2016, 6:35. INDICATIONS : Respiratory failure. MEDICAL HISTORY : None. SURGICAL HISTORY : None. ENCOUNTER: Subsequent ACUITY: 3 days PAIN SCORE: Non-responsive. LOCATION: Bilateral chest FINDINGS: There is increasing consolidation in the lower lobes and bilateral effusions. Right jugular line, end otracheal tube and NG tube are present. CONCLUSION: Worsening bilateral airspace disease and effusions. Ezra gAgarwal MD on June 20, 2016 at 6:37 Board Certified Radiologist. This report was verified electronically.
[2016-06-20 07:00] LABS: AUTOMATED NEUTROPHIL # 7.3 TH/MM3 (1.8-7.7); BASOPHIL # 0.1 TH/MM3 (0-0.2); EOSINOPHIL % 0.4 % (0.0-4.0); HEMATOCRIT 24.5 % (39.0-51.0); LYMPH % 6.8 % (9.0-44.0); LYMPHOCYTE # 0.6 TH/MM3 (1.0-4.8); MEAN CELL VOLUME 100.2 FL (80.0-100.0); MEAN CORPUSCULAR HEMOGLOBIN 34.3 PG (27.0-34.0); MEAN CORPUSCULAR HGB CONC 34.2 % (32.0-36.0); MONO % 4.2 % (0.0-8.0); NEUT % 87.6 % (16.0-70.0); PLATELET COUNT 82 TH/MM3 (150-450); RED BLOOD COUNT 2.45 MIL/MM3 (4.50-5.90); RED CELL DISTRIBUTION WIDTH 26.4 % (11.6-17.2); WHITE BLOOD COUNT 8.4 TH/MM3 (4.0-11.0)
[2016-06-20 07:03] LABS: HEMO FLAGS AUTO DIFF
[2016-06-20 07:11] LABS: CHLORIDE 107 MEQ/L (98-107); POTASSIUM 3.6 MEQ/L (3.5-5.1); SODIUM (NA) 141 MEQ/L (136-145)
[2016-06-20 07:14] LABS: INTERNATIONAL NORMALIZED RATIO 1.7 RATIO; PROTHROMBIN TIME - PATIENT 19.7 SEC (9.8-11.6)
[2016-06-20 07:16] LABS: ANION GAP 9 MEQ/L (5-15); BICARBONATE 24.9 MEQ/L (21.0-32.0); BLOOD UREA NITROGEN 25 MG/DL (7-18); MAGNESIUM 1.8 MG/DL (1.5-2.5)
[2016-06-20 07:18] LABS: ALT (GPT) 23 U/L (12-78); AST (GOT) 64 U/L (15-37); GLOMERULAR FILTRATION RATE 49 ML/MIN (>89)
[2016-06-20 07:25] LABS: AMYLASE 381 U/L (25-115)
[2016-06-20 07:26] LABS: ALKALINE PHOSPHATASE 65 U/L (45-117); INDIRECT BILIRUBIN 8.5 MG/DL (0.0-0.8); TOTAL BILIRUBIN ADULT 14.5 MG/DL (0.2-1.0)
--- NOTE | 2016-06-20 07:28 | HHI.CCPN ---
Subjective Remarks/Hospital Course This is a 61-year-old male. Date of admission 05/31/2016. Date of consultation 06/17/2016. Past medical history includes low back pain, hypertension, COPD and cirrhosis. She was originally admitted with severe sepsis secondary to group B strep bacteremia. Workup has included an echocardiogram on 06/02 which revealed no endocarditis. Patient be on vancomycin until 07/09. MRI of the L-spine revealed disc protrusion L5/S1. he was evaluated by neurosurgery/Dr. Mason who did not believe this was scattered and recommended neurology consult if increased pain and/or neurological deficits. Patient also is noted to have anemia. EGD/Colonoscopy (06/06/16)--> duodenitis, portal gastropathy, hiatal hernia, retroflex views revealed a hiatal hernia, Solid stool in the rectum and sigmoid, retroflex views revealed small internal hemorrhoids, internal hemorrhoids. Refuses to have repeat colonoscopy. We will consult the last crease lethargy, anemia. Hemoglobin is currently 7.2 with repeat pending. 06/18: Critically ill and sedated on the ventilator. Did not tolerate tube feeds. One bowel movement. Arousable and does withdrawal to pain. Positive gag. Subjective 06/19: Afebrile. Arousable and will follow commands. Currently 90 g per minute of Solomon-Synephrine. Transfuse 2 units PRBCs today. Hemoglobin remained stable. Oozing from central line is abated. 06/20: Remains sedated, orally intubated on mechanical ventilation. On Solomon- Synephrine 110 mics per minute. Received 2 units PRBCs yesterday with hemoglobin coming up to 8.4. No oozing from central line site currently. Objective Vital Signs Date Time Temp Pulse Resp B/P Pulse Ox O2 Delivery O2 Flow Rate FiO2 06/20/16 06:43 100 06/20/16 06:03 15 116/62 93 06/20/16 04:36 40 06/20/16 04:02 99.0 06/17/16 07:37 Nasal Cannula 2.00 Intake and Output 06/19/16 06/19/16 06/20/16 08:00 16:00 00:00 Intake Total 1360 ml 1358 ml 1481 ml Output Total 100 ml 800 ml 1250 ml Balance 1260 ml 558 ml 231 ml Result Diagram: 06/20/1620 06/20/16 0620 Imaging Last Impressions Chest X-Ray 06/19/16 0600 Signed Impressions: Service Date/Time: Sunday, June 19, 2016 06:35 - CONCLUSION: Stable chest x-ray with findings characteristic of bilateral pleural effusions with associated volume loss and/or consolidation. Joseph Marshall MD Abdomen/Pelvis CT 06/19/16 0000 Signed Impressions: Service Date/Time: Sunday, June 19, 2016 12:14 - CONCLUSION: 1. Cirrhotic liver with borderline splenomegaly and abdominal ascites. 2. Bibasilar consolidation and small bilateral pleural effusions. 3. Cholelithiasis and nonobstructing punctate left renal calculus. 4. Anasarca. Angelo Freed MD Abdomen X-Ray 06/18/16 0000 Signed Impressions: Service Date/Time: Saturday, June 18, 2016 13:34 - CONCLUSION: Gaseous distention of bowel loops. Angelo Freed MD Thoracic Spine MRI 06/17/16 0000 Signed Impressions: Service Date/Time: Friday, June 17, 2016 14:43 - CONCLUSION: Thoracic spine MRI within normal limits. Oliiver Lo MD Cervical Spine MRI 06/17/16 0000 Signed Impressions: Service Date/Time: Friday, June 17, 2016 14:43 - CONCLUSION: Mild degenerative changes. there is no evidence for cord impingement. Tanner Willis MD FACR Brain MRI 06/17/16 0000 Signed Impressions: Service Date/Time: Friday, June 17, 2016 14:03 - CONCLUSION: 1. Nonspecific white matter changes. 2. Tortuous hepatic basilar artery. 3. Negative. Tanner Willis MD FACR Abdomen Ultrasound 06/15/16 0000 Signed Impressions: Service Date/Time: Wednesday, June 15, 2016 10:37 - CONCLUSION: 1. Liver cirrhosis with ascites. Gallbladder wall thickening with sludge. No biliary ductal dilatation. No hydronephrosis. Favio Amador MD Hip and Pelvis X-Ray 06/14/16 0000 Signed Impressions: Service Date/Time: Tuesday, June 14, 2016 10:18 - CONCLUSION: Unremarkable exam for patient's age. No acute fracture or joint dislocation. Jean-Paul Cheung MD Lower Extremity Ultrasound 06/12/16 0000 Signed Impressions: Service Date/Time: Sunday, June 12, 2016 12:52 - CONCLUSION: No evidence of DVT. Jean-Paul Cheung MD Thoracic Spine CT 06/01/16 0000 Signed Impressions: Service Date/Time: Wednesday, June 01, 2016 05:13 - CONCLUSION: No evidence of acute bony process in the thoracic spine. Joseph Cook MD Lumbar Spine MRI 06/01/16 0000 Signed Impressions: Service Date/Time: Wednesday, June 01, 2016 15:22 - CONCLUSION: No evidence of abscess or abnormal enhancement. There is degenerative change within the disc at the level of L5/S1 suggestive of an acute tear of the annulus and small posterior central disc protrusion. Lexi Waller MD Lumbar Spine CT 06/01/16 0000 Signed Impressions: Service Date/Time: Wednesday, June 01, 2016 05:13 - CONCLUSION: Disc protrusion at the lumbosacral junction with mild asymmetric left-sided foraminal narrowing. No acute bony findings. Joseph Cook MD Cervical Spine CT 06/01/16 0000 Signed Impressions: Service Date/Time: Wednesday, June 01, 2016 05:13 - CONCLUSION: Mild degenerative change. No acute bony findings. Joseph Cook MD Objective Remarks GENERAL: 51 yo male, poorly nourished male patient, in no apparent distress. Orotracheally intubated SKIN: Patient has spider nevi, jaundiced skin. HEAD: Atraumatic. Normocephalic. EYES: Pupils equal round and reactive. Positive for scleral icterus. No injection or drainage. ENT: Orotracheally intubated. NECK: Trachea midline. Supple, nontender, no meningeal signs. Right IJ sutures have been pulled. Some oozing from site appears old blood. CARDIOVASCULAR: S1, S2. No S4. Without murmur RESPIRATORY: Decreased breath sounds in the bases bilateral. GASTROINTESTINAL: Abdomen soft, non-tender, nondistended. Hypoactive bowel sounds MUSCULOSKELETAL: Extremities with 1+ peripheral edema. NEUROLOGICAL: Currently sedated on the ventilator. Withdraws to pain. Opens eyes and will not have commands. Squeezes his hands and moves toes bilaterally. Procedures 06/06/16 EGD and Colonoscopy Date of Insertion: Jun 17, 2016 Line: Central Venous Catheter Side: Right Location: Internal, Jugular A/P Assessment and Plan Neuro/Psych: Acute toxic metabolic encephalopathy EtOH Propofol/fentanyl drips are currently on hold. Goal of RASS -2 Daily sedation vacation Flexeril 10 mg 3 times a day muscle relaxants will be held with altered mental status/ will nothing by mouth. Continue Keppra 250 by mouth twice a day for seizures. On Dilantin 100 mg 3 times a day at home. Ammonia level less than 10 MRI brain 06/17 revealed nonspecific white matter changes. C-spine and T-spine shows no signs of discitis EEG 23 reveals moderate to severe encephalopathy possibly pharmacological use. No epileptiform activity CV: Hypotension - likely secondary to anemia History of hypertension Currently on Solomon-Synephrine. Attempt to wean to keep an MAP greater than 65 Lactate within normal limits. Agree continue to transfuse keep hemoglobin greater than equal to 8. Currently 8.4 Currently normal saline at 84 cc an hour. At home on atenolol 12.5 mg daily Norvasc 7.5 mg daily. These have been held. Resume when clinically indicated Echocardiogram 06/17 revealed EF 65%. No regional wall motion abnormality. Mild TR. No signs of endocarditis. Resp: Acute respiratory insufficiency Bilateral pleural effusions PRVC 14/500///40 Ventilator bundle Bronchodilator therapy every 4 hours and as needed Spontaneous breathing trials daily. Follow-up chest x-ray. Continue with diuresis with bilateral pleural effusions GI: Anemia/macrocytic Portal gastropathy Internal hemorrhoids Duodenitis Hiatal hernia Abdominal ascites Elevated transaminases Elevated total bilirubin Moderate protein calorie malnutrition/hypoalbuminemia Cholelithiasis Likely liver cirrhosis On Neutra hep goal 65 cc an hour. Currently at 10 cc an hour IV Protonix twice a day for GI prophylaxis Lactulose 30 cc twice a day for bowel regimen. Ammonia level X Start on low dose Reglan 5 every 8 for bowel motility EGD/colonoscopy revealed duodenitis, portal gastropathy, internal hemorrhoids and hiatal hernia. No other signs of active bleeding CT abdomen/pelvis 06/19 revealed cirrhotic liver, splenomegaly/abdominal ascites, is small pleural effusions bilaterally and cholelithiasis. Gaseous distention without bowel obstruction. : Stone if necessary for accurate I's and O's in a critically ill patient Endo: Sliding-scale insulin if necessary to maintain euglycemia. And stress dose Solu-Cortef in light of hypotension. Renal: Acute kidney injury Monitor urine output closely. Accurate I's and O's. Follow BUN/ creatinine. Urine eosinophils negative. Prerenal indices by urine electrolytes Heme: Macrocytic Anemia Thrombocytopenia Coagulopathy likely secondary to liver disease Transfused 2 units PRBCs 2/5 secondary to low hemoglobin. Noted some basophilic stippling. Positive sick and macrocytic anemia. Possibly to hemolytic process? Haptoglobin low is concerning hemolytic type process. Follow CBC Pending reticulocyte count and peripheral smear. LDH 300s Hematology consulted for evaluation and treatment of anemia. ID: Group B strep bacteremia Echocardiogram 06/02 and 06/17 revealed no signs of endocarditis. MRI L-spine revealed T5 through S1 disc bulge. Not discussed coronary neurosurgery. Seen by ID. Recommend vancomycin through 07/09. Currently azithromycin/aztreonam with possible SBP Pertinent cultures 05/31 - blood cultures 2 - group B strep 06/01 - blood cultures 2 - 1 out of 2 group B strep / - blood cultures 2 - pending 06/18 - sputum -no growth MSK: Left lower extremity foot drop MRI L-spine revealed disc protrusion/left. MRI L-spine revealed mild L4-L5 disease and L5/S1 moderate disc disease. Worse on the right side. Evaluated by Dr. Mason. No neurosurgical intervention recommended. OT evaluate and treat FEN: Hypopotassemia Replace electrolytes as clinically indicated Access Right IJ CVL 2/ Prophylaxis - GI - Protonix - DVT -SCDs Critical Care: The total critical care time was 35 minutes. Time to perform other separately billable procedures was not included in the critical care time. Rancho Rodriguez MD Jun 20, 2016 07:28
[2016-06-20 07:45] LABS: SCAN/DIFF AUTO DIFF CONFIRMED
[2016-06-20] MEDS: POLYETHYLENE GLYCOL 17 GM PKG PO SCH ×2 (08:08→20:26)
[2016-06-20] MEDS: FUROSEMIDE 20 MG/2 ML VIAL IV PUSH SCH (08:09)
[2016-06-20] MEDS: levETIRAcetam 250 MG TAB PO SCH ×2 (08:09→20:26)
[2016-06-20] MEDS: PANTOPRAZOLE SODIUM 40 MG VIAL IV PUSH SCH ×2 (08:13→20:23)
[2016-06-20] MEDS: CHLORHEXIDINE 0.12% (ORAL KIT) 15 ML CUP MT SCH ×2 (08:14→20:28)
[2016-06-20 08:39] LABS: RETIC % 2.6 % (0.4-3.0)
[2016-06-20 08:44] LABS: LDH SERUM 258 U/L (87-241)
[2016-06-20 08:46] LABS: REVIEW FLAG FINAL
[2016-06-20] MEDS: SODIUM CHLORIDE 0.9% FLUSH 5 ML FLUSH FLUSH SCH ×2 (09:00→20:22)
[2016-06-20] MEDS: SODIUM CHLORIDE 0.9% FLUSH 5 ML FLUSH IVF SCH (09:00)
[2016-06-20] MEDS: SODIUM CHLORIDE 0.9% FLUSH 5 ML FLUSH IV FLUSH SCH ×2 (09:00→20:22)
[2016-06-20 10:42] LABS: TOTAL PROTEIN SPE 6.9 GM/DL (6.0-7.6)
[2016-06-20 10:47] LABS: ALBUMIN SPE 3.12 GM/DL (3.50-5.00); ALPHA 1 GLOBULIN 0.23 GM/DL (0.11-0.29); ALPHA 2 GLOBULIN 0.37 GM/DL (0.22-1.00); BETA GLOBULINS (SPE) 0.51 GM/DL (0.53-1.03)
[2016-06-20] MEDS: DOCUSATE SODIUM 100 MG/10 ML UDC PO SCH ×2 (11:33→20:23)
[2016-06-20] MEDS: SENNOSIDES SYRUP 8.8 MG/5 ML CUP PO SCH ×2 (11:33→20:23)
[2016-06-20] MEDS: SODIUM CHLOR 0.9% 1000 ML INJ 1,000 ML IV SCH ×2 (12:34→20:21)
[2016-06-20] MEDS: VANCOMYCIN 1,000 MG/NS 250 ML IV SCH ×2 (12:34)
[2016-06-20] MEDS ORDERED: PHENYLEPHRINE INJ 80 MG in DEXTROSE 5% IN WATE 500 ML INJ 492 ML IV SCH ×2 (13:45)
[2016-06-20] MEDS: ARTIFICIAL TEARS OPTH SOLN 15 ML BTL EACH EYE SCH ×3 (13:49→18:13)
[2016-06-20] MEDS: VASOPRESSIN INJ 40 UNITS in DEXTROSE 5% IN WATER 100ML INJ 98 ML IV SCH ×2 (14:13)
[2016-06-20] MEDS ORDERED: CYANOCOBALAMIN 1000 MCG/ML VIAL SQ ONE (18:45)
[2016-06-20] MEDS ORDERED: PHYTONADIONE 10 MG/ML VIAL SQ ONE (18:45)
--- NOTE | 2016-06-20 21:56 | MB ---
cc: ANAT WALSH,STALIN Peterson MD DATE OF 1965 DATE OF SERVICE 06/20/[address] Bonds CHIEF COMPLAINT Dr. Bonds requested consultation for Mr. Fonseca regarding hemolysis and anemia in light of underlying liver disease. HISTORY OF PRESENT ILLNESS Mr. Fonseca is a 51-year-old man who presented to the emergency room because of jaundice and could not get out of bed anymore. No appreciable history could be obtained from the patient. His Marcelle was called. Her phone was about to fail her as she uses the number instead. This apparently is the patient's cell phone which has many more minutes that she could use. She confirms that he has had a long history of alcohol use. She believes that it was abuse of ibuprofen and Tylenol that precipitated his turning jaundiced and developing liver failure. He was using ibuprofen and Tylenol because of a recent fall or accident. His course was complicated by a history of epilepsy since childhood. He has not had any recent events. He has been getting worse over the past month prior to coming into the hospital. He was seen in the emergency room by Dr. Pankaj Soto for general weakness. He reported fever, difficulty walking, numbness in his left leg. The patient denies any IV drug use. He was subsequently admitted. He reported numbness in his left leg, increasing back pain for 3 months. His jaundice began 2 months prior to his presentation. Hepatitis and HIV evaluation is negative performed during this hospitalization. Heavy alcohol use, although he quit 5-6 months ago is the etiology for his underlying liver disease. Imaging study CT scan of the abdomen and pelvis from May 31 showed ascites with varicosity, a small shrunken liver with prominent spleen consistent with longstanding cirrhosis was identified. During his hospitalization he was seen by gastroenterology. He had an elevated liver function and bilirubin of 15.4, AST 65, ALT of 29, alkaline phosphatase of 132. He had mild epigastric and mid-abdominal discomfort. EGD and colonoscopy on June 06, 2016, showed duodenitis, portal gastropathy, hiatal hernia. There are internal hemorrhoids but poor prep blood. The patient refused the repeat colonoscopy. He was seen by Dr. Devon Mason for his low back pain. MRI of the lumbar spine showed L5-S1 disk protrusion, central, without any significant nerve root impingement. No neurosurgical intervention is necessary. In the meantime, blood cultures came back positive for group B beta Strep for which he is on antibiotic therapy. For the Strep bacteremia, vancomycin IV was continued. He was transferred to [facility] for his treatment. The tentative stop date for the vancomycin was July 09, 2016. The commercial assistant was consulted for lethargy, anemia with hemoglobin of 7.2. His hemoglobin decreased to 6.6. Evaluation of the anemia included haptoglobin checked on June 17 that was less than 10. Repeat haptoglobin on the was also less than 10 consistent with hemolysis versus liver pathology. His hemoglobin was 8.4 on the day of the consultation. He was more thrombocytopenic than his baseline admission platelet count his white count is in the normal range but differential includes predominantly neutrophils. He has worsening renal insufficiency with a creatinine of 1.5. He bilirubin remains elevated at 8.5. The ALT is normal. The AST is mildly elevated. Other liver parameters show an albumin of 1.6. PT and PTT are prolonged. Fibrinogen is only 100. He has some oozing at the central line site. C-arm protein electrophoresis shows an abnormal discrete band of 0.63 grams/dL. Immunofixation was not performed. Serum B12 levels are difficult to interpret because of underlying liver disease. LDH from June 17 and today where both slightly elevated. PAST MEDICAL HISTORY 1. Hypertension. 2. COPD. 3. Cirrhosis. 4. Hiatal hernia. 5. Portal gastropathy. 6. L5-S1 disk protrusion. 7. Ascites. 8. Chronic anemia. 9. Chronic thrombocytopenia. 10. Coagulopathy. PAST SURGICAL HISTORY None. FAMILY HISTORY Significant for mother with coronary artery disease. SOCIAL HISTORY He has over a 35 pack-year smoking history. He quit drinking 6 months ago but was a heavy drinker. He denies any IV drug use. He is , lives with his . He has a daughter in [place]. ALLERGIES PENICILLIN. CURRENT MEDICATIONS 1. Fentanyl. 1. Phenylephrine. 2. Vasopressin. 3. Colace. 4. Lactulose. 5. Solu-Cortef. 6. Senna. 7. MiraLax. 8. Reglan. 9. Artificial tears. 10. Potassium chloride. 11. Peridex. 12. Propofol. 13. Lasix. 14. Aztreonam. 15. Albuterol. 16. Ipratropium. 17. Vancomycin. 18. Keppra. PHYSICAL EXAMINATION VITAL SIGNS: Temperature 99.3, heart rate 84, respiratory rate 14, blood pressure 102/59, saturation 96%. GENERAL: Mr. Fonseca is a well-developed, slender man who is intubated, sedated but arousable and opens his eyes to tactile stimuli. He is overtly jaundiced. His sclerae are icteric. Pupils are round and reactive. Oropharynx is dry. NECK: Supple. Right neck central line with oozing. LUNGS: Clear anteriorly. CARDIOVASCULAR: Exam reveals normal rate and rhythm. ABDOMEN: Distended. Fluid wave is noted. Splenomegaly cannot be appreciated. LOWER EXTREMITIES: With trace edema. Pneumatic compression stockings and BETTE hose are in place. He has bilateral upper extremity swelling, a large tattoo on the left upper arm. SKIN: He has multiple spider angiomata on the chest wall, neck, left side of face and forehead. ASSESSMENT AND PLAN Mr. Fonseca is a 51-year-old man who has a history of epilepsy and a chronic liver disease leading up to cirrhosis from alcohol. He finally presented to the emergency room with 1-2 month history of jaundice and generalized weakness. He was found to be bacteremic, was on antibiotic therapy. He was transferred to [facility]. He had a recent decompensation. He has sepsis-worsened anemia. Hematology/Oncology is consulted to evaluate the etiology of the anemia. Peripheral smear will be reviewed. However, from pathology report there is no evidence of extravascular or intravascular hemolysis. There is macrocytosis. No significant amount of schiztocytes. He has a prolonged PT/PTT and the decreased fibrinogen. Suspect this is of underlying liver disease. We will try to corrected it in light of the oozing that he is experiencing. He is at increased risk for bleeding from his coagulopathy. A lupus anticoagulant will be excluded as the PTT is prolonged which is not really explained by and liver disease. However, I consider that his liver disease is so severe that both PT and PTT are prolonged and fibrinogen only 100. Transfusion support as needed. We will continue workup for underlying hemolysis. SREE will be checked. It would suggest underlying liver disease etiology of the anemia. He has, however, had several transfusions and therefore a post-transfusion purpura will need to be excluded. His Marcelle was called and appraised of the multiorgan failure. Marcelle reports that she was a nurse and understands the above findings. She has no way to get into the hospital due to finances. Social work is consulted. We discussed in general terms his multiorgan failure. She would like to be apprised of everything that is going on and if he has terminal she and his daughter would be making that decision. We discussed consultation with Palliative Care to help her with goals of therapy. Currently the patient is unable to make decisions for himself. Lastly, the abnormal serum protein electrophoresis is noted. I will add an immunofixation and check the type of antibody that is present. Anat Walsh MD RAD/CHINYERE /6:15 PM /9:33 PM
[2016-06-21] VITALS (75 sets, daily range): BP systolic 82–122; BP diastolic 50–71; PULSE 77–100; RESP 6–20; TEMP 97.4–98.2; O2SAT 90–98
[2016-06-21] MEDS: RESP: ALBUTEROL 2.5 MG/IPRATROPIUM 0.5 MG NEB (SCH) INH ×7 (00:04→23:27)
[2016-06-21] MEDS: LACTULOSE SYRUP 20 GM/30 ML CUP PO SCH ×5 (00:32→23:44)
[2016-06-21] MEDS: SODIUM CHLOR 0.9% 1000 ML INJ 1,000 ML IV SCH ×2 (01:42→03:48)
[2016-06-21] MEDS: CHLORHEXIDINE GLUCONATE 2 % 1 PACK (2 CLOTHS) TOP SCH (01:42)
[2016-06-21] MEDS: VASOPRESSIN INJ 40 UNITS in DEXTROSE 5% IN WATER 100ML INJ 98 ML IV SCH ×2 (03:48)
[2016-06-21] MEDS: AZTREONAM INJ 2,000 MG in SODIUM CHLORIDE 0.9% INJ 100 ML IV SCH ×3 (04:32→21:07)
[2016-06-21] MEDS: METOCLOPRAMIDE HCL 10 MG/2 ML VIAL IV PUSH SCH ×3 (05:59→21:10)
[2016-06-21] MEDS: HYDROCORTISONE SOD SUCCINATE 100 MG VIAL IV PUSH SCH ×3 (05:59→21:09)
[2016-06-21 07:29] LABS: APTT (PATIENT) 53.4 SEC (24.3-30.1); INTERNATIONAL NORMALIZED RATIO 1.8 RATIO; PROTHROMBIN TIME - PATIENT 20.7 SEC (9.8-11.6)
[2016-06-21] MEDS ORDERED: SODIUM CHLOR 0.9% 250 ML INJ 250 ML IV ONE ×2 (07:30→18:30)
[2016-06-21] MEDS: SENNOSIDES SYRUP 8.8 MG/5 ML CUP PO SCH ×2 (07:56→21:09)
[2016-06-21] MEDS: levETIRAcetam 250 MG TAB PO SCH ×2 (07:56→21:08)
[2016-06-21] MEDS: DOCUSATE SODIUM 100 MG/10 ML UDC PO SCH ×2 (07:56→21:08)
[2016-06-21] MEDS: FOLIC ACID 1 MG TAB PO SCH (07:56)
[2016-06-21] MEDS: FUROSEMIDE 20 MG/2 ML VIAL IV PUSH SCH (07:57)
[2016-06-21] MEDS: SODIUM CHLORIDE 0.9% FLUSH 5 ML FLUSH FLUSH SCH ×2 (07:57→21:11)
[2016-06-21] MEDS: PANTOPRAZOLE SODIUM 40 MG VIAL IV PUSH SCH ×2 (07:57→21:09)
[2016-06-21] MEDS: ARTIFICIAL TEARS OPTH SOLN 15 ML BTL EACH EYE SCH ×3 (07:57→18:00)
[2016-06-21] MEDS: ONDANSETRON HCL 4 MG/2 ML VIAL IV PRN (07:58)
--- NOTE | 2016-06-21 07:58 | HHI.CCPN ---
Subjective Remarks/Hospital Course This is a 61-year-old male. Date of admission 05/31/2016. Date of consultation 06/17/2016. Past medical history includes low back pain, hypertension, COPD and cirrhosis. She was originally admitted with severe sepsis secondary to group B strep bacteremia. Workup has included an echocardiogram on 06/02 which revealed no endocarditis. Patient be on vancomycin until 07/09. MRI of the L-spine revealed disc protrusion L5/S1. he was evaluated by neurosurgery/Dr. Mason who did not believe this was scattered and recommended neurology consult if increased pain and/or neurological deficits. Patient also is noted to have anemia. EGD/Colonoscopy (06/06/16)--> duodenitis, portal gastropathy, hiatal hernia, retroflex views revealed a hiatal hernia, Solid stool in the rectum and sigmoid, retroflex views revealed small internal hemorrhoids, internal hemorrhoids. Refuses to have repeat colonoscopy. We will consult the last crease lethargy, anemia. Hemoglobin is currently 7.2 with repeat pending. 06/18: Critically ill and sedated on the ventilator. Did not tolerate tube feeds. One bowel movement. Arousable and does withdrawal to pain. Positive gag. 06/19: Afebrile. Arousable and will follow commands. Currently 90 g per minute of Solomon-Synephrine. Transfuse 2 units PRBCs today. Hemoglobin remained stable. Oozing from central line is abated. 06/20: Remains sedated, orally intubated on mechanical ventilation. On Solomon- Synephrine 110 mics per minute. Received 2 units PRBCs yesterday with hemoglobin coming up to 8.4. No oozing from central line site currently. 06/21: Orally intubated on mechanical ventilation. Easily arousable. Opens eyes on command. Still has some oozing off and on from central line insertion site. Remains coagulopathic secondary to liver disease. Objective Vital Signs Date Time Temp Pulse Resp B/P Pulse Ox O2 Delivery O2 Flow Rate FiO2 06/21/16 04:22 94 40 06/21/16 01:04 80 14 91/56 06/21/16 00:04 98.0 06/17/16 07:37 Nasal Cannula 2.00 Intake and Output 06/20/16 06/20/16 06/21/16 08:00 16:00 00:00 Intake Total 988 ml 2056 ml Output Total 475 ml 350 ml Balance 513 ml 1706 ml Result Diagram: 06/20/1661906/20/16 0620 Imaging Last Impressions Chest X-Ray 06/19/16 0600 Signed Impressions: Service Date/Time: Sunday, June 19, 2016 06:35 - CONCLUSION: Stable chest x-ray with findings characteristic of bilateral pleural effusions with associated volume loss and/or consolidation. Joseph Marshall MD Abdomen/Pelvis CT 06/19/16 0000 Signed Impressions: Service Date/Time: Sunday, June 19, 2016 12:14 - CONCLUSION: 1. Cirrhotic liver with borderline splenomegaly and abdominal ascites. 2. Bibasilar consolidation and small bilateral pleural effusions. 3. Cholelithiasis and nonobstructing punctate left renal calculus. 4. Anasarca. Angelo Freed MD Abdomen X-Ray 06/18/16 0000 Signed Impressions: Service Date/Time: Saturday, June 18, 2016 13:34 - CONCLUSION: Gaseous distention of bowel loops. Angelo Freed MD Thoracic Spine MRI 06/17/16 0000 Signed Impressions: Service Date/Time: Friday, June 17, 2016 14:43 - CONCLUSION: Thoracic spine MRI within normal limits. Olivier Lo MD Cervical Spine MRI 06/17/16 0000 Signed Impressions: Service Date/Time: Friday, June 17, 2016 14:43 - CONCLUSION: Mild degenerative changes. there is no evidence for cord impingement. Tanner Willis MD FACR Brain MRI 06/17/16 0000 Signed Impressions: Service Date/Time: Friday, June 17, 2016 14:03 - CONCLUSION: 1. Nonspecific white matter changes. 2. Tortuous hepatic basilar artery. 3. Negative. Tanner Willis MD FACR Abdomen Ultrasound 06/15/16 0000 Signed Impressions: Service Date/Time: Wednesday, June 15, 2016 10:37 - CONCLUSION: 1. Liver cirrhosis with ascites. Gallbladder wall thickening with sludge. No biliary ductal dilatation. No hydronephrosis. Favio Amador MD Hip and Pelvis X-Ray 06/14/16 0000 Signed Impressions: Service Date/Time: Tuesday, June 14, 2016 10:18 - CONCLUSION: Unremarkable exam for patient's age. No acute fracture or joint dislocation. Jean-Paul Cheung MD Lower Extremity Ultrasound 06/12/16 0000 Signed Impressions: Service Date/Time: Sunday, June 12, 2016 12:52 - CONCLUSION: No evidence of DVT. Jean-Paul Cheung MD Thoracic Spine CT 06/01/16 0000 Signed Impressions: Service Date/Time: Wednesday, June 01, 2016 05:13 - CONCLUSION: No evidence of acute bony process in the thoracic spine. Joseph Cook MD Lumbar Spine MRI 06/01/16 0000 Signed Impressions: Service Date/Time: Wednesday, June 01, 2016 15:22 - CONCLUSION: No evidence of abscess or abnormal enhancement. There is degenerative change within the disc at the level of L5/S1 suggestive of an acute tear of the annulus and small posterior central disc protrusion. Lexi Waller MD Lumbar Spine CT 06/01/16 0000 Signed Impressions: Service Date/Time: Wednesday, June 01, 2016 05:13 - CONCLUSION: Disc protrusion at the lumbosacral junction with mild asymmetric left-sided foraminal narrowing. No acute bony findings. Joseph Cook MD Cervical Spine CT 06/01/16 0000 Signed Impressions: Service Date/Time: Wednesday, June 01, 2016 05:13 - CONCLUSION: Mild degenerative change. No acute bony findings. Joseph Cook MD Objective Remarks GENERAL: 51 yo male, poorly nourished male patient, in no apparent distress. Orotracheally intubated SKIN: Patient has spider nevi, jaundiced skin. HEAD: Atraumatic. Normocephalic. EYES: Pupils equal round and reactive. Positive for scleral icterus. No injection or drainage. ENT: Orotracheally intubated. NECK: Trachea midline. Supple, nontender, no meningeal signs. Right IJ sutures have been pulled. Some oozing from site appears old blood. CARDIOVASCULAR: S1, S2. No S4. Without murmur RESPIRATORY: Decreased breath sounds in the bases bilateral. GASTROINTESTINAL: Abdomen soft, non-tender, nondistended. Hypoactive bowel sounds MUSCULOSKELETAL: Extremities with 1+ peripheral edema. NEUROLOGICAL: Currently sedated on the ventilator. Withdraws to pain. Opens eyes and will not have commands. Squeezes his hands and moves toes bilaterally. Procedures 06/06/16 EGD and Colonoscopy Date of Insertion: Jun 17, 2016 Line: Central Venous Catheter Side: Right Location: Internal, Jugular A/P Assessment and Plan Neuro/Psych: Acute toxic metabolic encephalopathy EtOH Propofol/fentanyl drips are currently on hold. Goal of RASS -2 Daily sedation vacation Flexeril 10 mg 3 times a day muscle relaxants will be held with altered mental status/ will nothing by mouth. Continue Keppra 250 by mouth twice a day for seizures. On Dilantin 100 mg 3 times a day at home. Ammonia level less than 10 MRI brain 06/17 revealed nonspecific white matter changes. C-spine and T-spine shows no signs of discitis EEG 06/17 reveals moderate to severe encephalopathy possibly pharmacological use. No epileptiform activity CV: Hypotension - likely secondary to anemia, liver disease, ?sepsis History of hypertension Currently on Solomon-Synephrine 20mcg/min. Attempt to wean to keep an MAP greater than 65 Lactate within normal limits. Agree continue to transfuse keep hemoglobin greater than equal to 8. KVO IV fluids. Lasix 20 mg IV daily started 06/21 to mobilize fluid. At home on atenolol 12.5 mg daily Norvasc 7.5 mg daily. These have been held. Resume when clinically indicated Echocardiogram 06/17 revealed EF 65%. No regional wall motion abnormality. Mild TR. No signs of endocarditis. Resp: Acute respiratory insufficiency Bilateral pleural effusions PRVC 14/500/05/19/40 Ventilator bundle Bronchodilator therapy every 4 hours and as needed Spontaneous breathing trials daily. Follow-up chest x-ray. Continue with diuresis with bilateral pleural effusions GI: Anemia/macrocytic Portal gastropathy Internal hemorrhoids Duodenitis Hiatal hernia Abdominal ascites Elevated transaminases Elevated total bilirubin Moderate protein calorie malnutrition/hypoalbuminemia Cholelithiasis Likely liver cirrhosis On Neutra hep goal 65 cc an hour. Currently at 10 cc an hour IV Protonix twice a day for GI prophylaxis Lactulose 30 cc twice a day for bowel regimen. Ammonia level X Start on low dose Reglan 5 every 8 for bowel motility EGD/colonoscopy revealed duodenitis, portal gastropathy, internal hemorrhoids and hiatal hernia. No other signs of active bleeding CT abdomen/pelvis 06/19 revealed cirrhotic liver, splenomegaly/abdominal ascites, is small pleural effusions bilaterally and cholelithiasis. Gaseous distention without bowel obstruction. GI to follow, may need repeat paracentesis : Stone if necessary for accurate I's and O's in a critically ill patient Endo: Sliding-scale insulin if necessary to maintain euglycemia. And stress dose Solu-Cortef in light of hypotension. Renal: Acute kidney injury Monitor urine output closely. Accurate I's and O's. Follow BUN/ creatinine. Urine eosinophils negative. Prerenal indices by urine electrolytes Heme: Macrocytic Anemia Thrombocytopenia Coagulopathy likely secondary to liver disease Suspect hemolysis Transfused 2 units PRBCs 06/19 secondary to low hemoglobin. Noted some basophilic stippling. Positive sick and macrocytic anemia. Possibly to hemolytic process? Haptoglobin low is concerning hemolytic type process. Follow CBC Pending reticulocyte count and peripheral smear. LDH 300s Hematology consulted for evaluation and treatment of anemia. Dr. Orr following. Transfuse 1 unit cryoprecipitate on 06/21 in view of coagulopathy with intermittent oozing from central line insertion site. Vitamin K 10 mg IV 1 dose on 06/20 ID: Group B strep bacteremia Echocardiogram 06/02 and 06/17 revealed no signs of endocarditis. MRI L-spine revealed T5 through S1 disc bulge. Not discussed coronary neurosurgery. Seen by ID. Recommend vancomycin through 07/09. Currently azithromycin/aztreonam with possible SBP Pertinent cultures 05/31 - blood cultures 2 - group B strep 06/01 - blood cultures 2 - 1 out of 2 group B strep /, 06/18 - blood cultures 2 - no growth 06/18 - sputum -no growth MSK: Left lower extremity foot drop MRI L-spine revealed disc protrusion/left. MRI L-spine revealed mild L4-L5 disease and L5/S1 moderate disc disease. Worse on the right side. Evaluated by Dr. Mason. No neurosurgical intervention recommended. OT evaluate and treat FEN: Hypopotassemia Replace electrolytes as clinically indicated Access Right IJ CVL / Prophylaxis - GI - Protonix - DVT -SCDs Consulted palliative care service to assist with deciding goals of therapy in this patient with advanced liver disease/cirrhosis with multiple comorbidities Critical Care: The total critical care time was 35 minutes. Time to perform other separately billable procedures was not included in the critical care time. Rancho Rodriguez MD Jun 21, 2016 07:58
[2016-06-21 07:59] LABS: AUTOMATED NEUTROPHIL # 5.3 TH/MM3 (1.8-7.7); BASOPHIL % 0.2 % (0.0-2.0); EOSINOPHIL % 0.1 % (0.0-4.0); HEMATOCRIT 22.7 % (39.0-51.0); LYMPHOCYTE # 0.5 TH/MM3 (1.0-4.8); MEAN CELL VOLUME 100.7 FL (80.0-100.0); MEAN CORPUSCULAR HEMOGLOBIN 34.3 PG (27.0-34.0); MEAN CORPUSCULAR HGB CONC 34.1 % (32.0-36.0); MONO % 5.4 % (0.0-8.0); NEUT % 85.3 % (16.0-70.0); PLATELET COUNT 89 TH/MM3 (150-450); RED BLOOD COUNT 2.25 MIL/MM3 (4.50-5.90); RED CELL DISTRIBUTION WIDTH 26.8 % (11.6-17.2); WHITE BLOOD COUNT 6.1 TH/MM3 (4.0-11.0)
[2016-06-21 08:00] LABS: HEMO FLAGS AUTO DIFF
[2016-06-21 08:01] LABS: CHLORIDE 107 MEQ/L (98-107); SODIUM (NA) 139 MEQ/L (136-145)
[2016-06-21 08:05] LABS: ANION GAP 10 MEQ/L (5-15); BICARBONATE 22.4 MEQ/L (21.0-32.0); BLOOD UREA NITROGEN 33 MG/DL (7-18)
[2016-06-21 08:08] LABS: ALT (GPT) 25 U/L (12-78); AST (GOT) 59 U/L (15-37); GLOMERULAR FILTRATION RATE 53 ML/MIN (>89)
[2016-06-21 08:10] LABS: TOTAL BILIRUBIN ADULT 13.1 MG/DL (0.2-1.0)
[2016-06-21 08:11] LABS: ALKALINE PHOSPHATASE 65 U/L (45-117)
[2016-06-21 08:17] LABS: PLATELET ESTIMATE SMEAR LOW (NORMAL); PLATELET MORPHOLOGY NORMAL (NORMAL); TARGET CELLS 1+ (NORMAL)
[2016-06-21 08:18] LABS: SCAN/DIFF AUTO DIFF CONFIRMED
[2016-06-21] MEDS: SODIUM CHLORIDE 0.9% FLUSH 5 ML FLUSH IVF SCH (09:00)
[2016-06-21] MEDS: SODIUM CHLORIDE 0.9% FLUSH 5 ML FLUSH IV FLUSH SCH ×2 (09:00→21:11)
[2016-06-21] MEDS ORDERED: FUROSEMIDE 20 MG/2 ML VIAL IV PUSH SCH (09:00)
[2016-06-21 09:24] LABS: RETIC % 2.9 % (0.4-3.0)
[2016-06-21 09:26] LABS: REVIEW FLAG FINAL
[2016-06-21 09:41] LABS: LDH SERUM 274 U/L (87-241)
[2016-06-21 10:07] LABS: URINE TOTAL PROTEIN TIMED 49.9 MG/DL
[2016-06-21 10:09] LABS: URINE TOTAL PROTEIN TIMED 50.3 MG/DL
[2016-06-21] MEDS: POLYETHYLENE GLYCOL 17 GM PKG PO SCH ×2 (10:15→21:12)
[2016-06-21] MEDS: POTASSIUM CHLOR 40 MEQ PREMIX 100 ML IV PRN ×2 (10:16→12:22)
[2016-06-21] MEDS: CHLORHEXIDINE 0.12% (ORAL KIT) 15 ML CUP MT SCH ×2 (10:16→20:00)
[2016-06-21] MEDS: SPIRONOLACTONE 25 MG TAB PO SCH (10:16)
[2016-06-21 11:14] LABS: IMMUNOGLOBULIN A 1460 MG/DL (93-514); IMMUNOGLOBULIN G 2010 MG/DL (660-1640); IMMUNOGLOBULIN M 159 MG/DL (40-247)
[2016-06-21] MEDS: VANCOMYCIN 1,000 MG/NS 250 ML IV SCH ×2 (12:23)
--- NOTE | 2016-06-21 15:05 | PD.CONS ---
Consult Service Palliative Care . Consult Requested By Dr. Rodriguez . Primary Care Physician No Primary Care Physician . Reason for Consultation a. To assist with evaluation and management of symptoms including: dyspnea, pain b. To assist medical decision maker(s) with: better understanding of current medical conditions; weighing benefits/burdens of medical treatment options; making medical treatment decisions. . HPI History of Present Illness Mr. Fonseca is a 51-year-old male who presented to [facility] on via EMS for evaluation of jaundice, fever and low back pain. Per EMS report patient was found lying on his side complaining of back pain rated 10 out of 10. GCS of 15. Oral temperature was 102.4. Positive headache. The patient reported he started having some numbness in his left leg and increased back pain for 3 months, having increased difficulty ambulating for 3 days. He described the pain as severe, sharp, throbbing feeling in the middle and lower spine. Patient reported he has had chronic back pain since being involved in an accident 3 years ago, and he recently had been off his baclofen and Flexeril due to financial issues. The patient reported he had been jaundice for approximately 2 months, denied any known history of cirrhosis. Patient was a heavy drinker until 6 months ago when he quit. He stated he has had increased abdominal pain and distention 3 days. He stated he had not had a BM 3 days and associated his abdominal distention with constipation. Of note, patient's past medical history is significant for hypertension, seizure disorder, COPD and chronic back pain. Additional diagnostic findings while in the ED include: * Vital signs: Pulse 107, respirations 19, BP 136/74, oxygen saturation 99% on room air, oral temperature 98.5 * WBC: 10.8, hemoglobin 8.9, hematocrit 25.4, platelets 111, neutrophils 81.5% * Sodium: 133, potassium 3.5, chloride 101, carbon dioxide 23.0, glucose 112, calcium 7.9 * BUN: 7, creatinine 0.70, GFR 118 * Total bilirubin: 15.4, direct bilirubin 10.5, AST 65, ALT 29 * Alkaline phosphatase: 132 * Lactic acid: 2.0 * Total protein: 6.6, albumin 1.9 * Lipase: 222 * PT: 20.7, INR 1.8, APTT 48.9 * Urinalysis: Darkorange hazy urine with protein, occult blood, bilirubin, urobilinogen >12.0, RBC and mucus. Culture not indicated * Blood culture: + group beta strep * CT abdomen/pelvis: Ascites with varicosities. Small shrunken liver with prominent spleen all consistent with long-standing cirrhosis. * EKG reviewed by Dr. Mcgill, shows sinus tachycardia with ventricular rate of 107. * Normal rectal tone, normal perineal sensation. While in the ED the patient spiked a fever up to 101.7 with unknown etiology. Patient was started on empiric antibiotics. The patient is jaundice and appears to have chronic cirrhosis that had never been evaluated/diagnosis. The patient was admitted for further evaluation and medical management. Gastroenterology and infectious disease were consulted. Gastro neurology was consulted to evaluate this patient for jaundice and elevated LFTs. Patient reports having a fever of 103 or 104 approximately 4 weeks prior with nausea/vomiting, but stated his symptoms resolved spontaneously. He denied any known history of liver disease in himself or other family members. He reported he began noticing he was jaundice approximately 2-3 months earlier. Patient endorses mild epigastric/mid abdominal pressure that does not radiate and with no aggravating/alleviating factors. Patient's appetite remains stable with no reported weight loss. He has a history of heavy EtOH consumption but states he quit 5-6 months ago and has not had any alcohol since that time. = 06/06/16 EGD/colonoscopy showing duodenitis, portal gastropathy, hiatal hernia. Solid stool in the rectum and sigmoid, retroflex views revealed small internal hemorrhoid. Patient refused repeat colonoscopy. = 06/15/16 Abdominal ultrasound: Liver cirrhosis with ascites; gallbladder with thickening with sludge; no biliary ductal dilatation; no hydronephrosis. = 06/19/16 CT abdomen/pelvis: Cirrhotic liver with borderline splenomegaly and abdominal ascites; Bibasilar consolidation and small bilateral pleural effusions ; Cholelithiasis and nonobstructing punctate left renal calculus; Anasarca Infectious disease was consulted for evaluation and management of sepsis and gram-positive bacteremia. Hepatitis profile negative. HIV antibody screening negative. An MRI of the lumbar spine on 06/01/16 showed no evidence of abscess or abnormal enhancement. Echocardiogram on 06/02/16 revealed no endocarditis, EF 60% to 65%. Blood cultures were positive for group beta strep. The patient had been treated with empiric antibiotics, IV vancomycin was continued for the strep bacteremia. Tentative stop date for vancomycin 07/09/16. Neurosurgery ( Dr. Mason) was consulted to evaluate L5/S1 disc protrusion, central, without any significant nerve root impingement. No neurosurgical interventions were recommended. If further neurological workup is indicated, he would recommend consulting neurology. On 06/17/16 noxious weeds and pest inspector were consulted lethargy, anemia and hypotension with systolic blood pressures ranging 80s to 90s. Stat x-ray showed increase in bilateral pleural effusions and increased bilateral perihilar markings. Blood gas was performed which did indicate pH 7.47, PCO2 34, PO2 60, O2 saturation 88% , hemoglobin 5.8. Patient was transferred to the ICU, subsequently intubated on mechanical ventilator. : MRI brain revealed nonspecific white matter changes. EEG reveals moderate to severe encephalopathy possibly pharmacology pharmacological use, no left form activity. Hematology/oncology was consulted on 06/20/16 for evaluation on the lysis and anemia secondary to underlying liver disease. Plan to continue workup for underlying hemolysis, SREE will be checked. Per Dr. Valero, anemia is likely secondary to underlying liver disease etiology. Patient has had multiple transfusion, post-transfusion purpura will need to be excluded. Patient was extubated earlier today 06/21/16, tolerating oxygen 4L via nasal cannula with saturations in the low 90s. Palliative Care was consulted to assist with symptom management and to discuss with the family the benefits and burdens of her current illnesses and the options regarding future care. . Function/Cognitive Trajectory Patient has a long history of back pain status post a fall approximately 3 years ago, he recently stopped his Baclofen and Flexeril for financial reasons. Pain progressively became worse causing him to seek medical attention on . He had also developed jaundice approximately 2-3 moths prior to presenting to the ED. Patient has a history of heavy ETOH consumption until he quit 6 months ago. He reports he has never been evaluated/diagnosed with liver disease cirrhosis. . Review of Systems ROS Limitations: Altered Mental Status Constitutional: COMPLAINS OF: Pain (Chronic back pain s/p fall) Ears, nose, mouth, throat: DENIES: Epistaxis Respiratory: COMPLAINS OF: Shortness of breath Cardiovascular: DENIES: Chest pain Gastrointestinal: COMPLAINS OF: Abdominal pain (Patient reports abdomen is "sore".) Musculoskeletal: COMPLAINS OF: Back pain Hematologic/Lymphatics: COMPLAINS OF: Bruising, History of transfusions Neurologic: COMPLAINS OF: Abnormal gait, Localized weakness, Seizures Psychiatric: COMPLAINS OF: Confusion Past Family Social History Coded Allergies: Penicillin (Verified Allergy, Unknown, 05/31/16) Past Medical History Chronic back pain Hypertension Seizures COPD . Past Surgical History Patient denies any surgical history . Reported Medications Amlodipine (Amlodipine Besylate) 2.5 Mg Tab 7.5 Mg PO DAILY Atenolol 25 Mg Tab 12.5 Mg PO DAILY Baclofen 10 Mg Tab 10 Mg PO TID Phenytoin Extended 100 Mg Cap 100 Mg PO TID . Current Medications Medications (Trade) Dose Ordered Sig/Adriano Route Start Time Stop Time Status Last Admin (NS Flush) 2 ml UNSCH PRN FLUSH 05/31/16 20:15 (NS Flush) 2 ml BID FLUSH 05/31/16 21:00 06/21/16 07:57 (Narcan Inj) 0.4 mg UNSCH PRN IV 05/31/16 20:15 (Pill Splitter) 1 ea UNSCH PRN OTHER 06/01/16 04:45 06/09/16 10:04 (Keppra) 250 mg Q12HR PO 06/01/16 09:00 06/21/16 07:56 Cyclobenzaprine HCl 10 mg 10 mg Q8H PO 06/01/16 09:00 Hold 06/17/16 00:41 (Vancomycin Consult Pharmacy) 0 ml @ 0 mls/hr UNSCH OTHER 06/01/16 11:15 Potassium Chloride 40 meq 40 meq DAILY PO 06/07/16 09:00 Hold 06/16/16 08:02 (Vancomycin Inj/ NS 250 ml Inj) 250 ml @ 250 mls/hr Q24H IV 06/11/16 13:00 06/21/16 12:23 (Roxicodone) 5 mg Q6HR PRN PO 06/14/16 18:00 06/17/16 05:35 (Zofran Odt) 4 mg Q6H PRN PO 06/14/16 13:15 IV Flush 2 ml 2 ml BID IV FLUSH 06/16/16 21:00 06/19/16 21:02 Aztreonam 2000 mg/ Sodium Chloride 100 ml @ 200 mls/hr Q8H IV 06/16/16 21:00 06/21/16 12:22 (Zithromax Inj/ NS 250 ml Inj) 250 ml @ 250 mls/hr Q24H IV 06/16/16 22:00 06/20/16 20:25 Miscellaneous Information 1 [id number] XX 06/16/16 20:00 06/16/16 20:00 (Chlorhexidine 2% Cloth) 3 pack Taper DAILY@04 TOP 06/17/16 04:00 06/13/17 03:59 06/21/16 01:42 (Chlorhexidine 2% Cloth) 3 pack UNSCH PRN TOP 06/16/16 20:00 Pantoprazole Sodium 40 mg 40 mg Q12HR IV PUSH 06/17/16 09:45 06/21/16 07:57 (NS 1000 ml Inj) 1,000 ml @ 20 mls/hr Q24H IV 06/17/16 08:30 06/21/16 03:48 (Lasix Inj) 20 mg DAILY IV PUSH 06/17/16 09:00 06/21/16 07:57 (NS Flush) DAILY IVF 06/18/16 09:00 (NS Flush) UNSCH PRN IVF 06/17/16 09:30 Chlorhexidine Gluconate 15 ml 15 ml BID@08,20 MT 06/17/16 20:00 06/21/16 10:16 Propofol 100 ml @ 0 mls/hr TITRATE IV 06/17/16 09:30 06/19/16 07:27 (fentaNYL DRIP) 250 ml @ 0 mls/hr TITRATE IV 06/17/16 09:30 06/18/16 14:24 (Brethine Inj) 1 mg UNSCH PRN SQ 06/17/16 09:30 (Reglan Inj) 5 mg Q8HR IV PUSH 06/18/16 14:00 06/21/16 05:59 (Tears Naturale Opth Soln) 1 drop TID EACH EYE 06/18/16 09:00 06/21/16 07:57 Ondansetron HCl 4 mg 4 mg Q6H PRN IV 06/18/16 08:00 06/21/16 07:58 Potassium Chloride 100 ml @ 50 mls/hr Q2H PRN IV 06/18/16 08:00 06/21/16 12:22 (KCl 20 Meq Premix Inj) 100 ml @ 50 mls/hr Q2H PRN IV 06/18/16 08:00 Potassium Chloride 40 meq 40 meq UNSCH PRN PO/TUBE 06/18/16 08:00 06/18/16 09:01 Potassium Chloride 100 ml @ 25 mls/hr UNSCH PRN IV 06/18/16 08:00 Potassium Chloride 100 ml @ 50 mls/hr Q2H PRN IV 06/18/16 08:00 (Magnesium Sulfate Inj/NS Inj) 100 ml @ 50 mls/hr UNSCH PRN IV 06/18/16 08:00 Magnesium Oxide 800 mg 800 mg UNSCH PRN PO 06/18/16 08:00 (Magnesium Sulfate Inj/NS Inj) 100 ml @ 50 mls/hr UNSCH PRN IV 06/18/16 08:00 Potassium Phosphate 2000 mg 2,000 mg Q4H PRN PO 06/18/16 08:00 (Sodium Phosphate Inj/NS 250 ml Inj) 250 ml @ 42 mls/hr UNSCH PRN IV 06/18/16 08:00 (KCl 40 Meq/30 ml Liq) 40 meq UNSCH PRN PO/TUBE 06/18/16 08:00 Potassium Phosphate 2000 mg 2,000 mg UNSCH PRN PO/TUBE 06/18/16 08:00 (Potassium Phosphate Inj/NS 250 ml Inj) 260 ml @ 42 mls/hr UNSCH PRN IV 06/18/16 08:00 (Lactulose Liq) 30 ml Q6HR PO 06/20/16 00:00 06/21/16 11:23 (Senna Liq) 8.8 mg Q12HR PO 06/19/16 21:00 06/21/16 07:56 (Miralax) 17 gm BID PO 06/19/16 21:00 06/21/16 10:15 (SoluCORTEF INJ) 100 mg Q8HR IV PUSH 06/19/16 23:15 06/21/16 05:59 Docusate Sodium 100 mg 100 mg BID PO 06/20/16 09:00 06/21/16 07:56 Vasopressin 40 units/Dextrose 100 ml @ 4.5 mls/hr [id number] IV 06/20/16 12:50 06/21/16 03:48 (Neosynephrine Inj/D5W 500 ml Inj) 500 ml @ 0 mls/hr TITRATE IV 06/20/16 13:45 06/20/16 16:36 (fentaNYL INJ) 100 mcg Q4H PRN IV 06/20/16 18:00 06/21/16 04:34 Folic Acid 1 mg 1 mg DAILY PO 06/21/16 09:00 06/21/16 07:56 (NS 250 ml Inj) 250 ml @ 15 mls/hr ONCE ONCE IV 06/21/16 07:30 06/22/16 00:09 06/21/16 07:30 (Lasix Inj) 20 mg DAILY IV PUSH 06/21/16 09:00 (Aldactone) 25 mg DAILY PO 06/21/16 09:00 06/21/16 10:16 . Family History Mother had heart disease. No known family history of liver disease . Substance Use Tobacco: Active smoker, 1PPD Alcohol: Quit 6 months ago Prescription med abuse: None known Illicits: None known . Psychosocial History Patient was born in [place], moving to [place] when he was 4 years old. 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 Patient has been at least twice. His , Francisca, in 2003. He has been to his current , Marcelle , for only a short time. 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 . Spiritual/Cultural Factors Mosque kishan . Today's verbally stated goals: Patient verbalized goals are to walk again again and get his life together. . Family/friends goals: Patient's , Marcelle, states her goals are aggressive and she wants her to come home, but she would not keep him alive on artificial life support if he had no chance of ever getting better. . Ethical and Legal Issues Per [place] statutes, and absence of her advanced directives healthcare proxy decision making pulse to the patient's Marcelle Fonseca. . Physical Exam Vital Signs Date Time Temp Pulse Resp B/P Pulse Ox O2 Delivery O2 Flow Rate FiO2 06/21/16 12:10 94 Venturi Mask 6 50 06/21/16 11:18 95 40 06/21/16 10:30 88 8 98/58 94 06/21/16 10:00 97.9 90 10 101/58 94 06/21/16 09:30 88 9 103/59 95 06/21/16 09:00 86 7 90/52 95 06/21/16 08:30 86 8 95/54 95 06/21/16 08:00 97.7 82 10 99/57 96 06/21/16 07:44 84 11 97/57 96 06/21/16 07:34 84 8 95/56 94 06/21/16 07:30 40 06/21/16 07:30 95 40 06/21/16 07:04 86 13 86/51 93 06/21/16 06:34 82 17 93/54 90 06/21/16 06:04 84 06/21/16 06:04 84 19 114/66 93 06/21/16 06:00 82 06/21/16 05:34 78 14 98/58 92 06/21/16 05:04 78 14 107/67 95 06/21/16 04:34 82 16 114/68 96 06/21/16 04:22 94 40 06/21/16 04:04 98.2 82 16 108/66 93 06/21/16 04:00 40 06/21/16 04:00 84 06/21/16 03:34 78 15 100/62 92 06/21/16 03:04 84 19 106/67 92 06/21/16 02:34 80 14 103/63 92 06/21/16 02:00 78 06/21/16 01:04 80 91/56 06/21/16 01:04 80 14 91/56 92 06/21/16 00:34 92 18 114/69 98 06/21/16 00:15 93 40 06/21/16 00:04 98.0 80 15 97/59 93 06/21/16 00:00 80 06/21/16 00:00 40 06/20/16 23:04 80 15 101/58 93 06/20/16 22:34 80 14 97/55 93 06/20/16 22:04 80 14 96/55 93 06/20/16 22:01 93 40 06/20/16 22:00 82 06/20/16 21:34 82 15 95/55 92 06/20/16 21:04 84 14 97/56 92 06/20/16 20:34 82 15 99/57 95 06/20/16 20:27 95 40 06/20/16 20:04 99.0 82 15 97/55 95 06/20/16 20:00 82 06/20/16 20:00 40 06/20/16 20:00 82 06/20/16 19:34 84 15 101/55 93 06/20/16 19:04 88 16 106/58 93 06/20/16 18:22 85 207/60 06/20/16 18:22 85 06/20/16 18:21 96 40 06/20/16 18:16 82 14 107/60 93 06/20/16 18:01 84 15 105/59 94 06/20/16 17:46 84 15 102/60 94 06/20/16 17:31 84 15 101/58 93 06/20/16 17:16 84 15 96/55 93 06/20/16 17:01 84 14 89/53 93 06/20/16 16:31 84 14 102/59 96 06/20/16 16:16 88 15 108/61 95 06/20/16 16:00 99.3 94 24 134/66 98 06/20/16 16:00 40 06/20/16 16:00 84 06/20/16 15:56 96 40 06/20/16 15:45 84 14 107/62 95 06/20/16 15:30 86 16 110/63 95 06/20/16 15:15 86 14 120/66 95 06/20/16 15:00 86 16 117/65 96 06/20/16 14:45 86 13 118/64 96 06/20/16 14:30 86 14 113/61 96 06/20/16 14:19 87 06/20/16 14:15 88 16 107/59 96 06/20/16 14:00 90 14 95/51 96 06/20/16 13:45 90 15 94/51 96 06/20/16 13:30 90 15 93/49 96 . 06/20/16 06/21/16 19:00 07:00 Intake Total 2056 ml 2493 ml Output Total 475 ml 1125 ml Balance 1581 ml 1368 ml Intake Oral 0 ml 0 ml IV Total 1928 ml 2224 ml Tube Feeding 53 ml 189 ml Other 75 ml 80 ml Output Urine Total 475 ml 1125 ml Gastric Drainage Total 0 ml # Bowel Movements 0 . Exam CONSTITUTIONAL/GENERAL: This is an adequately nourished patient, in no apparent distress. TUBES/LINES/DRAINS: Right IJ CVL, PIV x1, Stone, NC, SCDs SKIN: No lesions or rash observed. Jaundice Ecchymoses on upper extremities. No wounds seen anteriorly. Skin temperature appropriate. Not diaphoretic. HEAD: Atraumatic. Normocephalic. EYES: Pupils equal and round and reactive. Extraocular motions intact. + scleral icterus. No injection or drainage. Fundi not examined. ENT: Hearing grossly normal. Nose without bleeding or purulent drainage. Throat without visible erythema, exudates, masses, or lesions. NECK: Trachea midline. Supple, nontender. No palpable thyroid enlargement or nodularity. CARDIOVASCULAR: Regular rate and rhythm without murmurs, gallops, or rubs. No JVD. Peripheral pulses symmetric. RESPIRATORY/CHEST: Symmetric, unlabored respirations. Clear to auscultation. Breath sounds diminished bilaterally. No wheezes, rales, or rhonchi. GASTROINTESTINAL: Abdomen is distended, slightly tender to palpation. GENITOURINARY: Without palpable bladder distension. Stone catheter in place. MUSCULOSKELETAL: Extremities without clubbing or clubbing. Trace BLE edema. Scrotal edema. LYMPHATICS: No palpable cervical or supraclavicular adenopathy. NEUROLOGICAL: Awake, somewhat confused. Occasionally difficulty finding words. Follows commands.. Moves all extremities. PSYCHIATRIC: No obvious anxiety/depression. No apparent hallucinations or other psychotic thought process. . Diagnostic Tests Laboratory Laboratory Tests Test 06/19/16 06/19/16 06/19/16 06/19/16 05:13 07:31 13:45 22:25 White Blood Count 7.1 TH/MM3 10.3 TH/MM3 (4.0-11.0) (4.0-11.0) Red Blood Count 1.90 MIL/MM3 2.42 MIL/MM3 (4.50-5.90) (4.50-5.90) Hemoglobin 6.6 GM/DL 8.4 GM/DL (13.0-17.0) (13.0-17.0) Hematocrit 19.3 % 23.8 % (39.0-51.0) (39.0-51.0) Mean Corpuscular Volume 101.6 FL 98.4 FL (80.0-100.0) (80.0-100.0) Mean Corpuscular Hemoglobin 34.9 PG 34.7 PG (27.0-34.0) (27.0-34.0) Mean Corpuscular Hemoglobin 34.4 % 35.3 % Concent (32.0-36.0) (32.0-36.0) Red Cell Distribution Width 28.1 % 25.1 % (11.6-17.2) (11.6-17.2) Platelet Count 85 TH/MM3 77 TH/MM3 (150-450) (150-450) Mean Platelet Volume 6.2 FL 6.6 FL (7.0-11.0) (7.0-11.0) Neutrophils (%) (Auto) 68.8 % (16.0-70.0) Lymphocytes (%) (Auto) 16.0 % (9.0-44.0) Monocytes (%) (Auto) 11.1 % (0.0-8.0) Eosinophils (%) (Auto) 2.8 % (0.0-4.0) Basophils (%) (Auto) 1.3 % (0.0-2.0) Neutrophils # (Auto) 4.9 TH/MM3 (1.8-7.7) Lymphocytes # (Auto) 1.1 TH/MM3 (1.0-4.8) Monocytes # (Auto) 0.8 TH/MM3 (0-0.9) Eosinophils # (Auto) 0.2 TH/MM3 (0-0.4) Basophils # (Auto) 0.1 TH/MM3 (0-0.2) CBC Comment AUTO DIFF Differential Comment AUTO DIFF CONFIRMED Platelet Estimate LOW (NORMAL) Platelet Morphology Comment NORMAL (NORMAL) Basophilic Stippling FAINT (NORMAL) Spherocytes OCC (NORMAL) Rouleau PRESENT (NORMAL) Prothrombin Time 21.4 SEC (9.8-11.6) Prothromb Time International 1.9 RATIO Ratio Activated Partial 65.3 SEC Thromboplast Time (24.3-30.1) Sodium Level 144 MEQ/L (136-145) Potassium Level 3.7 MEQ/L (3.5-5.1) Chloride Level 110 MEQ/L (98-107) Carbon Dioxide Level 26.5 MEQ/L (21.0-32.0) Anion Gap 8 MEQ/L (5-15) Blood Urea Nitrogen 24 MG/DL (7-18) Creatinine 1.80 MG/DL (0.60-1.30) Estimat Glomerular Filtration 40 ML/MIN (>89) Rate Random Glucose 93 MG/DL (74-106) Lactic Acid Level 1.2 mmol/L (0.4-2.0) Calcium Level 8.7 MG/DL (8.5-10.1) Phosphorus Level 3.4 MG/DL (2.5-4.9) Magnesium Level 1.9 MG/DL (1.5-2.5) Total Bilirubin 10.2 MG/DL (0.2-1.0) Aspartate Amino Transf 63 U/L (15-37) (AST/SGOT) Alanine Aminotransferase 25 U/L (12-78) (ALT/SGPT) Alkaline Phosphatase 63 U/L (45-117) Total Protein 7.4 GM/DL (6.4-8.2) Albumin 2.7 GM/DL (3.4-5.0) Blood Type A POSITIVE Crossmatch Leukocyte-Reduced Red Blood Cells Blood Bank Comment Vancomycin Level Trough 18.2 MCG/ML (5.0-10.0) Blood Smear Pathologist Review Test 06/19/16 06/20/16 06/20/16 06/21/16 23:30 06:20 12:35 06:20 Activated Partial 62.5 SEC Thromboplast Time (24.3-30.1) White Blood Count 8.4 TH/MM3 (4.0-11.0) Red Blood Count 2.45 MIL/MM3 (4.50-5.90) Hemoglobin 8.4 GM/DL (13.0-17.0) Hematocrit 24.5 % (39.0-51.0) Mean Corpuscular Volume 100.2 FL (80.0-100.0) Mean Corpuscular Hemoglobin 34.3 PG (27.0-34.0) Mean Corpuscular Hemoglobin 34.2 % Concent (32.0-36.0) Red Cell Distribution Width 26.4 % (11.6-17.2) Platelet Count 82 TH/MM3 (150-450) Mean Platelet Volume 7.0 FL (7.0-11.0) Neutrophils (%) (Auto) 87.6 % (16.0-70.0) Lymphocytes (%) (Auto) 6.8 % (9.0-44.0) Monocytes (%) (Auto) 4.2 % (0.0-8.0) Eosinophils (%) (Auto) 0.4 % (0.0-4.0) Basophils (%) (Auto) 1.0 % (0.0-2.0) Neutrophils # (Auto) 7.3 TH/MM3 (1.8-7.7) Lymphocytes # (Auto) 0.6 TH/MM3 (1.0-4.8) Monocytes # (Auto) 0.4 TH/MM3 (0-0.9) Eosinophils # (Auto) 0.0 TH/MM3 (0-0.4) Basophils # (Auto) 0.1 TH/MM3 (0-0.2) CBC Comment AUTO DIFF Differential Comment AUTO DIFF CONFIRMED Reticulocyte Count 2.6 % (0.4-3.0) 2.9 % (0.4-3.0) Absolute Reticulocyte Count 61.1 MIL/L 62.0 MIL/L (20.0-150.0) (20.0-150.0) Haptoglobin LESS THAN 10 MG/DL (30-200) Prothrombin Time 19.7 SEC (9.8-11.6) Prothromb Time International 1.7 RATIO Ratio Fibrinogen 101 mg/dL (227-377) Sodium Level 141 MEQ/L (136-145) Potassium Level 3.6 MEQ/L (3.5-5.1) Chloride Level 107 MEQ/L (98-107) Carbon Dioxide Level 24.9 MEQ/L (21.0-32.0) Anion Gap 9 MEQ/L (5-15) Blood Urea Nitrogen 25 MG/DL (7-18) Creatinine 1.50 MG/DL (0.60-1.30) Estimat Glomerular Filtration 49 ML/MIN (>89) Rate Random Glucose 118 MG/DL (74-106) Lactic Acid Level 1.4 mmol/L (0.4-2.0) Calcium Level 8.3 MG/DL (8.5-10.1) Phosphorus Level 3.1 MG/DL (2.5-4.9) Magnesium Level 1.8 MG/DL (1.5-2.5) Total Bilirubin 14.5 MG/DL (0.2-1.0) Direct Bilirubin 6.0 MG/DL (0.0-0.2) Indirect Bilirubin 8.5 MG/DL (0.0-0.8) Aspartate Amino Transf 64 U/L (15-37) (AST/SGOT) Alanine Aminotransferase 23 U/L (12-78) (ALT/SGPT) Alkaline Phosphatase 65 U/L (45-117) Lactate Dehydrogenase 258 U/L 274 U/L (87-241) (87-241) Total Protein 6.9 GM/DL (6.4-8.2) Albumin 3.12 GM/DL (3.50-5.00) Albumin/Globulin Ratio 0.82 (1.39-2.23) Wrzpi-0-Wszoaaohi 0.23 GM/DL (0.11-0.29) Fujwa-9-Hnvymxjbc 0.37 GM/DL (0.22-1.00) Beta Globulins 0.51 GM/DL (0.53-1.03) Gamma Globulins 2.67 GM/DL (0.50-1.39) Electrophoresis Pathologist Comment Amylase Level 381 U/L (25-115) Lipase 208 U/L (73-393) Thyroid Stimulating Hormone 2.240 uIU/ML 3rd Gen (0.358-3.740) Vancomycin Level Trough 18.5 MCG/ML (5.0-10.0) Immunoglobulin G Total 2010 MG/DL (660-1640) Immunoglobulin A 1460 MG/DL (93-514) Immunoglobulin M 159 MG/DL (40-247) Test 06/21/16 06/21/16 06/21/16 06/21/16 07:00 07:20 07:28 08:00 White Blood Count 6.1 TH/MM3 (4.0-11.0) Red Blood Count 2.25 MIL/MM3 (4.50-5.90) Hemoglobin 7.7 GM/DL (13.0-17.0) Hematocrit 22.7 % (39.0-51.0) Mean Corpuscular Volume 100.7 FL (80.0-100.0) Mean Corpuscular Hemoglobin 34.3 PG (27.0-34.0) Mean Corpuscular Hemoglobin 34.1 % Concent (32.0-36.0) Red Cell Distribution Width 26.8 % (11.6-17.2) Platelet Count 89 TH/MM3 (150-450) Mean Platelet Volume 6.9 FL (7.0-11.0) Neutrophils (%) (Auto) 85.3 % (16.0-70.0) Lymphocytes (%) (Auto) 9.0 % (9.0-44.0) Monocytes (%) (Auto) 5.4 % (0.0-8.0) Eosinophils (%) (Auto) 0.1 % (0.0-4.0) Basophils (%) (Auto) 0.2 % (0.0-2.0) Neutrophils # (Auto) 5.3 TH/MM3 (1.8-7.7) Lymphocytes # (Auto) 0.5 TH/MM3 (1.0-4.8) Monocytes # (Auto) 0.3 TH/MM3 (0-0.9) Eosinophils # (Auto) 0.0 TH/MM3 (0-0.4) Basophils # (Auto) 0.0 TH/MM3 (0-0.2) CBC Comment AUTO DIFF Differential Comment AUTO DIFF CONFIRMED Platelet Estimate LOW (NORMAL) Platelet Morphology Comment NORMAL (NORMAL) Target Cells 1+ (NORMAL) Prothrombin Time 20.7 SEC (9.8-11.6) Prothromb Time International 1.8 RATIO Ratio Activated Partial 53.4 SEC Thromboplast Time (24.3-30.1) Sodium Level 139 MEQ/L (136-145) Potassium Level 3.0 MEQ/L (3.5-5.1) Chloride Level 107 MEQ/L (98-107) Carbon Dioxide Level 22.4 MEQ/L (21.0-32.0) Anion Gap 10 MEQ/L (5-15) Blood Urea Nitrogen 33 MG/DL (7-18) Creatinine 1.40 MG/DL (0.60-1.30) Estimat Glomerular Filtration 53 ML/MIN (>89) Rate Random Glucose 135 MG/DL (74-106) Calcium Level 8.5 MG/DL (8.5-10.1) Total Bilirubin 13.1 MG/DL (0.2-1.0) Aspartate Amino Transf 59 U/L (15-37) (AST/SGOT) Alanine Aminotransferase 25 U/L (12-78) (ALT/SGPT) Alkaline Phosphatase 65 U/L (45-117) Total Protein 7.1 GM/DL (6.4-8.2) Albumin 2.3 GM/DL (3.4-5.0) Blood Type A POSITIVE Direct Antiglobulin Test NEGATIVE (Trish) (NEGATIVE) Blood Bank Comment Urine Total Volume 24 Hours 825 ML Urine Total Protein 24 Hour 412 MG/24HR (0-150) . Result Diagram: 06/21/16 0700 06/21/16 0700 Microbiology Microbiology Date/Time Procedure Status Source Growth 06/18/16 09:05 Aerobic Blood Culture - Preliminary Resulted Blood Peripheral NO GROWTH IN 3 DAYS 06/18/16 09:05 Anaerobic Blood Culture - Preliminary Resulted Blood Peripheral NO GROWTH IN 3 DAYS 06/18/16 02:00 Gram Stain - Final Complete Sputum Endotracheal 06/18/16 02:00 Sputum Culture - Final Complete Sputum Endotracheal MODERATE GROWTH NORMAL RESPIRATORY [facility] 06/16/16 20:26 Aerobic Blood Culture - Final Complete Blood Peripheral NO GROWTH IN 5 DAYS 06/16/16 20:26 Anaerobic Blood Culture - Final Complete Blood Peripheral NO GROWTH IN 5 DAYS . Imaging Last 72 hours Impressions Chest X-Ray 06/20/16 0600 Signed Impressions: Service Date/Time: Monday, June 20, 2016 06:25 - CONCLUSION: Worsening bilateral airspace disease and effusions. Ezra Aggarwal MD Chest X-Ray 06/19/16 0600 Signed Impressions: Service Date/Time: Sunday, June 19, 2016 06:35 - CONCLUSION: Stable chest x-ray with findings characteristic of bilateral pleural effusions with associated volume loss and/or consolidation. Joseph Marshall MD Abdomen/Pelvis CT 06/19/16 0000 Signed Impressions: Service Date/Time: Sunday, June 19, 2016 12:14 - CONCLUSION: 1. Cirrhotic liver with borderline splenomegaly and abdominal ascites. 2. Bibasilar consolidation and small bilateral pleural effusions. 3. Cholelithiasis and nonobstructing punctate left renal calculus. 4. Anasarca. Angelo Freed MD . Procedures 06/17/16: Right IJ central venous line 06/17/16 Orotracheal intubation 06/21/16: Extubation . Patient/Family Conference Present at Family Conference: Spoke with patient with, Marcelle via telephone. We discussed patient's multiorgan dysfunction, overall poor prognosis. Marcelle would like to be kept up to date regular as she is unable to get to the hospital because of financial issues. . Family Conference Location: Telephone Issues Discussed: * Palliative care role, purpose, approach * Additional medical, psychosocial, and spiritual history * Patients general health, functional status, and cognitive changes in the months leading up to the current hospitalization * Patient/family understanding of the current medical problems * Patient/family understanding of prognosis * Patients goals of care as best understood from advance directives and/or conversations and/or values * Current medical treatment options and benefits/burdens of those options * Likely scenarios comparing ongoing aggressive care with a transition to comfort measures only * Questions answered to the best of my ability * Palliative care contact information provided . Assessment and Plan Disease Oriented Problem List: (1) Jaundice (2) SIRS (systemic inflammatory response syndrome) (3) Anemia (4) HTN (hypertension) (5) Seizures (6) Back pain (7) BERNIE (acute kidney injury) (8) Protein-calorie malnutrition, moderate (9) Metabolic encephalopathy (10) Coagulopathy Symptom Scale: (1) Pain (2) Dyspnea Comment: Status post extubation 06/21/16, tolerating oxygen 4L via NC. saturations in the low 90s. Follow-up chest x-ray on 06/20/16 shows worsening bilateral airspace disease and effusions. . Pertinent Non-Medical Issues Psychosocial: Patient was born in [place], moving to [place] when he was 4 years old. 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 Patient has been at least twice. His , Francisca, in 2003. He has been to his current , Marcelle, for only a short time. 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 . Important Contacts Marcelle Fonseca, spouse: [phone] or [phone] (patient's cell phone) Toña Fonseca, daughter: [phone] . Code Status: Full Code Plan * FULL CODE * Decision making: Patient is confused without insight or judgement toward his current medical condition status post extubation this afternoon. It is unknown if the patient will regain capacity or if his confusion is secondary to disease progression. Per [place] statutes, in the absence of written advanced directives healthcare proxy decision making falls to the patient's Marcelle Fonseca. * Goals: Goals remain aggressive at this time. * Spoke with patient with, Marcelle via telephone. We discussed patient's multiorgan dysfunction, overall poor prognosis. Marcelle would like to be kept up to date regular as she is unable to get to the hospital because of financial issues. * Discussed the process of cardiopulmonary resuscitation (compressions, medications, cardioversion and intubation/mechanical ventilation) with the patient's , Marcelle, who states the patient was asked these questions when he presented to the ED and the patient stated he wanted everything done to keep him going. Patient states today, " I don't really want that tube again, unless I really need it. I guess every now and then wouldn't be too bad." * Symptom managementdyspnea: Status post extubation 06/21/16, tolerating oxygen 4L via NC. saturations in the low 90s. Follow-up chest x-ray on 06/20/16 shows worsening bilateral airspace disease and effusions. * Managementpain: Patient has a history of chronic back pain s/p slipping and falling in 2012. Recent MRI: L5/S1 disc protrusion, central, without any significant nerve root impingement. Other possible cause of pain may include, ascites, abdominal distention, dyspnea, infection, edema, immobility, bedbound status, invasiveness lines etc. fentanyl drip was discontinued 06/20/16. Oxycodone 5 mg PO q6 hours is available PRN for pain rated 6-10, has not been ministered in the past 24 hours. Palliative care will continue to monitor PRN requirements and make recommendations as indicated. * Palliative care contact information provided to patient's , Marcelle Fonseca * Palliative care will continue to follow this patient throughout his hospitalization to establish trust, assist with symptom management and clarification of medical treatment goals. . Thank you for the opportunity to participate in the care of Mr. Fonseca. . Attestation To help prompt me to consider important information that might be impacting today's encounter and assessment, information from prior notes written by myself or my colleagues may have been "brought forward" into today's note. My signature on this note, however, is an attestation that I personally performed the exam, history, and/or decision-making noted today, and, unless otherwise indicated, the interactions with patient, family, and staff as well as the review of records all occurred today. I also attest that the listed assessment and stated plan reflect my best clinical judgment today based on the combination of historical information, prior notes, and today's exam/ interactions. When time spent is documented, it refers only to time spent today by the signer, or if indicated, combined time spent today by collaborating physician/nurse practitioner. . Henna العلي Jun 21, 2016 15:04
--- NOTE | 2016-06-21 18:16 | PD.ONC.PN ---
Subjective Subjective Remarks "Feeling better than ever" Extubated this morning. State that he is waiting for Palak to come. Objective Data Date Time Temp Pulse Resp B/P Pulse Ox O2 Delivery O2 Flow Rate FiO2 06/21/16 17:30 98 16 121/68 93 06/21/16 17:07 100 20 122/71 90 06/21/16 16:30 96 17 119/59 90 06/21/16 16:00 97.4 06/21/16 16:00 88 12 113/64 93 06/21/16 15:45 84 14 98/55 93 06/21/16 15:30 86 14 100/57 93 06/21/16 15:15 86 7 111/63 90 06/21/16 15:00 86 7 101/58 92 06/21/16 14:30 94 14 109/61 91 06/21/16 14:04 93 Nasal Cannula 6.00 06/21/16 14:00 90 18 107/50 94 06/21/16 13:50 96 Venturi Mask 6.00 50 06/21/16 13:30 92 13 110/63 91 06/21/16 13:00 90 10 99/59 93 06/21/16 12:30 92 15 96/57 91 06/21/16 12:30 92 06/21/16 12:10 94 Venturi Mask 6 50 06/21/16 12:00 97.9 90 12 100/60 93 06/21/16 11:30 92 19 107/64 93 06/21/16 11:18 95 40 06/21/16 11:00 86 9 99/56 94 06/21/16 10:30 88 8 98/58 94 06/21/16 10:00 97.9 90 10 101/58 94 06/21/16 09:30 88 9 103/59 95 06/21/16 09:00 86 7 90/52 95 06/21/16 08:30 86 8 95/54 95 06/21/16 08:00 97.7 82 10 99/57 96 06/21/16 08:00 50 06/21/16 07:44 84 11 97/57 96 06/21/16 07:34 84 8 95/56 94 06/21/16 07:30 40 06/21/16 07:30 95 40 06/21/16 07:04 86 13 86/51 93 06/21/16 06:34 82 17 93/54 90 06/21/16 06:04 84 06/21/16 06:04 84 19 114/66 93 06/21/16 06:00 82 06/21/16 05:34 78 14 98/58 92 06/21/16 05:04 78 14 107/67 95 06/21/16 04:34 82 16 114/68 96 06/21/16 04:22 94 40 06/21/16 04:04 98.2 82 16 108/66 93 06/21/16 04:00 40 06/21/16 04:00 84 06/21/16 03:34 78 15 100/62 92 06/21/16 03:04 84 19 106/67 92 06/21/16 02:34 80 14 103/63 92 06/21/16 02:00 78 06/21/16 01:04 80 91/56 06/21/16 01:04 80 14 91/56 92 06/21/16 00:34 92 18 114/69 98 06/21/16 00:15 93 40 06/21/16 00:04 98.0 80 15 97/59 93 06/21/16 00:00 80 06/21/16 00:00 40 06/20/16 23:04 80 15 101/58 93 06/20/16 22:34 80 14 97/55 93 06/20/16 22:04 80 14 96/55 93 06/20/16 22:01 93 40 06/20/16 22:00 82 06/20/16 21:34 82 15 95/55 92 06/20/16 21:04 84 14 97/56 92 06/20/16 20:34 82 15 99/57 95 06/20/16 20:27 95 40 06/20/16 20:04 99.0 82 15 97/55 95 06/20/16 20:00 82 06/20/16 20:00 40 06/20/16 20:00 82 06/20/16 19:34 84 15 101/55 93 06/20/16 19:04 88 16 106/58 93 06/20/16 18:22 85 207/60 06/20/16 18:22 85 06/20/16 18:21 96 40 06/20/16 18:16 82 14 107/60 93 06/21/16 06/21/16 06/21/16 07:00 15:00 23:00 Intake Total 1285 ml 872 ml Output Total 650 ml 830 ml Balance 635 ml 42 ml Result Diagram: 06/21/16 0700 06/21/16 0700 Laboratory Results Laboratory Tests Test 06/21/16 06/21/16 06/21/16 06/21/16 06:20 07:00 07:20 07:28 Reticulocyte Count 2.9 % Absolute Reticulocyte Count 62.0 MIL/L Lactate Dehydrogenase 274 U/L Immunoglobulin G Total 2010 MG/DL Immunoglobulin A 1460 MG/DL Immunoglobulin M 159 MG/DL White Blood Count 6.1 TH/MM3 Red Blood Count 2.25 MIL/MM3 Hemoglobin 7.7 GM/DL Hematocrit 22.7 % Mean Corpuscular Volume 100.7 FL Mean Corpuscular Hemoglobin 34.3 PG Mean Corpuscular Hemoglobin 34.1 % Concent Red Cell Distribution Width 26.8 % Platelet Count 89 TH/MM3 Mean Platelet Volume 6.9 FL Neutrophils (%) (Auto) 85.3 % Lymphocytes (%) (Auto) 9.0 % Monocytes (%) (Auto) 5.4 % Eosinophils (%) (Auto) 0.1 % Basophils (%) (Auto) 0.2 % Neutrophils # (Auto) 5.3 TH/MM3 Lymphocytes # (Auto) 0.5 TH/MM3 Monocytes # (Auto) 0.3 TH/MM3 Eosinophils # (Auto) 0.0 TH/MM3 Basophils # (Auto) 0.0 TH/MM3 CBC Comment AUTO DIFF Differential Comment AUTO DIFF CONFIRMED Platelet Estimate LOW Platelet Morphology Comment NORMAL Target Cells 1+ Prothrombin Time 20.7 SEC Prothromb Time International 1.8 RATIO Ratio Activated Partial 53.4 SEC Thromboplast Time Sodium Level 139 MEQ/L Potassium Level 3.0 MEQ/L Chloride Level 107 MEQ/L Carbon Dioxide Level 22.4 MEQ/L Anion Gap 10 MEQ/L Blood Urea Nitrogen 33 MG/DL Creatinine 1.40 MG/DL Estimat Glomerular Filtration 53 ML/MIN Rate Random Glucose 135 MG/DL Calcium Level 8.5 MG/DL Total Bilirubin 13.1 MG/DL Aspartate Amino Transf 59 U/L (AST/SGOT) Alanine Aminotransferase 25 U/L (ALT/SGPT) Alkaline Phosphatase 65 U/L Total Protein 7.1 GM/DL Albumin 2.3 GM/DL Blood Type A POSITIVE Direct Antiglobulin Test NEGATIVE ([facility]) Blood Bank Comment Test 06/21/16 08:00 Urine Total Volume 24 Hours 825 ML Urine Total Protein 24 Hour 412 MG/24HR Administered Medications Medications (Trade) Dose Ordered Sig/Adriano Route PRN Reason Start Time Stop Time Status Last Admin Dose Admin IV Flush (NS Flush) 2 ml BID FLUSH 05/31/16 21:00 06/21/16 07:57 Miscellaneous (Pill Splitter) 1 ea UNSCH PRN OTHER SEE LABEL COMMENTS 06/01/16 04:45 06/09/16 10:04 Levetriacetam (Keppra) 250 mg Q12HR PO 06/01/16 09:00 06/21/16 07:56 Cyclobenzaprine HCl (Flexeril) 10 mg Q8H PO 06/01/16 09:00 Hold 06/17/16 00:41 Potassium Chloride 40 meq 40 meq DAILY PO 06/07/16 09:00 Hold 06/16/16 08:02 Vancomycin HCl/ Sodium Chloride (Vancomycin Inj/ NS 250 ml Inj) 250 ml @ 250 mls/hr Q24H IV 06/11/16 13:00 06/21/16 12:23 Oxycodone HCl (Roxicodone) 5 mg Q6HR PRN PO PAIN SCALE 6 TO 10 06/14/16 18:00 06/17/16 05:35 IV Flush 2 ml 2 ml BID IV FLUSH 06/16/16 21:00 06/19/16 21:02 Aztreonam 2000 mg/ Sodium Chloride 100 ml @ 200 mls/hr Q8H IV 06/16/16 21:00 06/21/16 12:22 Azithromycin/ Sodium Chloride (Zithromax Inj/ NS 250 ml Inj) 250 ml @ 250 mls/hr Q24H IV 06/16/16 22:00 06/20/16 20:25 Miscellaneous Information 1 [id number] XX 06/16/16 20:00 06/16/16 20:00 Chlorhexidine Gluconate (Chlorhexidine 2% Cloth) 3 pack Taper DAILY@04 TOP 06/17/16 04:00 06/13/17 03:59 06/21/16 01:42 Pantoprazole Sodium 40 mg 40 mg Q12HR IV PUSH 06/17/16 09:45 06/21/16 07:57 Sodium Chloride (NS 1000 ml Inj) 1,000 ml @ 20 mls/hr Q24H IV 06/17/16 08:30 06/21/16 03:48 Furosemide (Lasix Inj) 20 mg DAILY IV PUSH 06/17/16 09:00 06/21/16 07:57 Chlorhexidine Gluconate 15 ml 15 ml BID@08,20 MT 06/17/16 20:00 06/21/16 10:16 Propofol 100 ml @ 0 mls/hr TITRATE IV 06/17/16 09:30 06/19/16 07:27 Fentanyl Citrate (fentaNYL DRIP) 250 ml @ 0 mls/hr TITRATE IV 06/17/16 09:30 06/18/16 14:24 Metoclopramide HCl (Reglan Inj) 5 mg Q8HR IV PUSH 06/18/16 14:00 06/21/16 14:22 Artificial Tears (Tears Naturale Opth Soln) 1 drop TID EACH EYE 06/18/16 09:00 06/21/16 07:57 Ondansetron HCl 4 mg 4 mg Q6H PRN IV NAUSEA OR VOMITING 06/18/16 08:00 06/21/16 07:58 Potassium Chloride (KCl 40 Meq Premix Inj) 100 ml @ 50 mls/hr Q2H PRN IV For Potassium 2.8 - 3.2 mEq/L 06/18/16 08:00 06/21/16 12:22 Potassium Chloride (KCl 40 Meq/30 ml Liq) 40 meq UNSCH PRN PO/TUBE For Potassium 3.3 - 3.5 mEq/L 06/18/16 08:00 06/18/16 09:01 Lactulose (Lactulose Liq) 30 ml Q6HR PO 06/20/16 00:00 06/21/16 11:23 Sennosides (Senna Liq) 8.8 mg Q12HR PO 06/19/16 21:00 06/21/16 07:56 Polyethylene Glycol (Miralax) 17 gm BID PO 06/19/16 21:00 06/21/16 10:15 Hydrocortisone Sodium Succinate (SoluCORTEF INJ) 100 mg Q8HR IV PUSH 06/19/16 23:15 06/21/16 14:19 Docusate Sodium 100 mg 100 mg BID PO 06/20/16 09:00 06/21/16 07:56 Vasopressin 40 units/Dextrose 100 ml @ 4.5 mls/hr [id number] IV 06/20/16 12:50 06/21/16 03:48 Phenylephrine HCl/ Dextrose (Neosynephrine Inj/D5W 500 ml Inj) 500 ml @ 0 mls/hr TITRATE IV 06/20/16 13:45 06/20/16 16:36 Fentanyl Citrate (fentaNYL INJ) 100 mcg Q4H PRN IV PAIN 1-10/AGITATION 06/20/16 18:00 06/21/16 04:34 Folic Acid 1 mg 1 mg DAILY PO 06/21/16 09:00 06/21/16 07:56 Sodium Chloride (NS 250 ml Inj) 250 ml @ 15 mls/hr ONCE ONCE IV 06/21/16 07:30 06/22/16 00:09 06/21/16 07:30 Spironolactone (Aldactone) 25 mg DAILY PO 06/21/16 09:00 06/21/16 10:16 Objective Remarks GENERAL: Well-nourished, well-developed patient. SKIN: Warm and dry. Jaundiced. Spider angiomata on chest and face. HEAD: Normocephalic. EYES: No scleral icterus. No injection or drainage. NECK: Supple, trachea midline. No JVD or lymphadenopathy. LYMPHATIC: No adenopathy. CARDIOVASCULAR: Regular rate and rhythm without murmurs. RESPIRATORY: Breath sounds equal bilaterally. No accessory muscle use. GASTROINTESTINAL: Abdomen distended with ascites. EXTREMITIES: No cyanosis. Trace edema. MUSCULOSKELETAL: Adequate muscle tone. NEUROLOGICAL: Awake, alert. Assessment/Plan Problem List: (1) Cirrhosis Status: Acute Plan: Liver cirrhosis, jaundiced for several months- decompensative liver disease with multiorgan dysfunction. Child Villagomez score 15, Child's class C with 45% survival in 1 year. Pt clinically improving, extubated, still jaundice. Bili still elevated, direct and indirect secondary to liver disease. Haptoglobin also low suspect from liver disease. Retic inappropriately low which argues against hemolytic process. Microspherocytes or schistocytes not appreciated. SREE is negative. Transfuse support, no overt sign of bleeding. 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 (2) Coagulopathy Status: Acute Plan: PT/PTT prolonged. Fibrinogen low, but currently no bleeding. Vitamin k did not help the coagulopathy- suggest this is his underlying liver disease. LAC testing pending to r/o LAC as cause of prolonged pt/ptt. Assessment 51 y/o man with Alcoholic liver disease, decompensated, complicated by anemia, and hypersplenism. Plan 1. Continue support. 2. Pt improving form current exacerbation but his prognosis is poor regarding liver disease, palliative care consulted to discuss these issues with family and pt. 3. Pending results of LAC. Mel Orr MD Jun 21, 2016 18:16
[2016-06-21] MEDS ORDERED: FUROSEMIDE 20 MG/2 ML VIAL IV ONE (18:30)
--- NOTE | 2016-06-21 20:39 | HHI.GIFU ---
Subjective Remarks Patient comfortable in bed denies any abdominal pain has had good bowel movements Objective Vitals I&O Vital Signs Date Time Temp Pulse Resp B/P Pulse Ox O2 Delivery O2 Flow Rate FiO2 06/21/16 19:31 88 06/21/16 19:23 94 Nasal Cannula 4.00 06/21/16 19:15 96 12 104/58 95 06/21/16 19:00 94 10 102/60 94 06/21/16 18:45 94 15 106/65 94 06/21/16 18:33 92 10 97/56 94 06/21/16 18:30 90 06/21/16 18:03 94 12 95/59 95 06/21/16 17:30 98 16 121/68 93 06/21/16 17:07 100 20 122/71 90 06/21/16 16:30 96 17 119/59 90 06/21/16 16:00 97.4 06/21/16 16:00 88 12 113/64 93 06/21/16 16:00 78 06/21/16 15:45 84 14 98/55 93 06/21/16 15:30 86 14 100/57 93 06/21/16 15:15 86 7 111/63 90 06/21/16 15:00 86 7 101/58 92 06/21/16 14:30 94 14 109/61 91 06/21/16 14:04 93 Nasal Cannula 6.00 06/21/16 14:00 90 18 107/50 94 06/21/16 13:50 96 Venturi Mask 6.00 50 06/21/16 13:30 92 13 110/63 91 06/21/16 13:00 90 10 99/59 93 06/21/16 12:30 92 15 96/57 91 06/21/16 12:30 92 06/21/16 12:10 94 Venturi Mask 6 50 06/21/16 12:00 82 06/21/16 12:00 97.9 90 12 100/60 93 06/21/16 11:30 92 19 107/64 93 06/21/16 11:18 95 40 06/21/16 11:00 86 9 99/56 94 06/21/16 10:30 88 8 98/58 94 06/21/16 10:00 97.9 90 10 101/58 94 06/21/16 09:30 88 9 103/59 95 06/21/16 09:00 86 7 90/52 95 06/21/16 08:30 86 8 95/54 95 06/21/16 08:00 97.7 82 10 99/57 96 06/21/16 08:00 77 06/21/16 08:00 50 06/21/16 07:44 84 11 97/57 96 06/21/16 07:34 84 8 95/56 94 06/21/16 07:30 40 06/21/16 07:30 95 40 06/21/16 07:04 86 13 86/51 93 06/21/16 06:34 82 17 93/54 90 06/21/16 06:04 84 06/21/16 06:04 84 19 114/66 93 06/21/16 06:00 82 06/21/16 05:34 78 14 98/58 92 06/21/16 05:04 78 14 107/67 95 06/21/16 04:34 82 16 114/68 96 06/21/16 04:22 94 40 06/21/16 04:04 98.2 82 16 108/66 93 06/21/16 04:00 40 06/21/16 04:00 84 06/21/16 03:34 78 15 100/62 92 06/21/16 03:04 84 19 106/67 92 06/21/16 02:34 80 14 103/63 92 06/21/16 02:00 78 06/21/16 01:04 80 91/56 06/21/16 01:04 80 14 91/56 92 06/21/16 00:34 92 18 114/69 98 06/21/16 00:15 93 40 06/21/16 00:04 98.0 80 15 97/59 93 06/21/16 00:00 80 06/21/16 00:00 40 06/20/16 23:04 80 15 101/58 93 06/20/16 22:34 80 14 97/55 93 06/20/16 22:04 80 14 96/55 93 06/20/16 22:01 93 40 06/20/16 22:00 82 06/20/16 21:34 82 15 95/55 92 06/20/16 21:04 84 14 97/56 92 I/O 2/6/17 2/10/2906/20/16 06/21/16 06/21/16 06/21/16 07:00 15:00 23:00 07:00 15:00 23:00 Intake Total 988 ml 2056 ml 1208 ml 1285 ml 872 ml Output Total 350 ml 475 ml 475 ml 650 ml 830 ml Balance 638 ml 1581 ml 733 ml 635 ml 42 ml Intake Oral 0 ml 0 ml 0 ml IV Total 863 ml 1928 ml 1067 ml 1157 ml 772 ml Tube Feeding 75 ml 53 ml 101 ml 88 ml 0 ml Other 50 ml 75 ml 40 ml 40 ml 100 ml Output Urine Total 350 ml 475 ml 475 ml 650 ml 510 ml Gastric Drainage Total 0 ml 320 ml # Bowel Movements 0 0 Laboratory Laboratory Tests Test 06/21/16 06/21/16 06/21/16 06/21/16 06:20 07:00 07:20 07:28 Reticulocyte Count 2.9 Absolute Reticulocyte Count 62.0 Lactate Dehydrogenase 274 Immunoglobulin G Total 2009 Immunoglobulin A 1460 Immunoglobulin M 159 White Blood Count 6.1 Red Blood Count 2.25 Hemoglobin 7.7 Hematocrit 22.7 Mean Corpuscular Volume 100.7 Mean Corpuscular Hemoglobin 34.3 Mean Corpuscular Hemoglobin 34.1 Concent Red Cell Distribution Width 26.8 Platelet Count 89 Mean Platelet Volume 6.9 Neutrophils (%) (Auto) 85.3 Lymphocytes (%) (Auto) 9.0 Monocytes (%) (Auto) 5.4 Eosinophils (%) (Auto) 0.1 Basophils (%) (Auto) 0.2 Neutrophils # (Auto) 5.3 Lymphocytes # (Auto) 0.5 Monocytes # (Auto) 0.3 Eosinophils # (Auto) 0.0 Basophils # (Auto) 0.0 CBC Comment AUTO DIFF Differential Comment AUTO DIFF CONFIRMED Platelet Estimate LOW Platelet Morphology Comment NORMAL Target Cells 1+ Prothrombin Time 20.7 Prothromb Time International 1.8 Ratio Activated Partial 53.4 Thromboplast Time Sodium Level 139 Potassium Level 3.0 Chloride Level 107 Carbon Dioxide Level 22.4 Anion Gap 10 Blood Urea Nitrogen 33 Creatinine 1.40 Estimat Glomerular Filtration 53 Rate Random Glucose 135 Calcium Level 8.5 Total Bilirubin 13.1 Aspartate Amino Transf 59 (AST/SGOT) Alanine Aminotransferase 25 (ALT/SGPT) Alkaline Phosphatase 65 Total Protein 7.1 Albumin 2.3 Blood Type A POSITIVE Direct Antiglobulin Test NEGATIVE ([facility]) Blood Bank Comment Test 06/21/16 08:00 Urine Total Volume 24 Hours 825 Urine Total Protein 24 Hour 412 Date/Time Procedure Status Source Growth 06/18/16 09:05 Aerobic Blood Culture - Preliminary Resulted Blood Peripheral NO GROWTH IN 3 DAYS 06/18/16 09:05 Anaerobic Blood Culture - Preliminary Resulted Blood Peripheral NO GROWTH IN 3 DAYS 06/18/16 02:00 Gram Stain - Final Complete Sputum Endotracheal 06/18/16 02:00 Sputum Culture - Final Complete Sputum Endotracheal MODERATE GROWTH NORMAL RESPIRATORY [facility] Imaging Last 48 hours Impressions Chest X-Ray 06/20/16 0600 Signed Impressions: Service Date/Time: Monday, June 20, 2016 06:25 - CONCLUSION: Worsening bilateral airspace disease and effusions. Ezra Aggarwal MD Physical Exam HEENT: Normocephalic; atraumatic; + jaundice. CHEST: Resp. shallow/even. CARDIAC: RRR ABDOMEN: Soft, distended, ascites nontender; hepatosplenomegaly; bowel sounds are present in all four quadrants. EXTREMITIES: No clubbing, cyanosis, or edema. SKIN: Normal; no rash; + jaundice. SALON COORDINATOR: Lethargic, generalized weakness Assessment and Plan Plan ASSESSMENT: - Jaundice, Elevated LFTs. Alcoholic hepatitis Abdomen/Pelvis CT (05/31/16) revealed 1. Ascites with varicosities as described above. 2. Caesy shrunken liver with prominent spleen all consistent with longstanding cirrhosis. Pt denies any known hx of liver disease or cirrhosis in himself or family. He reports hx of heavy ETOH abuse, but quit 6 months ago and has not had any ETOH since that time. He denies any GI symptoms other than mild epigastric/midabdominal pressure. He reports that he has been jaundiced 2-3 months. Denies weight loss. He has been taking 5-6 Acetaminophen per day for a few months. He denies any hx of drug use or blood transfusions. He denies any new sexual partners. He denies any history of hepatitis. Hepatitis panel negative. ANAnegative/ASMA negative/AMA negative, AFP 3.1, ALpha 1 Antitrypsin 162, Ceruloplasmin 16. Iron transfusion 40.4%, Ferritin 447. Acetaminophen level was < 2.0, but he was taking significant amount of acetaminophen. S/P Mucamyst x 17 doses. T. Bili 14.3, AST 60, ALT 29, Alk Phosph 91. - Liver cirrhosis. New dx. CT Abdomen/Pelvis CT (05/31/16) revealed 1. Ascites with varicosities as described above. 2. Casey shrunken liver with prominent spleen all consistent with longstanding cirrhosis. MELD 23. Pt reports hx of heavy ETOH abuse, states he quit completely x 5-6 months ago. - Coagulopathy/Thrombocytopenia. Plt 140 - Anemia. 9./26.2.. No active bleeding. EGD/Colonoscopy (06/06/16)--> duodenitis, portal gastropathy, hiatal hernia, retroflex views revealed a hiatal hernia, Solid stool in the rectum and sigmoid, retroflex views revealed small internal hemorrhoids, internal hemorrhoids. Refuses to have repeat colonoscopy - Back pain with lle weakness/numbness. - COPD, HTN. 06/14/17-No abdominal pain, has ascites present, refused repeat colonoscopy. 2-1-17 drop HGB we will re check H/H and give him PRBC, patient does not want procedures, may need paracentesis if abdomen continue to get distended with ascites 2-2-17- Hepatic encephalopathy worse, generalized tenderness all over, ascites of abdomen, may need Paracentesis if any further increase in ascites, more jaundice today, LF's elevated with Bilirubin of 11.1, AST of 74, ALT of 28, Alk phos 85, H&H low yesterday, had PRBC's &.2. 21.7 today. May need repeat EGD if continues to have anemia. PLAN: -Continue to monitor labs - Paracentesis if any further increase in ascites - Continue diuretics - Check AM labs - Avoid hepatotoxic meds - Continue supportive care -Overall prognosis is poor Otoniel Pedraza MD Jun 21, 2016 20:39
[2016-06-21] MEDS: AZITHROMYCIN INJ 500 MG in SODIUM CHLOR 0.9% 250 ML INJ 250 ML IV SCH (21:08)
[2016-06-22] VITALS (32 sets, daily range): BP systolic 91–135; BP diastolic 27–64; PULSE 88–100; RESP 7–22; TEMP 97.3–98.1; O2SAT 89–95
[2016-06-22] MEDS: RESP: ALBUTEROL 2.5 MG/IPRATROPIUM 0.5 MG NEB (SCH) INH ×6 (03:47→23:38)
[2016-06-22] MEDS: CHLORHEXIDINE GLUCONATE 2 % 1 PACK (2 CLOTHS) TOP SCH (04:00)
[2016-06-22] MEDS: AZTREONAM INJ 2,000 MG in SODIUM CHLORIDE 0.9% INJ 100 ML IV SCH ×3 (05:37→21:24)
[2016-06-22] MEDS: LACTULOSE SYRUP 20 GM/30 ML CUP PO SCH ×3 (05:37→17:17)
[2016-06-22] MEDS: METOCLOPRAMIDE HCL 10 MG/2 ML VIAL IV PUSH SCH ×3 (05:38→21:26)
[2016-06-22] MEDS: HYDROCORTISONE SOD SUCCINATE 100 MG VIAL IV PUSH SCH ×3 (05:38→21:26)
[2016-06-22 05:59] LABS: CHLORIDE 109 MEQ/L (98-107); POTASSIUM 3.3 MEQ/L (3.5-5.1); SODIUM (NA) 142 MEQ/L (136-145)
[2016-06-22 06:02] LABS: ANION GAP 10 MEQ/L (5-15); BICARBONATE 23.3 MEQ/L (21.0-32.0); BLOOD UREA NITROGEN 40 MG/DL (7-18)
[2016-06-22 06:05] LABS: ALT (GPT) 31 U/L (12-78)
[2016-06-22 06:06] LABS: AST (GOT) 59 U/L (15-37); GLOMERULAR FILTRATION RATE 53 ML/MIN (>89)
[2016-06-22 06:07] LABS: TOTAL BILIRUBIN ADULT 13.2 MG/DL (0.2-1.0)
[2016-06-22 06:08] LABS: ALKALINE PHOSPHATASE 60 U/L (45-117)
[2016-06-22 06:26] LABS: HEMATOCRIT 24.3 % (39.0-51.0); MEAN CELL VOLUME 97.6 FL (80.0-100.0); MEAN CORPUSCULAR HEMOGLOBIN 33.2 PG (27.0-34.0); PLATELET COUNT 82 TH/MM3 (150-450); RED BLOOD COUNT 2.49 MIL/MM3 (4.50-5.90); RED CELL DISTRIBUTION WIDTH 27.5 % (11.6-17.2)
[2016-06-22 06:36] LABS: HEMO FLAGS AUTO DIFF
[2016-06-22] MEDS: CHLORHEXIDINE 0.12% (ORAL KIT) 15 ML CUP MT SCH ×2 (08:00→19:52)
[2016-06-22 08:13] LABS: NEUTROPHIL # MANUAL DIFF 4.1 TH/MM3 (1.8-7.7); PLATELET ESTIMATE SMEAR LOW (NORMAL); PLATELET MORPHOLOGY NORMAL (NORMAL); POLYS (SEG NEUTROPHILS) 82 % (16-70); SCAN/DIFF FINAL DIFF MANUAL; WBC DIFF SAMPLE 100
[2016-06-22] MEDS: PANTOPRAZOLE SODIUM 40 MG VIAL IV PUSH SCH ×2 (08:34→21:25)
[2016-06-22] MEDS: POLYETHYLENE GLYCOL 17 GM PKG PO SCH ×2 (08:34→21:25)
[2016-06-22] MEDS: FOLIC ACID 1 MG TAB PO SCH (08:34)
[2016-06-22] MEDS: levETIRAcetam 250 MG TAB PO SCH ×2 (08:34→21:27)
[2016-06-22] MEDS: DOCUSATE SODIUM 100 MG CAP PO SCH ×2 (08:37→21:26)
[2016-06-22] MEDS: FUROSEMIDE 40 MG/4 ML VIAL IV PUSH SCH ×2 (08:37→21:26)
[2016-06-22] MEDS: SENNOSIDES 8.6 MG TAB PO SCH ×2 (08:37→21:27)
[2016-06-22] MEDS: SODIUM CHLORIDE 0.9% FLUSH 5 ML FLUSH FLUSH SCH ×2 (08:37→21:24)
[2016-06-22] MEDS: SODIUM CHLORIDE 0.9% FLUSH 5 ML FLUSH IV FLUSH SCH ×2 (08:37→21:24)
[2016-06-22] MEDS: ARTIFICIAL TEARS OPTH SOLN 15 ML BTL EACH EYE SCH ×3 (08:39→17:17)
[2016-06-22] MEDS: VASOPRESSIN INJ 40 UNITS in DEXTROSE 5% IN WATER 100ML INJ 98 ML IV SCH ×2 (09:18)
[2016-06-22] MEDS: SODIUM CHLORIDE 0.9% FLUSH 5 ML FLUSH IVF SCH (12:43)
[2016-06-22] MEDS: VANCOMYCIN 1,000 MG/NS 250 ML IV SCH ×2 (12:44)
[2016-06-22] MEDS: SPIRONOLACTONE 25 MG TAB PO SCH (12:46)
--- NOTE | 2016-06-22 15:11 | HHI.PR ---
Subjective Remarks Patient seen and evaluated in follow-up for encephalopathy and hypotension. Patient extubated yesterday. Continues to remain stable. Care plan discussed with [employer]. I did attempt to contact the daughter and the number the chart is not in service. Objective Vitals Vital Signs Date Time Temp Pulse Resp B/P Pulse Ox O2 Delivery O2 Flow Rate FiO2 06/22/16 13:00 98 16 112/59 94 06/22/16 12:00 97.9 98 16 119/61 95 06/22/16 11:00 98 19 117/57 90 06/22/16 10:00 98 16 104/47 92 06/22/16 09:00 98 17 102/42 93 06/22/16 08:23 100 22 103/55 93 06/22/16 08:00 97.3 98 14 103/51 93 06/22/16 07:40 92 Nasal Cannula 4.00 06/22/16 07:00 94 06/22/16 07:00 94 10 102/54 92 06/22/16 06:00 94 11 103/54 93 06/22/16 06:00 94 06/22/16 06:00 94 103/54 06/22/16 05:00 92 06/22/16 05:00 92 10 99/27 92 06/22/16 04:00 92 06/22/16 04:00 97.6 92 10 100/56 93 06/22/16 03:00 92 7 95/59 92 06/22/16 02:45 92 7 95/59 92 06/22/16 02:00 94 8 100/61 92 06/22/16 02:00 94 06/22/16 01:30 92 7 102/60 93 06/22/16 01:00 92 7 93/55 93 06/22/16 00:15 92 91/55 06/22/16 00:00 92 06/22/16 00:00 97.9 92 7 91/55 94 06/21/16 23:30 90 8 94/56 95 06/21/16 23:22 90 6 87/59 93 06/21/16 23:20 97.8 90 7 87/59 93 06/21/16 23:08 90 8 101/61 92 06/21/16 23:05 98.0 91 12 101/61 93 06/21/16 22:38 92 7 99/62 94 06/21/16 22:08 92 8 95/60 94 06/21/16 22:00 92 06/21/16 21:55 92 10 92/58 93 06/21/16 21:47 92 8 86/58 92 06/21/16 21:45 92 9 82/54 92 06/21/16 21:42 92 9 82/54 92 06/21/16 21:27 92 18 106/63 93 06/21/16 21:12 92 13 109/64 95 06/21/16 20:57 92 14 101/60 94 06/21/16 20:42 92 14 94/56 94 06/21/16 20:27 97.7 92 9 94/56 94 06/21/16 20:12 94 12 99/61 92 06/21/16 20:12 94 99/61 06/21/16 20:00 92 06/21/16 19:31 88 06/21/16 19:23 94 Nasal Cannula 4.00 06/21/16 19:15 96 12 104/58 95 06/21/16 19:00 94 10 102/60 94 06/21/16 18:45 94 15 106/65 94 06/21/16 18:33 92 10 97/56 94 06/21/16 18:30 90 06/21/16 18:03 94 12 95/59 95 06/21/16 17:30 98 16 121/68 93 06/21/16 17:07 100 20 122/71 90 06/21/16 16:30 96 17 119/59 90 06/21/16 16:00 97.4 06/21/16 16:00 88 12 113/64 93 06/21/16 16:00 78 06/21/16 15:45 84 14 98/55 93 06/21/16 15:30 86 14 100/57 93 06/21/16 15:15 86 7 111/63 90 06/21/16 15:00 86 7 101/58 92 I/O 06/21/16 06/21/16 06/21/16 06/22/16 06/22/16 06/22/16 07:00 15:00 23:00 07:00 15:00 23:00 Intake Total 1285 ml 1102 ml 352 ml 500 ml 845 ml Output Total 650 ml 830 ml 200 ml 450 ml 1125 ml Balance 635 ml 272 ml 152 ml 50 ml -280 ml Intake Oral 0 ml 45 ml 60 ml 320 ml IV Total 1157 ml 772 ml 307 ml 140 ml 525 ml Tube Feeding 88 ml 0 ml Packed Cells 300 ml Cryoprecipitate 230 ml Other 40 ml 100 ml Output Urine Total 650 ml 510 ml 200 ml 450 ml 1125 ml Gastric Drainage Total 320 ml # Bowel Movements 0 1 1 Result Diagram: 06/22/1610 06/22/1610 Objective Remarks GENERAL: This is a well-nourished, jaundice and icteric gentleman CARDIOVASCULAR: Regular rate and rhythm without murmurs, gallops, or rubs. RESPIRATORY: Clear to auscultation. Breath sounds equal bilaterally. No wheezes , rales, or rhonchi. GASTROINTESTINAL: Abdomen soft, non-tender, nondistended. Normal active bowel sounds MUSCULOSKELETAL: Extremities without clubbing, cyanosis, there is +2 edema NEURO: Alert & Oriented x4 to person, place, time, situation. Moves all ext x4 Procedures 06/06/16 EGD and Colonoscopy Date of Insertion: Jun 17, 2016 Line: Central Venous Catheter Side: Right Location: Internal, Jugular A/P Problem List: (1) Jaundice ICD Code: R17 Status: Acute Plan: Secondary to liver failure. 4 overall prognosis. We'll follow ammonia, transaminases and bili which are all elevated Continue lactulose, follow for paracentesis needs if increased ascites (2) Metabolic encephalopathy ICD Code: G93.41 Status: Acute Plan: Multifactorial due to critically ill status Hepatotoxins and known history of alcoholic encephalopathy. We'll discuss with family, did attempt to call his daughter however the number in the chart is not in service Patient is acceptable for hospice Palliative care consult appreciated (3) Acute respiratory failure ICD Code: J96.00 Status: Acute Plan: Continue bronchodilators, diuresis Extubated 06/21 Patient with bilateral effusions repeat CXR in am (4) Cirrhosis ICD Code: K74.60 Status: Acute Plan: Due to alcohol Patient with portal gastropathy, anemia and coagulopathy. Continue Protonix, lactulose and follow clinically (5) Hypotension ICD Code: I95.9 Status: Acute Plan: off pressors, will try to wean steroids Assessment and Plan Resume PT Discharge Planning How to care consultation appreciated, patient may benefit from hospice Geovanna Orozco MD Jun 22, 2016 15:11
[2016-06-22] MEDS: SODIUM CHLOR 0.9% 1000 ML INJ 1,000 ML IV SCH (17:18)
[2016-06-22] MEDS: AZITHROMYCIN INJ 500 MG in SODIUM CHLOR 0.9% 250 ML INJ 250 ML IV SCH (21:25)
[2016-06-23] VITALS (14 sets, daily range): BP systolic 113–138; BP diastolic 31–71; PULSE 80–104; RESP 13–21; TEMP 97.3–97.8; O2SAT 93–98
[2016-06-23] MEDS: LACTULOSE SYRUP 20 GM/30 ML CUP PO SCH ×3 (00:29→14:23)
[2016-06-23] MEDS: CHLORHEXIDINE GLUCONATE 2 % 1 PACK (2 CLOTHS) TOP SCH (04:00)
[2016-06-23] MEDS: RESP: ALBUTEROL 2.5 MG/IPRATROPIUM 0.5 MG NEB (SCH) INH ×4 (04:04→15:26)
[2016-06-23] MEDS: AZTREONAM INJ 2,000 MG in SODIUM CHLORIDE 0.9% INJ 100 ML IV SCH (05:43)
[2016-06-23] MEDS: METOCLOPRAMIDE HCL 10 MG/2 ML VIAL IV PUSH SCH ×2 (05:44→14:29)
[2016-06-23] MEDS: HYDROCORTISONE SOD SUCCINATE 100 MG VIAL IV PUSH SCH (05:44)
--- NOTE | 2016-06-23 06:20 | RADHPO ---
EXAM DATE/TIME: 06/23/2016 05:41 [facility] COMPARISON: CHEST SINGLE AP, June 20, 2016, 6:25. INDICATIONS : Shortness of breath. MEDICAL HISTORY : Cirrhosis. Chronic obstructive pulmonary disease. Hypertension. SURGICAL HISTORY : None. ENCOUNTER: Subsequent ACUITY: 4 - 6 days PAIN SCORE: Non-responsive. LOCATION: Bilateral chest FINDINGS: Bilateral effusions, consolidation and cardiomegaly again seen. Osseous structures are intact. Right jugular line in satisfactory position. Endotracheal tube has been removed. CONCLUSION: Stable appearance of the lungs. Ezra Aggarwal MD on June 23, 2016 at 6:18 Board Certified Radiologist. This report was verified electronically.
[2016-06-23] MEDS: VASOPRESSIN INJ 40 UNITS in DEXTROSE 5% IN WATER 100ML INJ 98 ML IV SCH ×2 (07:32)
[2016-06-23] MEDS: CHLORHEXIDINE 0.12% (ORAL KIT) 15 ML CUP MT SCH (08:00)
[2016-06-23] MEDS: DOCUSATE SODIUM 100 MG CAP PO SCH (09:00)
[2016-06-23] MEDS: POLYETHYLENE GLYCOL 17 GM PKG PO SCH (09:00)
[2016-06-23] MEDS: SENNOSIDES 8.6 MG TAB PO SCH (09:00)
[2016-06-23] MEDS: FUROSEMIDE 40 MG/4 ML VIAL IV PUSH SCH (09:24)
[2016-06-23] MEDS: FOLIC ACID 1 MG TAB PO SCH (09:24)
[2016-06-23] MEDS: PANTOPRAZOLE SODIUM 40 MG VIAL IV PUSH SCH (09:24)
[2016-06-23] MEDS: SPIRONOLACTONE 25 MG TAB PO SCH (09:24)
[2016-06-23] MEDS: levETIRAcetam 250 MG TAB PO SCH (09:24)
[2016-06-23] MEDS: SODIUM CHLORIDE 0.9% FLUSH 5 ML FLUSH IV FLUSH SCH (09:25)
[2016-06-23] MEDS: SODIUM CHLORIDE 0.9% FLUSH 5 ML FLUSH IVF SCH (09:25)
[2016-06-23] MEDS: SODIUM CHLORIDE 0.9% FLUSH 5 ML FLUSH FLUSH SCH (09:25)
[2016-06-23] MEDS: ARTIFICIAL TEARS OPTH SOLN 15 ML BTL EACH EYE SCH (09:34)
--- NOTE | 2016-06-23 14:38 | HHI.PR ---
Subjective Remarks Recent seen today in follow-up for end-stage liver disease, jaundice and alcoholic related cirrhosis. Patient with significant scrotal edema despite Lasix and Aldactone. Urinating well. Some diarrhea (on lactulose and senna). Patient more alert and orientated today. at bedside. I did have a long discussion regarding end-of-life issues and they are agreeable for hospice consult which we will continue to pursue. Objective Vitals Vital Signs Date Time Temp Pulse Resp B/P Pulse Ox O2 Delivery O2 Flow Rate FiO2 06/23/16 12:00 97.5 102 17 138/65 94 06/23/16 12:00 104 06/23/16 08:00 100 06/23/16 08:00 97.8 98 14 126/71 06/23/16 07:55 98 Nasal Cannula 6.00 06/23/16 06:00 102 21 119/31 06/23/16 05:00 100 17 06/23/16 05:00 100 17 118/60 06/23/16 04:00 100 15 128/62 94 06/23/16 04:00 80 06/23/16 03:00 98 14 133/65 06/23/16 02:00 100 15 122/61 06/23/16 01:00 100 13 128/60 06/23/16 00:01 97.3 100 21 137/61 93 06/23/16 00:00 86 06/22/16 23:01 98 20 129/60 06/22/16 22:01 98 19 135/64 93 06/22/16 21:01 97.8 100 17 122/62 91 06/22/16 20:25 92 Nasal Cannula 6.00 06/22/16 20:01 98 18 118/59 90 06/22/16 20:00 95 06/22/16 19:00 98 15 112/64 89 06/22/16 18:00 98 11 113/61 91 06/22/16 17:00 100 21 120/59 93 06/22/16 16:00 98.1 98 20 121/58 93 06/22/16 16:00 94 06/22/16 15:00 94 15 119/60 95 I/O 06/22/16 06/22/16 06/22/16 06/23/16 06/23/16 06/23/16 07:00 15:00 23:00 07:00 15:00 23:00 Intake Total 500 ml 845 ml 490 ml 350 ml 240 ml Output Total 450 ml 1125 ml 550 ml 450 ml 1100 ml Balance 50 ml -280 ml -60 ml -100 ml -860 ml Intake Oral 60 ml 320 ml 240 ml 240 ml 240 ml IV Total 140 ml 525 ml 250 ml 110 ml 0 ml Packed Cells 300 ml Output Urine Total 450 ml 1125 ml 550 ml 450 ml 1100 ml # Voids 2 # Bowel Movements 1 3 Result Diagram: 06/22/16 0510 06/22/16 0510 Imaging Last 24 hours Impressions Chest X-Ray 06/23/16 0600 Signed Impressions: Service Date/Time: June 05:41 - CONCLUSION: Stable appearance of the lungs. Ezra Aggarwal MD Objective Remarks GENERAL: This is a well-nourished, jaundice and icteric gentleman CARDIOVASCULAR: Regular rate and rhythm without murmurs, gallops, or rubs. RESPIRATORY: Clear to auscultation. Breath sounds equal bilaterally. No wheezes , rales, or rhonchi. GASTROINTESTINAL: Abdomen soft, non-tender, nondistended. Normal active bowel sounds MUSCULOSKELETAL: Extremities without clubbing, cyanosis, there is +2 edema NEURO: Alert & Oriented x4 to person, place, time, situation. Moves all ext x4 Procedures 06/06/16 EGD and Colonoscopy Date of Insertion: Jun 17, 2016 Line: Central Venous Catheter Side: Right Location: Internal, Jugular A/P Problem List: (1) Jaundice ICD Code: R17 Status: Acute Plan: Secondary to liver failure. Poor overall prognosis. We'll follow ammonia, transaminases and bili which are all elevated Continue lactulose, follow for paracentesis if increased ascites (2) Metabolic encephalopathy ICD Code: G93.41 Status: Acute Plan: Multifactorial due to critically ill status, but better today Hepatotoxins and known history of alcoholic encephalopathy. We'll discuss with family, did attempt to call his daughter however the number in the chart is not in service Patient is acceptable for hospice Palliative care consult appreciated (3) Acute respiratory failure ICD Code: J96.00 Status: Acute Plan: Continue bronchodilators, diuresis Extubated 06/21, doing well Patient with bilateral effusions repeat CXR today on my review shows stable congestion pattern (4) Cirrhosis ICD Code: K74.60 Status: Acute Plan: Due to alcohol Patient with portal gastropathy, anemia and coagulopathy. Continue Protonix, lactulose and follow clinically dc senna (5) Hypotension ICD Code: I95.9 Status: Acute Plan: better wean steroids (6) Bacteremia ICD Code: R78.81 Status: Acute Plan: Group B strep bacteremia, continue vancomycin through 07/09 (Seen by ID.) D/C azithromycin/aztreonam no evidence of SBP Assessment and Plan Resume PT Discharge Planning How to care consultation appreciated, patient may benefit from hospice Geovanna Orozco MD Jun 23, 2016 14:38
[2016-06-23] MEDS: ONDANSETRON HCL 4 MG/2 ML VIAL IV PRN (14:57)
[2016-06-23] MEDS ORDERED: VANCOMYCIN INJ 1,000 MG in SODIUM CHLOR 0.9% 250 ML INJ 250 ML IV SCH ×2 (15:00→18:00)
[2016-06-23] MEDS ORDERED: Vancomycin Consult Pharmacy 1 EA OTHER SCH (15:00)
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
--- NOTE | 2016-06-23 19:47 | HHI.DCPOC ---
Discharge Care Plan Diagnosis: (1) Metabolic encephalopathy (2) Cirrhosis Goals to Promote Your Health * To prevent worsening of your condition and complications * To maintain your health at the optimal level Directions to Meet Your Goals Take your medications as prescribed Follow your dietary instruction Follow activity as directed Keep your appointments as scheduled Take your immunizations and boosters as scheduled If your symptoms worsen call your PCP, if no PCP go to Urgent Care Center or Emergency Room Smoking is Dangerous to Your Health. Avoid second hand smoke Call the 24-hour hour crisis hotline for domestic abuse at Geovanna Orozco MD Jun 23, 2016 19:47
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
[2016-06-23] MEDS ORDERED: PANTOPRAZOLE SOD 40 MG DELAYED RELEASE TAB PO SCH (21:00)
[2016-06-23] MEDS ORDERED: HYDROCORTISONE SOD SUCCINATE 100 MG VIAL IV PUSH SCH (22:00)
[2016-06-24] MEDS ORDERED: FUROSEMIDE 40 MG TAB PO SCH (09:00)
[2016-06-24 19:55] LABS: BETA2 GLYCOPROTEIN I AB IGA LESS THAN 9.0 SAU (< OR = 20)
[2016-06-25] MEDS ORDERED: PHARMACY ORDERED LAB XX ONE (23:45)
== END 2016-06-23 18:00 | disposition hospice, inpatient (51) | DRG 870 ==
LOC: NEPE 14:25 → NEDA 19:06 → NEDH 23:12 → NEPHCDU 23:24 → N07A 06-01 23:13 → PH5A 06-10 17:45 → PHICU 06-16 19:48
PROVIDERS: ADMIT Hospitalist; ATTEND Hospitalist
PROC: 30233N1 Transfusion of Nonautologous Red Blood Cells into Peripheral Vein, Percutaneous Approach (ICD-10-PCS; 2016-06-03)
PROC: 0DJD8ZZ Inspection of Lower Intestinal Tract, Via Natural or Artificial Opening Endoscopic (ICD-10-PCS; 2016-06-06)
PROC: 0DJ08ZZ Inspection of Upper Intestinal Tract, Via Natural or Artificial Opening Endoscopic (ICD-10-PCS; 2016-06-06 14:20)
PROC: 5A1955Z Respiratory Ventilation, Greater than 96 Consecutive Hours (ICD-10-PCS; principal; 2016-06-17)
PROC: 02HV33Z Insertion of Infusion Device into Superior Vena Cava, Percutaneous Approach (ICD-10-PCS; 2016-06-17)
PROC: 0BH17EZ Insertion of Endotracheal Airway into Trachea, Via Natural or Artificial Opening (ICD-10-PCS; 2016-06-17)
PROC: 30233K1 Transfusion of Nonautologous Frozen Plasma into Peripheral Vein, Percutaneous Approach (ICD-10-PCS; 2016-06-19)
DX: A40.1 Sepsis due to streptococcus, group B (principal); J96.00 Acute respiratory failure, unspecified whether with hypoxia or hypercapnia; G93.41 Metabolic encephalopathy; J90 Pleural effusion, not elsewhere classified; N17.9 Acute kidney failure, unspecified; R65.20 Severe sepsis without septic shock; E44.0 Moderate protein-calorie malnutrition; D68.4 Acquired coagulation factor deficiency; I95.9 Hypotension, unspecified; J44.9 Chronic obstructive pulmonary disease, unspecified; D69.59 Other secondary thrombocytopenia; K70.31 Alcoholic cirrhosis of liver with ascites; I10 Essential (primary) hypertension; G89.29 Other chronic pain; F17.210 Nicotine dependence, cigarettes, uncomplicated; R20.0 Anesthesia of skin; F10.21 Alcohol dependence, in remission; M51.27 Other intervertebral disc displacement, lumbosacral region; K64.8 Other hemorrhoids; K44.9 Diaphragmatic hernia without obstruction or gangrene; K29.80 Duodenitis without bleeding; M21.372 Foot drop, left foot; D53.9 Nutritional anemia, unspecified; G40.909 Epilepsy, unspecified, not intractable, without status epilepticus; K31.9 Disease of stomach and duodenum, unspecified; D73.1 Hypersplenism; K80.20 Calculus of gallbladder without cholecystitis without obstruction; Z51.5 Encounter for palliative care; K70.40 Alcoholic hepatic failure without coma; E87.70 Fluid overload, unspecified; E87.6 Hypokalemia; R19.7 Diarrhea, unspecified; Z68.23 Body mass index [BMI] 23.0-23.9, adult; Z74.01 Bed confinement status; Z59.9 Problem related to housing and economic circumstances, unspecified; Z79.899 Other long term (current) drug therapy
CPT/HCPCS: 31500; 36430; 36556; 36600; 70551; 71010; 71020; 72125; 72128; 72131; 72141; 72146; 72148; 72158; 73503; 74000; 74176; 74177; 76700; 76705; 76937; 80048; 80053; 80074; 80076; 80185; 80202; 80329; 81001; 81050; 82103; 82105; 82140; 82150; 82247; 82248; 82390; 82550; 82565; 82570; 82607; 82728; 82746; 82784; 82805; 82948; 83010; 83520; 83540; 83550; 83605; 83615; 83690; 83735; 83880; 84100; 84156; 84165; 84166; 84300; 84443; 84484; 85007; 85014; 85018; 85025; 85027; 85044; 85060; 85384; 85598; 85610; 85613; 85730; 86038; 86140; 86147; 86256; 86335; 86403; 86703; 86850; 86880; 86900; 86901; 86920; 86927; 86965; 87040; 87070; 87186; 87205; 87641; 93005; 93306; 93970; 94002; 94003; 94150; 94640; 94664; 95819; 96361; 96365; 96366; 96368; 96375; A9579; C9113; G0480; J0456; J1580; J1644; J1720; J1940; J1956; J2212; J2270; J2370; J2405; J2765; J3010; J3370; J3420; J3430; J3475; J3480; J7030; J7040; J7050; J7060; J7120; P9016; P9017; P9047; Q9963; Q9967